=== PATIENT | female | born 1995 | race Caucasian/White ===

== ENCOUNTER → 2019-02-09 10:23 | Outpatient (CLI) | payer BC, SELFPAY ==
--- NOTE | 2019-02-09 10:34 | MR_ITS ---
PROCEDURE: MR HEAD/BRAIN WO/W CON CLINICAL INDICATION: MIGRAINE WITHOUT AURA Constant headache with dizziness blurred vision nausea and fatigue COMPARISON: No exams were available for comparison TECHNIQUE: Routine multiplanar multi echo sequences are performed without and with gadolinium enhancement. FINDINGS: No midline shift, mass effect, intracranial hemorrhage, or hydrocephalus. No evidence of acute infarction. There is normal burton-white matter differentiation. The cerebellopontine angles, cerebellum, and brainstem have an unremarkable appearance. No enhancing lesions are evident. No areas of restricted diffusion or abnormal white matter signal intensity. The pituitary, corpus callosum, optic chiasm, and craniocervical junction are unremarkable. No cerebellar ectopia. No mastoid effusion or sinus air-fluid level. Mild mucosal thickening of the ethmoid sinuses nonspecific. Unremarkable appearing orbits IMPRESSION: Negative MRI of the brain without and with contrast Dictated by: Calin Carvalho MD 02/10/2019 10:49 Electronically signed by Calin Carvalho MD in [place] 02/10/2019 10:49
== END ==
PROVIDERS: PCP Nurse Practitioner; Visit Provider Nurse Practitioner
DX: G43.009 Migraine without aura, not intractable, without status migrainosus (principal)
CPT/HCPCS: 70553; A9576

== ENCOUNTER 2019-10-03 14:36 | Emergency (ER) | payer BC, SELFPAY ==
[2019-10-03 14:36] VITALS: BP 147/83; PULSE 86; RESP 18; TEMP 36.9; O2SAT 97; BMI 37.8
--- NOTE | 2019-10-03 14:43 | ECG_ITS ---
APPROVED REPORT Exam: Resting ECG HR:85 bpm ECG Measurements Heart Rate 85 AXES UT 170 P 48 QRSd 82 QRS 52 QT 360 T 50 QTc 428 <Conclusion> Normal sinus rhythm Normal ECG Electronically signed by : Wan Oliva, 10/04/2019 06:44:45
--- NOTE | 2019-10-03 14:45 | XR_ITS ---
PROCEDURE: XR CHEST 2V Patient Age:24Y CLINICAL HISTORY: CP chest pain for the past few hours but nonsmoker. COMPARISON: CXR CHEST(2 VIEWS-NOT PORTABLE) from 12/22/2013 FINDINGS: PA and lateral chest performed today No significant change since previous comparison chest film December 2013.. The lungs well expanded clear. No pneumothorax, no pleural effusion. Subtle prominence of lung and markings and vascular markings right infrahilar > left infrahilar region is similar to previous studies. There is slight elevation right hemidiaphragm today suspect a may be some minor atelectasis right lower lobe but no convincing focal pneumonia. No CHF. The heart is normal in size. Jessica and mediastinal structures satisfactory. Chest wall in T-spine appear stable, satisfactory. . IMPRESSION: Nothing definitely acute. Basically stable chest since 2013 Dictated by: Paulo Horn MD 10/03/2019 20:48 Electronically signed by Paulo Horn MD in [place] 10/03/2019 20:48
[2019-10-03 15:01] LABS: Basophils # 0.1 K/mm3 (0-0.2); Basophils % 0.8 % (0.1-2.0); Eosinophils # 0.3 K/mm3 (0.0-0.4); Hemoglobin 15.9 g/dL (12.2-16.2); Lymphocytes # 2.2 K/mm3 (0.7-4.5); Lymphocytes % 27.6 % (10-50); Mean Corpuscular HGB Conc 34.5 g/dL (31.8-35.4); Mean Corpuscular Hemoglobin 29.7 pg (27.0-31.2); Mean Corpuscular Volume 86.1 fl (81-99); Mean Platelet Volume 8.2 fl (7.4-10.4); Monocytes # 0.7 K/mm3 (0.1-1.0); Monocytes % 8.6 % (1.7-9.3); Neutrophils # 4.7 K/mm3 (1.8-7.8); Platelet Count 313 K/mm3 (142-424); Red Blood Count 5.34 M/mm3 (4.20-5.40); Red Cell Distribution Width 12.6 % (11.5-17.5)
[2019-10-03 15:05] LABS: Microscopic, Urine URINE MICROSCOPIC (MICROSCOPIC)
[2019-10-03 15:08] LABS: Blood Urea Nitrogen 14 mg/dl (7-17); Calcium 9.7 mg/dl (8.4-10.2); Carbon Dioxide 28 mmol/L (22.0-30.0); Chloride 103 mmol/L (98-107); Creatinine Clearance Estimated 155 mL/min (50-200); Estimated Glomerular Filt Rate 88 ml/min (>60); GFR (African American) 107 ML/MIN (>60); Glucose 112 mg/dl (74-100); Sodium 138 mmol/L (136-145)
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
[2019-10-03 15:09] LABS: Appearance,Urine CLEAR (Clear); Bilirubin,Urine Negative (Negative); Blood, Urine 3+ (Negative); Color,Urine YELLOW (Yellow); Glucose,Urine (UA) Negative (Negative); Ketones,Urine Negative (Negative); Leukocyte Esterase,Urine 1+ (Negative); Nitrate,Urine Negative (Negative); PH,Urine 5.5 (5.0-8.5); Protein,Urine Negative (Negative); Specific Gravity, Urine 1.025 (1.005-1.030); Urobilinogen,Urine 0.2 EU/dl (0.2)
[2019-10-03 15:10] LABS: Urine Pregnancy, HCG Qual. Negative (Negative)
[2019-10-03 15:22] LABS: Troponin I < 0.01 ng/ml (0.00-0.034)
--- NOTE | 2019-10-03 15:28 | PC.NURSE ---
PT TO RAD
--- NOTE | 2019-10-03 15:32 | PC.NURSE ---
PT HAS RETURNED FROM RAD
[2019-10-03 15:37] LABS: Amorphous Sediment,Urine 1+ /lpf; Squamous Epithelial Cell,Urine Occasional #/hpf (0-5)
[2019-10-03 16:07] VITALS: BP 123/75; PULSE 74; RESP 16; TEMP 36.7; O2SAT 98
== END 2019-10-03 16:12 | disposition home or self-care (01) ==
PROVIDERS: Emergency Provider Family Medicine; PCP Nurse Practitioner
DX: F41.0 Panic disorder [episodic paroxysmal anxiety] (principal); Z91.040 Latex allergy status; Z88.5 Allergy status to narcotic agent; Z90.49 Acquired absence of other specified parts of digestive tract
CPT/HCPCS: 71046; 80048; 81001; 81025; 84484; 85025; 87086; 93005; 96374; 99283

== ENCOUNTER 2019-10-08 18:35 | Emergency (ER) | payer BC, SELFPAY ==
[2019-10-08 18:36] VITALS: BP 137/96; PULSE 101; RESP 20; TEMP 36.7; O2SAT 98; BMI 35.9
--- NOTE | 2019-10-08 18:36 | ECG_ITS ---
APPROVED REPORT Exam: Resting ECG HR:98 bpm ECG Measurements Heart Rate 98 AXES NC 164 P 48 QRSd 82 QRS 76 QT 344 T 49 QTc 439 <Conclusion> Normal sinus rhythm Normal ECG Electronically signed by : Josué Kent, 10/12/2019 08:52:00
--- NOTE | 2019-10-08 18:43 | XR_ITS ---
PROCEDURE: XR CHEST 2V CLINICAL HISTORY: INTERMITTENT CP COMPARISON: No exams were available for comparison FINDINGS: The cardiomediastinal silhouette and pulmonary vascularity are within normal limits. The lungs are clear without infiltrates, suspicious nodules, or pleural effusions. No acute bony abnormalities. IMPRESSION: No acute findings. Dictated by: Calin Carvalho MD 10/08/2019 19:35 Electronically signed by Calin Carvalho MD in [place] 10/08/2019 19:35
--- NOTE | 2019-10-08 19:31 | HMH.EDANX ---
ED Disposition Clinical Impression: Acute anxiety, Hyperventilation Disposition: Home, Self-Care Condition on Discharge: Good Instructions: Anxiety Disorders, Yoga May Help Reduce Anxiety and Stress Additional Instructions: Please follow-up with primary care physician to get a fasting cholesterol screen done and further management. Referrals: Linnea Ellington APRN [Primary Care Provider] - - Critical Care Critical Care Time: No Attestation: On 10/08/19, the high probability of a clinically significant, sudden or life threatening deterioration of the following system(s) required my full and direct attention, intervention and personal management. The time I documented below is in addition to time spent performing reported procedures but includes the following listed in this critical care notation. Medical Decision Making - Medical Records Medical records reviewed: Yes: I reviewed the patient's medical records. - Gregorio Inquiry Pt receiving controlled substance: No Vital Signs: 10/08/19 18:36 Temperature 98.1 F Temperature Source Oral Pulse Rate [Right Radial] 101 H Respiratory Rate 20 Blood Pressure [Right Arm] 137/96 H Blood Pressure Mean [Right Arm] 109 Blood Pressure Source [Right Arm] Automatic Cuff Blood Pressure Position [Right Arm] Sitting 02 Sat by Pulse Oximetry 98 Oxygen Delivery Method Room Air Orders (Tests/Meds): ED MEDICATIONS Generic Name Dose Route Start Last Admin Trade Name Freq PRN Reason Stop Dose Admin Sodium Chloride 10 ml 10/08/19 18:51 Sodium Chloride 0.9% 10ml Vial IV 11/07/19 18:50 NEEDED PRN to Dilute Lorazepam inj Sodium Chloride 10 ml 10/08/19 18:51 Sodium Chloride 0.9% 10ml Vial IV 11/07/19 18:50 NEEDED PRN dilute protonix Discontinued Medications Generic Name Dose Route Start Last Admin Trade Name Freq PRN Reason Stop Dose Admin Lorazepam 1 mg 10/08/19 18:51 Ativan 2mg/Ml Vial IV 10/08/19 18:52 ONCE ONE Pantoprazole Sodium 40 mg 10/08/19 18:51 Protonix 40mg Vial IV 10/08/19 18:52 ONCE ONE ORDERS Category Date Time Status Chest XR 2 view (NOT portable) [XR chest 2V] Stat Exams 10/08/19 18:43 Taken Anxiety HPI - General Chief Complaint: Anxiety Stated Complaint: ANXIETY Time Seen by Provider: 10/08/19 19:31 Mode of Arrival: Ambulatory Limitations: No Limitations Description of Symptoms (Recalled from ER Triage Doc. by RN): PT C/O INTERMITTENT CP WITH LAWRENCE AND DIZZINESS THAT HAS BEEN PRESENT SINCE HER VISIT HERE IN THE ED THIS PAST WEEKEND. PT STATES THAT SHE WAS DX WITH ANXIETY. - History of Present Illness HPI narrative: 24-year-old female presents the ED complaining of acute substernal chest pain. She describes a sense of impending doom and chest pressure. She was just here a few days ago and diagnosed with anxiety after cardiac work-up was perfectly normal. Patient does not have any cardiac history no IV drug use history and her exam was perfectly normal last time she was here. Otherwise patient has no other complaints. She stated this just happened again around 30 minutes ago she does not complain of any stress going on in her life she works at a local [employer]. - Related Data Home Medications: Previous Rx's Medication Instructions Recorded Ibuprofen [Ibuprofen 600mg 600 mg PO Q6HP PRN #30 tab 01/26/19 Tablet] Promethazine HCl [Phenergan 25mg 25 mg PO Q6H PRN #20 tab 01/26/19 tab] hydrOXYzine pamoate [Vistaril 25mg 25 mg PO Q6H PRN 10 Days #30 cap 10/03/19 capsule] Allergies/Adverse Reactions: Allergies Allergy/AdvReac Type Severity Reaction Status Date / Time latex [LATEX] Allergy Intermediate I-RASH Verified 04/23/18 08:53 hydrocodone [HYDROCODONE] Allergy Mild Verified 04/23/18 08:53 [facility] History - Hepatitis A Screen Drug use history?: No High risk sexual behaviors?: No History of sexually transmitted infection?: No Saqib
[2019-10-08 19:54] VITALS: BP 158/102; PULSE 99; RESP 16; TEMP 36.7; O2SAT 99
== END 2019-10-08 19:56 | disposition home or self-care (01) ==
PROVIDERS: Emergency Provider Family Medicine; PCP Nurse Practitioner
DX: F41.9 Anxiety disorder, unspecified (principal); R06.4 Hyperventilation; Z91.040 Latex allergy status
CPT/HCPCS: 71046; 93005; 99282

== ENCOUNTER → 2019-11-18 12:17 | Outpatient (CLI) | payer BC, SELFPAY | PROVIDERS: PCP Nurse Practitioner; Visit Provider Internal Medicine Cardiovascular Disease | DX: R07.9 Chest pain, unspecified (principal); E66.9 Obesity, unspecified | CPT/HCPCS: 93306 ==

== ENCOUNTER 2020-08-05 06:37 | Emergency (ER) | payer BC, SELFPAY ==
[2020-08-05 06:38] VITALS: BMI 37.8
[2020-08-05 06:49] VITALS: BP 158/93; PULSE 94
[2020-08-05 06:51] VITALS: BP 158/93; PULSE 95; RESP 16; TEMP 37.1; O2SAT 95; BMI 36.8
[2020-08-05 06:53] LABS: Microscopic, Urine URINE MICROSCOPIC (MICROSCOPIC)
[2020-08-05 06:56] LABS: Appearance,Urine CLEAR (Clear); Bilirubin,Urine Negative (Negative); Blood, Urine Negative (Negative); Color,Urine YELLOW (Yellow); Glucose,Urine (UA) Negative (Negative); Ketones,Urine Negative (Negative); Leukocyte Esterase,Urine Negative (Negative); Nitrate,Urine Negative (Negative); PH,Urine 5.5 (5.0-8.5); Protein,Urine Negative (Negative); Specific Gravity, Urine >= 1.030 (1.005-1.030); Urobilinogen,Urine 0.2 EU/dl (0.2)
[2020-08-05 06:58] LABS: Urine Pregnancy, HCG Qual. Negative (Negative)
--- NOTE | 2020-08-05 06:58 | XR_ITS ---
PROCEDURE: XR PELVIS 1-2V CLINICAL INDICATION: fall Posttraumatic pain COMPARISON: No exams were available for comparison TECHNIQUE: XR Pelvis AP View FINDINGS: No fracture or dislocation is evident. No significant degenerative change. Suture line is present in the right lower quadrant IMPRESSION: No acute findings. Dictated by: Calin Carvalho MD 08/05/2020 07:37 Calin Carvalho MD in [place] 08/05/2020 07:37
--- NOTE | 2020-08-05 06:58 | CT_ITS ---
PROCEDURE: CT LUMBAR SPINE WO CON CLINICAL HISTORY: fall Posttraumatic pain COMPARISON: CT ABDPELW/O CT ABD PELVIS W/O CONTRAST from 03/28/2016 TECHNIQUE: Axial images obtained with sagittal and coronal reformats. All CT scans at the facility use one or more dose reduction, viz: automated exposure control, ma/kV adjustment per patient size (including targeted exams where dose is matched to indication, i.e. head), or iterative reconstruction technique. FINDINGS: Normal alignment. There is a faint lucency through the tip of the transverse process of L2 on the right. No overlying soft tissue stranding. This could be due to ununited ossification center or a nondisplaced fracture. Mild bulging disc at L5-S1. Spina bifida occulta at S1. IMPRESSION: Nondisplaced fracture at the tip of the spinous process of L2 versus ununited ossification center. Dictated by: Calin Carvalho MD 08/05/2020 08:19 Calin Carvalho MD in [place] 08/05/2020 08:19
--- NOTE | 2020-08-05 06:58 | CT_ITS ---
PROCEDURE: CT COCCYX CLINICAL INDICATION: fall Posttraumatic pain COMPARISON: No exams were available for comparison TECHNIQUE: Axial images obtained with sagittal and coronal reformats. All CT scans at the facility use one or more dose reduction, viz: automated exposure control, ma/kV adjustment per patient size (including targeted exams where dose is matched to indication, i.e. head), or iterative reconstruction technique. FINDINGS: Spina bifida occulta at S1. Nondisplaced fracture involves the distal aspect of the coccyx. There is minimal thickening of the presacral at this region. SI joints have an unremarkable appearance. There is mild bulging of the disc at L5-S1. IMPRESSION: Nondisplaced coccyx fracture Dictated by: Calin Carvalho MD 08/05/2020 08:10 Calin Carvalho MD in [place] 08/05/2020 08:10
[2020-08-05 07:00] VITALS: BP 154/83; PULSE 95; O2SAT 98
[2020-08-05 07:09] LABS: Bacteria,Urine Trace /lpf; WBC,Urine Occasional #/hpf (0-3)
[2020-08-05 07:56] VITALS: BP 149/97; PULSE 88
--- NOTE | 2020-08-05 08:09 | HMH.EDGENADL ---
ED Disposition Clinical Impression: Fracture of coccyx Qualifiers: Encounter type: initial encounter Fracture type: closed Qualified Code(s): S32.2XXA - Fracture of coccyx, initial encounter for closed fracture Disposition: Home, Self-Care Condition on Discharge: Good Instructions: DI for Coccyx Fracture Additional Instructions: ice and see pcp for follow up Prescriptions: Ketorolac Tromethamine [Toradol 10mg tablet] 10 mg PO Q6H 3 Days #12 tab Transmission Status: Pending to [facility] Referrals: Linnea Ellington APRN [Primary Care Provider] - - Critical Care Critical Care Time: No Attestation: On 08/05/20, the high probability of a clinically significant, sudden or life threatening deterioration of the following system(s) required my full and direct attention, intervention and personal management. The time I documented below is in addition to time spent performing reported procedures but includes the following listed in this critical care notation. Medical Decision Making - Medical Records Medical records reviewed: Yes: I reviewed the patient's medical records. - Gregorio Inquiry Pt receiving controlled substance: No Vital Signs: 08/05/20 06:49 08/05/20 06:51 08/05/20 07:00 Temperature 98.7 F Temperature Source Oral Pulse Rate 94 H 95 H Pulse Rate [Right] 95 H Respiratory Rate 16 Blood Pressure 158/93 H 154/83 H Blood Pressure [Right Arm] 158/93 H Blood Pressure Mean 117 109 Blood Pressure Mean [Right Arm] 114 Blood Pressure Source [Right Arm] Automatic Cuff Blood Pressure Position [Right Arm] Sitting 02 Sat by Pulse Oximetry 95 98 Oxygen Delivery Method Room Air 08/05/20 07:56 Temperature Temperature Source Pulse Rate 88 Pulse Rate [Right] Respiratory Rate Blood Pressure 149/97 H Blood Pressure [Right Arm] Blood Pressure Mean 111 Blood Pressure Mean [Right Arm] Blood Pressure Source [Right Arm] Blood Pressure Position [Right Arm] 02 Sat by Pulse Oximetry Oxygen Delivery Method - Lab Data Lab results reviewed: Yes: I reviewed the patient's lab results. Lab Results 08/05/20 06:40: Urine Color Yellow, Urine Appearance Clear, Urine pH 5.5, Ur Specific [place] >= 1.030, Urine Protein Negative, Urine Glucose (UA) Negative, Urine Ketones Negative, Urine Blood Negative, Urine Nitrate Negative, Urine Bilirubin Negative, Urine Urobilinogen 0.2, Ur Leukocyte Esterase Negative, Urine RBC None, Urine WBC Occasional, Ur Squamous Epith Cells 3-5, Urine Bacteria Trace 08/05/20 06:40: Urine HCG, Qual Negative Orders (Tests/Meds): ED MEDICATIONS Discontinued Medications Generic Name Dose Route Start Last Admin Trade Name Juanjose PRN Reason Stop Dose Admin Dexamethasone Sodium Phosphate 8 mg 08/05/20 08:08 Dexamethasone 4mg/Ml 5ml Mdv IM 08/05/20 08:09 ONCE ONE Ketorolac Tromethamine 60 mg 08/05/20 08:07 Ketorolac 60mg/2ml Vial IM 08/05/20 08:08 ONCE ONE ORDERS Category Date Time Status CT coccyx Stat Cat Scan 08/05/20 06:[address] lumbar spine wo con Stat Cat Scan 08/05/20 06:58 Taken - CT Data CT Scan: Abdomen, Pelvis Time Received: 08:[address] Reviewed: Yes: I have viewed the radiologist's interpretation Preliminary Findings: Abnormal (acute fracture coccyx ) Medical Decision Narrative: coccyx fracture and will use nsaif General Adult HPI - General Chief complaint: PAIN Stated complaint: Pain at bottom of spine;tailbone fell last week Time Seen by Provider: 08/05/20 07:30 Mode of Arrival: Ambulatory Source of Information: Patient, Medical Record Limitations: No Limitations Description of Symptoms (Recalled from ER Triage Doc. by RN): Pt fell down her steps about a week ago and continues to have pain to her tailbone. denies head injury or LOC - History of Present Illness HPI narrative: slip fall about 1 week ago with injury to tailbone - seen at [place] - has persistent pain Onse
[2020-08-05 08:31] VITALS: BP 158/97; PULSE 81; RESP 18; TEMP 36.6; O2SAT 98
== END 2020-08-05 08:30 | disposition home or self-care (01) ==
PROVIDERS: Emergency Provider Emergency Medicine; PCP Nurse Practitioner
DX: S32.2XXA Fracture of coccyx, initial encounter for closed fracture (principal); W10.9XXA Fall (on) (from) unspecified stairs and steps, initial encounter; Y92.9 Unspecified place or not applicable; F41.9 Anxiety disorder, unspecified; Z88.5 Allergy status to narcotic agent; Z91.040 Latex allergy status
CPT/HCPCS: 72131; 72170; 72192; 81001; 81025; 99282

== ENCOUNTER 2020-08-08 18:31 | Emergency (ER) | payer BC, SELFPAY ==
[2020-08-08 18:31] VITALS: BP 118/73; PULSE 106; RESP 18; TEMP 36.8; O2SAT 97; BMI 36.8
--- NOTE | 2020-08-08 18:35 | PC.NURSE ---
TRISTON SHAFER spoke with Dr. Tyler at this time
[2020-08-08 19:16] LABS: Basophils # 0.1 K/mm3 (0-0.2); Basophils % 0.4 % (0.1-2.0); Eosinophils # 0.1 K/mm3 (0.0-0.4); Eosinophils % 0.3 % (0.1-12.0); Hematocrit 48.5 % (37.0-47.0); Hemoglobin 16.4 g/dL (12.2-16.2); Lymphocytes # 4.1 K/mm3 (0.7-4.5); Lymphocytes % 18.2 % (10-50); Mean Corpuscular HGB Conc 33.8 g/dL (31.8-35.4); Mean Corpuscular Hemoglobin 29.7 pg (27.0-31.2); Mean Corpuscular Volume 87.7 fl (81-99); Mean Platelet Volume 8.3 fl (7.4-10.4); Monocytes # 1.8 K/mm3 (0.1-1.0); Monocytes % 7.9 % (1.7-9.3); Neutrophils # 16.6 K/mm3 (1.8-7.8); Neutrophils % 73.3 % (37.0-80.0); Platelet Count 351 K/mm3 (142-424); Red Blood Count 5.53 M/mm3 (4.20-5.40); Red Cell Distribution Width 12.9 % (11.5-17.5); White Blood Count 22.7 K/mm3 (4.8-10.8)
[2020-08-08 19:18] LABS: Chloride 106 mmol/L (98-107); MANUAL DIFFERENTIAL MANUAL DIFFERENTIAL (MANUAL DIFF); Potassium 3.6 mmoL/L (3.5-5.1); Sodium 145 mmol/L (136-145)
[2020-08-08 19:20] LABS: Alanine Aminotransferase 45 U/L (12-78); Alkaline Phosphatase 75 U/L (38-126); Anion Gap 15.6 mEq/L (5-15); Aspartate Amino Transferase 31 U/L (14-36); Bilirubin,Total 0.5 mg/dl (0.2-1.3); Blood Urea Nitrogen 17 mg/dl (7-17); Carbon Dioxide 27 mmol/L (22.0-30.0); Creatinine Clearance Estimated 150 mL/min (50-200); Estimated Glomerular Filt Rate 87 ml/min (>60); GFR (African American) 106 ML/MIN (>60)
[2020-08-08 19:21] LABS: Albumin Level 5.3 g/dl (3.5-5.0); Albumin/Globulin Ratio 1.5 (1.1-1.8); Calcium 10.3 mg/dl (8.4-10.2); Globulin 3.5 g/dL (1.3-3.2); Glucose 128 mg/dl (74-100); Total Protein,Serum 8.8 g/dl (6.3-8.2)
[2020-08-08 19:43] LABS: Lymphocytes % 14 % (10-50); Monocytes % 10 % (2-9); Neutrophils % 76 % (42-76); Platelet Estimate Normal; Total Cells Counted 100
[2020-08-08 19:44] LABS: RBC Morphology Normal
[2020-08-08 20:12] LABS: Microscopic, Urine URINE MICROSCOPIC (MICROSCOPIC)
[2020-08-08 20:13] LABS: Appearance,Urine CLEAR (Clear); Bilirubin,Urine Negative (Negative); Blood, Urine Negative (Negative); Color,Urine YELLOW (Yellow); Glucose,Urine (UA) Negative (Negative); Ketones,Urine Negative (Negative); Leukocyte Esterase,Urine TRACE (Negative); Nitrate,Urine Negative (Negative); PH,Urine 6.5 (5.0-8.5); Protein,Urine Negative (Negative); Specific Gravity, Urine 1.025 (1.005-1.030)
[2020-08-08 20:21] LABS: Lactic Acid 1.4 mmol/L (0.7-2.1)
[2020-08-08 20:25] LABS: Bacteria,Urine 2+ /lpf
[2020-08-08 20:26] LABS: C-Reactive Protein 2.4 mg/L (0-4)
[2020-08-08 20:27] VITALS: BP 112/62; PULSE 106; O2SAT 100
--- NOTE | 2020-08-08 20:29 | XR_ITS ---
PROCEDURE: XR CHEST 2V CLINICAL HISTORY: fever with high WBC COMPARISON: CR CXR CHEST(2 VIEWS-NOT PORTABLE) from 12/22/2013 CR XR CHEST 2V from 10/03/2019 CR XR CHEST 2V from 10/08/2019 FINDINGS: The cardiomediastinal silhouette and pulmonary vascularity are within normal limits. There is a faint patchy area of increased density in the left upper lobe at the 2nd interspace anteriorly which could be related to a small area of infiltrate. No acute bony abnormalities. IMPRESSION: Possible small patchy area of infiltrate in the left upper Dictated by: Calin Carvalho MD 08/09/2020 05:31 Calin Carvalho MD in [place] 08/09/2020 05:31
[2020-08-08 20:38] LABS: Procalcitonin 0.064 ng/mL (0.0-2.0)
[2020-08-08 20:44] LABS: Erythrocyte Sedimentation Rate 16 mm/hr (0-20)
--- NOTE | 2020-08-08 22:21 | PC.NURSE ---
2215 spoke with walt at [facility] regarding obtaining medical records for this pt from 08/07/2020. she stated would send records .
--- NOTE | 2020-08-08 22:22 | HMH.EDALLER ---
ED Disposition Clinical Impression: Allergic reaction Qualifiers: Encounter type: subsequent encounter Qualified Code(s): T78.40XD - Allergy, unspecified, subsequent encounter Leukocytosis Qualifiers: Leukocytosis type: unspecified Qualified Code(s): D72.829 - Elevated white blood cell count, unspecified Disposition: Home, Self-Care Condition on Discharge: Good Instructions: DI for General Allergic Reactions Additional Instructions: see pcp and program services planner for follow up Referrals: Linnea Ellington APRN [Primary Care Provider] - Master Roa [Referring] - - Critical Care Critical Care Time: No Attestation: On 08/08/20, the high probability of a clinically significant, sudden or life threatening deterioration of the following system(s) required my full and direct attention, intervention and personal management. The time I documented below is in addition to time spent performing reported procedures but includes the following listed in this critical care notation. Medical Decision Making - Medical Records Medical records reviewed: Yes: I reviewed the patient's medical records. - Gregorio Inquiry Pt receiving controlled substance: No Vital Signs: 08/08/20 18:31 08/08/20 20:27 Temperature 98.3 F Temperature Source Oral Pulse Rate 106 H Pulse Rate [Right Radial] 106 H Respiratory Rate 18 Blood Pressure 112/62 Blood Pressure [Right Arm] 118/73 Blood Pressure Mean 82 Blood Pressure Mean [Right Arm] 88 Blood Pressure Source [Right Arm] Automatic Cuff Blood Pressure Position [Right Arm] Sitting 02 Sat by Pulse Oximetry 97 100 Oxygen Delivery Method Room Air - Lab Data Lab results reviewed: Yes: I reviewed the patient's lab results. Lab Results 08/08/20 18:30: ESR 16 08/08/20 18:30: C-Reactive Protein 2.4, Procalcitonin 0.064 08/08/20 18:32: WBC 22.7 H*, RBC 5.53 H, Hgb 16.4 H, Hct 48.5 H, MCV 87.7, MCH 29.7, MCHC 33.8, RDW 12.9, Plt Count 351, MPV 8.3, Neut % (Auto) 73.3, Lymph % (Auto) 18.2, [place] % (Auto) 7.9, Eos % (Auto) 0.3, Baso % (Auto) 0.4, Neut # (Auto) 16.6 H, Lymph # (Auto) 4.1, [place] # (Auto) 1.8 H, Eos # (Auto) 0.1, Baso # (Auto) 0.1, Total Counted 100, Neutrophils % (Manual) 76, Lymphocytes % (Manual) 14, Monocytes % (Manual) 10 H, Platelet Estimate Normal, RBC Morphology Normal 08/08/20 18:32: Sodium 145, Potassium 3.6, Chloride 106, Carbon Dioxide 27, Anion Gap 15.6 H, BUN 17, Creatinine 0.80, Estimated Creat Clear 150, Estimated GFR 87, Est GFR ( Amer) 106, Glucose 128 H, Calcium 10.3 H, Total Bilirubin 0.5, AST 31, ALT 45, Alkaline Phosphatase 75, Total Protein 8.8 H, Albumin 5.3 H, Globulin 3.5 H, Albumin/Globulin Ratio 1.5 08/08/20 19:55: Urine Color Yellow, Urine Appearance Clear, Urine pH 6.5, Ur Specific [place] 1.025, Urine Protein Negative, Urine Glucose (UA) Negative, Urine Ketones Negative, Urine Blood Negative, Urine Nitrate Negative, Urine Bilirubin Negative, Urine Urobilinogen 1.0, Ur Leukocyte Esterase Trace, Urine RBC None, Urine WBC 5-10, Ur Squamous Epith Cells 10-20, Urine Bacteria 2+ 08/08/20 19:55: Lactate 1.4 Result diagrams: 08/08/20 18:32 08/08/20 18:32 Orders (Tests/Meds): ED MEDICATIONS Generic Name Dose Route Start Last Admin Trade Name Freq PRN Reason Stop Dose Admin Sodium Chloride 1,000 mls @ 999 mls/hr 08/08/20 20:30 08/08/20 20:28 Sod Chlor 0.9% 1000ml Bag IV 08/08/20 21:30 999 mls/hr .Q1H1M HUNG Administration ORDERS Category Date Time Status Chest XR 2 view (NOT portable) [XR chest 2V] Stat Exams 08/08/20 20:29 Taken Blood Culture Stat Micro 08/08/20 19:55 Received Urine Culture Stat Micro 08/08/20 19:55 Received - Radiology Data #1 Image(s): Chest Image Reviewed: Yes I reviewed the patient's radiology image Preliminary Findings: Normal/NAD Allergic React/Insect Bite HPI - General Chief complaint: Allergic Reaction Stated complaint: possible allergic reaction Time Seen by Provider: 08/08/20 20:4
[2020-08-08 23:09] VITALS: BP 121/74; PULSE 87; RESP 16; TEMP 36.9; O2SAT 99
== END 2020-08-08 23:11 | disposition home or self-care (01) ==
PROVIDERS: Emergency Medicine; Emergency Provider Emergency Medicine; PCP Nurse Practitioner
DX: T78.40XA Allergy, unspecified, initial encounter (principal); D72.829 Elevated white blood cell count, unspecified; Z91.040 Latex allergy status; Z88.5 Allergy status to narcotic agent; F41.9 Anxiety disorder, unspecified
CPT/HCPCS: 71046; 80053; 81001; 83605; 84145; 85007; 85025; 85651; 86140; 87040; 87086; 99283

== ENCOUNTER 2020-08-17 17:24 | Emergency (ER) | payer OTHER, SELFPAY ==
[2020-08-17 17:35] VITALS: BP 133/58; PULSE 101; RESP 18; TEMP 36.7; O2SAT 98; BMI 37.2
--- NOTE | 2020-08-17 17:41 | CT_ITS ---
PROCEDURE: CT LUMBAR SPINE WO CON CLINICAL HISTORY: trauma COMPARISON: CT CT LUMBAR SPINE WO CON from 08/05/2020 TECHNIQUE: Axial images obtained with sagittal and coronal reformats. All CT scans at the facility use one or more dose reduction, viz: automated exposure control, ma/kV adjustment per patient size (including targeted exams where dose is matched to indication, i.e. head), or iterative reconstruction technique. FINDINGS: The vertebral body heights and alignment are maintained. The facet joints articulate normally without evidence of jumped facets. Bone density is within normal limits. No significant degenerative changes. Multilevel minor disc bulges noted without evidence of significant canal or foraminal narrowing at multiple levels. There is mild cortical irregularity of the right L2 transverse process, may represent an undisplaced fracture as noted on the prior study. There is comminuted undisplaced fracture of the tip of the coccyx is noted. Minor associated soft tissue swelling is noted. No significant callus formation is noted. IMPRESSION: Comminuted undisplaced fracture of the tip of the coccyx. Adjacent minor associated soft tissue swelling. Other findings are unchanged. Dictated by: Angy Gray 08/18/2020 08:22 Angy Gray in [place] 08/18/2020 08:22
--- NOTE | 2020-08-17 18:02 | HMH.EDBACK ---
ED Disposition Clinical Impression: Strain of lumbar region Qualifiers: Encounter type: initial encounter Qualified Code(s): S39.012A - Strain of muscle, fascia and tendon of lower back, initial encounter Disposition: Home, Self-Care Condition on Discharge: Good Instructions: DI for Low Back Pain Referrals: Linnea Ellington APRN [Primary Care Provider] - - Critical Care Critical Care Time: No Attestation: On 08/17/20, the high probability of a clinically significant, sudden or life threatening deterioration of the following system(s) required my full and direct attention, intervention and personal management. The time I documented below is in addition to time spent performing reported procedures but includes the following listed in this critical care notation. Medical Decision Making - Medical Records Medical records reviewed: Yes: I reviewed the patient's medical records. - Gregorio Inquiry Pt receiving controlled substance: No Vital Signs: 08/17/20 17:35 Temperature 98.1 F Temperature Source Oral Pulse Rate [Right] 101 H Respiratory Rate 18 Blood Pressure [Right Arm] 133/58 L Blood Pressure Mean [Right Arm] 83 02 Sat by Pulse Oximetry 98 Orders (Tests/Meds): ED MEDICATIONS Discontinued Medications Generic Name Dose Route Start Last Admin Trade Name Freq PRN Reason Stop Dose Admin Acetaminophen 1,000 mg 08/17/20 17:42 08/17/20 17:48 Acetaminophen 500mg Tab PO 08/17/20 17:43 1,000 mg ONCE ONE Administration ORDERS Category Date Time Status CT lumbar spine wo con Stat Cat Scan 08/17/20 17:41 Taken - CT Data CT Scan: L-Spine Time Received: 18:[address] Reviewed: Yes: I have reviewed the patient's CT results, I have viewed the radiologist's interpretation Findings Narrative: Old fracture of the coccyx, nondisplaced. Lumbar spine unremarkable - Reevaluation(s) Time: 18:47 Reevaluation #1: On reevaluation, patient is feeling better. There is no evidence of new acute fracture. Repeat examination is benign. No neuro deficit. No saddle anesthesia. Patient will continue her outpatient pain regimen. Given strict return precautions. Verbalized understanding. Medical Decision Narrative: 25-year-old female presented to the emergency department with low back pain. Imaging will be obtained. Back Pain HPI - General Chief Complaint: Back Pain/Injury Stated Complaint: Fell in shower; already fell recently Time Seen by Provider: 08/17/20 17:40 Mode of Arrival: Family Vehicle Limitations: No Limitations Description of Symptoms (Recalled from ER Triage Doc. by RN): PT C/O LOW BACK PAIN AND COCCYX PAIN AFTER FALLING IN SHOWER TODAY. PT REPORTS SHE HAS A KNOWN COCCYX FRACTURE THAT OCCURED TWO WEEKS AGO. PT DENIES ANY LOWER EXTREMITY NUMBNESS. - History of Present Illness HPI Narrative: This is a 25-year-old female presented to the emergency department with some back pain after a fall. The patient states that she accidentally slipped in the shower and fell onto her back. She is complaining of some lower back pain. Patient was seen here recently for similar issue she fell and broke her tailbone. She is concerned that she has reinjured it. She did not sustain any head trauma. No loss of consciousness. She denies any chest pain or shortness of breath. No headache or change in vision. No dysuria or hematuria. No fevers or chills. - Related Data Home Medications Medication Instructions Recorded Confirmed No Known Home Medications 08/08/20 08/08/20 Allergies Allergy/AdvReac Type Severity Reaction Status Date / Time latex [LATEX] Allergy Intermediate I-RASH Verified 11/25/19 13:28 hydrocodone [HYDROCODONE] Allergy Mild Verified 11/25/19 13:28 ketorolac Allergy Verified 08/08/20 22:58 [facility] History - Hepatitis A Screen Drug use history?: No High risk sexual behaviors?: No History of sexually transmitted infection?: No Currently employed?: No C
[2020-08-17 18:52] VITALS: BP 133/55; PULSE 78; RESP 16; TEMP 36.6; O2SAT 98
== END 2020-08-17 18:53 | disposition home or self-care (01) ==
PROVIDERS: Emergency Provider Emergency Medicine; PCP Nurse Practitioner
DX: S39.012A Strain of muscle, fascia and tendon of lower back, initial encounter (principal); S32.2XXD Fracture of coccyx, subsequent encounter for fracture with routine healing; W18.2XXA Fall in (into) shower or empty bathtub, initial encounter; Y92.012 Bathroom of single-family (private) house as the place of occurrence of the external cause; F41.9 Anxiety disorder, unspecified
CPT/HCPCS: 72131; 99282

== ENCOUNTER → 2020-09-05 15:21 | Outpatient (CLI) | payer OTHER, SELFPAY ==
--- NOTE | 2020-09-05 15:33 | MR_ITS ---
PROCEDURE: MR LUMBAR SPINE WO CON CLINICAL INDICATION: S/p fell down steps [id number] ago. Continued lbp with rt leg numbness. Pt has known coccyx fx. Prior CT 08/17/20. COMPARISON: MR MR HEAD/BRAIN WO/W CON from 02/09/[address] COCCYX from 08/05/2020 TECHNIQUE: Standard multiplanar multiecho sequences are performed without contrast. 3-D MIP and myelographic images are also rendered and reviewed FINDINGS: There is normal alignment. The spinal cord ends at the L1 level. No acute lumbar fracture evident. L1-L2: Unremarkable. L2-L3, L3-L4, and L4-5 has an unremarkable appearance. L5-S1: There is a small central disc protrusion with annular fissure and minimal disc desiccation. No neural impingement apparent. IMPRESSION: Minimal central disc protrusion with small annular fissure at L5-S1 otherwise negative Dictated by: Calin Carvalho MD 09/07/2020 12:15 Calin Carvalho MD in [place] 09/07/2020 12:15
== END ==
PROVIDERS: PCP Nurse Practitioner; Visit Provider Orthopaedic Surgery Adult Reconstructive Orthopaedic Surgery
DX: M54.5 Low back pain (principal)
CPT/HCPCS: 72148; 76376

== ENCOUNTER 2020-10-26 00:25 | Emergency (ER) | payer OTHER, SELFPAY ==
[2020-10-26 00:27] VITALS: BP 146/87; PULSE 111; RESP 17; TEMP 37.7; O2SAT 99; BMI 37.8
[2020-10-26 01:00] VITALS: BP 146/87; PULSE 93; O2SAT 97
[2020-10-26 01:30] VITALS: BP 136/93; PULSE 99; O2SAT 99
--- NOTE | 2020-10-26 01:37 | HMH.EDEAR ---
ED Disposition Clinical Impression: Otitis externa Qualifiers: Otitis externa type: swimmer's ear Chronicity: acute Laterality: right Qualified Code(s): H60.331 - Swimmer's ear, right ear Disposition: Home, Self-Care Condition on Discharge: Good Instructions: DI for Otitis Externa Additional Instructions: use meds and stop augumentin - Prescriptions: levoFLOXacin [Levaquin 500mg tab] 500 mg PO DAILY #7 tab Transmission Status: Pending to [facility] predniSONE [Prednisone 20mg Tab] 20 mg PO BID #10 tab Transmission Status: [facility] Referrals: Linnea Ellington APRN [Primary Care Provider] - Miguel Alfaro MD [Staff Physician] - Master Roa [Referring] - - Critical Care Critical Care Time: No Attestation: On 10/26/20, the high probability of a clinically significant, sudden or life threatening deterioration of the following system(s) required my full and direct attention, intervention and personal management. The time I documented below is in addition to time spent performing reported procedures but includes the following listed in this critical care notation. Medical Decision Making - Medical Records Medical records reviewed: Yes: I reviewed the patient's medical records. - Gregorio Inquiry Pt receiving controlled substance: No Vital Signs: 10/26/20 00:27 10/26/20 01:00 10/26/20 01:30 Temperature 99.9 F H Temperature Source Oral Pulse Rate 93 H 99 H Pulse Rate [Right] 111 H Respiratory Rate 17 Blood Pressure 146/87 H 136/93 H Blood Pressure [Right Arm] 146/87 H Blood Pressure Mean [Right Arm] 106 Blood Pressure Source [Right Arm] Automatic Cuff 02 Sat by Pulse Oximetry 99 97 99 Oxygen Delivery Method Room Air 10/26/20 02:00 Temperature Temperature Source Pulse Rate 98 H Pulse Rate [Right] Respiratory Rate Blood Pressure 127/78 Blood Pressure [Right Arm] Blood Pressure Mean [Right Arm] Blood Pressure Source [Right Arm] 02 Sat by Pulse Oximetry 98 Oxygen Delivery Method - Lab Data Lab results reviewed: Yes: I reviewed the patient's lab results. Lab Results 10/26/20 01:30: WBC 14.3 H, RBC 5.44 H, Hgb 16.1, Hct 46.8, MCV 86.0, MCH 29.7, MCHC 34.5, RDW 12.7, Plt Count 331, MPV 8.3, Neut % (Auto) 69.8, Lymph % (Auto) 19.5, Harding % (Auto) 8.1, Eos % (Auto) 1.9, Baso % (Auto) 0.7, Neut # (Auto) 10.0 H, Lymph # (Auto) 2.8, [place] # (Auto) 1.2 H, Eos # (Auto) 0.3, Baso # (Auto) 0.1, ESR 18 10/26/20 01:30: Sodium 141, Potassium 3.6, Chloride 100, Carbon Dioxide 30, Anion Gap 14.6, BUN 6 L, Creatinine 0.90, Estimated Creat Clear 137, Estimated GFR 76, Est GFR ( Amer) 92, Glucose 97, Calcium 9.7, Total Bilirubin 1.0, AST 38 H, ALT 45, Alkaline Phosphatase 78, C-Reactive Protein 42.4 H, Total Protein 9.0 H, Albumin 5.2 H, Globulin 3.8 H, Albumin/Globulin Ratio 1.4, Procalcitonin 0.076 10/26/20 01:30: Serum HCG, Qual Negative Result diagrams: 10/26/20 01:30 10/26/20 01:30 Orders (Tests/Meds): ED MEDICATIONS Generic Name Dose Route Start Last Admin Trade Name Freq PRN Reason Stop Dose Admin Ceftriaxone Sodium 1 gm/ 50 mls @ 100 mls/hr 10/26/20 02:00 10/26/20 01:55 Sodium Chloride IV 11/09/20 01:59 100 mls/hr Q24H HUNG Administration Protocol Discontinued Medications Generic Name Dose Route Start Last Admin Trade Name Freq PRN Reason Stop Dose Admin Methylprednisolone Sodium Succinate 125 mg 10/26/20 01:52 10/26/20 01:55 Methylprednisolone Sod Succ 125mg Vial IV 10/26/20 01:53 125 mg ONCE ONE Administration Medical Decision Narrative: has ongoing issues with rt ear - not responding to augumentin Ear HPI - General Chief complaint: Ear Stated complaint: right earache Time Seen by Provider: 10/26/20 01:00 Mode of Arrival: Family Vehicle Source of Information: Patient, Medical Record Limitations: No Limitations Description of Symptoms (Recalled from ER Triage Doc. by RN): Pt
[2020-10-26 01:38] LABS: Basophils # 0.1 K/mm3 (0-0.2); Basophils % 0.7 % (0.1-2.0); Eosinophils # 0.3 K/mm3 (0.0-0.4); Eosinophils % 1.9 % (0.1-12.0); Hematocrit 46.8 % (37.0-47.0); Hemoglobin 16.1 g/dL (12.2-16.2); Lymphocytes # 2.8 K/mm3 (0.7-4.5); Lymphocytes % 19.5 % (10-50); Mean Corpuscular HGB Conc 34.5 g/dL (31.8-35.4); Mean Corpuscular Hemoglobin 29.7 pg (27.0-31.2); Mean Platelet Volume 8.3 fl (7.4-10.4); Monocytes # 1.2 K/mm3 (0.1-1.0); Monocytes % 8.1 % (1.7-9.3); Neutrophils % 69.8 % (37.0-80.0); Platelet Count 331 K/mm3 (142-424); Red Blood Count 5.44 M/mm3 (4.20-5.40); Red Cell Distribution Width 12.7 % (11.5-17.5); White Blood Count 14.3 K/mm3 (4.8-10.8)
[2020-10-26 01:45] LABS: Alanine Aminotransferase 45 U/L (12-78); Albumin Level 5.2 g/dl (3.5-5.0); Albumin/Globulin Ratio 1.4 (1.1-1.8); Alkaline Phosphatase 78 U/L (38-126); Anion Gap 14.6 mEq/L (5-15); Aspartate Amino Transferase 38 U/L (14-36); Blood Urea Nitrogen 6 mg/dl (7-17); Calcium 9.7 mg/dl (8.4-10.2); Carbon Dioxide 30 mmol/L (22.0-30.0); Chloride 100 mmol/L (98-107); Creatinine Clearance Estimated 137 mL/min (50-200); Estimated Glomerular Filt Rate 76 ml/min (>60); GFR (African American) 92 ML/MIN (>60); Globulin 3.8 g/dL (1.3-3.2); Glucose 97 mg/dl (74-100); Potassium 3.6 mmoL/L (3.5-5.1); Sodium 141 mmol/L (136-145)
[2020-10-26 01:50] LABS: C-Reactive Protein 42.4 mg/L (0-4)
[2020-10-26 02:00] VITALS: BP 127/78; PULSE 98; O2SAT 98
[2020-10-26 02:00] LABS: HCG Qualitative, Serum Negative (Negative)
[2020-10-26 02:04] LABS: Procalcitonin 0.076 ng/mL (0.0-2.0)
[2020-10-26 02:08] LABS: Erythrocyte Sedimentation Rate 18 mm/hr (0-20)
[2020-10-26 02:51] VITALS: BP 124/71; PULSE 90; RESP 16; TEMP 37.1; O2SAT 99
== END 2020-10-26 02:53 | disposition home or self-care (01) ==
PROVIDERS: Emergency Provider Emergency Medicine; PCP Nurse Practitioner
DX: H60.331 Swimmer's ear, right ear (principal); F41.9 Anxiety disorder, unspecified; Z91.040 Latex allergy status; Z88.5 Allergy status to narcotic agent
CPT/HCPCS: 80053; 84145; 84703; 85025; 85651; 86140; 96365; 96375; 99282

== ENCOUNTER → 2020-11-23 17:11 | Outpatient (CLI) | payer OTHER, SELFPAY ==
--- NOTE | 2020-11-23 17:14 | MR_ITS ---
PROCEDURE INFORMATION: Exam: MR Head Without Contrast Exam date and time: 11/23/2020 5:14 PM Age: 25 years old Clinical indication: Pain; Headache; Additional info: Unspecified optic neuritis. Headache. Blurred vision. No injury or trauma. Symtpoms x2wks. Prior MR 02-09-19 TECHNIQUE: Imaging protocol: MR of the head without contrast. COMPARISON: MR HEAD/BRAIN WO/W CON 02/09/2019 10:42 AM FINDINGS: Brain: No acute infarct. No hemorrhage. No significant white matter disease. No edema. Cerebral ventricles: No ventriculomegaly. Bones/joints: Unremarkable. Paranasal sinuses: Normal as visualized. No acute sinusitis. Mastoid air cells: Normal as visualized. No mastoid effusion. Orbital cavity: Unremarkable. Soft tissues: Unremarkable. IMPRESSION: No acute findings.
== END ==
PROVIDERS: PCP Nurse Practitioner; Visit Provider Nurse Practitioner Family
DX: H46.9 Unspecified optic neuritis (principal)
CPT/HCPCS: 70551

== ENCOUNTER 2020-12-20 22:03 | Emergency (ER) | payer OTHER, SELFPAY ==
[2020-12-20 22:12] VITALS: BP 136/93; PULSE 103; RESP 18; TEMP 36.8; O2SAT 98; BMI 42.5
--- NOTE | 2020-12-20 22:19 | CT_ITS ---
PROCEDURE INFORMATION: Exam: CT Pelvis Without Contrast; Skeletal Exam date and time: 12/20/2020 10:19 PM Age: 25 years old Clinical indication: Injury or trauma; Blunt trauma (contusions or hematomas); Bilateral; Pelvic region; Patient HX: Fall a few days ago, pain, HX of tailbone FX less than a year ago TECHNIQUE: Imaging protocol: Computed tomography images of the pelvis without contrast. Exam focused on the skeletal structures. 3D rendering (Not supervised by radiologist): MIP and/or 3D reconstructed images were created by the technologist. Radiation optimization: All CT scans at this facility use at least one of these dose optimization techniques: automated exposure control; mA and/or kV adjustment per patient size (includes targeted exams where dose is matched to clinical indication); or iterative reconstruction. COMPARISON: CT PELVIS WO CON 12/20/2020 11:02 PM FINDINGS: Bones/joints: There is no evidence of acute fracture. There is no evidence of joint malalignment or dislocation. Soft tissues: There are no soft tissue masses or fluid collections. IMPRESSION: 1. No evidence of acute fracture. 2. No evidence of acute dislocation.
--- NOTE | 2020-12-20 22:20 | XR_ITS ---
PROCEDURE INFORMATION: Exam: XR Chest Exam date and time: 12/20/2020 10:20 PM Age: 25 years old Clinical indication: Injury or trauma; Blunt trauma (contusions or hematomas); Patient HX: Fall a few days ago, pain, HX of tailbone FX less than a year ago TECHNIQUE: Imaging protocol: XR of the chest. Views: 1 view. COMPARISON: CR XR CHEST 2V 08/08/2020 8:30 PM FINDINGS: Lungs: Unremarkable. No consolidation. Pleural spaces: There is no evidence of pneumothorax. There are no pleural effusions present. Heart/Mediastinum: Unremarkable. No cardiomegaly. Diaphragm: There is nonspecific elevation of the right hemidiaphragm. Bones/joints: Unremarkable. IMPRESSION: No acute changes.
--- NOTE | 2020-12-20 22:20 | XR_ITS ---
PROCEDURE INFORMATION: Exam: XR Pelvis Exam date and time: 12/20/2020 10:20 PM Age: 25 years old Clinical indication: Injury or trauma; Blunt trauma (contusions or hematomas); Bilateral; Pelvic region; Patient HX: Fall a few days ago, pain, HX of tailbone FX less than a year ago TECHNIQUE: Imaging protocol: XR pelvis. Views: 1 or 2 view. COMPARISON: CR XR PELVIS 1-2V 08/05/2020 7:31 AM FINDINGS: Bones/joints: There is no evidence of acute fracture. There is no evidence of joint malalignment or dislocation. Soft tissues: There are no soft tissue masses or fluid collections. IMPRESSION: 1. No evidence of acute fracture. 2. No evidence of acute dislocation.
--- NOTE | 2020-12-20 22:22 | XR_ITS ---
PROCEDURE INFORMATION: Exam: XR Lumbosacral Spine Exam date and time: 12/20/2020 10:22 PM Age: 25 years old Clinical indication: Injury or trauma; Blunt trauma (contusions or hematomas); Patient HX: Fall a few days ago, pain, HX of tailbone FX less than a year ago TECHNIQUE: Imaging protocol: XR of the lumbosacral spine. Views: 4 or 5 views. COMPARISON: MR LUMBAR SPINE WO CON 09/05/2020 4:04 PM FINDINGS: Bones/joints: Normal. No acute fracture. Normal alignment. Soft tissues: Unremarkable. IMPRESSION: No acute findings.
--- NOTE | 2020-12-20 22:22 | XR_ITS ---
PROCEDURE INFORMATION: Exam: XR Sacrum and Coccyx, 2 or More Views Exam date and time: 12/20/2020 10:22 PM Age: 25 years old Clinical indication: Injury or trauma; Blunt trauma (contusions or hematomas); Patient HX: Fall a few days ago, pain, HX of tailbone FX less than a year ago TECHNIQUE: Imaging protocol: XR of the sacrum and coccyx, 2 or more views. COMPARISON: CR XR LUMBAR SPINE MIN 4V 12/20/2020 10:37 PM FINDINGS: Bones/joints: There is no evidence of acute fracture. There is no evidence of joint malalignment or dislocation. Soft tissues: There are no soft tissue masses or fluid collections. Mild soft tissue swelling. IMPRESSION: 1. No evidence of acute fracture. 2. No evidence of acute dislocation. 3. Mild soft tissue swelling.
--- NOTE | 2020-12-20 22:22 | CT_ITS ---
PROCEDURE INFORMATION: Exam: CT Pelvis Without Contrast; Skeletal Exam date and time: 12/20/2020 10:22 PM Age: 25 years old Clinical indication: Injury or trauma; Blunt trauma (contusions or hematomas); Bilateral; Pelvic region; Patient HX: Fall a few days ago, pain, HX of tailbone FX less than a year ago TECHNIQUE: Imaging protocol: Computed tomography images of the pelvis without contrast. Exam focused on the skeletal structures. 3D rendering (Not supervised by radiologist): MIP and/or 3D reconstructed images were created by the technologist. Radiation optimization: All CT scans at this facility use at least one of these dose optimization techniques: automated exposure control; mA and/or kV adjustment per patient size (includes targeted exams where dose is matched to clinical indication); or iterative reconstruction. COMPARISON: CT COCCYX 08/05/2020 7:14 AM FINDINGS: Bones/joints: There is no evidence of acute fracture. There is no evidence of joint malalignment or dislocation. Soft tissues: There are no soft tissue masses or fluid collections. IMPRESSION: 1. No evidence of acute fracture. 2. No evidence of acute dislocation.
[2020-12-20 22:24] LABS: Microscopic, Urine URINE MICROSCOPIC (MICROSCOPIC)
[2020-12-20 22:31] LABS: Urine Pregnancy, HCG Qual. Negative (Negative)
[2020-12-20 22:32] LABS: Appearance,Urine CLEAR (Clear); Bilirubin,Urine Negative (Negative); Blood, Urine Negative (Negative); Color,Urine YELLOW (Yellow); Glucose,Urine (UA) Negative (Negative); Ketones,Urine Negative (Negative); Leukocyte Esterase,Urine 3+ (Negative); Nitrate,Urine Negative (Negative); Protein,Urine Negative (Negative); Specific Gravity, Urine 1.025 (1.005-1.030); Urobilinogen,Urine 0.2 EU/dl (0.2)
--- NOTE | 2020-12-20 22:45 | PC.NURSE ---
pt gone to radiology.
[2020-12-20 22:50] LABS: Bacteria,Urine 4+ /lpf; WBC,Urine 50-100 #/hpf (0-3)
--- NOTE | 2020-12-20 23:35 | HMH.EDFALL ---
ED Disposition Clinical Impression: Contusion of coccyx Qualifiers: Encounter type: initial encounter Qualified Code(s): S30.0XXA - Contusion of lower back and pelvis, initial encounter Sprain of lumbar region Qualifiers: Encounter type: initial encounter Qualified Code(s): S33.5XXA - Sprain of ligaments of lumbar spine, initial encounter UTI (urinary tract infection) Qualifiers: Urinary tract infection type: site unspecified Hematuria presence: without hematuria Qualified Code(s): N39.0 - Urinary tract infection, site not specified Disposition: Home, Self-Care Condition on Discharge: Good Instructions: DI for Urinary Tract Infection (UTI) Additional Instructions: use meds and call pcp for culture results Prescriptions: levoFLOXacin [Levaquin 500mg tab] 500 mg PO DAILY #7 tab Transmission Status: [facility] to [facility] Meloxicam [Mobic 15 mg tab] 15 mg PO DAILY #7 tab Transmission Status: P[facility] to [facility] Referrals: Linnea Ellington APRN [Primary Care Provider] - - Critical Care Critical Care Time: No Attestation: On 12/20/20, the high probability of a clinically significant, sudden or life threatening deterioration of the following system(s) required my full and direct attention, intervention and personal management. The time I documented below is in addition to time spent performing reported procedures but includes the following listed in this critical care notation. Medical Decision Making - Medical Records Medical records reviewed: Yes: I reviewed the patient's medical records. - Gregorio Inquiry Pt receiving controlled substance: No Vital Signs: 12/20/20 22:12 Temperature 98.2 F Temperature Source Oral Pulse Rate [Right Brachial] 103 H Respiratory Rate 18 Blood Pressure [Right Arm] 136/93 H Blood Pressure Mean [Right Arm] 107 Blood Pressure Source [Right Arm] Automatic Cuff Blood Pressure Position [Right Arm] Sitting 02 Sat by Pulse Oximetry 98 Oxygen Delivery Method Room Air - Lab Data Lab results reviewed: Yes: I reviewed the patient's lab results. Lab Results 12/20/20 22:15: Urine Color Yellow, Urine Appearance Clear, Urine pH 6.0, Ur Specific [place] 1.025, Urine Protein Negative, Urine Glucose (UA) Negative, Urine Ketones Negative, Urine Blood Negative, Urine Nitrate Negative, Urine Bilirubin Negative, Urine Urobilinogen 0.2, Ur Leukocyte Esterase 3+ A, Urine WBC 50-100, Ur Squamous Epith Cells 10-20, Other Sediment Comment, Urine Bacteria 4+ 12/20/20 22:15: Urine HCG, Qual Negative Orders (Tests/Meds): ORDERS Category Date Time Status Urine Culture Stat Micro 12/20/20 22:15 Received - Radiology Data #1 Image(s): Chest, L-Spine, Pelvis Image Reviewed: Yes I have reviewed radiologist's interpretation Preliminary Findings: No Fracture Seen - CT Data CT Scan: Pelvis Time Received: 23:[address] Reviewed: Yes: I have viewed the radiologist's interpretation Preliminary Findings: No Fracture Seen Medical Decision Narrative: no acute fx and has uti Fall HPI - General Chief Complaint: Fall Stated Complaint: AO 12/19 fell injured tail bone Time Seen by Provider: 12/20/20 23:35 Mode of Arrival: Family Vehicle Source of Information: Patient, Medical Record Limitations: No Limitations Description of Symptoms (Recalled from ER Triage Doc. by RN): pt states she fell and broke tailbone back in july; healed. yesterday she fell again injury to same area. states she was trying to shave her legs in the shower and fell landing on her buttocks. She is worried she injured the bone again. difficulty walking due to pain. all bodily functions intact. denies preg. denies other injury - History of Present Illness HPI Narrative: slipped yesterday and fell with tailbone injury - prev fx coccyx complaint: fall Onset (ago): day(s) Fall from: standing Fall witnessed: no Place fall occurred: home Loss of consciousness: none Prolonged down
[2020-12-21 00:05] VITALS: BP 128/88; PULSE 96; RESP 17; TEMP 36.7; O2SAT 99
== END 2020-12-21 00:06 | disposition home or self-care (01) ==
PROVIDERS: Emergency Provider Emergency Medicine; PCP Nurse Practitioner
DX: S30.0XXA Contusion of lower back and pelvis, initial encounter (principal); S33.5XXA Sprain of ligaments of lumbar spine, initial encounter; W18.2XXA Fall in (into) shower or empty bathtub, initial encounter; Y92.019 Unspecified place in single-family (private) house as the place of occurrence of the external cause; N39.0 Urinary tract infection, site not specified; F41.9 Anxiety disorder, unspecified
CPT/HCPCS: 71045; 72110; 72170; 72192; 72220; 81001; 81025; 87086; 99282

== ENCOUNTER 2021-02-21 11:56 | Emergency (ER) | payer OTHER, SELFPAY ==
[2021-02-21 12:30] VITALS: BP 125/84; PULSE 83; RESP 21; TEMP 36.9; O2SAT 99; BMI 45.1
--- NOTE | 2021-02-21 12:43 | XR_ITS ---
PROCEDURE: XR CHEST 2V CLINICAL HISTORY: POSSIBLE ASPIRATION COMPARISON: CR XR CHEST 2V from 10/08/2019 CR XR CHEST 2V from 08/08/2020 CR XR CHEST PORTABLE from 12/20/2020 FINDINGS: The cardiomediastinal silhouette and pulmonary vascularity are within normal limits. Lungs are clear bilaterally. No acute bony abnormalities. IMPRESSION: No acute findings. Dictated by: Calin Carvalho MD 02/21/2021 13:10 Calin Carvalho MD in [place] 02/21/2021 13:10
[2021-02-21 12:54] LABS: UTC Pregnancy Test, Urine Negative (Negative)
--- NOTE | 2021-02-21 12:58 | HMH.EDUTC ---
[facility] [place] Disposition Clinical Impression: Vomiting Qualifiers: Vomiting type: unspecified Vomiting Intractability: unspecified Nausea presence: with nausea Qualified Code(s): R11.2 - Nausea with vomiting, unspecified Disposition: Home, Self-Care Condition on Discharge: Good Instructions: Nausea and Vomiting-Adult, DI for Cough -- Adult Additional Instructions: Watch for signs of infection such as fever, chills, shortness of breath or productive cough Follow up with your Family Doctor if symptoms worsen or any sign of infection Return if needed Straight to ER if any life threatening symptoms Prescriptions: Ondansetron [Zofran 4mg ODT] 4 mg PO TIDP PRN #10 tab PRN Reason: Vomiting Transmission Status: Pending to [facility] Referrals: Linnea Ellington APRN [Primary Care Provider] - As needed Time of Disposition: 13:19 Medical Decision Making - Gregorio Inquiry Pt receiving controlled substance: No Gregorio was queried for this patient: No Vital Signs: 02/21/21 12:30 Temperature 98.5 F Temperature Source Oral Pulse Rate [Right Brachial] 83 Respiratory Rate 21 Blood Pressure [Right Arm] 125/84 Blood Pressure Mean [Right Arm] 97 Blood Pressure Source [Right Arm] Automatic Cuff Blood Pressure Position [Right Arm] Sitting 02 Sat by Pulse Oximetry 99 Oxygen Delivery Method Room Air - Lab Data Lab results reviewed: Yes: I reviewed the patient's lab results. Lab Results 02/21/21 12:52: [facility] Clinic Negative Orders (Tests/Meds): ORDERS Category Date Time Status CXR 2 view (NOT portable) [XR chest 2V] Stat Exams 02/21/21 12:43 Taken - Radiology Data #1 Image(s): Chest Image Reviewed: Yes I have reviewed radiologist's interpretation IMPRESSION: No acute findings. [facility] [place] HPI - General Stated complaint: vomiting, possibly aspirated Time Seen by Provider: 02/21/21 12:59 Mode of Arrival: Ambulatory Source of Information: Patient Limitations: No Limitations Description of Symptoms (Recalled from Triage Doc. by RN): PATIENT STATES SHE HAS BEEN VOMITING SINCE EARLY THIS MORNING. APPROX 2 HOURS [employer] ENG[employer] SHE REPORTS SHE BREATHED IN [place] AND HAS HAD COUGH AND CHEST DISCOMFORT SINCE. HEENT Symptoms (Recalled from RN notes): No Resp Symptoms (Recalled from RN notes): Yes Skin Symptoms (Recalled from RN notes): No MS Symptoms (Recalled from RN notes): No Functional Status (Recalled from RN notes): WNL - History of Present Illness Provider Complaint: Patient states that she has been having vomting all day States that earlier she was vomiting and she took a breath in and she is worried that she may have aspirated some of her vomit States that she hasnt been short of breath but has had some burning in her throat and cough since and she wanted to get checked - Related Data Previous Rx's Medication Instructions Recorded Ondansetron [Zofran 4mg ODT] 4 mg PO TIDP PRN #10 tab 02/21/21 Allergies Allergy/AdvReac Type Severity Reaction Status Date / Time ketorolac Allergy Severe Anaphylaxis Verified 10/26/20 00:39 hydrocodone [HYDROCODONE] Allergy Intermediate Face & Verified 10/26/20 02:36 tounge swelling latex [LATEX] Allergy Intermediate I-RASH Verified 11/25/19 13:28 - Worker's Comp Is this a Worker's Comp case?: No [facility] History - Hepatitis A Screen Drug use history?: No High risk sexual behaviors?: No History of sexually transmitted infection?: No Currently employed?: No Childcare worker?: No Do you have indoor plumbing?: Yes Do you have electricity?: Yes Attestation statement:: This patient has been screened for Hepatitis A risk factors. I have reviewed the patient's past medical history: Yes Medical History: Reports:: Anxiety Denies:: Cancer, Diabetes Mellitus Type 1, Diabetes Mellitus Type 2, MRSA Other Surgeries: Yes: Appendectomy, Cholecystectomy Amputation: No - Social History Smoking Status: Never smoker Alcohol Intake: never [place]
[2021-02-21 13:20] VITALS: BP 125/84; PULSE 83; RESP 21; TEMP 36.9; O2SAT 99
== END 2021-02-21 13:26 | disposition home or self-care (01) ==
PROVIDERS: Emergency Provider Nurse Practitioner; PCP Nurse Practitioner
DX: R11.2 Nausea with vomiting, unspecified (principal); Z32.02 Encounter for pregnancy test, result negative; F41.9 Anxiety disorder, unspecified
CPT/HCPCS: 71046; 81025; 99202; G0463

== ENCOUNTER 2021-03-26 14:07 | Emergency (ER) | payer OTHER, SELFPAY ==
[2021-03-26 14:09] VITALS: BP 168/109; PULSE 109; RESP 18; TEMP 36.9; O2SAT 97; BMI 43.4
--- NOTE | 2021-03-26 14:24 | HMH.EDGENADL ---
ED Disposition Clinical Impression: Migraine Qualifiers: Migraine type: unspecified Status migrainosus presence: with status migrainosus Intractability: intractable Qualified Code(s): G43.911 - Migraine, unspecified, intractable, with status migrainosus Disposition: Home, Self-Care Condition on Discharge: Good Additional Instructions: Tylenol Motrin, return to the emergency department for any new or acute symptoms. Referrals: Linnea Ellington APRN [Primary Care Provider] - - Critical Care Critical Care Time: No Attestation: On 03/26/21, the high probability of a clinically significant, sudden or life threatening deterioration of the following system(s) required my full and direct attention, intervention and personal management. The time I documented below is in addition to time spent performing reported procedures but includes the following listed in this critical care notation. Medical Decision Making - Medical Records Medical records reviewed: Yes: I reviewed the patient's medical records. - Gregorio Inquiry Pt receiving controlled substance: No Vital Signs: 03/26/21 14:09 03/26/21 20:17 Temperature 98.5 F 98.2 F Temperature Source Oral Oral Pulse Rate 80 Pulse Rate [Left Radial] 109 H Respiratory Rate 18 18 Blood Pressure 165/92 H Blood Pressure [Right Arm] 168/109 H Blood Pressure Mean [Right Arm] 128 Blood Pressure Source [Right Arm] Automatic Cuff Blood Pressure Position [Right Arm] Sitting 02 Sat by Pulse Oximetry 97 Oxygen Delivery Method Room Air Room Air - Lab Data Lab results reviewed: Yes: I reviewed the patient's lab results. Lab Results 03/26/21 14:20: Urine HCG, Qual Negative 03/26/21 14:20: Urine Color Yellow, Urine Appearance Clear, Urine pH 7.0, Ur Specific Burna 1.025, Urine Protein Negative, Urine Glucose (UA) Negative, Urine Ketones Negative, Urine Blood Negative, Urine Nitrate Negative, Urine Bilirubin Negative, Urine Urobilinogen 0.2, Ur Leukocyte Esterase Trace, Urine RBC None, Urine WBC Occasional, Ur Squamous Epith Cells Occasional, Urine Bacteria None 03/26/21 14:30: WBC 9.6, RBC 5.37, Hgb 16.7 H, Hct 47.7 H, MCV 88.8, MCH 31.0, MCHC 34.9, RDW 13.2, Plt Count 337, MPV 9.1, Neut % (Auto) 57.0, Lymph % (Auto) 30.8, [place] % (Auto) 6.5, Eos % (Auto) 4.1, Baso % (Auto) 1.6, Neut # (Auto) 5.5, Lymph # (Auto) 3.0, [place] # (Auto) 0.6, Eos # (Auto) 0.4, Baso # (Auto) 0.2 03/26/21 14:30: Sodium 142, Potassium 4.1, Chloride 106, Carbon Dioxide 25, Anion Gap 15.1 H, BUN 8, Creatinine 0.60, Estimated Creat Clear 108, Estimated GFR 122, Est GFR ( Amer) 147, Glucose 113 H, Calcium 9.6, Total Bilirubin 0.3, AST 61 H, ALT 87 H, Alkaline Phosphatase 73, Total Protein 7.7, Albumin 4.7, Globulin 3.0, Albumin/Globulin Ratio 1.6 03/26/21 14:30: Lactate 1.8 03/26/21 16:25: CSF Volume 5.5, CSF Appearance Clear, CSF Mononuclear WBCs % 0, CSF Polynuclear WBCs % 0 03/26/21 16:25: CSF Glucose 62, CSF Total Protein 24.0 03/26/21 19:20: SARS-CoV-2 (PCR) Not detected, Influenza A Untype (PCR) Not detected, Influenza Type B (PCR) Not detected Result diagrams: 03/26/21 14:30 03/26/21 14:30 Orders (Tests/Meds): ED MEDICATIONS Discontinued Medications Generic Name Dose Route Start Last Admin Trade Name Freq PRN Reason Stop Dose Admin Diphenhydramine HCl 50 mg 03/26/21 16:57 03/26/21 19:16 Diphenhydramine 50mg/Ml Vial IV 03/26/21 16:58 50 mg ONCE ONE Administration Lactated Ringer's 500 mls @ 999 mls/hr 03/26/21 17:00 Lactated Ringer's 1000 Ml Bag IV 03/26/21 17:30 .Q31M HUNG Magnesium Sulfate 1 gm/ Sodium 52 mls @ 100 mls/hr 03/26/21 16:57 03/26/21 19:16 Chloride IV 03/26/21 17:28 100 mls/hr ONCE ONE Administration Lorazepam 2 mg 03/26/21 15:53 03/26/21 16:00 Lorazepam 2mg/Ml Vial IV 03/26/21 15:54 2 mg ONCE ONE Administration Prochlorperazine Edisylate 10 mg 03/26/21 16:57 03/26/21 19:16 Prochlorperazine 10mg/2ml Vial IV 03/26/21 16:58
--- NOTE | 2021-03-26 14:39 | CT_ITS ---
PROCEDURE: CT HEAD/BRAIN WO CON CLINICAL INDICATION: concern for meningitis COMPARISON: MR MR HEAD/BRAIN WO CON from 11/23/2020 TECHNIQUE: Axial images obtained. All CT scans at the facility use one or more dose reduction, viz: automated exposure control, ma/kV adjustment per patient size (including targeted exams where dose is matched to indication, i.e. head), or iterative reconstruction technique. FINDINGS: No midline shift, mass effect, intracranial hemorrhage, hydrocephalus, or extra-axial fluid collection is evident. The calvarium has an unremarkable appearance. No mastoid effusion. No sinus air-fluid level. IMPRESSION: No acute intracranial finding Dictated by: Calin Carvalho MD 03/26/2021 15:54 Calin Carvalho MD in [place] 03/26/2021 15:54
[2021-03-26 14:41] LABS: Basophils # 0.2 K/mm3 (0-0.2); Basophils % 1.6 % (0.1-2.0); Eosinophils # 0.4 K/mm3 (0.0-0.4); Eosinophils % 4.1 % (0.1-12.0); Hematocrit 47.7 % (37.0-47.0); Hemoglobin 16.7 g/dL (12.2-16.2); Lymphocytes % 30.8 % (10-50); Mean Corpuscular HGB Conc 34.9 g/dL (31.8-35.4); Mean Corpuscular Volume 88.8 fl (81-99); Mean Platelet Volume 9.1 fl (7.4-10.4); Monocytes # 0.6 K/mm3 (0.1-1.0); Monocytes % 6.5 % (1.7-9.3); Neutrophils # 5.5 K/mm3 (1.8-7.8); Platelet Count 337 K/mm3 (142-424); Red Blood Count 5.37 M/mm3 (4.20-5.40); Red Cell Distribution Width 13.2 % (11.5-17.5); White Blood Count 9.6 K/mm3 (4.8-10.8)
[2021-03-26 14:47] LABS: Microscopic, Urine URINE MICROSCOPIC (MICROSCOPIC)
[2021-03-26 14:48] LABS: Alanine Aminotransferase 87 U/L (12-78); Albumin Level 4.7 g/dl (3.5-5.0); Albumin/Globulin Ratio 1.6 (1.1-1.8); Alkaline Phosphatase 73 U/L (38-126); Anion Gap 15.1 mEq/L (5-15); Aspartate Amino Transferase 61 U/L (14-36); Bilirubin,Total 0.3 mg/dl (0.2-1.3); Blood Urea Nitrogen 8 mg/dl (7-17); Calcium 9.6 mg/dl (8.4-10.2); Carbon Dioxide 25 mmol/L (22.0-30.0); Chloride 106 mmol/L (98-107); Creatinine Clearance Estimated 108 mL/min (50-200); Estimated Glomerular Filt Rate 122 ml/min (>60); GFR (African American) 147 ML/MIN (>60); Glucose 113 mg/dl (74-100); Potassium 4.1 mmoL/L (3.5-5.1); Sodium 142 mmol/L (136-145); Total Protein,Serum 7.7 g/dl (6.3-8.2)
[2021-03-26 14:53] LABS: Appearance,Urine CLEAR (Clear); Bilirubin,Urine Negative (Negative); Blood, Urine Negative (Negative); Color,Urine YELLOW (Yellow); Glucose,Urine (UA) Negative (Negative); Ketones,Urine Negative (Negative); Leukocyte Esterase,Urine TRACE (Negative); Nitrate,Urine Negative (Negative); Protein,Urine Negative (Negative); Specific Gravity, Urine 1.025 (1.005-1.030); Urobilinogen,Urine 0.2 EU/dl (0.2)
[2021-03-26 14:55] LABS: Lactic Acid 1.8 mmol/L (0.7-2.1)
[2021-03-26 14:56] LABS: Urine Pregnancy, HCG Qual. Negative (Negative)
[2021-03-26 15:06] LABS: Squamous Epithelial Cell,Urine Occasional #/hpf (0-5); WBC,Urine Occasional #/hpf (0-3)
--- NOTE | 2021-03-26 16:08 | PC.NURSE ---
at bedside doing procedure.
[2021-03-26 17:20] LABS: Glucose,CSF 62 mg/dl (40-70)
--- NOTE | 2021-03-26 17:28 | PC.NURSE ---
HOLDING OFF ON MEDS PT IS SLEEPING PER
[2021-03-26 17:31] LABS: Appearance,CSF Clear (Clear); Volume,CSF 5.5 mL
[2021-03-26 18:00] LABS: Mononuclear WBCs,CSF 0 %; Polynuclear WBCs,CSF 0 %
[2021-03-26 19:30] LABS: Coronavirus 19, PCR Not Detected (NotDetected); Influenza A, PCR Not Detected (NotDetected); Influenza B, PCR Not Detected (NotDetected)
[2021-03-26 20:17] VITALS: BP 165/92; PULSE 80; RESP 18; TEMP 36.8; O2SAT 100
[2021-03-29 17:11] LABS: Red Blood Cell,CSF 2 cells/uL (0); White Blood Cell,CSF 1 cells/uL (0-5)
[2021-04-03 07:32] LABS: Epstein-Barr Virus CSF/WB PCR Negative (Negative)
[2021-04-03 12:11] LABS: Enterovirus,CSF PCR Negative (Negative)
== END 2021-03-26 20:23 | disposition home or self-care (01) ==
PROVIDERS: Emergency Provider Emergency Medicine; PCP Nurse Practitioner
DX: G43.911 Migraine, unspecified, intractable, with status migrainosus (principal); F41.9 Anxiety disorder, unspecified; Z20.822 Contact with and (suspected) exposure to COVID-19
CPT/HCPCS: 62272; 70450; 80053; 81001; 81025; 82945; 83605; 84155; 85025; 87040; 87070; 87205; 87498; 87798; 89051; 96365; 96375; 99283; C9803; U0003; U0005

== ENCOUNTER 2021-04-23 13:58 | Emergency (ER) | payer OTHER, SELFPAY ==
[2021-04-23 14:50] VITALS: BP 112/76; PULSE 85; RESP 18; TEMP 36.8; O2SAT 96; BMI 43.4
--- NOTE | 2021-04-23 15:01 | XR_ITS ---
PROCEDURE: XR ANKLE LT MIN 3V CLINICAL INDICATION: PAIN COMPARISON: No exams were available for comparison FINDINGS: No fracture or dislocation. No lytic or blastic change. There is normal mineralization. The joint spaces are well-preserved. No significant degenerative/arthritic changes. No erosive changes evident. Mild lateral soft tissue swelling IMPRESSION: Soft tissue swelling otherwise negative Dictated by: Calin Carvalho MD 04/23/2021 16:16 Calin Carvalho MD in [place] 04/23/2021 16:16
--- NOTE | 2021-04-23 15:37 | HMH.EDUTC ---
[facility] [place] Disposition Clinical Impression: Ankle sprain Qualifiers: Encounter type: initial encounter Involved ligament of ankle: unspecified ligament Laterality: left Qualified Code(s): S93.402A - Sprain of unspecified ligament of left ankle, initial encounter Disposition: Home, Self-Care Condition on Discharge: Good Instructions: How to Use Crutches, Ankle Sprain, DI for Ankle Sprain, How To Perform RICE (Rest, Ice, Compress, Elevate), How to Use a Walking Boot Additional Instructions: *weight bearing as tolerated *RICE, Rest the extremity, Ice 15-20 minutes 3-4 times daily, Compress- wear the maxi wrap as discussed as much as possible to help reduce swelling and pain, Elevate the extremity when at rest *Maxi wrap is for support and help control swelling, use it except in the shower. Be sure that is not to tight but not to loose either *Elevate when resting *Ibuprofen every 6-8 hours as needed for pain an inflammation. If need something more can take Tylenol in between doses of Ibuprofen to help Immediately follow up with your family doctor for new or worsening of symptoms, or no noticeable improvement over the next 3-5 days Use crutches to get around and ambulate Follow up with Dr Gray in Orthopedics or Dr Baker if no improvement or any worsening of symptoms Call back to the [facility] later this evening for the official Reading of your Xray Referrals: Linnea Ellington, DRUPAL ARCHITECT [Primary Care Provider] - As needed Prince Gray MD [Staff Physician] - Claire Baker DPM [Staff Physician] - Time of Disposition: 15:44 Medical Decision Making - Gregorio Inquiry Pt receiving controlled substance: No Gregorio was queried for this patient: No Vital Signs: 04/23/21 14:50 04/23/21 15:57 Temperature 98.2 F 98.2 F Temperature Source Oral Pulse Rate 85 Pulse Rate [Right Brachial] 85 Respiratory Rate 18 18 Blood Pressure 112/76 Blood Pressure [Right Arm] 112/76 Blood Pressure Mean [Right Arm] 88 Blood Pressure Source [Right Arm] Automatic Cuff Blood Pressure Position [Right Arm] Sitting 02 Sat by Pulse Oximetry 96 Oxygen Delivery Method Room Air - Radiology Data #1 Image(s): Ankle Image Reviewed: Yes I reviewed the patient's radiology image Preliminary Findings: No Fracture Seen [facility] [place] HPI - General Stated complaint: AO 1204, left ankle swollen/pain Time Seen by Provider: 04/23/21 15:37 Mode of Arrival: Ambulatory Source of Information: Patient Limitations: No Limitations Description of Symptoms (Recalled from Triage Doc. by RN): PATIENT C/O PAIN AND SWELLING TO LEFT ANKLE AFTER FALLING AND INJURING IT 2 DAYS AGO HEENT Symptoms (Recalled from RN notes): No Resp Symptoms (Recalled from RN notes): No Skin Symptoms (Recalled from RN notes): No MS Symptoms (Recalled from RN notes): Yes Functional Status (Recalled from RN notes): WNL - History of Present Illness Provider Complaint: Patient states that she was walking to the garage a couple days ago when she stepped in hole that the dog had dug and twisted her left ankle States that ever since she has has been having pain and swelling in her ankle and hurts when she tries to walk on it States that she has been using crutches to help her get around and today when she was still hurting she came in to get it checked out - Related Data Previous Rx's Medication Instructions Recorded Ondansetron [Zofran 4mg ODT] 4 mg PO TIDP PRN #10 tab 02/21/21 Allergies Allergy/AdvReac Type Severity Reaction Status Date / Time ketorolac Allergy Severe Anaphylaxis Verified 10/26/20 00:39 hydrocodone [HYDROCODONE] Allergy Intermediate Face & Verified 10/26/20 02:36 tounge swelling latex [LATEX] Allergy Intermediate I-RASH Verified 11/25/19 13:28 - Worker's Comp Is this a Worker's Comp case?: No [facility] History - Hepatitis A Screen Drug use history?: No High risk sexual behaviors?: No History of sexually transmitted infection?: No Currently employed?: No [employer]
[2021-04-23 15:57] VITALS: BP 112/76; PULSE 85; RESP 18; TEMP 36.8; O2SAT 96
== END 2021-04-23 16:05 | disposition home or self-care (01) ==
PROVIDERS: Emergency Provider Nurse Practitioner; PCP Nurse Practitioner
DX: S93.402A Sprain of unspecified ligament of left ankle, initial encounter (principal); W17.2XXA Fall into hole, initial encounter; Y92.017 Garden or yard in single-family (private) house as the place of occurrence of the external cause; F41.9 Anxiety disorder, unspecified
CPT/HCPCS: 29515; 73610; 99202; G0463

== ENCOUNTER 2022-01-19 22:11 | Emergency (ER) | payer OTHER, SELFPAY ==
[2022-01-19 22:12] VITALS: BP 137/83; PULSE 103; RESP 16; TEMP 36.6; O2SAT 97; BMI 41.5
--- NOTE | 2022-01-19 22:40 | XR_ITS ---
PROCEDURE INFORMATION: Exam: XR Left Ankle Exam date and time: 01/19/2022 11:12 PM Age: 26 years old Clinical indication: Pain and injury or trauma; Other: Twisted ankle stepping off porch step; Sprain or strain; Left TECHNIQUE: Imaging protocol: Radiologic exam of the Left ankle. Views: 3 or more views. COMPARISON: CR XR ANKLE LT MIN 3V 04/23/2021 3:05 PM FINDINGS: Bones/joints: Normal. Soft tissues: Normal. IMPRESSION: No acute findings.
--- NOTE | 2022-01-19 22:40 | XR_ITS ---
PROCEDURE INFORMATION: Exam: XR Left Tibia and Fibula Exam date and time: 01/19/2022 11:10 PM Age: 26 years old Clinical indication: Injury or trauma; Other: Twisted ankle and lower leg stepping off a porch step; Sprain or strain; Left; Additional info: Pain TECHNIQUE: Imaging protocol: Radiologic exam of the Left tibia and fibula. Views: 2 views. COMPARISON: CR XR ANKLE LT MIN 3V 04/23/2021 3:05 PM FINDINGS: Bones/joints: Normal. Soft tissues: Normal. IMPRESSION: No acute findings.
--- NOTE | 2022-01-19 22:41 | PC.NURSE ---
Pt says she took tylenol 2 hours ago
[2022-01-19 23:33] VITALS: BP 144/93; PULSE 73; O2SAT 97
[2022-01-20] VITALS: BP 132/96; PULSE 88; O2SAT 96
[2022-01-20 00:31] VITALS: BP 139/94; PULSE 97; O2SAT 97
--- NOTE | 2022-01-20 00:36 | HMH.EDLOEX ---
Discharge Plan Disposition Patient Disposition: Home, Self-Care Chief Complaint: Extremity Injury, Lower Prescriptions Prescriptions: No Action ondansetron 4 MG tablet,disintegrating 4 mg PO TIDP PRN (Reason: Vomiting) Qty: 10 0RF Referrals Follow up/Referrals: Juan R Vu MD [Primary Care Provider] - See instructions Clinical Impressions Clinical Impression: Ankle sprain Instructions Patient Instructions: Sprain Discharge ED Provider: Juan R Vu Lower Extremity Injury HPI General Chief Complaint: Extremity Injury, Lower Stated Complaint: AO09/03@1800 R leg injury Time Seen by Provider: 01/20/22 00:36 Mode of Arrival: Wheelchair Source of Information: Patient Limitations: No Limitations Description of Symptoms (Recalled from ER Triage Doc. by RN): Pt says she missed at step going outside while carrying a box. She reports twisting her left ankle and hitting her left nunez on the step. She is able to bear weight on LLE. no obvious deformity. pedal pulses present. History of Present Illness HPI Narrative: acute injury lt ankle tonight as she missed step complaint: ankle injury Onset (ago): hour(s) Injury: Left: ankle Type of Injury: eversion Place: home Severity: moderate Exacerbating factors: movement Associated symptoms: snap/pop sensation, swelling and able to partially bear weight Other symptoms: none Related Data Previous Rx's Medication Instructions Recorded ondansetron 4 mg disintegrating 4 mg PO TIDP PRN Vomiting #10 tabs 02/21/21 tablet Allergies Allergy/AdvReac Type Severity Reaction Status Date / Time ketorolac Allergy Severe Anaphylaxis Verified 06/08/21 13:58 hydrocodone [HYDROCODONE] Allergy Intermediate Face & Verified 06/08/21 13:58 tounge swelling latex [LATEX] Allergy Intermediate I-RASH Verified 06/08/21 13:58 PFSH PFSH Social History Smoking Status: Never smoker alcohol intake: never substance use type: denies use current occupational status: employed Travel in the last 8 weeks: None ROS Obtained: Yes All systems reviewed & no additional complaints except as documented Physical Exam General General appearance: alert Head Head exam: normocephalic Eye Eye exam: Present PERRL and EOMI ENT ENT exam: Present mucous membranes moist Neck Neck exam: Present trachea midline Respiratory Respiratory exam: Absent respiratory distress Cardiovascular Cardiovascular exam: Present regular rate Expanded Lower Extremity Exam Left: Ankle exam: Present tenderness and swelling; Absent full ROM or erythema Neurological Exam Neurological exam: Present alert, oriented X3 and CN II-XII intact Psychiatric Psychiatric exam: Present normal affect Skin Skin exam: Absent rash Medical Decision Making Medical Records Medical records reviewed: Yes I reviewed the patient's medical records. Gregorio Inquiry Pt receiving controlled substance: No Vital Signs: 01/19/22 22:12 01/19/22 23:33 01/20/22 00:00 Temperature 97.9 F Temperature Source Oral Pulse Rate 73 88 Pulse Rate [Right Radial] 103 H Respiratory Rate 16 Blood Pressure 144/93 H 132/96 H Blood Pressure [Right Arm] 137/83 Blood Pressure Mean [Right Arm] 101 Blood Pressure Source Blood Pressure Source [Right Arm] Automatic Cuff Blood Pressure Position Blood Pressure Position [Right Arm] Sitting 02 Sat by Pulse Oximetry 97 97 96 Oxygen Delivery Method Room Air Room Air Room Air 01/20/22 00:31 01/20/22 00:45 01/20/22 00:45 Temperature 98.0 F Temperature Source Oral Pulse Rate 97 H 84 Pulse Rate [Right Radial] Respiratory Rate 16 Blood Pressure 139/94 H 139/94 H Blood Pressure [Right Arm] Blood Pressure Mean [Right Arm] Blood Pressure Source Automatic Cuff Blood Pressure Source [Right Arm] Blood Pressure Position Sitting Blood Pressure Position [Right Arm] 02 Sat by Pulse Oximetry 97 Oxygen Delivery Method Allie
[2022-01-20 00:45] VITALS: BP 139/94; PULSE 84; RESP 16; TEMP 36.7; O2SAT 97
== END 2022-01-20 00:45 | disposition home or self-care (01) ==
PROVIDERS: Emergency Provider Emergency Medicine; PCP Emergency Medicine
DX: S93.402A Sprain of unspecified ligament of left ankle, initial encounter (principal); W18.43XA Slipping, tripping and stumbling without falling due to stepping from one level to another, initial encounter; Y93.9 Activity, unspecified; Y92.9 Unspecified place or not applicable; Y99.9 Unspecified external cause status
CPT/HCPCS: 73590; 73610; 99283

== ENCOUNTER 2022-04-29 18:20 | Emergency (ER) | payer OTHER, SELFPAY ==
[2022-04-29 18:20] VITALS: BP 126/86; PULSE 117; RESP 18; TEMP 38.9; O2SAT 97; BMI 37.8
[2022-04-29 18:51] LABS: Coronavirus 19, PCR Not Detected (NotDetected); Influenza B, PCR Not Detected (NotDetected)
--- NOTE | 2022-04-29 19:03 | PC.NURSE ---
DR. CULP AT BEDSIDE
[2022-04-29 19:29] LABS: Microscopic, Urine URINE MICROSCOPIC (MICROSCOPIC)
--- NOTE | 2022-04-29 19:58 | HMH.EDGENADL ---
Discharge Plan Disposition Patient Disposition: Home, Self-Care Chief Complaint: Upper Respiratory Infection Prescriptions Prescriptions: No Action escitalopram oxalate [Lexapro] 20 mg tablet 20 mg PO DAILY Qty: 90 3RF alprazolam [Xanax] 2 mg tablet 1 mg PO BID PRN (Reason: anxiety) Qty: 30 3RF Referrals Follow up/Referrals: Eros Kramer MD [Primary Care Provider] - See instructions Clinical Impressions Clinical Impression: Influenza Instructions Patient Instructions: DI for Influenza -- Adult Discharge ED Provider: Javier Chavez General Adult HPI General Chief complaint: Upper Respiratory Infection Stated complaint: fever, cough, back pain, no accident Time Seen by Provider: 04/29/22 18:40 Mode of Arrival: Ambulatory Source of Information: Patient Limitations: No Limitations Description of Symptoms (Recalled from ER Triage Doc. by RN): PT REPORTS COUGH AND FEVER X 1 WEEK AND LOW BACK PAIN TODAY, URINARY PRESSURE History of Present Illness HPI narrative: Patient is a 27-year-old female who presents with concern for fever, cough. She says that for the past week she has been getting progressively worse. She says that she is been having a persistent cough and has been having a fever this whole time. She also complains of some urinary pressure. She says that she has not been able to drink as much water as she normally can because she has been a little nauseous. She denies any diarrhea. Denies any vomiting. Denies any chest pain. No shortness of breath. No sinus congestion. Related Data Previous Rx's Medication Instructions Recorded alprazolam 2 mg tablet (Xanax) 1 mg PO BID PRN anxiety #30 tabs 04/02/22 escitalopram oxalate 20 mg tablet 20 mg PO DAILY #90 tabs 04/02/22 (Lexapro) Allergies Allergy/AdvReac Type Severity Reaction Status Date / Time ketorolac Allergy Severe Anaphylaxis Verified 04/02/22 10:03 hydrocodone [HYDROCODONE] Allergy Intermediate Face & Verified 04/02/22 10:03 tounge swelling latex [LATEX] Allergy Intermediate I-RASH Verified 04/02/22 10:03 [facility] Disclaimer: The information contained in this section may have been updated after the patient was seen, as this information can be updated by other users. Medical History Anxiety Depression Family History (Updated 04/29/22 @ 19:04 by Asiya Suarez, ERIKA) Other No significant family history Social History (Updated 04/29/22 @ 19:04 by Asiya Suarez, ERIKA) Smoking Status: Never smoker alcohol intake: current substance use type: denies use current occupational status: employed Travel in the last 8 weeks: None ROS Obtained: Yes All systems reviewed & no additional complaints except as documented A 14 point review of system was obtained and otherwise negative except per HPI Physical Exam General General appearance: alert and in no apparent distress Head Head exam: atraumatic, normocephalic and normal inspection Eye Eye exam: Present normal appearance, PERRL and EOMI ENT ENT exam: Present normal exam, normal oropharynx, mucous membranes moist, TM's normal bilaterally and normal external ear exam Neck Neck exam: Present normal inspection, full ROM and trachea midline; Absent meningismus or lymphadenopathy Chest Chest inspection: Present normal inspection and symmetric chest wall rise; Absent tenderness Respiratory Respiratory exam: Present normal lung sounds bilaterally; Absent respiratory distress Cardiovascular Cardiovascular exam: Present regular rate and normal rhythm; Absent JVD Abdominal Exam Abdominal exam: Present soft and normal bowel sounds; Absent distention, tenderness or guarding Extremities Exam Extremities exam: Present normal inspection, full ROM and normal capillary refill; Absent calf tenderness Back Exam Back exam: Present normal inspection; Absent tenderness Neurological Exam Neurological exam: Pres
[2022-04-29 20:01] LABS: Appearance,Urine CLEAR (Clear); Blood, Urine TRACE-I (Negative); Color,Urine YELLOW (Yellow); Glucose,Urine (UA) Negative (Negative); Ketones,Urine TRACE (Negative); Leukocyte Esterase,Urine 1+ (Negative); Nitrate,Urine Negative (Negative); PH,Urine 6.5 (5.0-8.5); Protein,Urine TRACE (Negative); Specific Gravity, Urine 1.025 (1.005-1.030)
[2022-04-29 20:03] LABS: Bilirubin,Urine 1+ (Negative)
[2022-04-29 20:17] LABS: Bacteria,Urine 1+ /lpf; RBC,Urine Occasional #/hpf (0-3)
[2022-04-29 20:21] LABS: Influenza A, PCR Detected (NotDetected)
[2022-04-29 20:27] VITALS: BP 125/85; PULSE 103; RESP 18; TEMP 36.6; O2SAT 99
== END 2022-04-29 20:49 | disposition home or self-care (01) ==
PROVIDERS: Emergency Provider Student in an Organized Health Care Education/Training Program; PCP Family Medicine
DX: J10.1 Influenza due to other identified influenza virus with other respiratory manifestations (principal)
CPT/HCPCS: 81001; 87086; 99283; C9803; U0003; U0005

== ENCOUNTER → 2022-07-22 12:21 | Outpatient (CLI) | payer OTHER, SELFPAY ==
--- NOTE | 2022-07-22 12:25 | US_ITS ---
FINAL REPORT CLINICAL HISTORY: HEAVY VAG BLEEDING FINDINGS: Transvaginal sonographic images of the pelvis were obtained. The uterus measures 8.5 x 4.4 x 5.3 cm. The endometrium measures 9 mm, which is within normal limits. There is a 7 mm hyperechoic mass in the anterior uterine fundus of uncertain etiology. This could represent a uterine fibroid or other mass. The right ovary measures 3.9 cm in length and left ovary measures 4.0 cm in length. Normal blood flow seen to the ovaries. There are multiple small follicles in the ovaries which may represent polycystic ovarian syndrome. There is no evidence of free fluid. IMPRESSION: Mass in the anterior uterine fundus of uncertain etiology may represent a uterine fibroid or other mass. Small multiple small follicles in the ovaries may represent PCOS. Reviewed, Interpreted and Dictated by Gerard Quintero III, MD Transcribed by Cindy Harmon Authenticated and [facility]
[2022-07-22 15:05] LABS: Basophils # 0.1 K/mm3 (0-0.2); Basophils % 1.4 % (0.1-2.0); Eosinophils # 0.3 K/mm3 (0.0-0.4); Eosinophils % 3.7 % (0.1-12.0); Hematocrit 46.3 % (37.0-47.0); Hemoglobin 15.5 g/dL (12.2-16.2); Lymphocytes # 2.2 K/mm3 (0.7-4.5); Lymphocytes % 25.4 % (10-50); Mean Corpuscular HGB Conc 33.4 g/dL (31.8-35.4); Mean Corpuscular Hemoglobin 30.2 pg (27.0-31.2); Mean Corpuscular Volume 90.4 fl (81-99); Mean Platelet Volume 8.7 fl (7.4-10.4); Monocytes # 0.8 K/mm3 (0.1-1.0); Monocytes % 9.8 % (1.7-9.3); Neutrophils # 5.1 K/mm3 (1.8-7.8); Neutrophils % 59.6 % (37.0-80.0); Platelet Count 306 K/mm3 (142-424); Red Blood Count 5.12 M/mm3 (4.20-5.40); Red Cell Distribution Width 12.7 % (11.5-17.5); White Blood Count 8.5 K/mm3 (4.8-10.8)
[2022-07-22 15:17] LABS: Alanine Aminotransferase 57 U/L (12-78); Albumin Level 4.7 g/dl (3.5-5.0); Albumin/Globulin Ratio 1.6 (1.1-1.8); Alkaline Phosphatase 59 U/L (38-126); Anion Gap 13.4 mEq/L (5-15); Aspartate Amino Transferase 42 U/L (14-36); Bilirubin,Total 0.4 mg/dl (0.2-1.3); Blood Urea Nitrogen 10 mg/dl (7-17); Calcium 9.5 mg/dl (8.4-10.2); Carbon Dioxide 28 mmol/L (22.0-30.0); Chloride 103 mmol/L (98-107); Estimated Glomerular Filt Rate 86 ml/min (>60); GFR (African American) 104 ML/MIN (>60); Glucose 110 mg/dl (74-100); Potassium 4.4 mmoL/L (3.5-5.1); Sodium 140 mmol/L (136-145); Total Protein,Serum 7.7 g/dl (6.3-8.2)
[2022-07-22 15:47] LABS: HCG,Quantitative < 2 mIU/ml (0-5.42)
== END ==
PROVIDERS: PCP Family Medicine; Visit Provider Nurse Practitioner Obstetrics & Gynecology
DX: N93.8 Other specified abnormal uterine and vaginal bleeding (principal); Z87.42 Personal history of other diseases of the female genital tract
CPT/HCPCS: 36415; 76830; 80053; 84702; 85025

== ENCOUNTER 2022-07-23 06:56 | Day surgery (SDC) | payer OTHER, SELFPAY ==
[2022-07-23 07:21] VITALS: BP 136/83; PULSE 96; RESP 18; TEMP 36.7; O2SAT 100; BMI 41.5
[2022-07-23 08:51] VITALS: BP 133/98; PULSE 88; RESP 17; TEMP 36.3; O2SAT 98
--- NOTE | 2022-07-23 08:55 | EXP.ANES.CKL ---
[facility] Disclaimer: The information contained in this section may have been updated after the patient was seen, as this information can be updated by other users. Medical History Anxiety Depression Surgical History History of cholecystectomy Hx of appendectomy Family History Other No significant family history Social History (Updated 07/23/22 @ 07:20 by Flynn Hurd RN) Smoking Status: Never smoker alcohol intake: never substance use type: denies use current occupational status: employed and unemployed Travel in the last 8 weeks: None [facility] Anesthesia Checklist Patient Identification Patient Identification: Arm Band and Verbal (Name & ) Structural Data Admitted From: Home Planned Operative Procedure/s: Hysteroscopy/D&C Consent for Planned Operative Procedure(s) Verified: Yes Verified Documents: Surgical Consent NPO Status Verified Time NPO: 00:00 Chart Verification Results Verified: CBC and HCG Additional verifications Anesthesia Reactions: No Hx Blood Transfusions: No Blood Transfusion Reaction: No Airway Assessment C-Spine Mobility Assessed: Yes TMJ Mobility Assessed: Yes Dentition: Good Dentition Neurological Assessment Level of Consciousness: Awake, Alert and Appropriate Anesthesia Plan Anesthesia Risk discussed: Yes ASA Class: II Anesthesia Type: MAC
--- NOTE | 2022-07-23 08:58 | EXP.OP.NOTE ---
Date of procedure: 07/23/22 Pre-op Diagnosis:: Menorrhagia Post-op Diagnosis:: Menorrhagia possibly endometritis Procedure performed:: Hysteroscopy D&C, MyoSure Surgeon:: Garcia Regalado MD BUSINESS ANALYST:: Cr Pagan Anesthesia: MAC Estimated blood loss (mL): 50 Clinical Note:: She is a 27-year-old lady who complains of extremely heavy periods. She was on the control pill and yet still began to have severe bleeding. Ultrasound yesterday showed that she had a 7 mm thick endometrium. As result of that she is offered hysteroscopy D&C with MyoSure. Operative findings:: She had a fairly thin endometrium consistent with being on the control pill. It was irregular in appearance. It was very erythematous possibly consistent with endometritis. Operative note:: She was take the operating room where MAC anesthesia was found be adequate. She is prepped draped normal sterile fashion in lithotomy position. A weighted speculum is placed in vagina and the anterior lip of the cervix was grasped with a tenaculum. The cervix was dilated to approximately 7 mm. I then inserted a MyoSure device into the uterine cavity and I was really unable to see anything because of the cloudiness of the fluid. There also seem to be a film on the camera. I changed to a normal hysteroscope and the findings were as previously dictated. I then performed a gentle curettage. I injected a total of 30 cc of ropivacaine at the 3:00, 5:00, 7:00, and 9:00 positions of the cervix. She tolerated the procedure well and was taken to the recovery room in excellent condition. All sponge, instrument counts were correct. Estimated blood loss was approximately 50 cc. Condition: stable Disposition: PACU Specimens:: Endometrial curettings Complications:: None
[2022-07-23 09:01] VITALS: BP 145/89; PULSE 83; RESP 15; O2SAT 98
[2022-07-23 09:11] VITALS: BP 152/79; PULSE 109; RESP 18; O2SAT 98
[2022-07-23 09:21] VITALS: BP 136/81; PULSE 93; RESP 17; O2SAT 98
[2022-07-23 09:26] VITALS: RESP 17
== END 2022-07-23 09:45 | disposition home or self-care (01) ==
PROVIDERS: PCP Family Medicine; Visit Provider Nurse Practitioner Obstetrics & Gynecology
PROC: (CPT 58558; principal; 2022-07-23 08:30)
DX: N92.0 Excessive and frequent menstruation with regular cycle (principal); N71.9 Inflammatory disease of uterus, unspecified
CPT/HCPCS: 58558; 96374

== ENCOUNTER 2022-08-06 16:41 | Emergency (ER) | payer OTHER, SELFPAY ==
--- NOTE | 2022-08-06 16:53 | XR_ITS ---
PROCEDURE INFORMATION: Exam: XR Right Hand Exam date and time: 08/06/2022 4:56 PM Age: 27 years old Clinical indication: Pain; Hand; Right TECHNIQUE: Imaging protocol: Radiologic exam of the right hand. Views: 3 or more views. COMPARISON: No relevant prior studies available. FINDINGS: Bones/joints: No acute fracture or dislocation. Joint spaces are preserved. Normal bone mineralization. Normal carpal bone alignment. Radiocarpal joint is preserved. Soft tissues: No soft tissue swelling or radiopaque foreign body. IMPRESSION: No acute findings.
--- NOTE | 2022-08-06 16:53 | XR_ITS ---
PROCEDURE INFORMATION: Exam: XR Right Wrist Exam date and time: 08/06/2022 4:58 PM Age: 27 years old Clinical indication: Pain; Wrist; Right TECHNIQUE: Imaging protocol: Radiologic exam of the right wrist. Views: 3 or more views. COMPARISON: CR XR HAND RT MIN 3V 08/06/2022 4:56 PM FINDINGS: Bones/joints: No acute fracture or dislocation. Joint spaces are preserved. Normal bone mineralization. Normal carpal bone alignment. Radiocarpal joint is preserved. Soft tissues: No soft tissue swelling or radiopaque foreign body. IMPRESSION: No acute findings.
[2022-08-06 17:10] VITALS: BP 146/96; PULSE 86; RESP 20; TEMP 37.1; O2SAT 98; BMI 43.4
--- NOTE | 2022-08-06 17:43 | EXP.UTC ---
Discharge Plan Disposition Patient Disposition: Home, Self-Care Condition: Good Prescriptions Prescriptions: New ibuprofen [IBU] 800 mg tablet 800 mg PO Q8HP PRN (Reason: Moderate Pain) Qty: 30 0RF No Action epinephrine 0.3 mg/0.3 mL auto-injector 0.3 ml SQ ONCE alprazolam [Xanax] 2 mg tablet 1 mg PO BID PRN (Reason: anxiety) Qty: 30 0RF ibuprofen 800 mg tablet 800 mg PO TID Rx Instructions: Take 1 tablet by mouth, 3 times daily. escitalopram oxalate [Lexapro] 20 mg tablet 20 mg PO DAILY norgestimate-ethinyl estradiol [Sprintec (28)] 0.25-35 mg-mcg tablet 1 tab PO DAILY Referrals Follow up/Referrals: Eros Kramer MD [Primary Care Provider] - See instructions Activity Restrictions/Add. Instructions Additional Instructions/Restrictions: Rest the extremity, apply ice for 15 minutes as tolerated three or four times per day, Wear the peggy wrap for compression, Elevate the extremity as tolerated while you are resting. Take ibuprofen for pain if you can take ibuprofen. I sent in a prescription to your pharmacy. Follow up with Dr. Salcido (orthopedics) if you continue to have symptoms. I put in a referral but you need to call his office and schedule an appointment. Follow up with your regular doctor. GO TO THE ER FOR ANY WORSENING SYMPTOMS Clinical Impressions Clinical Impression: Contusion of hand, right Instructions Patient Instructions: DI for Contusion, DI for Hand Injury Discharge ED Provider: Davide Barrios [facility] [place] General Stated complaint: a/o 08/06 2022 3:30PM right hand Mode of Arrival: Ambulatory Source of Information: Patient Limitations: No Limitations Time Seen by Provider: 08/06/22 17:43 Description of Symptoms (Recalled from Triage Doc. by RN): hurt right hand and wrist HEENT Symptoms (Recalled from RN notes): No Resp Symptoms (Recalled from RN notes): No Skin Symptoms (Recalled from RN notes): No MS Symptoms (Recalled from RN notes): Yes Functional Status (Recalled from RN notes): n/a History of Present Illness Provider Complaint: She states that her grandfather is sick and in the hospital on life support. She and her brother have been very stressed. She got mad at her brother and punched a wall earlier today with her right hand. Since then she has had right hand pain and swelling. She denies any other injury. She denies any SI or HI. Related Data Home Medications Medication Instructions Recorded Confirmed epinephrine 0.3 mg/0.3 mL 0.3 ml SQ ONCE allergies 07/22/22 08/05/22 injection, auto-injector escitalopram oxalate 20 mg tablet 20 mg PO DAILY Depression 07/23/22 08/06/22 (Lexapro) ibuprofen 800 mg tablet 800 mg PO TID Pain 07/23/22 08/06/22 norgestimate 0.25 mg-ethinyl 1 tab PO DAILY control 08/06/22 08/06/22 estradiol 35 mcg tablet (Sprintec (28)) Previous Rx's Medication Instructions Recorded alprazolam 2 mg tablet (Xanax) 1 mg PO BID PRN anxiety #30 tabs 08/02/22 ibuprofen 800 mg tablet (IBU) 800 mg PO Q8HP PRN Moderate Pain 08/06/22 #30 tabs Allergies Allergy/AdvReac Type Severity Reaction Status Date / Time ketorolac Allergy Severe Anaphylaxis Verified 08/05/22 13:49 hydrocodone [HYDROCODONE] Allergy Intermediate Face & Verified 08/05/22 13:49 tounge swelling latex [LATEX] Allergy Intermediate I-RASH Verified 08/05/22 13:49 Worker's Comp Is this a Worker's Comp case?: No [facility] Disclaimer: The information contained in this section may have been updated after the patient was seen, as this information can be updated by other users. Medical History Anxiety Depression Surgical History History of cholecystectomy Hx of appendectomy Family History Other No significant family history Social History (Reviewed 08/06/22 @ 21:52
[2022-08-06 18:15] VITALS: BP 146/96; PULSE 86; RESP 20; TEMP 37.1; O2SAT 98
== END 2022-08-06 18:14 | disposition home or self-care (01) ==
PROVIDERS: Emergency Provider Nurse Practitioner Family; PCP Family Medicine
DX: S60.221A Contusion of right hand, initial encounter (principal); W22.09XA Striking against other stationary object, initial encounter
CPT/HCPCS: 73110; 73130; 99212; 99214; G0463

== ENCOUNTER 2022-10-15 16:33 | Emergency (ER) | payer OTHER, SELFPAY ==
[2022-10-15 16:35] VITALS: BP 123/88; PULSE 111; RESP 17; TEMP 36.8; O2SAT 97; BMI 41.9
[2022-10-15 16:52] LABS: Microscopic, Urine URINE MICROSCOPIC (MICROSCOPIC)
--- NOTE | 2022-10-15 16:52 | PC.NURSE ---
DR WILLARD AT BEDSIDE
--- NOTE | 2022-10-15 16:55 | CT_ITS ---
PROCEDURE INFORMATION: Exam: CT Abdomen And Pelvis With Contrast Exam date and time: 10/15/2022 5:34 PM Age: 27 years old Clinical indication: Abdominal pain; Generalized; Prior surgery; Surgery date: 6+ months; Surgery type: Choleycystectomy, appendectomy. ; Additional info: Abd pain TECHNIQUE: Imaging protocol: Computed tomography of the abdomen and pelvis with contrast. Radiation optimization: All CT scans at this facility use at least one of these dose optimization techniques: automated exposure control; mA and/or kV adjustment per patient size (includes targeted exams where dose is matched to clinical indication); or iterative reconstruction. Contrast material: ISOVUE; Contrast volume: 75 ml; Contrast route: IV; REPORTING DATA: Count of CT and Cardiac NM exams in prior 12 months: This patient has received 0 known CTs and 0 known cardiac nuclear medicine studies in the 12 months prior to the current study. COMPARISON: CT PELVIS WO CON 12/20/2020 11:02 PM FINDINGS: Liver: Normal. No mass. Gallbladder and bile ducts: Previous cholecystectomy. Pancreas: Normal. No ductal dilation. Spleen: Normal. No splenomegaly. Adrenal glands: Normal. No mass. Kidneys and ureters: Normal. No hydronephrosis. Stomach and bowel: Unremarkable. No obstruction. No mucosal thickening. Appendix: Previous appendectomy. Intraperitoneal space: Unremarkable. No free air. No significant fluid collection. Vasculature: Unremarkable. No abdominal aortic aneurysm. Lymph nodes: Unremarkable. No enlarged lymph nodes. Urinary bladder: Unremarkable as visualized. Reproductive: Left adnexal cyst measures 3.2 x 2.8 cm. Bones/joints: Unremarkable. No acute fracture. Soft tissues: Unremarkable. IMPRESSION: Left adnexal cyst measures 3.2 x 2.8 cm.
[2022-10-15 16:56] LABS: Appearance,Urine CLEAR (Clear); Bilirubin,Urine Negative (Negative); Blood, Urine Negative (Negative); Color,Urine YELLOW (Yellow); Glucose,Urine (UA) Negative (Negative); Ketones,Urine Negative (Negative); Leukocyte Esterase,Urine 1+ (Negative); Nitrate,Urine Negative (Negative); Protein,Urine Negative (Negative); Urine Pregnancy, HCG Qual. Negative (Negative); Urobilinogen,Urine 0.2 EU/dl (0.2)
--- NOTE | 2022-10-15 16:59 | HMH.EDABDPAI ---
Discharge Plan Disposition Patient Disposition: Home, Self-Care Condition: Good Prescriptions Prescriptions: New diclofenac potassium 50 mg tablet 50 mg PO Q8H PRN (Reason: pain) Qty: 20 0RF ondansetron 4 mg tablet,disintegrating 4 mg PO Q8H PRN (Reason: nausea and vomiting) 5 Days Qty: 10 0RF cephalexin 500 mg capsule 500 mg PO Q6H 7 Days Qty: 28 0RF No Action etonogestrel-ethinyl estradiol [NuvaRing] 0.12-0.015 mg/24 hr ring 1 vag ring vaginal Q4W Rx Instructions: leave in place for 3 weeks of a 4-week cycle epinephrine 0.3 mg/0.3 mL auto-injector 0.3 ml SQ ONCE Qty: 2 0RF fluvoxamine 100 mg capsule,extended release 24hr 100 mg PO HS Qty: 30 0RF alprazolam [Xanax] 2 mg tablet See Rx Instructions .ROUTE .COMPLEX Qty: 30 0RF Rx Instructions: Take 1/2 to 1 tablet twice daily prn; Referrals Follow up/Referrals: Eros Kramer MD [Primary Care Provider] - See instructions Activity Restrictions/Add. Instructions Additional Instructions/Restrictions: Drink plenty of fluids. Pelvic rest for the next week and avoid intercourse. Follow-up with a wet cotton feeder. Clinical Impressions Clinical Impression: Ovarian cyst, Acute lower urinary tract infection Instructions Patient Instructions: DI for Acute Abdominal Pain Discharge ED Provider: Sharath Tilley Abdominal Pain HPI General Chief Complaint: Abdominal Pain Stated Complaint: lower Abd PAIN VOMITING Time Seen by Provider: 10/15/22 16:52 Mode of Arrival: Ambulatory Source of Information: Patient Limitations: No Limitations Description of Symptoms (Recalled from ER Triage Doc. by RN): PT REPORTS WOKE WITH ABDOMINAL PAIN AND VOMITING ABOUT 30 MINUTES DIE REPAIR. History of Present Illness HPI narrative: Patient presents with lower abdominal pain that started approximate 2 hours prior to emergency department presentation. She notes several associated episodes of vomiting. She denies diarrhea she describes the pain as severe and without exacerbating alleviating factors. Is been no fever reported today. She is uncertain as to whether or not she is . Related Data Home Medications Medication Instructions Recorded Confirmed etonogestrel 0.12 mg-ethinyl 1 vag ring vaginal Q4W 09/03/22 10/09/22 estradiol 0.015 mg/24 hr vaginal ring (NuvaRing) Previous Rx's Medication Instructions Recorded alprazolam 2 mg tablet (Xanax) See Rx Instructions .Route 10/09/22 .COMPLEX #30 tabs epinephrine 0.3 mg/0.3 mL 0.3 ml SQ ONCE allergies #2 ea 10/09/22 injection, auto-injector fluvoxamine 100 mg 100 mg PO HS #30 caps 10/09/22 capsule,extended release 24 hr cephalexin 500 mg capsule 500 mg PO Q6H 7 days #28 caps 10/15/22 diclofenac potassium 50 mg tablet 50 mg PO Q8H PRN pain #20 tabs 10/15/22 ondansetron 4 mg disintegrating 4 mg PO Q8H PRN nausea and 10/15/22 tablet vomiting 5 days #10 tabs Allergies Allergy/AdvReac Type Severity Reaction Status Date / Time ketorolac Allergy Severe Anaphylaxis Verified 10/09/22 14:39 hydrocodone [HYDROCODONE] Allergy Intermediate Face & Verified 10/09/22 14:39 tounge swelling latex [LATEX] Allergy Intermediate I-RASH Verified 10/09/22 14:39 [facility] Disclaimer: The information contained in this section may have been updated after the patient was seen, as this information can be updated by other users. Medical History Anxiety Depression Surgical History History of cholecystectomy Hx of appendectomy Family History Other No significant family history Social History Smoking Status: Never smoker alcohol intake: never substance use type: denies use current occupational status: unemployed Travel in the last 8 weeks: None household members: fa
[2022-10-15 17:00] LABS: Basophils # 0.1 K/mm3 (0-0.2); Basophils % 0.7 % (0.1-2.0); Eosinophils # 0.5 K/mm3 (0.0-0.4); Eosinophils % 3.2 % (0.1-12.0); Hematocrit 46.4 % (37.0-47.0); Hemoglobin 15.6 g/dL (12.2-16.2); Lymphocytes # 2.8 K/mm3 (0.7-4.5); Lymphocytes % 20.4 % (10-50); Mean Corpuscular HGB Conc 33.6 g/dL (31.8-35.4); Mean Corpuscular Volume 86.3 fl (81-99); Mean Platelet Volume 8.5 fl (7.4-10.4); Monocytes # 0.9 K/mm3 (0.1-1.0); Monocytes % 6.2 % (1.7-9.3); Neutrophils # 9.7 K/mm3 (1.8-7.8); Neutrophils % 69.5 % (37.0-80.0); Platelet Count 334 K/mm3 (142-424); Red Blood Count 5.38 M/mm3 (4.20-5.40); White Blood Count 13.9 K/mm3 (4.8-10.8)
[2022-10-15 17:03] LABS: Bacteria,Urine Trace /lpf
[2022-10-15 17:08] LABS: Chloride 102 mmol/L (98-107); Sodium 140 mmol/L (136-145)
[2022-10-15 17:11] LABS: Alanine Aminotransferase 60 U/L (12-78); Albumin Level 4.5 g/dl (3.5-5.0); Albumin/Globulin Ratio 1.5 (1.1-1.8); Alkaline Phosphatase 56 U/L (38-126); Aspartate Amino Transferase 59 U/L (14-36); Bilirubin,Total 0.3 mg/dl (0.2-1.3); Blood Urea Nitrogen 8 mg/dl (7-17); Carbon Dioxide 27 mmol/L (22.0-30.0); Creatinine Clearance Estimated 106 mL/min (50-200); Estimated Glomerular Filt Rate 120 ml/min (>60); GFR (African American) 145 ML/MIN (>60); Globulin 3.1 g/dL (1.3-3.2); Total Protein,Serum 7.6 g/dl (6.3-8.2)
[2022-10-15 17:12] LABS: Calcium 9.5 mg/dl (8.4-10.2); Glucose 87 mg/dl (74-100)
[2022-10-15 17:12] LABS: Lipase 88 U/L (23-300)
--- NOTE | 2022-10-15 17:26 | PC.NURSE ---
PT TO CT
--- NOTE | 2022-10-15 17:29 | PC.NURSE ---
PATIENT TO RADIOLOGY
--- NOTE | 2022-10-15 17:39 | PC.NURSE ---
patient back from radiology
--- NOTE | 2022-10-15 18:12 | PC.NURSE ---
PT RESTING COMFORTABLY, NO NEEDS VOICED
[2022-10-15 19:00] VITALS: BP 128/74; PULSE 90; RESP 17; TEMP 36.7; O2SAT 98
== END 2022-10-15 19:10 | disposition home or self-care (01) ==
PROVIDERS: Emergency Provider Emergency Medicine; PCP Family Medicine
DX: N39.0 Urinary tract infection, site not specified (principal); N83.202 Unspecified ovarian cyst, left side
CPT/HCPCS: 74177; 80053; 81001; 81025; 83690; 85025; 87086; 96361; 96374; 96375; 99285; J2405; Q9967

== ENCOUNTER 2023-01-14 23:56 | Emergency (ER) | payer OTHER, SELFPAY ==
[2023-01-14 23:57] VITALS: BP 159/91; PULSE 98; RESP 20; TEMP 36.9; O2SAT 97; BMI 37.8
--- NOTE | 2023-01-15 00:22 | CT_ITS ---
PROCEDURE INFORMATION: Exam: CT Head Without And With Contrast Exam date and time: 01/15/2023 1:28 AM Age: 27 years old Clinical indication: Other: Headache; Additional info: Headache 5 days TECHNIQUE: Imaging protocol: Computed tomography of the head without and with contrast. Total images: 409 Radiation optimization: All CT scans at this facility use at least one of these dose optimization techniques: automated exposure control; mA and/or kV adjustment per patient size (includes targeted exams where dose is matched to clinical indication); or iterative reconstruction. Contrast material: ISOVUE; Contrast volume: 100 ml; Contrast route: IV; REPORTING DATA: Count of CT and Cardiac NM exams in prior 12 months: This patient has received [address] and 0 known cardiac nuclear medicine studies in the 12 months prior to the current study. COMPARISON: CT HEAD/BRAIN WO CON 03/26/2021 3:13 PM FINDINGS: Brain: Normal intracranial vascular enhancement. No enhancing intracranial mass. No dural sinus thrombosis. No acute intracranial hemorrhage, midline shift, or mass. Hernadez-white interface is maintained. Basilar cisterns are preserved. Cerebral ventricles: No ventriculomegaly. Paranasal sinuses: Visualized sinuses are unremarkable. No fluid levels. Mastoid air cells: Visualized mastoid air cells are well aerated. Bones/joints: Unremarkable. No acute fracture. Soft tissues: Unremarkable. IMPRESSION: No acute intracranial process.
--- NOTE | 2023-01-15 00:30 | ECG_ITS ---
APPROVED REPORT Exam: Resting ECG HR:76 bpm ECG Measurements Heart Rate 76 AXES WV 191 P 66 QRSd 91 QRS 81 QT 370 T 26 QTc 401 Conclusion SINUS RHYTHM NORMAL ECG UNCONFIRMED REPORT Electronically signed by : Wan Oliva MD 01/16/2023 18:39:37
[2023-01-15 00:47] LABS: Basophils # 0.1 K/mm3 (0-0.2); Basophils % 0.5 % (0.1-2.0); Eosinophils # 0.3 K/mm3 (0.0-0.4); Eosinophils % 2.6 % (0.1-12.0); Lymphocytes # 2.1 K/mm3 (0.7-4.5); Lymphocytes % 20.4 % (10-50); Mean Corpuscular HGB Conc 34.1 g/dL (31.8-35.4); Mean Corpuscular Hemoglobin 30.3 pg (27.0-31.2); Mean Corpuscular Volume 88.9 fl (81-99); Mean Platelet Volume 8.9 fl (7.4-10.4); Monocytes # 0.7 K/mm3 (0.1-1.0); Neutrophils # 7.1 K/mm3 (1.8-7.8); Neutrophils % 69.5 % (37.0-80.0); Platelet Count 280 K/mm3 (142-424); Red Blood Count 5.29 M/mm3 (4.20-5.40); Red Cell Distribution Width 13.3 % (11.5-17.5); White Blood Count 10.2 K/mm3 (4.8-10.8)
[2023-01-15 00:59] LABS: HCG Qualitative, Serum Negative (Negative)
[2023-01-15 01:03] LABS: Alanine Aminotransferase 58 U/L (12-78); Albumin Level 4.6 g/dl (3.5-5.0); Albumin/Globulin Ratio 1.3 (1.1-1.8); Alkaline Phosphatase 59 U/L (38-126); Anion Gap 13.6 mEq/L (5-15); Aspartate Amino Transferase 49 U/L (14-36); Bilirubin,Total 0.4 mg/dl (0.2-1.3); Blood Urea Nitrogen 12 mg/dl (7-17); Calcium 9.6 mg/dl (8.4-10.2); Carbon Dioxide 28 mmol/L (22.0-30.0); Chloride 105 mmol/L (98-107); Creatinine Clearance Estimated 151 mL/min (50-200); Estimated Glomerular Filt Rate 86 ml/min (>60); GFR (African American) 104 ML/MIN (>60); Globulin 3.5 g/dL (1.3-3.2); Glucose 98 mg/dl (74-100); Potassium 3.6 mmoL/L (3.5-5.1); Sodium 143 mmol/L (136-145); Total Protein,Serum 8.1 g/dl (6.3-8.2)
--- NOTE | 2023-01-15 02:32 | INFXCTL.NOTE ---
PC to MD's, spoke with Iwona dutta is Dr. Woods, placed on hold. ED doctor on phone with Dr. Covington
--- NOTE | 2023-01-15 02:49 | HMH.EDGENADL ---
Discharge Plan Disposition Patient Disposition: Home, Self-Care Condition: Fair Prescriptions Prescriptions: No Action etonogestrel-ethinyl estradiol [NuvaRing] 0.12-0.015 mg/24 hr ring 1 vag ring vaginal Q4W Rx Instructions: leave in place for 3 weeks of a 4-week cycle epinephrine 0.3 mg/0.3 mL auto-injector 0.3 ml SQ ONCE Qty: 2 0RF fluvoxamine 100 mg capsule,extended release 24hr 100 mg PO HS Qty: 30 0RF alprazolam [Xanax] 2 mg tablet See Rx Instructions .ROUTE .COMPLEX Qty: 30 0RF Rx Instructions: Take 1/2 to 1 tablet twice daily prn; diclofenac potassium 50 mg tablet 50 mg PO Q8H PRN (Reason: pain) Qty: 20 0RF ondansetron 4 mg tablet,disintegrating 4 mg PO Q8H PRN (Reason: nausea and vomiting) 5 Days Qty: 10 0RF cephalexin 500 mg capsule 500 mg PO Q6H 7 Days Qty: 28 0RF Referrals Follow up/Referrals: Eros Kramer MD [Primary Care Provider] - See instructions Activity Restrictions/Add. Instructions Additional Instructions/Restrictions: Your work-up in the emergency department did not show the cause of your headache. Given the you are continuing to have a headache, we recommend you have a lumbar puncture, possible MRI, urgent neurology evaluation. We discussed your case with the neurologists. They will call to schedule follow-up in next 1 to 2 weeks. If you change your mind about pursuing further work-up, recommend returning to an ER to be further evaluated. Clinical Impressions Clinical Impression: NDPH (new daily persistent headache) Discharge ED Provider: Jorge Pagan Adult HPI General Chief complaint: Headache Stated complaint: [place],Stiff neck Time Seen by Provider: 01/15/23 00:00 Mode of Arrival: Ambulatory Source of Information: Patient Limitations: No Limitations Description of Symptoms (Recalled from ER Triage Doc. by RN): patient has been having headache for 5 days with a stiff neck that started yesterday, pt states on she passed out at work with no known injury and was evaluated at [facility] ER. she mentioned the headache then but patient states they were more concerned with my heart pt takes no meds has PMH of anxiety and PSH of appy and lap claudia. History of Present Illness HPI narrative: 27-year-old female history of obesity, anxiety, otherwise generally healthy presents with persistent headache for the last 5 days. She reports that she had onset of headache at work. Within a few hours after onset of headache patient had a syncopal episode. She was worked up at another facility for her syncope and was discharged without any obvious problems. She reports that she did not receive a CT scan or any significant work-up for her headache at that time. She has been taking Excedrin, Tylenol, ibuprofen at home without improvement in symptoms. She reports that his global headache, worse in the neck and occiput, approximately 8 out of 10. It has been present 09/12 since onset. She denies any vision changes, pulsatile tinnitus, reports mild dizziness with standing. She reports that she has developed some neck pain and stiffness since onset yesterday. Denies any fevers at home. Reports that she has had some diarrhea for the last couple of days but otherwise denies any recent illness. No reported history of trauma. Related Data Home Medications Medication Instructions Recorded Confirmed etonogestrel 0.12 mg-ethinyl 1 vag ring vaginal Q4W 09/03/22 10/09/22 estradiol 0.015 mg/24 hr vaginal ring (NuvaRing) Previous Rx's Medication Instructions Recorded alprazolam 2 mg tablet (Xanax) See Rx Instructions .Route 10/09/22 .COMPLEX #30 tabs epinephrine 0.3 mg/0.3 mL 0.3 ml SQ ONCE allergies #2 ea 10/09/22 injection, auto-injector fluvoxamine 100 mg 100 mg PO HS #30 caps 10/09/22 capsule,extended release 24 hr cephalexin 500 mg capsule 500 mg PO Q6H 7 days #28 caps 10/15/22 diclofenac potassium 50 mg tablet 50 mg
[2023-01-15 02:56] VITALS: BP 125/83; PULSE 88; RESP 20; TEMP 36.7; O2SAT 97
== END 2023-01-15 03:01 | disposition home or self-care (01) ==
PROVIDERS: Emergency Provider Emergency Medicine; PCP Family Medicine
DX: R51.9 Headache, unspecified (principal); F41.9 Anxiety disorder, unspecified; E66.9 Obesity, unspecified
CPT/HCPCS: 70470; 80053; 84703; 85025; 93005; 96361; 96374; 99285; J1790; J3475; Q9967

== ENCOUNTER → 2023-01-30 23:32 | Outpatient (CLI) | payer OTHER, SELFPAY | PROVIDERS: PCP Nurse Practitioner Family; Visit Provider Nurse Practitioner Family | DX: J02.9 Acute pharyngitis, unspecified (principal); U07.1 COVID-19 | CPT/HCPCS: 87635 ==

== ENCOUNTER → 2023-02-14 17:05 | Outpatient (CLI) | payer OTHER, SELFPAY ==
[2023-02-14 17:24] LABS: Chloride 107 mmol/L (98-107); Sodium 140 mmol/L (136-145)
[2023-02-14 17:25] LABS: Potassium 4.2 mmoL/L (3.5-5.1)
[2023-02-14 17:27] LABS: Alanine Aminotransferase 49 U/L (12-78); Albumin Level 4.4 g/dl (3.5-5.0); Albumin/Globulin Ratio 1.4 (1.1-1.8); Alkaline Phosphatase 54 U/L (38-126); Anion Gap 16.2 mEq/L (5-15); Aspartate Amino Transferase 40 U/L (14-36); Bilirubin,Total 0.6 mg/dl (0.2-1.3); Blood Urea Nitrogen 8 mg/dl (7-17); Carbon Dioxide 21 mmol/L (22.0-30.0); Estimated Glomerular Filt Rate 100 ml/min (>60); GFR (African American) 121 ML/MIN (>60); Globulin 3.2 g/dL (1.3-3.2); Total Protein,Serum 7.6 g/dl (6.3-8.2)
[2023-02-14 17:28] LABS: Calcium 9.4 mg/dl (8.4-10.2); Glucose 101 mg/dl (74-100)
[2023-02-14 17:40] LABS: Basophils % 0.3 % (0.1-2.0); Eosinophils # 0.2 K/mm3 (0.0-0.4); Eosinophils % 1.3 % (0.1-12.0); Hematocrit 48.4 % (37.0-47.0); Hemoglobin 16.3 g/dL (12.2-16.2); Lymphocytes # 1.8 K/mm3 (0.7-4.5); Lymphocytes % 16.6 % (10-50); Mean Corpuscular HGB Conc 33.7 g/dL (31.8-35.4); Mean Platelet Volume 10.1 fl (7.4-10.4); Monocytes # 0.8 K/mm3 (0.1-1.0); Monocytes % 7.4 % (1.7-9.3); Neutrophils # 8.1 K/mm3 (1.8-7.8); Neutrophils % 74.4 % (37.0-80.0); Platelet Count 274 K/mm3 (142-424); Red Blood Count 5.44 M/mm3 (4.20-5.40); White Blood Count 10.9 K/mm3 (4.8-10.8)
[2023-02-14 17:47] LABS: Activated Partial Thrombo Time 27.6 seconds (22.8-30.6); INR 0.99 (0.9-1.1); Prothrombin Time 10.7 seconds (10.1-12.5)
== END ==
PROVIDERS: PCP Nurse Practitioner Family; Visit Provider Nurse Practitioner Family
DX: K92.2 Gastrointestinal hemorrhage, unspecified (principal)
CPT/HCPCS: 80053; 85025; 85610; 85730

== ENCOUNTER 2023-05-11 06:41 | Emergency (ER) | payer OTHER, SELFPAY ==
[2023-05-11] VITALS (8 sets, daily range): BP systolic 95–130; BP diastolic 69–99; PULSE 70–99; RESP 16; TEMP 36.7–36.9; O2SAT 97–98; BMI 37.8
--- NOTE | 2023-05-11 07:08 | CT_ITS ---
PROCEDURE INFORMATION: Exam: CT Abdomen And Pelvis With Contrast Exam date and time: 05/11/2023 7:50 AM Age: 28 years old Clinical indication: Abdominal pain; Generalized; Additional info: N/v, diffuse abd pain TECHNIQUE: Imaging protocol: Computed tomography of the abdomen and pelvis with contrast. Radiation optimization: All CT scans at this facility use at least one of these dose optimization techniques: automated exposure control; mA and/or kV adjustment per patient size (includes targeted exams where dose is matched to clinical indication); or iterative reconstruction. Contrast material: ISOVUE; Contrast volume: 75 ml; Contrast route: IV; REPORTING DATA: Count of CT and Cardiac NM exams in prior 12 months: This patient has received 2 known CTs and 0 known cardiac nuclear medicine studies in the 12 months prior to the current study. COMPARISON: CT ABDOMEN PELVIS W CON 10/15/2022 5:34 PM FINDINGS: Liver: Fatty infiltration of the liver. Gallbladder and bile ducts: Previous cholecystectomy. Pancreas: Normal. No ductal dilation. Spleen: Normal. No splenomegaly. Adrenal glands: Normal. No mass. Kidneys and ureters: Normal. No hydronephrosis. Stomach and bowel: Unremarkable. No obstruction. No mucosal thickening. Appendix: No evidence of appendicitis. Intraperitoneal space: Unremarkable. No free air. No significant fluid collection. Vasculature: Unremarkable. No abdominal aortic aneurysm. Lymph nodes: Unremarkable. No enlarged lymph nodes. Urinary bladder: Unremarkable as visualized. Reproductive: Unremarkable as visualized. Bones/joints: Unremarkable. No acute fracture. Soft tissues: Unremarkable. IMPRESSION: No acute findings.
--- NOTE | 2023-05-11 07:09 | HMH.EDGENADL ---
Discharge Plan Disposition Patient Disposition: Home, Self-Care Prescriptions Prescriptions: New ondansetron 4 mg tablet,disintegrating 4 mg PO Q6H PRN (Reason: nausea and vomiting) 5 Days Qty: 20 0RF No Action etonogestrel-ethinyl estradiol [NuvaRing] 0.12-0.015 mg/24 hr ring 1 vag ring vaginal Q4W Qty: 3 2RF Rx Instructions: leave in place for 3 weeks of a 4-week cycle pantoprazole 20 mg tablet,delayed release (DR/EC) 20 mg PO DAILY Qty: 30 1RF doxepin 25 mg capsule 25 - 50 mg PO HS Qty: 60 1RF epinephrine 0.3 mg/0.3 mL auto-injector 0.3 ml SQ ONCE Qty: 2 0RF citalopram [Celexa] 20 mg tablet 20 mg PO DAILY Qty: 30 3RF alprazolam [Xanax] 2 mg tablet See Rx Instructions .ROUTE .COMPLEX Qty: 30 0RF Rx Instructions: Take 1/2 to 1 tablet twice daily prn; Referrals Follow up/Referrals: Diego Thao MD [Primary Care Provider] - See instructions Activity Restrictions/Add. Instructions Additional Instructions/Restrictions: No emergent medical condition identified on your CAT scan or labs. This is almost certainly viral syndrome please take your nausea medicine return to the emergency department any worsening symptoms or inability to tolerate fluids by mouth. This should be self-limiting if in fact this is a virus. Otherwise follow-up with primary care doctor if your symptoms persist but not severe. Clinical Impressions Clinical Impression: Nausea & vomiting, Abdominal pain Instructions Patient Instructions: DI for Acute Abdominal Pain Discharge ED Provider: Jorge Pagan Adult HPI General Chief complaint: Abdominal Pain Stated complaint: Vomiting,abd pain,dizziness Time Seen by Provider: 05/11/23 07:04 Mode of Arrival: Ambulatory Source of Information: Patient Limitations: No Limitations Description of Symptoms (Recalled from ER Triage Doc. by RN): pt c/o n/v and abd pain since 4am. pt denies any diarrhea History of Present Illness HPI narrative: Patient is a 28-year-old female presented today with nausea vomiting abdominal pain that began around 4 AM this morning. She is not passing any gas or having any bowel movements today including no diarrhea. Did have a bowel movement yesterday. Has had multiple abdominal surgeries including cholecystectomy and appendectomy. No history of any bowel obstructions in the past. No fevers or chills no other infectious symptoms. No sick contacts. Related Data Previous Rx's Medication Instructions Recorded epinephrine 0.3 mg/0.3 mL 0.3 ml SQ ONCE allergies #2 ea 10/09/22 injection, auto-injector etonogestrel 0.12 mg-ethinyl 1 vag ring vaginal Q4W #3 ea 01/30/23 estradiol 0.015 mg/24 hr vaginal ring (NuvaRing) citalopram 20 mg tablet (Celexa) 20 mg PO DAILY #30 tabs 02/04/23 pantoprazole 20 mg tablet,delayed 20 mg PO DAILY #30 tabs 02/14/23 release alprazolam 2 mg tablet (Xanax) See Rx Instructions .Route 04/21/23 .COMPLEX #30 tabs doxepin 25 mg capsule 25 - 50 mg PO HS sleep #60 caps 04/24/23 ondansetron 4 mg disintegrating 4 mg PO Q6H PRN nausea and 05/11/23 tablet vomiting 5 days #20 tabs Allergies Allergy/AdvReac Type Severity Reaction Status Date / Time ketorolac Allergy Severe Anaphylaxis Verified 04/24/23 15:00 hydrocodone [HYDROCODONE] Allergy Intermediate Face & Verified 04/24/23 15:00 tounge swelling latex [LATEX] Allergy Intermediate I-RASH Verified 04/24/23 15:00 sulfamethoxazole Allergy Verified 04/24/23 15:00 [From Bactrim] trimethoprim [From Bactrim] Allergy Verified 04/24/23 15:00 [facility] Disclaimer: The information contained in this section may have been updated after the patient was seen, as this information can be updated by other users. Medical History Anxiety Depression Surgical History History of cholecystectomy Hx of appendectomy
[2023-05-11 07:15] LABS: Basophils # 0.1 K/mm3 (0-0.2); Basophils % 0.9 % (0.1-2.0); Eosinophils # 0.4 K/mm3 (0.0-0.4); Eosinophils % 3.9 % (0.1-12.0); Hematocrit 46.8 % (37.0-47.0); Hemoglobin 16.7 g/dL (12.2-16.2); Lymphocytes # 2.7 K/mm3 (0.7-4.5); Lymphocytes % 30.1 % (10-50); Mean Corpuscular HGB Conc 35.6 g/dL (31.8-35.4); Mean Corpuscular Hemoglobin 31.3 pg (27.0-31.2); Mean Corpuscular Volume 87.9 fl (81-99); Mean Platelet Volume 8.4 fl (7.4-10.4); Monocytes # 0.6 K/mm3 (0.1-1.0); Monocytes % 6.4 % (1.7-9.3); Neutrophils # 5.3 K/mm3 (1.8-7.8); Neutrophils % 58.6 % (37.0-80.0); Platelet Count 265 K/mm3 (142-424); Red Blood Count 5.32 M/mm3 (4.20-5.40); Red Cell Distribution Width 12.6 % (11.5-17.5)
[2023-05-11 07:19] LABS: HCG Qualitative, Serum Negative (Negative)
[2023-05-11 07:20] LABS: Alanine Aminotransferase 48 U/L (12-78); Albumin Level 4.9 g/dl (3.5-5.0); Albumin/Globulin Ratio 1.4 (1.1-1.8); Alkaline Phosphatase 43 U/L (38-126); Anion Gap 10.8 mEq/L (5-15); Aspartate Amino Transferase 54 U/L (14-36); Bilirubin,Total 0.6 mg/dl (0.2-1.3); Blood Urea Nitrogen 7 mg/dl (7-17); Calcium 9.2 mg/dl (8.4-10.2); Carbon Dioxide 28 mmol/L (22.0-30.0); Chloride 103 mmol/L (98-107); Creatinine Clearance Estimated 150 mL/min (50-200); Estimated Glomerular Filt Rate 85 ml/min (>60); GFR (African American) 103 ML/MIN (>60); Globulin 3.5 g/dL (1.3-3.2); Glucose 110 mg/dl (74-100); Lipase 64 U/L (23-300); Potassium 3.8 mmoL/L (3.5-5.1); Sodium 138 mmol/L (136-145); Total Protein,Serum 8.4 g/dl (6.3-8.2)
== END 2023-05-11 09:39 | disposition home or self-care (01) ==
PROVIDERS: Student in an Organized Health Care Education/Training Program; Emergency Provider Emergency Medicine; PCP Family Medicine
DX: R10.9 Unspecified abdominal pain (principal); R11.2 Nausea with vomiting, unspecified
CPT/HCPCS: 74177; 80053; 83690; 84703; 85025; 96361; 96374; 96375; 99285; J0131; J2405; Q9967

== ENCOUNTER 2023-05-23 08:12 | Outpatient (CLI) | payer OTHER, SELFPAY | END 2023-05-23 23:59 | LOC: LAB.DROPOF 05-24 08:13 | PROVIDERS: PCP Family Medicine; Visit Provider Nurse Practitioner Family | DX: N92.6 Irregular menstruation, unspecified (principal); B96.89 Other specified bacterial agents as the cause of diseases classified elsewhere | CPT/HCPCS: 87086 ==

== ENCOUNTER 2023-05-29 08:49 | Emergency (ER) | payer OTHER, SELFPAY ==
[2023-05-29 08:50] VITALS: BP 134/93; PULSE 110; RESP 18; TEMP 37.2; O2SAT 99; BMI 31.0
[2023-05-29 09:02] VITALS: PULSE 114; O2SAT 96
--- NOTE | 2023-05-29 09:02 | PC.NURSE ---
pt was given a gown to change into for er md to be able to exam
[2023-05-29 09:30] VITALS: PULSE 104; O2SAT 97
--- NOTE | 2023-05-29 09:47 | US_ITS ---
PROCEDURE: US OB TRANSVAGINAL CLINICAL INDICATION: + preg; vaginal bleeding COMPARISON: No exams were available for comparison FINDINGS: Transvaginal sonographic images of the pelvis were obtained. UTERUS: 7.8 cm x 3.9 cmx 5.0 cm anteverted with a combined endometrial thickness of 7.9 mm. There appears to be a small superior outpouching of the endometrium that measures 5 mm in size. LEFT OVARY: 4.5 cmx2.5 cmx1.4cm with a volume of 8.2ml. RIGHT OVARY: 2.8 cmx 2.1cmx3.4cm with a volume of 10ml. Both ovaries are seen and appear normal. Doppler flow to both ovaries are seen. There is no fluid in the cul-de-sac. IMPRESSION: 1. Anteverted uterus normal in shape and size. The endometrium measures 7.9 mm. 2. On the superior aspect of the endometrium there appears to be an outpouching of endometrium that measures 5 mm. 3. Both ovaries are seen and appear normal. 4. No fluid in the cul-de-sac. 5. Her quantitative beta hCG was undetectable today. 6. ER physician, Dr. Zurita was notified. Dictated by: Garcia Regalado MD 05/29/2023 12:09 Garcia Regalado MD in OV 05/29/2023 12:09
--- NOTE | 2023-05-29 09:50 | HMH.EDGENADL ---
Discharge Plan Disposition Patient Disposition: Home, Self-Care Prescriptions Prescriptions: No Action etonogestrel-ethinyl estradiol [NuvaRing] 0.12-0.015 mg/24 hr ring 1 vag ring vaginal Q4W Qty: 3 2RF Rx Instructions: leave in place for 3 weeks of a 4-week cycle epinephrine 0.3 mg/0.3 mL auto-injector 0.3 ml SQ ONCE Qty: 2 0RF citalopram [Celexa] 20 mg tablet 20 mg PO DAILY Qty: 30 3RF Vraylar 1.5 mg capsule 1.5 mg PO DAILY Qty: 30 3RF mirtazapine 15 mg tablet 15 mg PO HS Qty: 30 2RF alprazolam [Xanax] 2 mg tablet See Rx Instructions .ROUTE .COMPLEX Qty: 30 0RF Rx Instructions: Take 1/2 to 1 tablet twice daily prn; pantoprazole 20 mg tablet,delayed release (DR/EC) 20 mg PO DAILY Qty: 30 1RF Referrals Follow up/Referrals: Diego Thao MD [Primary Care Provider] - See instructions Activity Restrictions/Add. Instructions Additional Instructions/Restrictions: No intrauterine noted on transvaginal ultrasound. Additionally your quantitative beta-hCG which is your hormone was undetectably low suggesting that this was likely a false positive test at home and your bleeding is simply abnormal uterine bleeding or menstrual cramps associated with your period. Please follow-up with your [facility] doctor to discuss chronic risk factors associated with miscarriages as well. Return with any significant worsening symptoms. Clinical Impressions Clinical Impression: Abnormal uterine bleeding (AUB) Discharge ED Provider: Dottie Zurita General Adult HPI General Chief complaint: Vaginal Bleeding Stated complaint: 4 weeks and bleeding Time Seen by Provider: 05/29/23 09:39 Mode of Arrival: Ambulatory Source of Information: Patient Limitations: No Limitations Description of Symptoms (Recalled from ER Triage Doc. by RN): Patient reports she had positive test 4 days ago and started bleeding last night. reports that it stopped and then started again this am and was worse. Now bleeding has stopped but she did pass a couple quarter sized clots. History of Present Illness HPI narrative: Patient is a 28-year-old G4, who presents today with vaginal bleeding abdominal cramping and passage of tissue since yesterday evening bleeding has since stopped. No significant ongoing pain. She has not been worked up for any other alternative causes for early loss. Has no other medical problems that she is aware of. Desires to be . [facility] doctor is in [place] whom she has a good relationship with. States she is known to be O- has not had RhoGAM in the past however. Related Data Previous Rx's Medication Instructions Recorded epinephrine 0.3 mg/0.3 mL 0.3 ml SQ ONCE allergies #2 ea 10/09/22 injection, auto-injector etonogestrel 0.12 mg-ethinyl 1 vag ring vaginal Q4W #3 ea 01/30/23 estradiol 0.015 mg/24 hr vaginal ring (NuvaRing) citalopram 20 mg tablet (Celexa) 20 mg PO DAILY #30 tabs 02/04/23 alprazolam 2 mg tablet (Xanax) See Rx Instructions .Route 05/21/23 .COMPLEX #30 tabs pantoprazole 20 mg tablet,delayed 20 mg PO DAILY #30 tabs 05/21/23 release cariprazine 1.5 mg capsule 1.5 mg PO DAILY #30 caps 05/23/23 (Vraylar) mirtazapine 15 mg tablet 15 mg PO HS #30 tabs 05/23/23 Allergies Allergy/AdvReac Type Severity Reaction Status Date / Time ketorolac Allergy Severe Anaphylaxis Verified 05/23/23 10:33 hydrocodone [HYDROCODONE] Allergy Intermediate Face & Verified 05/23/23 10:33 tounge swelling latex [LATEX] Allergy Intermediate I-RASH Verified 05/23/23 10:33 sulfamethoxazole Allergy Verified 05/23/23 10:33 [From Bactrim] trimethoprim [From Bactrim] Allergy Verified 05/23/23 10:33 PFSH PFS Disclaimer: The information contained in this section may have been updated after the patient was seen, as this information can be updated by other users. Medical History Anxiety Depression Surgical History History of cholecystectomy Hx of appendectomy Family History Other No significant family history Social History Smoking Status: Never smoker alcohol intake: never substance use type: denies use current occupational status: unemployed Travel in the last 8 weeks: None household members: family housing: house ROS Obtained: Yes All systems reviewed & no additional complaints except as documented Physical Exam General General appearance: alert Respiratory Respiratory exam: Present normal lung sounds bilaterally Cardiovascular Cardiovascular exam: Present regular rate; Absent tachycardia Abdominal Exam Abdominal exam: Present soft; Absent distention or tenderness Neurological Exam Neurological exam: Present alert and oriented X3 Medical Decision Making Gregorio Inquiry Pt receiving controlled substance: No Vital Signs: 05/29/23 08:50 05/29/23 09:02 05/29/23 09:30 Temperature 98.9 F Temperature Source Oral Pulse Rate 114 H 104 H Pulse Rate [Right] 110 H Respiratory Rate 18 Blood Pressure Blood Pressure [Right Arm] 134/93 H Blood Pressure Mean [Right Arm] 106 Blood Pressure Source [Right Arm] Automatic Cuff 02 Sat by Pulse Oximetry 99 96 97 Oxygen Delivery Method Room Air 05/29/23 11:24 Temperature Temperature Source Pulse Rate 113 H Pulse Rate [Right] Respiratory Rate Blood Pressure 144/107 H Blood Pressure [Right Arm] Blood Pressure Mean [Right Arm] Blood Pressure Source [Right Arm] 02 Sat by Pulse Oximetry 97 Oxygen Delivery Method Lab Data Lab results reviewed: Yes I reviewed the patient's lab results. Lab Results 05/29/23 09:18: WBC 9.5, RBC 5.09, Hgb 15.8, Hct 44.8, MCV 88.1, MCH 31.1, MCHC 35.3, RDW 12.8, Plt Count 264, MPV 8.5, Neut % (Auto) 62.4, Lymph % (Auto) 26.2, [place] % (Auto) 7.2, Eos % (Auto) 3.6, Baso % (Auto) 0.7, Neut # (Auto) 5.9, Lymph # (Auto) 2.5, [place] # (Auto) 0.7, Eos # (Auto) 0.3, Baso # (Auto) 0.1, Sodium 136, Potassium 4.0, Chloride 107, Carbon Dioxide 22, Anion Gap 11.0, BUN 7, Creatinine 0.70, Estimated Creat Clear 170, Estimated GFR 100, Est GFR ( Amer) 121, Glucose 100, Calcium 9.3, Total Bilirubin 0.3, AST 34, ALT 38, Alkaline Phosphatase 53, Total Protein 7.5, Albumin 4.4, Globulin 3.1, Albumin/Globulin Ratio 1.4, HCG, Quant < 2 05/29/23 09:55: Blood Type O Negative, Antibody Screen Negative 05/29/23 09:18 05/29/23 09:18 Orders (Tests/Meds): ED MEDICATIONS Generic Name Dose Route Start Last Admin Trade Name Freq PRN Reason Stop Dose Admin Sodium Chloride 10 ml 05/29/23 09:21 Sodium Chloride 0.9% 10ml Flush Syringe IV 06/28/23 09:20 NEEDED PRN Maintain IV Site Discontinued Medications Generic Name Dose Route Start Last Admin Trade Name Freq PRN Reason Stop Dose Admin Ondansetron HCl 4 mg 05/29/23 11:28 05/29/23 11:30 Ondansetron 4mg/2ml Vial IV 05/29/23 11:29 4 mg ONCE ONE Administration ORDERS Category Date Time Status Type and Screen Stat BBK 05/29/23 09:55 Completed POCUS Point of Care (ER Only) Stat Exams 05/29/23 09:39 Taken Beta HCG, Quant [HCG,Quantitative] Stat Lab 05/29/23 09:18 Completed CBC w/Auto Diff [Complete Blood Count Auto Diff] Stat Lab 05/29/23 09:18 Completed CMP [Comprehensive Metabolic Panel] Stat Lab 05/29/23 09:18 Completed US OB transvaginal Stat Ultrasound 05/29/23 09:47 Taken Medical Decision Narrative: Well-appearing nontoxic hemodynamically stable 28-year-old female who is O- presenting today with what is likely another loss. She has no evidence of IUP on bedside ultrasound we will get a transvaginal ultrasound quantitative beta-hCG etc. There is differing guidance on whether or not on Rh- patients at less than 12 weeks gestation who has loss requires RhoGAM for prevention of alloimmunization and I will discuss this with the patient. The guidance from the World Health Organization for go RhoGAM administration for patients experiencing loss below 12 weeks gestational age but she has been under the impression in the past that she should have the shot. I will discuss with her and will make a shared decision together. Transvaginal ultrasound is pending patient has no urinary symptoms will reassess shortly. Reassessment 11:58 AM patient's labs returned which were all unremarkable but specifically her beta hCG is less than 2 this suggest that she was never to begin with and it was likely a false positive test as I would expect her still to be measurable level at this point. Therefore diagnosis at this point is abnormal uterine bleeding. She has been advised to follow-up with primary care doctor or [facility] doctor to discuss chronic risk factors associated with miscarriages. Transvaginal ultrasound was performed which I personally interpreted which shows no acute abnormality or no obvious intrauterine . I do not suspect an ectopic at this point. Formal read is pending still. Procedures Miscellaneous Procedure Procedure Performed: Limited OB ultrasound Indication: Vaginal bleeding home positive test Identified structures: [-Uterus -Left adnexa -Right adnexa -Pouch of [place]] Findings: Uterus: No definitive IUP there is heterogenous debris in the endometrial cavity concerning for ongoing hemorrhage FHR: Not identified Right adnexa: No free fluid Left adnexa: No free fluid Cul de sac: No free fluid Impression: No definitive IUP noted there is heterogenous debris in the endometrial cavity concerning for hemorrhage and probable loss Images were saved to permanent archive The study was technically adequate CPT Transabdominal: 90976-54 This study was performed by me, and I personally interpreted all images/videos. Based on my clinical judgement, these images were adequate and did necessitate further imaging. Critical Care Critical Care Time Critical Care Time: No
[2023-05-29 09:55] LABS: Sodium 136 mmol/L (136-145)
[2023-05-29 09:56] LABS: Basophils # 0.1 K/mm3 (0-0.2); Basophils % 0.7 % (0.1-2.0); Eosinophils # 0.3 K/mm3 (0.0-0.4); Eosinophils % 3.6 % (0.1-12.0); Hematocrit 44.8 % (37.0-47.0); Hemoglobin 15.8 g/dL (12.2-16.2); Lymphocytes # 2.5 K/mm3 (0.7-4.5); Lymphocytes % 26.2 % (10-50); Mean Corpuscular HGB Conc 35.3 g/dL (31.8-35.4); Mean Corpuscular Hemoglobin 31.1 pg (27.0-31.2); Mean Corpuscular Volume 88.1 fl (81-99); Mean Platelet Volume 8.5 fl (7.4-10.4); Monocytes # 0.7 K/mm3 (0.1-1.0); Monocytes % 7.2 % (1.7-9.3); Neutrophils # 5.9 K/mm3 (1.8-7.8); Neutrophils % 62.4 % (37.0-80.0); Platelet Count 264 K/mm3 (142-424); Red Blood Count 5.09 M/mm3 (4.20-5.40); Red Cell Distribution Width 12.8 % (11.5-17.5); White Blood Count 9.5 K/mm3 (4.8-10.8)
[2023-05-29 09:57] LABS: Alanine Aminotransferase 38 U/L (12-78); Albumin Level 4.4 g/dl (3.5-5.0); Albumin/Globulin Ratio 1.4 (1.1-1.8); Alkaline Phosphatase 53 U/L (38-126); Aspartate Amino Transferase 34 U/L (14-36); Bilirubin,Total 0.3 mg/dl (0.2-1.3); Blood Urea Nitrogen 7 mg/dl (7-17); Calcium 9.3 mg/dl (8.4-10.2); Carbon Dioxide 22 mmol/L (22.0-30.0); Chloride 107 mmol/L (98-107); Creatinine Clearance Estimated 170 mL/min (50-200); Estimated Glomerular Filt Rate 100 ml/min (>60); GFR (African American) 121 ML/MIN (>60); Globulin 3.1 g/dL (1.3-3.2); Glucose 100 mg/dl (74-100); Total Protein,Serum 7.5 g/dl (6.3-8.2)
--- NOTE | 2023-05-29 10:07 | PC.NURSE ---
PT TO US
[2023-05-29 10:15] LABS: HCG,Quantitative < 2 mIU/ml (0-5.42)
--- NOTE | 2023-05-29 10:29 | PC.NURSE ---
pt arrived back to room from ultrasound
[2023-05-29 11:24] VITALS: BP 144/107; PULSE 113; O2SAT 97
[2023-05-29] MEDS: ONDANSETRON 4MG/2ML VIAL 4 MG IV (11:30)
[2023-05-29 12:02] VITALS: BP 133/90; PULSE 102; RESP 18; TEMP 37.1; O2SAT 99
== END 2023-05-29 12:05 | disposition home or self-care (01) ==
PROVIDERS: Emergency Provider Student in an Organized Health Care Education/Training Program; PCP Family Medicine
DX: N93.9 Abnormal uterine and vaginal bleeding, unspecified (principal); F41.9 Anxiety disorder, unspecified; F32.A Depression, unspecified
CPT/HCPCS: 76817; 80053; 84702; 85025; 86850; 96374; 99285; J2405

== ENCOUNTER 2023-07-17 13:32 | Emergency (ER) | payer OTHER, SELFPAY ==
[2023-07-17 13:33] VITALS: BP 128/81; PULSE 100; RESP 18; TEMP 36.9; O2SAT 100; BMI 39.0
[2023-07-17 13:41] VITALS: PULSE 102; O2SAT 97
--- NOTE | 2023-07-17 13:47 | ED_ITS ---
Discharge Plan Disposition Patient Disposition: Left Against Medical Advice Prescriptions Prescriptions: No Action Nexplanon 68 mg implant 1 implant subdermal famotidine [Pepcid] 20 mg tablet 20 mg PO BID Qty: 60 2RF promethazine 25 mg tablet 25 mg PO Q6H PRN (Reason: nausea and vomiting) Qty: 20 1RF epinephrine 0.3 mg/0.3 mL auto-injector 0.3 ml SQ ONCE Qty: 2 0RF alprazolam [Xanax] 2 mg tablet See Rx Instructions .ROUTE .COMPLEX Qty: 90 0RF Rx Instructions: Take 1 tablet twice daily and 1 at bedtime. pantoprazole 20 mg tablet,delayed release (DR/EC) 20 mg PO DAILY Qty: 30 1RF Referrals Follow up/Referrals: Diego Thao MD [Primary Care Provider] - See instructions Clinical Impressions Clinical Impression: Abdominal pain Instructions Patient Instructions: DI for Acute Abdominal Pain Discharge ED Provider: Marilyn Morton General Adult HPI <Anthony Herman MD - Last Filed: 07/17/23 15:16> General Chief complaint: Abdominal Pain Stated complaint: abd pain, colonscopy yesterday Time Seen by Provider: 07/17/23 13:44 Mode of Arrival: Ambulatory Source of Information: Patient Limitations: No Limitations Description of Symptoms (Recalled from ER Triage Doc. by RN): PT C/O ABDOMINAL PAIN AFTER COLONOSCOPY YESTERDAY. REPORTS NAUSEA History of Present Illness HPI narrative: Patient is a 28-year-old female with past medical history of chronic abdominal pain, previous cholecystectomy and appendectomy who presents emergency departm ent for acute on chronic abdominal pain. Patient had a colonoscopy by her program coordinator for residence life yesterday with a few biopsies taken. This morning she awoke with pain that has worsened, it is across the top and the left side of her abdomen. There is associated nausea. No other acute complaints at this time. Related Data Home Medications Medication Instructions Recorded Confirmed etonogestrel 68 mg subdermal 1 implant subdermal 06/16/23 07/03/23 implant (Nexplanon) Previous Rx's Medication Instructions Recorded epinephrine 0.3 mg/0.3 mL 0.3 ml SQ ONCE allergies #2 ea 10/09/22 injection, auto-injector pantoprazole 20 mg tablet,delayed 20 mg PO DAILY #30 tabs 05/21/23 release famotidine 20 mg tablet (Pepcid) 20 mg PO BID #60 tabs 06/24/23 promethazine 25 mg tablet 25 mg PO Q6H PRN nausea and 06/24/23 vomiting #20 tabs alprazolam 2 mg tablet (Xanax) See Rx Instructions .Route 07/03/23 .COMPLEX #90 tabs Allergies Allergy/AdvReac Type Severity Reaction Status Date / Time ketorolac Allergy Severe Anaphylaxis Verified 07/03/23 15:15 hydrocodone [HYDROCODONE] Allergy Intermediate Face & Verified 07/03/23 15:15 tounge swelling latex [LATEX] Allergy Intermediate I-RASH Verified 07/03/23 15:15 sulfamethoxazole Allergy Verified 07/03/23 15:15 [From Bactrim] trimethoprim [From Bactrim] Allergy Verified 07/03/23 15:15 PFSH <Anthony Herman MD - Last Filed: 07/17/23 15:16> PFS Disclaimer: The information contained in this section may have been updated after the patient was seen, as this information can be updated by other users. Medical History Anxiety Depression Surgical History History of cholecystectomy Hx of appendectomy Family History Other No significant family history Social History Smoking Status: Never smoker alcohol intake: never substance use type: denies use current occupational status: unemployed Travel in the last 8 weeks: None household members: family housing: house <Anthony Herman MD - Last Filed: 07/17/23 15:16> ROS Obtained: Yes Systems reviewed as appropriate & no additional complaints except as documented Physical Exam <Anthony Herman MD - Last Filed: 07/17/23 15:16> General General appearance: alert and other (Appearing uncomfortable in bed) Head Head exam: atraumatic and normocephalic Eye Eye exam: Present PERRL ENT ENT exam: Present mucous membranes moist Neck Neck exam: Present normal inspection Chest Chest inspection: Present normal inspection and symmetric chest wall rise Respiratory Respiratory exam: Present normal lung sounds bilaterally; Absent respiratory distress Cardiovascular Cardiovascular exam: Present regular rate and normal rhythm Abdominal Exam Abdominal exam: Present soft and tenderness (Epigastric, left upper quadrant); Absent rebound Extremities Exam Extremities exam: Present normal inspection Neurological Exam Neurological exam: Present alert Psychiatric Psychiatric exam: Present normal affect Skin Skin exam: Present warm and dry Medical Decision Making <Anthony Herman MD - Last Filed: 07/17/23 15:16> Gregorio Inquiry Pt receiving controlled substance: No Vital Signs: 07/17/23 13:33 07/17/23 13:41 07/17/23 14:00 Temperature 98.5 F Temperature Source Oral Pulse Rate 102 H 102 H Pulse Rate [Radial] 100 H Respiratory Rate 18 20 Blood Pressure 119/83 Blood Pressure [Left Arm] 128/81 Blood Pressure Mean 92 Blood Pressure Mean [Left Arm] 96 Blood Pressure Source [Left Arm] Automatic Cuff Blood Pressure Position [Left Arm] Sitting 02 Sat by Pulse Oximetry 100 97 97 Oxygen Delivery Method Room Air 07/17/23 15:00 07/17/23 15:31 07/17/23 17:15 Temperature 98.0 F Temperature Source Oral Pulse Rate 89 99 H 89 Pulse Rate [Radial] Respiratory Rate 20 20 18 Blood Pressure 112/75 128/73 130/71 Blood Pressure [Left Arm] Blood Pressure Mean 83 93 Blood Pressure Mean [Left Arm] Blood Pressure Source [Left Arm] Blood Pressure Position [Left Arm] 02 Sat by Pulse Oximetry 97 99 Oxygen Delivery Method Room Air Lab Data Lab Results 07/17/23 13:47: WBC 11.5 H, RBC 5.26, Hgb 16.3 H, Hct 48.7 H, MCV 92.6, MCH 30.9, MCHC 33.4, RDW 13.1, Plt Count 319, MPV 8.5, Neut % (Auto) 75.2, Lymph % (Auto) 17.2, [place] % (Auto) 5.2, Eos % (Auto) 1.2, Baso % (Auto) 1.1, Neut # (Auto) 8.7 H, Lymph # (Auto) 2.0, Rich # (Auto) 0.6, Eos # (Auto) 0.1, Baso # (Auto) 0.1, Sodium 142, Potassium 3.6, Chloride 104, Carbon Dioxide 26, Anion Gap 15.6 H, BUN 6 L, Creatinine 0.80, Estimated Creat Clear 150, Estimated GFR 85, Est GFR ( Amer) 103, Glucose 106 H, Calcium 9.8, Total Bilirubin 0.6, AST 32, ALT 35, Alkaline Phosphatase 63, Total Protein 8.6 H, Albumin 5.1 H, Globulin 3.5 H, Albumin/Globulin Ratio 1.5, Lipase 78, Serum HCG, Qual Negative 07/17/23 14:05: Urine Color Yellow, Urine Appearance Clear, Urine pH 6.0, Ur Specific [place] 1.020, Urine Protein Negative, Urine Glucose (UA) Negative, Urine Ketones Negative, Urine Blood 2+, Urine Nitrate Negative, Urine Bilirubin Negative, Urine Urobilinogen 0.2, Ur Leukocyte Esterase Negative, Urine RBC 3-5, Urine WBC Occasional, Ur Squamous Epith Cells 3-5, Urine Bacteria Trace 07/17/23 13:47 07/17/23 13:47 Orders (Tests/Meds): ED MEDICATIONS Discontinued Medications Generic Name Dose Route Start Last Admin Trade Name Juanjose PRN Reason Stop Dose Admin Acetaminophen 1,000 mg 07/17/23 13:55 07/17/23 14:12 Acetaminophen 1,000mg/100ml Vial IV 07/17/23 13:56 1,000 mg ONCE ONE Administration Dicyclomine HCl 20 mg 07/17/23 16:24 07/17/23 16:37 Dicyclomine 10mg Capsule PO 07/17/23 16:25 20 mg ONCE ONE Administration Lactated Ringer's 1,000 mls @ 999 mls/hr 07/17/23 13:55 07/17/23 14:11 Lactated Ringer's 1000 Ml Bag IV 07/17/23 14:55 999 mls/hr .Q1H1M ONE Administration Iopamidol 75 ml 07/17/23 14:35 07/17/23 14:37 Iopamidol-370 (76%);100ml Bottle IV 07/17/23 14:36 75 ml ONCE ONE Administration Morphine Sulfate 4 mg 07/17/23 13:55 07/17/23 14:12 Morphine 4mg/Ml Syringe IV 07/17/23 13:56 4 mg ONCE ONE Administration Ondansetron HCl 4 mg 07/17/23 13:55 07/17/23 14:12 Ondansetron 4mg/2ml Vial IV 07/17/23 13:56 4 mg ONCE ONE Administration Sodium Chloride 10 ml 07/17/23 14:35 Sodium Chloride 0.9% 10ml Syr (Rad Only) IV 08/16/23 14:34 NEEDED PRN Maintain IV Site ORDERS Category Date Time Status CT abdomen pelvis w con Stat Cat Scan 07/17/23 13:55 Completed CBC w/Auto Diff [Complete Blood Count Auto Diff] Stat Lab 07/17/23 13:47 Completed CMP [Comprehensive Metabolic Panel] Stat Lab 07/17/23 13:47 Completed HCG Qualitative, Serum Stat Lab 07/17/23 13:47 Completed Lipase Stat Lab 07/17/23 13:47 Completed UA [Urinalysis and Microscopic] Stat Lab 07/17/23 14:05 Completed Medical Decision Narrative: In summary patient is a 28-year-old female with past medical history described above who presents emergency department for evaluation abdominal pain in the postprocedural state. Patient is hemodynamically stable nontoxic-appearing upon arrival, afebrile, appearing uncomfortable. Differential diagnosis includes routine postprocedural pain, perforation, pancreatitis, among others. Workup will be conducted with hematologic labs, urinalysis, CT abdomen pelvis IV contrast. Initial inventions include IV Tylenol, Zofran, morphine. Patient is anaphylactic to Toradol will be deferred. Patient states she has tolerated morphine before. Workup reviewed by me, hematologic labs are nonactionable, no JIM or critical electrolyte abnormality, no elevated lipase, hCG negative. Urinalysis interpreted by me and not consistent with infection. CT imaging was conducted and pending at time of transfer of care to the oncoming physician, Dr. Morton. <Marilyn Morton, DO - Last Filed: 07/17/23 23:38> Vital Signs: 07/17/23 13:33 07/17/23 13:41 07/17/23 14:00 Temperature 98.5 F Temperature Source Oral Pulse Rate 102 H 102 H Pulse Rate [Radial] 100 H Respiratory Rate 18 20 Blood Pressure 119/83 Blood Pressure [Left Arm] 128/81 Blood Pressure Mean 92 Blood Pressure Mean [Left Arm] 96 Blood Pressure Source [Left Arm] Automatic Cuff Blood Pressure Position [Left Arm] Sitting 02 Sat by Pulse Oximetry 100 97 97 Oxygen Delivery Method Room Air 07/17/23 15:00 07/17/23 15:31 07/17/23 17:15 Temperature 98.0 F Temperature Source Oral Pulse Rate 89 99 H 89 Pulse Rate [Radial] Respiratory Rate 20 20 18 Blood Pressure 112/75 128/73 130/71 Blood Pressure [Left Arm] Blood Pressure Mean 83 93 Blood Pressure Mean [Left Arm] Blood Pressure Source [Left Arm] Blood Pressure Position [Left Arm] 02 Sat by Pulse Oximetry 97 99 Oxygen Delivery Method Room Air Lab Data Lab Results 07/17/23 13:47: WBC 11.5 H, RBC 5.26, Hgb 16.3 H, Hct 48.7 H, MCV 92.6, MCH 30.9, MCHC 33.4, RDW 13.1, Plt Count 319, MPV 8.5, Neut % (Auto) 75.2, Lymph % (Auto) 17.2, Rich % (Auto) 5.2, Eos % (Auto) 1.2, Baso % (Auto) 1.1, Neut # (Auto) 8.7 H, Lymph # (Auto) 2.0, Rich # (Auto) 0.6, Eos # (Auto) 0.1, Baso # (Auto) 0.1, Sodium 142, Potassium 3.6, Chloride 104, Carbon Dioxide 26, Anion Gap 15.6 H, BUN 6 L, Creatinine 0.80, Estimated Creat Clear 150, Estimated GFR 85, Est GFR ( Amer) 103, Glucose 106 H, Calcium 9.8, Total Bilirubin 0.6, AST 32, ALT 35, Alkaline Phosphatase 63, Total Protein 8.6 H, Albumin 5.1 H, Globulin 3.5 H, Albumin/Globulin Ratio 1.5, Lipase 78, Serum HCG, Qual Negative 07/17/23 14:05: Urine Color Yellow, Urine Appearance Clear, Urine pH 6.0, Ur Sp ecific [place] 1.020, Urine Protein Negative, Urine Glucose (UA) Negative, Urine Ketones Negative, Urine Blood 2+, Urine Nitrate Negative, Urine Bilirubin Negative, Urine Urobilinogen 0.2, Ur Leukocyte Esterase Negative, Urine RBC 3-5, Urine WBC Occasional, Ur Squamous Epith Cells 3-5, Urine Bacteria Trace Orders (Tests/Meds): ED MEDICATIONS Discontinued Medications Generic Name Dose Route Start Last Admin Trade Name Freq PRN Reason Stop Dose Admin Acetaminophen 1,000 mg 07/17/23 13:55 07/17/23 14:12 Acetaminophen 1,000mg/100ml Vial IV 07/17/23 13:56 1,000 mg ONCE ONE Administration Dicyclomine HCl 20 mg 07/17/23 16:24 07/17/23 16:37 Dicyclomine 10mg Capsule PO 07/17/23 16:25 20 mg ONCE ONE Administration Lactated Ringer's 1,000 mls @ 999 mls/hr 07/17/23 13:55 07/17/23 14:11 Lactated Ringer's 1000 Ml Bag IV 07/17/23 14:55 999 mls/hr .Q1H1M ONE Administration Iopamidol 75 ml 07/17/23 14:35 07/17/23 14:37 Iopamidol-370 (76%);100ml Bottle IV 07/17/23 14:36 75 ml ONCE ONE Administration Morphine Sulfate 4 mg 07/17/23 13:55 07/17/23 14:12 Morphine 4mg/Ml Syringe IV 07/17/23 13:56 4 mg ONCE ONE Administration Ondansetron HCl 4 mg 07/17/23 13:55 07/17/23 14:12 Ondansetron 4mg/2ml Vial IV 07/17/23 13:56 4 mg ONCE ONE Administration Sodium Chloride 10 ml 07/17/23 14:35 Sodium Chloride 0.9% 10ml Syr (Rad Only) IV 08/16/23 14:34 NEEDED PRN Maintain IV Site ORDERS Category Date Time Status CT abdomen pelvis w con Stat Cat Scan 07/17/23 13:55 Completed CBC w/Auto Diff [Complete Blood Count Auto Diff] Stat Lab 07/17/23 13:47 Completed CMP [Comprehensive Metabolic Panel] Stat Lab 07/17/23 13:47 Completed HCG Qualitative, Serum Stat Lab 07/17/23 13:47 Completed Lipase Stat Lab 07/17/23 13:47 Completed UA [Urinalysis and Microscopic] Stat Lab 07/17/23 14:05 Completed Medical Decision Narrative: In summary patient is a 28-year-old female with past medical history described above who presents emergency department for evaluation abdominal pain in the postprocedural state. Patient is hemodynamically stable nontoxic-appearing upon arrival, afebrile, appearing uncomfortable. Differential diagnosis includes routine postprocedural pain, perforation, pancreatitis, among others. Workup will be conducted with hematologic labs, urinalysis, CT abdomen pelvis IV contr ast. Initial inventions include IV Tylenol, Zofran, morphine. Patient is anaphylactic to Toradol will be deferred. Patient states she has tolerated morphine before. Workup reviewed by me, hematologic labs are nonactionable, no JIM or critical electrolyte abnormality, no elevated lipase, hCG negative. Urinalysis interpreted by me and not consistent with infection. CT imaging was conducted and pending at time of transfer of care to the oncoming physician, Dr. Morton. Praveen, DO: I independently interpreted CT scan prior to radiology read and noted no obvious acute findings. Patient continues to complain of pain, so she was given Bentyl. Radiology was not back at this time. Patient stated that she did not want to wait here anymore and she wanted to go home. I advised her that since we do not have the definitive results, I cannot exclude acute pathology. She advised she was not willing to wait. Patient directed discharge in stable condition with strict return precautions given. I did review CT scan read after patient departure and noted no acute findings based on their read. Critical Care <Anthony Herman MD - Last Filed: 07/17/23 15:16> Critical Care Time Critical Care Time: No
--- NOTE | 2023-07-17 13:49 | PC.NURSE ---
DR VIDES AT BEDSIDE
--- NOTE | 2023-07-17 13:55 | CT_ITS ---
FINAL REPORT TECHNIQUE: Oral and IV contrast enhanced exam CLINICAL HISTORY: colonoscopy yesterday, diffuse pain FINDINGS: Abdomen: Lung bases are clear. The patient is status post cholecystectomy. Liver has an unremarkable CT appearance. The spleen, pancreas and adrenal glands are unremarkable. Kidneys show no mass or obstruction. There is no free air or free fluid. No bowel obstruction or fluid collection is seen. Pelvis: The patient is status post appendectomy. The uterus and ovaries are normal. Pelvic bowel loops are unremarkable. No adenopathy is seen. There is no free air or free fluid. IMPRESSION: No acute findings. Reviewed, Interpreted and Dictated by Arnol Nava MD Transcribed by Arcenio Landon Authenticated and [facility]
[2023-07-17 14:00] VITALS: BP 119/83; PULSE 102; RESP 20; O2SAT 97
[2023-07-17 14:06] LABS: Basophils # 0.1 K/mm3 (0-0.2); Basophils % 1.1 % (0.1-2.0); Eosinophils # 0.1 K/mm3 (0.0-0.4); Eosinophils % 1.2 % (0.1-12.0); Hematocrit 48.7 % (37.0-47.0); Hemoglobin 16.3 g/dL (12.2-16.2); Lymphocytes % 17.2 % (10-50); Mean Corpuscular HGB Conc 33.4 g/dL (31.8-35.4); Mean Corpuscular Hemoglobin 30.9 pg (27.0-31.2); Mean Corpuscular Volume 92.6 fl (81-99); Mean Platelet Volume 8.5 fl (7.4-10.4); Monocytes # 0.6 K/mm3 (0.1-1.0); Monocytes % 5.2 % (1.7-9.3); Neutrophils # 8.7 K/mm3 (1.8-7.8); Neutrophils % 75.2 % (37.0-80.0); Platelet Count 319 K/mm3 (142-424); Red Blood Count 5.26 M/mm3 (4.20-5.40); Red Cell Distribution Width 13.1 % (11.5-17.5); White Blood Count 11.5 K/mm3 (4.8-10.8)
[2023-07-17 14:07] LABS: Alanine Aminotransferase 35 U/L (12-78); Albumin Level 5.1 g/dl (3.5-5.0); Albumin/Globulin Ratio 1.5 (1.1-1.8); Alkaline Phosphatase 63 U/L (38-126); Anion Gap 15.6 mEq/L (5-15); Aspartate Amino Transferase 32 U/L (14-36); Bilirubin,Total 0.6 mg/dl (0.2-1.3); Blood Urea Nitrogen 6 mg/dl (7-17); Calcium 9.8 mg/dl (8.4-10.2); Carbon Dioxide 26 mmol/L (22.0-30.0); Chloride 104 mmol/L (98-107); Creatinine Clearance Estimated 150 mL/min (50-200); Estimated Glomerular Filt Rate 85 ml/min (>60); GFR (African American) 103 ML/MIN (>60); Globulin 3.5 g/dL (1.3-3.2); Glucose 106 mg/dl (74-100); Lipase 78 U/L (23-300); Potassium 3.6 mmoL/L (3.5-5.1); Sodium 142 mmol/L (136-145); Total Protein,Serum 8.6 g/dl (6.3-8.2)
[2023-07-17] MEDS: LACTATED RINGERS 1000ML 1,000 ML 999 ML IV (14:11)
[2023-07-17] MEDS: ACETAMINOPHEN 1,000MG/100ML VIAL 1000 MG IV (14:12)
[2023-07-17] MEDS: ONDANSETRON 4MG/2ML VIAL 4 MG IV (14:12)
[2023-07-17] MEDS: MORPHINE 4MG/ML SYRINGE 4 MG IV (14:12)
[2023-07-17 14:23] LABS: HCG Qualitative, Serum Negative (Negative)
[2023-07-17 14:23] LABS: Microscopic, Urine URINE MICROSCOPIC (MICROSCOPIC)
[2023-07-17 14:26] LABS: Appearance,Urine CLEAR (Clear); Bilirubin,Urine Negative (Negative); Blood, Urine 2+ (Negative); Color,Urine YELLOW (Yellow); Glucose,Urine (UA) Negative (Negative); Ketones,Urine Negative (Negative); Leukocyte Esterase,Urine Negative (Negative); Nitrate,Urine Negative (Negative); Protein,Urine Negative (Negative); Urobilinogen,Urine 0.2 EU/dl (0.2)
--- NOTE | 2023-07-17 14:27 | PC.NURSE ---
ROUNDED ON PT, ON PHONE. NO NEEDS AT THIS TIME. CALL LIGHT WITHIN REACH
[2023-07-17] MEDS: IOPAMIDOL-370 (76%);100ML BOTTLE 75 ML IV (14:37)
[2023-07-17 14:42] LABS: Bacteria,Urine Trace /lpf; WBC,Urine Occasional #/hpf (0-3)
[2023-07-17 15:00] VITALS: BP 112/75; PULSE 89; RESP 20; O2SAT 97
[2023-07-17 15:31] VITALS: BP 128/73; PULSE 99; RESP 20; O2SAT 99
--- NOTE | 2023-07-17 16:10 | PC.NURSE ---
Patient complaint of her pain returning. Dr. Morton notified.
[2023-07-17] MEDS: DICYCLOMINE 10MG CAPSULE 20 MG PO (16:37)
--- NOTE | 2023-07-17 17:13 | PC.NURSE ---
DR YUN AT BEDSIDE TO UPDATE PT
[2023-07-17 17:15] VITALS: BP 130/71; PULSE 89; RESP 18; TEMP 36.7; O2SAT 98
== END 2023-07-17 17:15 | disposition left against medical advice (07) ==
PROVIDERS: Emergency Medicine; Emergency Provider Emergency Medicine; PCP Family Medicine
DX: R10.9 Unspecified abdominal pain (principal); R11.0 Nausea
CPT/HCPCS: 74177; 80053; 81001; 83690; 84703; 85025; 96361; 96374; 96375; 99285; J0131; J2405; Q9967

== ENCOUNTER 2023-08-06 16:40 | Outpatient (CLI) | payer OTHER, SELFPAY ==
[2023-08-06 16:43] LABS: Basophils # 0.3 K/mm3 (0-0.2); Basophils % 2.7 % (0.1-2.0); Eosinophils # 0.4 K/mm3 (0.0-0.4); Eosinophils % 3.5 % (0.1-12.0); Hematocrit 44.7 % (37.0-47.0); Hemoglobin 15.4 g/dL (12.2-16.2); Lymphocytes # 2.2 K/mm3 (0.7-4.5); Lymphocytes % 22.4 % (10-50); Mean Corpuscular HGB Conc 34.4 g/dL (31.8-35.4); Mean Corpuscular Hemoglobin 31.4 pg (27.0-31.2); Mean Corpuscular Volume 91.2 fl (81-99); Mean Platelet Volume 8.6 fl (7.4-10.4); Monocytes # 0.6 K/mm3 (0.1-1.0); Monocytes % 6.2 % (1.7-9.3); Neutrophils # 6.6 K/mm3 (1.8-7.8); Neutrophils % 65.3 % (37.0-80.0); Platelet Count 286 K/mm3 (142-424); Red Cell Distribution Width 13.2 % (11.5-17.5)
[2023-08-06 16:47] LABS: Alanine Aminotransferase 28 U/L (12-78); Albumin Level 4.8 g/dl (3.5-5.0); Albumin/Globulin Ratio 1.8 (1.1-1.8); Alkaline Phosphatase 52 U/L (38-126); Amylase 80 U/L (30-110); Anion Gap 11.3 mEq/L (5-15); Aspartate Amino Transferase 28 U/L (14-36); Bilirubin,Total 0.3 mg/dl (0.2-1.3); Blood Urea Nitrogen 8 mg/dl (7-17); Calcium 9.8 mg/dl (8.4-10.2); Carbon Dioxide 29 mmol/L (22.0-30.0); Chloride 104 mmol/L (98-107); Estimated Glomerular Filt Rate 85 ml/min (>60); GFR (African American) 103 ML/MIN (>60); Globulin 2.7 g/dL (1.3-3.2); Glucose 88 mg/dl (74-100); Lipase 86 U/L (23-300); Potassium 4.3 mmoL/L (3.5-5.1); Sodium 140 mmol/L (136-145); Total Protein,Serum 7.5 g/dl (6.3-8.2)
[2023-08-06 16:52] LABS: C-Reactive Protein 0.9 mg/L (0-4)
[2023-08-06 17:19] LABS: Benzodiazepines Screen,Urine Positive ng/ml (<200)
[2023-08-06 17:20] LABS: Barbiturates Screen,Urine Negative ng/ml (<200)
[2023-08-06 17:21] LABS: Cannabinoid Screen,Urine Negative ng/ml (<50); Cocaine Screen,Urine Negative ng/ml (<300)
[2023-08-06 17:23] LABS: Opiate Screen,Urine Negative ng/ml (<300); Phencyclidine Screen,Urine Negative ng/ml (<25)
[2023-08-06 17:28] LABS: Amphetamine/Metha Screen,Urine Negative ng/ml (<1000); Methadone Screen,Urine Negative ng/ml (<300)
[2023-08-06 17:48] LABS: Erythrocyte Sedimentation Rate 9 mm/hr (0-20)
[2023-08-09 06:08] LABS: Alprazolam Positive (.); Benzodiazepines Positive ng/mL (Cutoff=100); Clonazepam Negative (Cutoff=100); Flurazepam Negative (Cutoff=100); Lorazepam Negative (Cutoff=100); Midazolam Negative (Cutoff=100); Temazepam Negative (Cutoff=100); Triazolam Negative (Cutoff=100)
[2023-08-09 12:44] LABS: Antinuclear Antibodies (ANA) Negative
== END 2023-08-06 23:59 ==
LOC: LAB.DROPOF 16:40
PROVIDERS: PCP Family Medicine; Visit Provider Family Medicine
DX: R10.9 Unspecified abdominal pain (principal); F41.9 Anxiety disorder, unspecified; Z79.899 Other long term (current) drug therapy
CPT/HCPCS: 80053; 80307; 80346; 82150; 83690; 85025; 85651; 86038; 86140

== ENCOUNTER 2023-11-03 06:19 | Emergency (ER) | payer OTHER, SELFPAY ==
[2023-11-03 06:20] VITALS: BP 137/79; PULSE 99; RESP 20; TEMP 36.8; O2SAT 97; BMI 39.0
[2023-11-03 06:29] VITALS: BP 137/79; PULSE 103; O2SAT 97
[2023-11-03 06:30] LABS: Microscopic, Urine URINE MICROSCOPIC (MICROSCOPIC)
[2023-11-03 06:43] LABS: Appearance,Urine TURBID (Clear); Bilirubin,Urine Negative (Negative); Blood, Urine 3+ (Negative); Color,Urine YELLOW (Yellow); Glucose,Urine (UA) Negative (Negative); Ketones,Urine Negative (Negative); Leukocyte Esterase,Urine 1+ (Negative); Nitrate,Urine Negative (Negative); PH,Urine 5.5 (5.0-8.5); Protein,Urine TRACE (Negative); Specific Gravity, Urine >= 1.030 (1.005-1.030); Urobilinogen,Urine 0.2 EU/dl (0.2)
[2023-11-03 06:50] LABS: Urine Pregnancy, HCG Qual. Negative (Negative)
--- NOTE | 2023-11-03 06:57 | US_ITS ---
PROCEDURE INFORMATION: Exam: US Pelvis, Transvaginal, Non-Obstetric Exam date and time: 11/03/2023 7:30 AM Age: 28 years old Clinical indication: Pelvic pain; Additional info: Severe pelvic pain TECHNIQUE: Imaging protocol: Real-time transvaginal pelvic (non-obstetric) ultrasound with image documentation. Transvaginal imaging was used for better evaluation of the endometrium, adnexa, and/or cervix. COMPARISON: US OB TRANSVAGINAL 05/29/2023 10:13 AM FINDINGS: Uterus: Again demonstrated is a hyperechoic focus extending from the endometrial complex superiorly, focus demonstrates same echotexture as the surrounding endometrium. The focus measures 0.4 x 0.5 x 0.3 cm, this finding is stable from prior comparisons. Right ovary/adnexa: Right ovary demonstrates a volume of 10.11 cc. Left ovary/adnexa: Left ovary demonstrates a volume of 10.0 cc. Urinary bladder: Urinary bladder is limited. Intraperitoneal space: No free fluid. IMPRESSION: 1. Stable hyperechoic focus with stalk from the superior endometrial complex, MRI can be obtained for further assessment if warranted in the clinical setting. Likely represents ectopic focus of endometrium (endometriosis?). Obstetrics and gynecology consultation can be obtained for further clinical assessment if not already secured. 2. Ovarian volumes are borderline greater than 10 cc bilaterally, finding which can be seen in PCOS, however this is a clinical diagnosis.
[2023-11-03 06:58] LABS: Bacteria,Urine 2+ /lpf; Squamous Epithelial Cell,Urine 20-50 #/hpf (0-5); WBC,Urine 50-100 #/hpf (0-3)
--- NOTE | 2023-11-03 07:01 | ED_ITS ---
Discharge Plan Disposition Patient Disposition: Home, Self-Care Prescriptions Prescriptions: New cefdinir 300 mg capsule 300 mg PO BID 10 Days Qty: 20 0RF doxycycline hyclate 100 mg capsule 100 mg PO BID 7 Days Qty: 14 0RF No Action Nexplanon 68 mg implant 1 implant subdermal tizanidine [Zanaflex] 4 mg capsule 4 mg PO Q8H PRN (Reason: headache) Qty: 21 0RF alprazolam [Xanax] 2 mg tablet See Rx Instructions .ROUTE .COMPLEX Qty: 90 2RF Rx Instructions: Take 1 tablet twice daily and 1 at bedtime. esomeprazole magnesium [Nexium] 20 mg capsule,delayed release(DR/EC) 20 mg PO BID Qty: 60 2RF alum-mag hydroxide-simeth [Maalox Advanced] 200-200-20 mg/5 mL suspension 10 ml PO QID PRN (Reason: indigestion) Qty: 3000 0RF Rx Instructions: administer between meals and at bedtime epinephrine 0.3 mg/0.3 mL auto-injector 0.3 ml SQ ONCE Qty: 2 0RF famotidine [Pepcid] 20 mg tablet 20 mg PO BID Qty: 60 2RF Referrals Follow up/Referrals: Diego Thao MD [Primary Care Provider] - See instructions Activity Restrictions/Add. Instructions Additional Instructions/Restrictions: At this time it was felt you are safe to be discharged home. If new or worsening symptoms please do not hesitate to return the emergency department. Please take antibiotics as prescribed. There was a spot on your ultrasound found in your uterus today that appears stable from prior. 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 Clinical Impressions Clinical Impression: UTI (urinary tract infection), Folliculitis, Abnormal endometrial ultrasound Discharge ED Provider: Jorge Pagan General Adult HPI <Jorge Pagan MD - Last Filed: 11/03/23 07:29> General Chief complaint: Urogenital-Female Stated complaint: rash on genitals, trouble urinating, abd pain Time Seen by Provider: 11/03/23 06:30 Mode of Arrival: Ambulatory Source of Information: Patient Limitations: No Limitations Description of Symptoms (Recalled from ER Triage Doc. by RN): Patient reports that she began having signs and symptoms of a yeast infection 2 days ago with vaginal itching. She used azo yeast control and monistat 1 step at home yesterday, today she notes a rash in her groin and mons pubis with continued itching and pain. Patient complains of dysuria and suprapubic pain rated 8/10 at this time. History of Present Illness HPI narrative: 20-year-old female, history of prior ovarian cyst, prior cholecystectomy, irregular menstrual periods, Nexplanon, actually active, presents with multiple complaints. She reports that over the last couple days she has had a diaper rash in her groin and she is concerned she could have a yeast infection. She also had relatively sudden onset pelvic pain last night ultimately prompted her to come into the ER. He denies any flank pain. Denies any recent fever. Also having some dysuria, but feels like she cannot empty. Related Data Home Medications Medication Instructions Recorded Confirmed etonogestrel 68 mg subdermal 1 implant subdermal 06/16/23 10/14/23 implant (Nexplanon) Previous Rx's Medication Instructions Recorded alprazolam 2 mg tablet (Xanax) See Rx Instructions .Route 08/06/23 .COMPLEX #90 tabs tizanidine 4 mg capsule (Zanaflex) 4 mg PO Q8H PRN headache #21 caps 09/18/23 epinephrine 0.3 mg/0.3 mL 0.3 ml SQ ONCE allergies #2 ea 09/25/23 injection, auto-injector aluminum-mag hydroxide-simethicone 10 ml PO QID PRN indigestion 10/14/23 200 mg-200 mg-20 mg/5 mL oral susp #3,000 mL (Maalox Advanced) esomeprazole magnesium 20 mg 20 mg PO BID #60 caps 10/14/23 capsule,delayed release (Nexium) famotidine 20 mg tablet (Pepcid) 20 mg PO BID #60 tabs 10/15/23 cefdinir 300 mg capsule 300 mg PO BID 10 days #20 caps 11/03/23 doxycycline hyclate 100 mg capsule 100 mg PO BID urethritis 7 days 11/03/23 #14 caps Allergies Allergy/AdvReac Type Severity Reaction Status Date / Time ketorolac Allergy Severe Anaphylaxis Verified 10/14/23 14:18 hydrocodone [HYDROCODONE] Allergy Intermediate Face & Verified 10/14/23 14:18 tounge swelling latex [LATEX] Allergy Intermediate I-RASH Verified 10/14/23 14:18 sulfamethoxazole Allergy Verified 10/14/23 14:18 [From Bactrim] trimethoprim [From Bactrim] Allergy Verified 10/14/23 14:18 PFSH <Jorge Pagan MD - Last Filed: 11/03/23 07:29> FORMERLY [facility], [facility] Disclaimer: The information contained in this section may have been updated after the patient was seen, as this information can be updated by other users. Medical History Fibroid uterus Ovarian cyst Anxiety Depression Surgical History History of colonoscopy History of esophagogastroduodenoscopy (EGD) Hx of appendectomy History of cholecystectomy Family History Other No significant family history Social History Smoking Status: Never smoker alcohol intake: never substance use type: denies use current occupational status: unemployed Travel in the last 8 weeks: None household members: family housing: house <Jorge Pagan MD - Last Filed: 11/03/23 07:29> ROS Obtained: Yes All systems reviewed & no additional complaints except as documented Physical Exam <Jorge Pagan MD - Last Filed: 11/03/23 07:29> General General appearance: alert Comment: Uncomfortable appearing Head Head exam: atraumatic and normocephalic Eye Eye exam: Present normal appearance, PERRL and EOMI ENT ENT exam: Present normal oropharynx and normal external ear exam Neck Neck exam: Present normal inspection and full ROM Chest Chest inspection: Present normal inspection and symmetric chest wall rise; Absent tenderness Respiratory Respiratory exam: Present normal lung sounds bilaterally; Absent respiratory distress Cardiovascular Cardiovascular exam: Present regular rate and normal rhythm Abdominal Exam Abdominal exam: Present soft and tenderness (Moderate to severe, supra pubic/bilateral lower quadrant); Absent distention or guarding External exam: Present other (Scattered discrete raised erythematous lesions that have the appearance of folliculitis. No erythema in the inguinal folds. The labia minora is erythematous and appears inflamed with faint white discharge from the introitus) Extremities Exam Extremities exam: Present normal inspection; Absent edema or joint swelling Back Exam Back exam: Present normal inspection; Absent tenderness Neurological Exam Neurological exam: Present alert and oriented X3; Absent motor sensory deficit Psychiatric Psychiatric exam: Present normal affect and normal mood Skin Skin exam: Present warm, dry and normal color Lymphatic Lymphatic Findings: no adenopathy Medical Decision Making <Jorge Pagan MD - Last Filed: 11/03/23 07:29> Medical Records Medical records reviewed: Yes I reviewed the patient's medical records. Gregorio Inquiry Pt receiving controlled substance: No Gregorio was queried for this patient: No Vital Signs: 11/03/23 06:20 11/03/23 06:29 11/03/23 08:14 Temperature 98.3 F Temperature Source Oral Pulse Rate 103 H 95 H Pulse Rate [Left Radial] 99 H Respiratory Rate 20 Blood Pressure 137/79 128/82 Blood Pressure [Right Arm] 137/79 Blood Pressure Mean [Right Arm] 98 Blood Pressure Source [Right Arm] Automatic Cuff Blood Pressure Position [Right Arm] Sitting 02 Sat by Pulse Oximetry 97 97 99 Oxygen Delivery Method Room Air Room Air Room Air 11/03/23 08:45 Temperature Temperature Source Pulse Rate 91 H Pulse Rate [Left Radial] Respiratory Rate Blood Pressure 128/82 Blood Pressure [Right Arm] Blood Pressure Mean [Right Arm] Blood Pressure Source [Right Arm] Blood Pressure Position [Right Arm] 02 Sat by Pulse Oximetry 98 Oxygen Delivery Method Lab Data Lab results reviewed: Yes I reviewed the patient's lab results. Lab Results 11/03/23 06:25: Urine Color Yellow, Urine Appearance Turbid, Urine pH 5.5, Ur Specific [place] >= 1.030, Urine Protein Trace, Urine Glucose (UA) Negative, Urine Ketones Negative, Urine Blood 3+, Urine Nitrate Negative, Urine Bilirubin Negative, Urine Urobilinogen 0.2, Ur Leukocyte Esterase 1+ A, Urine RBC None, Urine WBC 50-100, Ur Squamous Epith Cells 20-50, Urine Bacteria 2+, Urine HCG, Qual Negative Orders (Tests/Meds): ED MEDICATIONS Discontinued Medications Generic Name Dose Route Start Last Admin Trade Name Freq PRN Reason Stop Dose Admin Acetaminophen 1,000 mg 11/03/23 06:56 11/03/23 08:16 Acetaminophen 500mg Tab PO 11/03/23 06:57 1,000 mg ONCE ONE Administration Ceftriaxone Sodium 500 mg 11/03/23 08:27 11/03/23 08:47 Ceftriaxone 500mg Vial IM 11/03/23 08:28 500 mg ONCE ONE Administration Ibuprofen 600 mg 11/03/23 06:56 11/03/23 08:17 Ibuprofen 600 Mg Tablet PO 11/03/23 06:57 600 mg ONCE ONE Administration Lidocaine HCl 0 ml 11/03/23 08:27 11/03/23 08:46 Lidocaine 1% 5ml Pf Vial IM 11/03/23 08:28 5 ml ONCE ONE Administration ORDERS Category Date Time Status US transvaginal Stat Exams 11/03/23 06:57 Completed Urinalysis and Microscopic Stat Lab 11/03/23 06:25 Completed Urine , HCG Qual. Stat Lab 11/03/23 06:25 Completed Urine Culture Stat Micro 11/03/23 06:25 Received Medical Decision Narrative: 20-year-old female with history as documented above presents with groin rash, vaginal pain, dysuria, significant lower abdominal pain. History was obtained interactive discussion with patient, chart review. On arrival, patient is [afebrile, hemodynamically stable, satting appropriately, alert, oriented x4, GCS 15], moving all extremities spontaneously. Full physical exam performed and significant for skin lesions which appear most consistent with folliculitis, labia minora erythema irritation and some white discharge at the introitus which is consistent with yeast infection, as well as moderate to severe suprapubic tenderness. Differential includes but is not limited to UTI, STI, yeast infection, folliculitis, crabs/lice, cystitis, pyelonephritis, ovarian cyst, ectopic preg forrest, ovarian torsion. Patient was given Tylenol and ibuprofen for symptomatic management and correction of underlying abnormalities. Workup initiated including urine gonorrhea chlamydia, UA, transvaginal ultrasound. Urine independently interpreted me and consistent with urinary infection with 50-100 WBCs, 2+ bacteria, no significant leukocytosis on blood work. At this time care handed off to oncoming physician. <Anthony Herman MD - Last Filed: 11/03/23 09:34> Vital Signs: 11/03/23 06:20 11/03/23 06:29 11/03/23 08:14 Temperature 98.3 F Temperature Source Oral Pulse Rate 103 H 95 H Pulse Rate [Left Radial] 99 H Respiratory Rate 20 Blood Pressure 137/79 128/82 Blood Pressure [Right Arm] 137/79 Blood Pressure Mean [Right Arm] 98 Blood Pressure Source [Right Arm] Automatic Cuff Blood Pressure Position [Right Arm] Sitting 02 Sat by Pulse Oximetry 97 97 99 Oxygen Delivery Method Room Air Room Air Room Air 11/03/23 08:45 Temperature Temperature Source Pulse Rate 91 H Pulse Rate [Left Radial] Respiratory Rate Blood Pressure 128/82 Blood Pressure [Right Arm] Blood Pressure Mean [Right Arm] Blood Pressure Source [Right Arm] Blood Pressure Position [Right Arm] 02 Sat by Pulse Oximetry 98 Oxygen Delivery Method Lab Data Lab Results 11/03/23 06:25: Urine Color Yellow, Urine Appearance Turbid, Urine pH 5.5, Ur Specific [place] >= 1.030, Urine Protein Trace, Urine Glucose (UA) Negative, Urine Ketones Negative, Urine Blood 3+, Urine Nitrate Negative, Urine Bilirubin Negative, Urine Urobilinogen 0.2, Ur Leukocyte Esterase 1+ A, Urine RBC None, Urine WBC 50-100, Ur Squamous Epith Cells 20-50, Urine Bacteria 2+, Urine HCG, Qual Negative Orders (Tests/Meds): ED MEDICATIONS Discontinued Medications Generic Name Dose Route Start Last Admin Trade Name Freq PRN Reason Stop Dose Admin Acetaminophen 1,000 mg 11/03/23 06:56 11/03/23 08:16 Acetaminophen 500mg Tab PO 11/03/23 06:57 1,000 mg ONCE ONE Administration Ceftriaxone Sodium 500 mg 11/03/23 08:27 11/03/23 08:47 Ceftriaxone 500mg Vial IM 11/03/23 08:28 500 mg ONCE ONE Administration Ibuprofen 600 mg 11/03/23 06:56 11/03/23 08:17 Ibuprofen 600 Mg Tablet PO 11/03/23 06:57 600 mg ONCE ONE Administration Lidocaine HCl 0 ml 11/03/23 08:27 11/03/23 08:46 Lidocaine 1% 5ml Pf Vial IM 11/03/23 08:28 5 ml ONCE ONE Administration ORDERS Category Date Time Status US transvaginal Stat Exams 11/03/23 06:57 Completed Urinalysis and Microscopic Stat Lab 11/03/23 06:25 Completed Urine , HCG Qual. Stat Lab 11/03/23 06:25 Completed Urine Culture Stat Micro 11/03/23 06:25 Received Medical Decision Narrative: 20-year-old female with history as documented above presents with groin rash, vaginal pain, dysuria, significant lower abdominal pain. History was obtained interactive discussion with patient, chart review. On arrival, patient is [afebrile, hemodynamically stable, satting appropriately, alert, oriented x4, GCS 15], moving all extremities spontaneously. Full physical exam performed and significant for skin lesions which appear most consistent with folliculitis, labia minora erythema irritation and some white discharge at the introitus which is consistent with yeast infection, as well as moderate to severe suprapubic tenderness. Differential includes but is not limited to UTI, STI, yeast infection, folliculitis, crabs/lice, cystitis, pyelonephritis, ovarian cyst, ectopic , ovarian torsion. Patient was given Tylenol and ibuprofen for symptomatic management and correction of underlying abnormalities. Workup initiated including urine gonorrhea chlamydia, UA, transvaginal ultrasound. Urine independently interpreted me and consistent with urinary infection with 50-100 WBCs, 2+ bacteria, no significant leukocytosis on blood work. At this time care handed off to oncoming physician. Anthony Herman: Upon assumption of care patient was hemodynamically stable. Workup reviewed by me, patient has significant urinary tract infection, hCG negative. Transvaginal ultrasound has stable hyperechoic focus with the stalk from the superior endometrial complex, ovarian volumes borderline, normal flow. Given this with respect to the ultrasound finding patient is appropriate for outpatient management at this time. With respect to rash patient clinically has folliculitis for which supportive care is recommended. STI prophylaxis with ceftriaxone IM and prescription for doxycycline and cefdinir for urinary tract infection versus STI. Doxycycline will provide MSSA coverage for the folliculitis. Procedures <Jorge Pagan MD - Last Filed: 11/03/23 07:29> Risk/Benefits of Procedure(s) Were Explained: Yes Critical Care <Jorge Pagan MD - Last Filed: 11/03/23 07:29> Critical Care Time Critical Care Time: No
--- NOTE | 2023-11-03 07:32 | PC.NURSE ---
pt to us
[2023-11-03 08:14] VITALS: BP 128/82; PULSE 95; O2SAT 99
[2023-11-03] MEDS: ACETAMINOPHEN 500MG TAB 1000 MG PO (08:16)
[2023-11-03] MEDS: IBUPROFEN 600 MG TABLET PO (08:17)
[2023-11-03 08:45] VITALS: BP 128/82; PULSE 91; O2SAT 98
[2023-11-03] MEDS: LIDOCAINE 1% 5ML PF VIAL IM (08:46)
[2023-11-03] MEDS: cefTRIAXone 500MG VIAL 500 MG IM (08:47)
--- NOTE | 2023-11-03 09:32 | PC.NURSE ---
SPOKE WITH KATY [employer] TECH. WILL SPEAK WITH RADIOLOGIST ABOUT DOCUMENTATION OF US REPORT
--- NOTE | 2023-11-03 09:36 | PC.NURSE ---
DR VIDES AT BEDSIDE TO UPDATE PT
[2023-11-03 09:46] VITALS: BP 124/83; PULSE 96; RESP 14; TEMP 37.1; O2SAT 98
[2023-11-04 20:12] LABS: Neisseria gonorrhoeae, NAA Negative (Negative)
== END 2023-11-03 09:49 | disposition home or self-care (01) ==
PROVIDERS: Emergency Provider Emergency Medicine; PCP Family Medicine
DX: R10.9 Unspecified abdominal pain (principal)
CPT/HCPCS: 76830; 81001; 81025; 87086; 87491; 87591; J0696

== ENCOUNTER 2023-11-04 09:52 | Observation (INO) | payer OTHER, SELFPAY ==
[2023-11-04] VITALS (12 sets, daily range): BP systolic 103–135; BP diastolic 68–86; PULSE 77–96; RESP 17–20; TEMP 36.6–36.9; O2SAT 95–97; BMI 33.3; BMI 36.6
--- NOTE | 2023-11-04 09:57 | PC.NURSE ---
contacted for for further discussion on pt care
--- NOTE | 2023-11-04 10:03 | PC.NURSE ---
Dr. Herman s/w Dr. Regalado
--- NOTE | 2023-11-04 10:06 | CT_ITS ---
FINAL REPORT TECHNIQUE: Postcontrast axial images through the abdomen and pelvis were performed. This study was performed with techniques to keep radiation doses as low as reasonably achievable, (ALARA). Individualized dose reduction techniques using automated exposure control or adjustment of mA and/or kV according to the patient's size were employed. CLINICAL HISTORY: severe suprapubic pain UTI PT HAD ULTRASOUND YESTERDAY FINDINGS: Abdomen: The lung bases are clear. There is fatty infiltration of the liver. Patient is status post cholecystectomy. The spleen is unremarkable. The adrenals are normal. The pancreas is unremarkable. The kidneys enhance appropriately. The aorta is normal in caliber. No free fluid or adenopathy is identified. No findings for mechanical bowel obstruction are identified. Pelvis: There is presumed appendectomy. The uterus and ovaries are unremarkable. The urinary bladder is unremarkable. No free fluid, free air, abscess or adenopathy is identified. IMPRESSION: No acute process identified. Reviewed, Interpreted and Dictated by Arnol Nava MD Transcribed by Jena Lucas Authenticated and [facility]
--- NOTE | 2023-11-04 10:19 | ED_ITS ---
Discharge Plan Disposition Patient Disposition: Admitted Chief Complaint: Abdominal Pain Clinical Impressions Clinical Impression: UTI (urinary tract infection), Pelvic pain, Bladder spasm Discharge ED Provider: Anthony Herman General Adult HPI General Chief complaint: Abdominal Pain Stated complaint: lower adb pain Time Seen by Provider: 11/04/23 09:53 Mode of Arrival: Ambulatory Source of Information: Patient Limitations: No Limitations Description of Symptoms (Recalled from ER Triage Doc. by RN): Pt reported to ED for increased pain pt reports Dr. Manuel instructed her to ED for increase abdominal pain for CT scan and admission for pain control. History of Present Illness HPI narrative: Patient is a 28-year-old female with multiple comorbidities including ovarian cyst, abnormal endometrial ultrasound, urinary tract infection who I saw yesterday who presents to the emergency department as a transfer patient from Dr. Regalado's clinic for worsening symptoms. Patient has previous appendectomy and cholecystectomy and yesterday she had isolated suprapubic pain, urinalysis shows significant infection which was treated with ceftriaxone, doxycycline, cefdinir for STI prophylaxis as well as significant urinary tract infection treatment. CT imaging was deferred at the time given no concern other pathology other than ovarian for which transvaginal ultrasound was obtained which is remarkable for hyperechoic focus in the stalk of the uterus, borderline elevated ovarian volumes. She was discharged in stable condition, has been taking Tylenol and ibuprofen [id number] and has had severe persistent pain for which she called Dr. Regalado who encouraged her to be referred here for continued evaluation. No chest pain, no significant vaginal discharge or bleeding, no other acute complaints at this time. Related Data Home Medications Medication Instructions Recorded Confirmed etonogestrel 68 mg subdermal 1 implant subdermal 06/16/23 11/03/23 implant (Nexplanon) Previous Rx's Medication Instructions Recorded alprazolam 2 mg tablet (Xanax) See Rx Instructions .Route 08/06/23 .COMPLEX #90 tabs tizanidine 4 mg capsule (Zanaflex) 4 mg PO Q8H PRN headache #21 caps 09/18/23 epinephrine 0.3 mg/0.3 mL 0.3 ml SQ ONCE allergies #2 ea 09/25/23 injection, auto-injector aluminum-mag hydroxide-simethicone 10 ml PO QID PRN indigestion 10/14/23 200 mg-200 mg-20 mg/5 mL oral susp #3,000 mL (Maalox Advanced) esomeprazole magnesium 20 mg 20 mg PO BID #60 caps 10/14/23 capsule,delayed release (Nexium) famotidine 20 mg tablet (Pepcid) 20 mg PO BID #60 tabs 10/15/23 cefdinir 300 mg capsule 300 mg PO BID 10 days #20 caps 11/03/23 doxycycline hyclate 100 mg capsule 100 mg PO BID urethritis 7 days 11/03/23 #14 caps naproxen 500 mg tablet 500 mg PO BID #30 tabs 11/03/23 phenazopyridine 100 mg tablet 100 mg PO TID 3 days #9 tabs 11/03/23 (Pyridium) Allergies Allergy/AdvReac Type Severity Reaction Status Date / Time ketorolac Allergy Severe Anaphylaxis Verified 11/03/23 14:45 hydrocodone [HYDROCODONE] Allergy Intermediate Face & Verified 11/03/23 14:45 tounge swelling latex [LATEX] Allergy Intermediate I-RASH Verified 11/03/23 14:45 sulfamethoxazole Allergy Verified 11/03/23 14:45 [From Bactrim] trimethoprim [From Bactrim] Allergy Verified 11/03/23 14:45 PFSH PFS Disclaimer: The information contained in this section may have been updated after the patient was seen, as this information can be updated by other users. Medical History Fibroid uterus Ovarian cyst Anxiety Depression Surgical History History of colonoscopy History of esophagogastroduodenoscopy (EGD) Hx of appendectomy History of cholecystectomy Family History Other No significant family history Social History Smoking Status: Never smoker alcohol intake: never substance use type: denies use current occupational status: unemployed Travel in the last 8 weeks: None household members: family housing: house ROS Obtained: Yes Systems reviewed as appropriate & no additional complaints except as documented Physical Exam General General appearance: alert and in distress Head Head exam: atraumatic and normocephalic Eye Eye exam: Present PERRL and EOMI ENT ENT exam: Present mucous membranes moist Neck Neck exam: Present normal inspection Chest Chest inspection: Present normal inspection and symmetric chest wall rise Respiratory Respiratory exam: Present normal lung sounds bilaterally; Absent respiratory distress Cardiovascular Cardiovascular exam: Present regular rate and normal rhythm Abdominal Exam Abdominal exam: Present soft, tenderness (Suprapubic) and guarding (Voluntary) Extremities Exam Extremities exam: Present normal inspection Neurological Exam Neurological exam: Present alert Psychiatric Psychiatric exam: Present normal affect Skin Skin exam: Present warm and dry Medical Decision Making Gregorio Inquiry Pt receiving controlled substance: No Vital Signs: 11/04/23 10:01 11/04/23 10:40 11/04/23 11:01 Temperature 98.4 F Temperature Source Oral Pulse Rate 96 H 83 Pulse Rate [Left Radial] 90 Respiratory Rate 20 Blood Pressure 131/86 122/82 Blood Pressure [Right Arm] 131/86 Blood Pressure Mean Blood Pressure Mean [Right Arm] 101 02 Sat by Pulse Oximetry 96 97 97 Oxygen Delivery Method Room Air 11/04/23 11:31 11/04/23 12:00 11/04/23 12:30 Temperature Temperature Source Pulse Rate 83 94 H 79 Pulse Rate [Left Radial] Respiratory Rate Blood Pressure 114/74 120/82 119/75 Blood Pressure [Right Arm] Blood Pressure Mean 87 86 Blood Pressure Mean [Right Arm] 02 Sat by Pulse Oximetry 96 96 97 Oxygen Delivery Method Lab Data Lab Results 11/04/23 09:57: Urine Color Yellow, Urine Appearance Clear, Urine pH 5.0, Ur Specific [place] 1.025, Urine Protein 3+, Urine Glucose (UA) 1+, Urine Ketones Trace, Urine Blood 2+, Urine Nitrate Positive, Urine Bilirubin 2+ A, Urine Urobilinogen >=8.0, Ur Leukocyte Esterase 2+ A, Urine RBC 3-5, Urine WBC 10-20, Ur Squamous Epith Cells 5-10, Urine Bacteria 2+ 11/04/23 10:21: WBC 9.3, RBC 4.82, Hgb 14.8, Hct 43.9, MCV 91.1, MCH 30.7, MCHC 33.7, RDW 13.3, Plt Count 296, MPV 8.7, Neut % (Auto) 68.7, Lymph % (Auto) 19.4, [place] % (Auto) 7.5, Eos % (Auto) 3.7, Baso % (Auto) 0.7, Neut # (Auto) 6.4, Lymph # (Auto) 1.8, [place] # (Auto) 0.7, Eos # (Auto) 0.4, Baso # (Auto) 0.1, Sodium 142, Potassium 3.7, Chloride 106, Carbon Dioxide 24, Anion Gap 15.7 H, BUN 9, Creatinine 0.80, Estimated Creat Clear 150, Estimated GFR 85, Est GFR ( Amer) 103, Glucose 95, Lactate 1.0, Calcium 9.6, Total Bilirubin 0.7, AST 32, ALT 31, Alkaline Phosphatase 66, Total Protein 7.7, Albumin 4.4, Globulin 3.3 H, Albumin/Globulin Ratio 1.3, Lipase 53, Serum HCG, Qual Negative 11/04/23 10:21 11/04/23 10:21 Orders (Tests/Meds): ED MEDICATIONS Generic Name Dose Route Start Last Admin Trade Name Freq PRN Reason Stop Dose Admin Alprazolam 2 mg 11/04/23 12:50 Alprazolam 1mg Tablet PO 11/04/23 12:51 ONCE ONE Ceftriaxone Sodium 1 gm/ 50 mls @ 100 mls/hr 11/04/23 12:38 11/04/23 12:43 Sodium Chloride IV 11/04/23 13:07 100 mls/hr ONCE ONE Administration Discontinued Medications Generic Name Dose Route Start Last Admin Trade Name Freq PRN Reason Stop Dose Admin Acetaminophen 1,000 mg 11/04/23 10:05 11/04/23 10:26 Acetaminophen 1,000mg/100ml Vial IV 11/04/23 10:06 1,000 mg ONCE ONE Administration Dicyclomine HCl 20 mg 11/04/23 10:25 11/04/23 10:39 Dicyclomine 10mg Capsule PO 11/04/23 10:26 20 mg ONCE ONE Administration Iopamidol 75 ml 11/04/23 10:36 11/04/23 10:36 Iopamidol-370 (76%);100ml Bottle IV 11/04/23 10:37 75 ml ONCE ONE Administration Morphine Sulfate 4 mg 11/04/23 10:19 11/04/23 10:26 Morphine 4mg/Ml Syringe IV 11/04/23 10:20 4 mg ONCE ONE Administration Morphine Sulfate 4 mg 11/04/23 12:24 11/04/23 12:33 Morphine 4mg/Ml Syringe IV 11/04/23 12:25 4 mg ONCE ONE Administration Ondansetron HCl 4 mg 11/04/23 10:05 11/04/23 10:26 Ondansetron 4mg/2ml Vial IV 11/04/23 10:06 4 mg ONCE ONE Administration Sodium Chloride 10 ml 11/04/23 10:36 11/04/23 10:36 Sodium Chloride 0.9% 10ml Syr (Rad Only) IV 11/04/23 10:37 10 ml ONCE ONE Administration ORDERS Category Date Time Status CT abdomen pelvis w con Stat Cat Scan 11/04/23 10:06 Completed CBC w/Auto Diff [Complete Blood Count Auto Diff] Stat Lab 11/04/23 10:21 Completed CMP [Comprehensive Metabolic Panel] Stat Lab 11/04/23 10:21 Completed HCG Qualitative, Serum Stat Lab 11/04/23 10:21 Completed Lactic Acid Stat Lab 11/04/23 10:21 Completed Lipase Stat Lab 11/04/23 10:21 Completed UA [Urinalysis and Microscopic] Stat Lab 11/04/23 09:57 Completed Blood Culture Stat Micro 11/04/23 10:30 Received Urine Culture Stat Micro 11/04/23 09:57 Received Medical Decision Narrative: In summary patient is a 28-year-old female with past medical history described above who presents emergency department for evaluation of significant suprapubic pain in the setting of suspected severe infection. Patient is hemodynamically stable nontoxic-appearing upon arrival, appearing in significant pain. Workup will be broadened with hematologic labs, urinalysis, CT abdomen pelvis IV contrast. Initial inventions include crystalloid bolus, Tylenol, morphine, Bentyl, Zofran. Initial workup reviewed by me, hematologic labs are nonactionable, no leukocytosis, hCG negative, no JIM or critical electrolyte abnormality. CT abdomen pelvis shows no acute pathology. Urinalysis interpreted by me, persistent severe infection. Upon repeat evaluation patient had persistent pain for which 4 mg of morphine was given. Given intractable severe pain the case was discussed with Dr. Regalado who agrees patient will benefit from pain control and admission. Dr. Regalado will admit the patient to their service for continued evaluation at this time. Critical Care Critical Care Time Critical Care Time: No
[2023-11-04] MEDS: MORPHINE 4MG/ML SYRINGE 4 MG IV ×2 (10:26→12:33)
[2023-11-04] MEDS: ONDANSETRON 4MG/2ML VIAL 4 MG IV (10:26)
[2023-11-04] MEDS: ACETAMINOPHEN 1,000MG/100ML VIAL 1000 MG IV (10:26)
--- NOTE | 2023-11-04 10:31 | PC.NURSE ---
PT in CT
[2023-11-04] MEDS: SODIUM CHLORIDE 0.9% 10ML SYR (RAD ONLY) 10 ML IV (10:36)
[2023-11-04] MEDS: IOPAMIDOL-370 (76%);100ML BOTTLE 75 ML IV (10:36)
[2023-11-04] MEDS: DICYCLOMINE 10MG CAPSULE 20 MG PO (10:39)
--- NOTE | 2023-11-04 10:39 | PC.NURSE ---
PT back from CT
[2023-11-04 10:51] LABS: Basophils # 0.1 K/mm3 (0-0.2); Basophils % 0.7 % (0.1-2.0); Eosinophils # 0.4 K/mm3 (0.0-0.4); Eosinophils % 3.7 % (0.1-12.0); Hematocrit 43.9 % (37.0-47.0); Hemoglobin 14.8 g/dL (12.2-16.2); Lymphocytes # 1.8 K/mm3 (0.7-4.5); Lymphocytes % 19.4 % (10-50); Mean Corpuscular HGB Conc 33.7 g/dL (31.8-35.4); Mean Corpuscular Hemoglobin 30.7 pg (27.0-31.2); Mean Corpuscular Volume 91.1 fl (81-99); Mean Platelet Volume 8.7 fl (7.4-10.4); Monocytes # 0.7 K/mm3 (0.1-1.0); Monocytes % 7.5 % (1.7-9.3); Neutrophils # 6.4 K/mm3 (1.8-7.8); Neutrophils % 68.7 % (37.0-80.0); Platelet Count 296 K/mm3 (142-424); Red Blood Count 4.82 M/mm3 (4.20-5.40); Red Cell Distribution Width 13.3 % (11.5-17.5); White Blood Count 9.3 K/mm3 (4.8-10.8)
[2023-11-04 10:52] LABS: Microscopic, Urine URINE MICROSCOPIC (MICROSCOPIC)
[2023-11-04 10:55] LABS: Alanine Aminotransferase 31 U/L (12-78); Albumin Level 4.4 g/dl (3.5-5.0); Albumin/Globulin Ratio 1.3 (1.1-1.8); Alkaline Phosphatase 66 U/L (38-126); Anion Gap 15.7 mEq/L (5-15); Aspartate Amino Transferase 32 U/L (14-36); Bilirubin,Total 0.7 mg/dl (0.2-1.3); Blood Urea Nitrogen 9 mg/dl (7-17); Calcium 9.6 mg/dl (8.4-10.2); Carbon Dioxide 24 mmol/L (22.0-30.0); Chloride 106 mmol/L (98-107); Creatinine Clearance Estimated 150 mL/min (50-200); Estimated Glomerular Filt Rate 85 ml/min (>60); GFR (African American) 103 ML/MIN (>60); Globulin 3.3 g/dL (1.3-3.2); Glucose 95 mg/dl (74-100); Potassium 3.7 mmoL/L (3.5-5.1); Sodium 142 mmol/L (136-145); Total Protein,Serum 7.7 g/dl (6.3-8.2)
[2023-11-04 10:58] LABS: HCG Qualitative, Serum Negative (Negative)
[2023-11-04 11:06] LABS: Lipase 53 U/L (23-300)
[2023-11-04 11:17] LABS: Appearance,Urine CLEAR (Clear); Blood, Urine 2+ (Negative); Color,Urine YELLOW (Yellow); Glucose,Urine (UA) 1+ (Negative); Ketones,Urine TRACE (Negative); Leukocyte Esterase,Urine 2+ (Negative); Nitrate,Urine POSITIVE (Negative); Protein,Urine 3+ (Negative); Specific Gravity, Urine 1.025 (1.005-1.030); Urobilinogen,Urine >=8.0 EU/dl (0.2)
[2023-11-04 11:29] LABS: Bilirubin,Urine 2+ (Negative)
[2023-11-04 11:30] LABS: Bacteria,Urine 2+ /lpf
--- NOTE | 2023-11-04 12:25 | PC.NURSE ---
PT received one dose of morphine and tolerated well MD ordered second dose
--- NOTE | 2023-11-04 12:36 | PC.NURSE ---
Dr. Herman at bedside
[2023-11-04] MEDS: CEFTRIAXONE 1 GM 1 GM in 0.9 % SODIUM CHLORIDE 50 ML IV (12:43)
--- NOTE | 2023-11-04 13:06 | PC.NURSE ---
Report given to [place] on OB
[2023-11-04] MEDS: ALPRAZolam 1MG TABLET 2 MG PO (13:37)
[2023-11-04] MEDS: PROMETHAZINE HCL 25MG/ML 1ML VIAL 12.5 MG IV ×2 (14:36→19:40)
[2023-11-04] MEDS: SODIUM CHLORIDE 0.9% 25ML BAG 25 ML IV ×2 (14:36→19:41)
[2023-11-04] MEDS: IBUPROFEN 400 MG TABLET 800 MG PO ×2 (14:36→21:17)
[2023-11-04] MEDS: ACETAMINOPHEN 500MG TAB 1000 MG PO ×2 (14:37→19:41)
[2023-11-04] MEDS: LACTATED RINGERS 1000ML 1,000 ML 125 ML IV (14:40)
[2023-11-04] MEDS: HYDROMORPHONE 2MG/ML SYRINGE 1 MG IV ×2 (16:03→21:16)
--- NOTE | 2023-11-04 16:54 | EXP.HP ---
History of Present Illness *Admission Date: 11/04/23 *Reason for visit:: Severe lower abdominal pain, urinary tract infection. *History of present illness: Patient is a 28-year-old female with multiple comorbidities including ovarian cyst, abnormal endometrial ultrasound, urinary tract infection who was seen yesterday in the urgency department and my office who presents to the emergency department. She came to the emergency department with worsening symptoms and severe pain. Patient has previous appendectomy and cholecystectomy and yesterday she had isolated suprapubic pain, urinalysis shows significant infection which was treated with ceftriaxone, doxycycline, cefdinir for STI prophylaxis as well as significant urinary tract infection treatment. Urine shows positive nitrites and 2+ leukocyte Estrace. CT imaging was deferred at the time given no concern other pathology other than ovarian for which transvaginal ultrasound was obtained which is remarkable for a hyperechoic stock of the endometrium and within the uterus., borderline elevated ovarian volumes. She was discharged from the ER yesterday in stable condition, has been taking Tylenol and ibuprofen [id number] and has had severe persistent pain for which she called Dr. Regalado who encouraged her to be referred here for continued evaluation. Her pain worsened this morning and when I spoke to her on the phone she was crying and in severe pain. We suspect that she may have severe bladder spasm as result of a UTI. No chest pain, no significant vaginal discharge or bleeding, no other acute complaints at this time. [facility] Disclaimer: The information contained in this section may have been updated after the patient was seen, as this information can be updated by other users. Medical History Fibroid uterus Ovarian cyst Anxiety Depression Surgical History History of colonoscopy History of esophagogastroduodenoscopy (EGD) Hx of appendectomy History of cholecystectomy Family History No significant family history Social History Smoking Status: Never smoker alcohol intake: never substance use type: denies use current occupational status: unemployed Travel in the last 8 weeks: None household members: family housing: house Review of Systems Review of Systems Review of systems:: pertinent systems reviewed and negative unless documented below Meds Home Medications and Allergies Home Medications Medication Instructions Recorded Confirmed Type etonogestrel 68 mg subdermal 1 implant subdermal ONCE 06/16/23 11/04/23 History implant (Nexplanon) alprazolam 2 mg tablet (Xanax) See Rx Instructions .Route 08/06/23 11/04/23 Rx .COMPLEX #90 tabs epinephrine 0.3 mg/0.3 mL 0.3 ml SQ ONCE allergies #2 ea 09/25/23 11/04/23 Rx injection, auto-injector aluminum-mag hydroxide-simethicone 10 ml PO QID PRN indigestion 10/14/23 11/04/23 Rx 200 mg-200 mg-20 mg/5 mL oral susp #3,000 mL (Maalox Advanced) esomeprazole magnesium 20 mg 20 mg PO BID #60 caps 10/14/23 11/04/23 Rx capsule,delayed release (Nexium) famotidine 20 mg tablet (Pepcid) 20 mg PO BID #60 tabs 10/15/23 11/04/23 Rx cefdinir 300 mg capsule 300 mg PO BID 10 days #20 caps 11/03/23 11/04/23 Rx doxycycline hyclate 100 mg capsule 100 mg PO BID urethritis 7 days 11/03/23 11/04/23 Rx #14 caps naproxen 500 mg tablet 500 mg PO BID #30 tabs 11/03/23 11/04/23 Rx phenazopyridine 100 mg tablet 100 mg PO TID 3 days #9 tabs 11/03/23 11/04/23 Rx (Pyridium) New Prescriptions to Start Prescriptions: Allergies Allergy/AdvReac Type Severity Reaction Status Date / Time ketorolac Allergy Severe Anaphylaxis Verified 11/04/23 13:31 hydrocodone [HYDROCODONE] Allergy Intermediate Face & Verified 11/04/23 13:31 tounge swelling latex [LATEX] Allergy Intermediate I-RASH Verified 11/04/23 13:31 sulfamethoxazole Allergy Verified 11/04/23 13:31 [From Bactrim] trimethoprim [From Bactrim] Allergy Verified 11/04/23 13:31 Exam Data for Last 24 hours Vital signs and Labs for Last 24 Hours: Temp Pulse Resp BP Pulse Ox O2 Del Method 97.8 F 77 18 113/72 96 Room Air 11/04/23 13:40 11/04/23 13:40 11/04/23 13:40 11/04/23 13:40 11/04/23 13:43 11/04/23 15:00 Laboratory Results - last 24 hr 11/04/23 09:57: Urine Color Yellow, Urine Appearance Clear, Urine pH 5.0, Ur Specific [place] 1.025, Urine Protein 3+, Urine Glucose (UA) 1+, Urine Ketones Trace, Urine Blood 2+, Urine Nitrate Positive, Urine Bilirubin 2+ A, Urine Urobilinogen >=8.0, Ur Leukocyte Esterase 2+ A, Urine RBC 3-5, Urine WBC 10-20, Ur Squamous Epith Cells 5-10, Urine Bacteria 2+ 11/04/23 10:21: WBC 9.3, RBC 4.82, Hgb 14.8, Hct 43.9, MCV 91.1, MCH 30.7, MCHC 33.7, RDW 13.3, Plt Count 296, MPV 8.7, Neut % (Auto) 68.7, Lymph % (Auto) 19.4, [place] % (Auto) 7.5, Eos % (Auto) 3.7, Baso % (Auto) 0.7, Neut # (Auto) 6.4, Lymph # (Auto) 1.8, [place] # (Auto) 0.7, Eos # (Auto) 0.4, Baso # (Auto) 0.1, Sodium 142, Potassium 3.7, Chloride 106, Carbon Dioxide 24, Anion Gap 15.7 H, BUN 9, Creatinine 0.80, Estimated Creat Clear 150, Estimated GFR 85, Est GFR ( Amer) 103, Glucose 95, Lactate 1.0, Calcium 9.6, Total Bilirubin 0.7, AST 32, ALT 31, Alkaline Phosphatase 66, Total Protein 7.7, Albumin 4.4, Globulin 3.3 H, Albumin/Globulin Ratio 1.3, Lipase 53, Serum HCG, Qual Negative I & O for Last 24 hours: Intake & Output 11/02/23 11/03/23 11/04/23 11/05/23 11:59 11:59 11:59 11:59 Output Total 0 / 0 Balance 0 / 0 Weight 200 lb 220 lb Constitutional Constitutional: no acute distress *Routine HEENT Exam Head: Present normocephalic Eye: Present EOMI and PERRL ENT: Present mucous membranes moist *Routine Neck Exam Neck: Present supple; Absent lymphadenopathy *Routine Respiratory Exam Respiratory: Present CTA bilaterally *Routine Cardiovascular Exam Cardiovascular: Present RRR *Routine Abdominal Exam Abdominal: Present soft and normoactive bowel sounds; Absent tenderness *Routine Rectal Exam Rectal:: deferred *Routine Genitalia Exam Genitalia:: deferred *Routine Extremities Exam Extremities: Absent cyanosis, clubbing or edema *Routine Skin Exam Skin: Present warm; Absent rash *Routine Neurological Exam Neurological: Present alert and oriented X3 Assessment and Plan *Assessment and plan (1) Bladder spasm: Status: Acute Category: Medical Code(s): N32.89 - Other specified disorders of bladder (2) Pelvic pain: Status: Acute Category: Medical Code(s): R10.2 - Pelvic and perineal pain (3) UTI (urinary tract infection): Status: Acute Qualifiers: Urinary tract infection type: acute cystitis Hematuria presence: without hematuria Qualified Code(s): N30.00 - Acute cystitis without hematuria Category: Medical Code(s): N39.0 - Urinary tract infection, site not specified (4) Abnormal endometrial ultrasound: Status: Acute Category: Medical Code(s): R93.5 - Abnormal findings on diagnostic imaging of other abdominal regions, including retroperitoneum (5) Folliculitis: Status: Acute Category: Medical Code(s): L73.9 - Follicular disorder, unspecified Plan She had severe bladder pain and bladder spasm. Her pain is intractable and is requiring narcotics. We will continue with the current treatment of antibiotics and admit her for relief of her pain and pain control.
--- NOTE | 2023-11-04 19:15 | PC.NURSE ---
Report given to ERIKA Lamar.
[2023-11-04] MEDS: hydrOXYzine pamoate 25MG CAPSULE 50 MG PO (21:17)
[2023-11-05] MEDS: HYDROMORPHONE 2MG/ML SYRINGE 1 MG IV ×3 (00:23→07:46)
[2023-11-05] MEDS: PROMETHAZINE HCL 25MG/ML 1ML VIAL 12.5 MG IV ×5 (00:23→22:45)
[2023-11-05 00:27] VITALS: BP 129/68; PULSE 79; RESP 16; TEMP 36.8
[2023-11-05] MEDS: ACETAMINOPHEN 500MG TAB 1000 MG PO ×4 (01:53→21:11)
[2023-11-05] MEDS: LACTATED RINGERS 1000ML 1,000 ML 125 ML IV ×3 (01:53→18:16)
[2023-11-05] MEDS: SODIUM CHLORIDE 0.9% 25ML BAG 25 ML IV ×3 (04:29→16:27)
[2023-11-05 05:20] VITALS: BP 115/55; PULSE 82; RESP 16; TEMP 36.6
--- NOTE | 2023-11-05 07:08 | PC.NURSE ---
Report received from Juanjo Eduardo RN.
--- NOTE | 2023-11-05 07:08 | PC.NURSE ---
report give to keagan mann RN
[2023-11-05 07:45] VITALS: BP 118/67; PULSE 75; RESP 18; TEMP 36.6; O2SAT 99
[2023-11-05] MEDS: IBUPROFEN 400 MG TABLET 800 MG PO ×3 (07:45→22:40)
[2023-11-05] MEDS: ONDANSETRON 4MG/2ML VIAL 4 MG IV ×2 (07:47→14:24)
--- NOTE | 2023-11-05 09:14 | EXP.PN ---
Subjective *Date: 11/05/23 *Time: 21:19 Interval history: Gauri Dolan is a 28-year-old G4, P0 who has been admitted for suprapubic pain management with a suspected urinary tract infection -Pain has been ongoing for a month but got significantly worse which caused her to present to the ED yesterday. Gynecologic history significant for history of a D&C and a Nexplanon that was placed in May. -Patient reports an allergy to Toradol which causes anaphylaxis and an allergy to hydrocodone which causes itching and a rash. The patient also has allergies to latex, sulfa, and Bactrim. Exam Data for Last 24 hours Vital signs and Labs for Last 24 Hours: Temp Pulse Resp BP Pulse Ox O2 Del Method 97.9 F 75 18 118/67 99 Room Air 11/05/23 07:45 11/05/23 07:45 11/05/23 07:45 11/05/23 07:45 11/05/23 07:45 11/05/23 08:15 Laboratory Results - last 24 hr 11/04/23 09:57: Urine Color Yellow, Urine Appearance Clear, Urine pH 5.0, Ur Specific [place] 1.025, Urine Protein 3+, Urine Glucose (UA) 1+, Urine Ketones Trace, Urine Blood 2+, Urine Nitrate Positive, Urine Bilirubin 2+ A, Urine Urobilinogen >=8.0, Ur Leukocyte Esterase 2+ A, Urine RBC 3-5, Urine WBC 10-20, Ur Squamous Epith Cells 5-10, Urine Bacteria 2+ 11/04/23 10:21: WBC 9.3, RBC 4.82, Hgb 14.8, Hct 43.9, MCV 91.1, MCH 30.7, MCHC 33.7, RDW 13.3, Plt Count 296, MPV 8.7, Neut % (Auto) 68.7, Lymph % (Auto) 19.4, [place] % (Auto) 7.5, Eos % (Auto) 3.7, Baso % (Auto) 0.7, Neut # (Auto) 6.4, Lymph # (Auto) 1.8, [place] # (Auto) 0.7, Eos # (Auto) 0.4, Baso # (Auto) 0.1, Sodium 142, Potassium 3.7, Chloride 106, Carbon Dioxide 24, Anion Gap 15.7 H, BUN 9, Creatinine 0.80, Estimated Creat Clear 150, Estimated GFR 85, Est GFR ( Amer) 103, Glucose 95, Lactate 1.0, Calcium 9.6, Total Bilirubin 0.7, AST 32, ALT 31, Alkaline Phosphatase 66, Total Protein 7.7, Albumin 4.4, Globulin 3.3 H, Albumin/Globulin Ratio 1.3, Lipase 53, Serum HCG, Qual Negative I & O for Last 24 hours: Intake & Output 11/02/23 11/03/23 11/04/23 11/05/23 23:59 23:59 23:59 23:59 Output Total 0 / 0 0 / 0 Balance 0 / 0 0 / 0 Weight 220 lb Constitutional Constitutional: no acute distress *Routine HEENT Exam Head: Present normocephalic Eye: Present EOMI and PERRL ENT: Present mucous membranes moist *Routine Neck Exam Neck: Present supple; Absent lymphadenopathy *Routine Respiratory Exam Respiratory: Present CTA bilaterally *Routine Cardiovascular Exam Cardiovascular: Present RRR *Routine Abdominal Exam Abdominal: Present soft and normoactive bowel sounds; Absent tenderness *Routine Extremities Exam Extremities: Absent cyanosis, clubbing or edema *Routine Skin Exam Skin: Present warm; Absent rash *Routine Neurological Exam Neurological: Present alert and oriented X3 Assessment and Plan *Assessment and plan (1) Bladder spasm: Status: Acute Category: Medical Code(s): N32.89 - Other specified disorders of bladder (2) Pelvic pain: Status: Acute Category: Medical Code(s): R10.2 - Pelvic and perineal pain (3) UTI (urinary tract infection): Status: Acute Qualifiers: Urinary tract infection type: acute cystitis Hematuria presence: without hematuria Qualified Code(s): N30.00 - Acute cystitis without hematuria Category: Medical Code(s): N39.0 - Urinary tract infection, site not specified (4) Abnormal endometrial ultrasound: Status: Acute Category: Medical Code(s): R93.5 - Abnormal findings on diagnostic imaging of other abdominal regions, including retroperitoneum Plan PDMP reviewed and patient takes Xanax 2 mg 3 times a day, this medication was reordered to prevent withdrawal Per ED chart review patient has urinary tract infection has been treated with ceftriaxone, doxycycline, and cefdinir Transvaginal ultrasound reviewed which was remarkable for a hyperechoic focus in the stalk of the uterus. Possibly a fibroid. Per patient Dr. Regalado recommended a hysterectomy Abdomen and pelvis CT reviewed which states the uterus and ovaries are unremarkable. CT scan shows a stool burden. Pt has long standing hx of taking stool softner. Consider a GI consult outpatient. Urine culture from 11/03/2023 reviewed which showed multiple organisms, contamination Labs reviewed and the patient has a normal white blood cell count, normal hemoglobin, Kidney function and creatinine are appropriate, liver function is appropriate No other lab abnormalities Nontoxic-appearing Remained afebrile today Pt is likely an appropriate candidate for discharge with follow up outpatient. Pt desires hysterectomy. We will attempt PO pain management today with hopes of discharge in the morning. DC IV abx and start PO antibiotics. Reviewed previous urine cultures and most were contaminated specimens. Started Macrobid and patient will likely DC home with this until culture results
[2023-11-05] MEDS: ALPRAZolam 1MG TABLET 1 MG PO ×2 (09:18→18:14)
[2023-11-05] MEDS: OXYCODONE 5MG IMMEDIATE RELEASE TABLET 5 MG PO ×3 (10:10→18:14)
[2023-11-05] MEDS: TIZANIDINE 4MG TABLET 4 MG PO (13:15)
[2023-11-05] MEDS: PHENAZOPYRIDINE 200MG TABLET 100 MG PO ×2 (13:15→21:13)
[2023-11-05 16:19] VITALS: BP 108/87; PULSE 74; RESP 16; TEMP 36.6; O2SAT 99
--- NOTE | 2023-11-05 19:27 | PC.NURSE ---
Report given to Eusebia Feng RN
[2023-11-05 21:10] VITALS: BP 104/60; PULSE 80; RESP 18; TEMP 36.8; O2SAT 96
[2023-11-05] MEDS: ALPRAZolam 1MG TABLET 2 MG PO (21:12)
[2023-11-05] MEDS: NITROFURANTOIN 100MG CAPSULE 100 MG PO (21:13)
[2023-11-05] MEDS: PANTOPRAZOLE 40MG TABLET 40 MG PO (21:13)
[2023-11-06] MEDS: ACETAMINOPHEN 500MG TAB 1000 MG PO ×2 (02:17→09:24)
[2023-11-06] MEDS: LACTATED RINGERS 1000ML 1,000 ML 125 ML IV (02:18)
[2023-11-06] MEDS: OXYCODONE 5MG IMMEDIATE RELEASE TABLET 5 MG PO ×2 (02:18→06:39)
[2023-11-06 04:20] VITALS: BP 124/77; PULSE 77; RESP 18; TEMP 36.7; O2SAT 96
--- NOTE | 2023-11-06 04:20 | PC.NURSE ---
Patient lung sounds auscultated clear throughout bilaterally. Apical heart sounds regular. Bowel sounds active in all four quadrants. Abdomen nontender to palpation. Patient reports voiding without difficulty. Reports lower abdominal sharp cramping but appears to be coping. Patient denies concerns or needs beyond medication at this time.
[2023-11-06] MEDS: TIZANIDINE 4MG TABLET 4 MG PO (04:22)
[2023-11-06] MEDS: ONDANSETRON 4MG/2ML VIAL 4 MG IV (04:22)
[2023-11-06] MEDS: IBUPROFEN 400 MG TABLET 800 MG PO (06:39)
[2023-11-06] MEDS: PROMETHAZINE HCL 25MG/ML 1ML VIAL 12.5 MG IV (06:43)
[2023-11-06 08:45] VITALS: BP 126/78; PULSE 80; RESP 18; TEMP 36.9; O2SAT 96
--- NOTE | 2023-11-06 08:45 | PC.NURSE ---
Pts IV's D/C'd from [facility] arms at this time
--- NOTE | 2023-11-06 08:54 | EXP.DC.SUM ---
General Admission date:: 11/04/23 Discharge date: 11/06/23 HPI HPI HPI: Patient is a 28-year-old female with multiple comorbidities including ovarian cyst, abnormal endometrial ultrasound, urinary tract infection who was seen yesterday in the urgency department and my office who presents to the emergency department. She came to the emergency department with worsening symptoms and severe pain. Patient has previous appendectomy and cholecystectomy and yesterday she had isolated suprapubic pain, urinalysis shows significant infection which was treated with ceftriaxone, doxycycline, cefdinir for STI prophylaxis as well as significant urinary tract infection treatment. Urine shows positive nitrites and 2+ leukocyte Estrace. CT imaging was deferred at the time given no concern other pathology other than ovarian for which transvaginal ultrasound was obtained which is remarkable for a hyperechoic stock of the endometrium and within the uterus., borderline elevated ovarian volumes. She was discharged from the ER yesterday in stable condition, has been taking Tylenol and ibuprofen [id number] and has had severe persistent pain for which she called Dr. Regalado who encouraged her to be referred here for continued evaluation. Her pain worsened this morning and when I spoke to her on the phone she was crying and in severe pain. We suspect that she may have severe bladder spasm as result of a UTI. No chest pain, no significant vaginal discharge or bleeding, no other acute complaints at this time. Hospital Course Hospital Course Hospital Course: She received IV antibiotics as well as oral doxycycline. She has remained afebrile throughout hospitalization. She has severe anxiety and was restarted on her Xanax 2 mg, 3 times daily. She also was receiving IV Dilaudid for her discomfort. She had a CT scan which was negative. A transvaginal ultrasound was performed and it was similar to the ultrasound performed in May of this year. Blood cultures were negative. Urine cultures done on November 02 revealed mixed azalea. She did have positive nitrites and 2+ leukocyte esterase urine sample when seen in the ER. At this point in time it is unclear why she has all this discomfort. We initially thought it might have been bladder spasm but it is not clear. She has a significant psychiatric history and I am not sure whether some of this might be psychosomatic. She does want a hysterectomy but at this point in time there is no reason to do this. She is using Nexplanon for control and it is not clear how often she has a period. She has had multiple visits to the emergency department as well as her family doctor with multiple various complaints over the last year. She was taking narcotics whenever she can have them while admitted here. I told her that I would not be giving her any long-term narcotics. She will be discharged home today to follow-up with me next week. She will also follow-up with her family doctor. I spoke to Zeynep in Dr. Thao's office and they will call her and make an appointment with her for next week as well. She will continue with her antibiotics that she was prescribed in the ER. I will give her #10 oxycodone 5 mg tablets to take at home. She will also take her home medications. Her condition on discharge is stable. Exam Data for Last 24 hours Vital signs and Labs for Last 24 Hours: Temp Pulse Resp BP Pulse Ox O2 Del Method 98.1 F 77 18 124/77 96 Room Air 11/06/23 04:20 11/06/23 04:20 11/06/23 04:20 11/06/23 04:20 11/06/23 04:20 11/06/23 07:50 I & O for Last 24 hours: Intake & Output 11/03/23 11/04/23 11/05/23 11/06/23 11:59 11:59 11:59 11:59 Intake Total 2878 / 2878 Output Total 200 / 200 0 / 0 Balance -200 / -200 2878 / 2878 Weight 200 lb 220 lb Microbiology Reports for the Last 24 Hours: Microbiology 11/04/23 10:30 Blood Blood Culture - Preliminary NO GROWTH AFTER 24 HOURS 11/04/23 10:30 Blood Blood Culture - Preliminary NO GROWTH AFTER 24 HOURS Constitutional Constitutional: no acute distress *Routine HEENT Exam Head: Present normocephalic *Routine Respiratory Exam Respiratory: Present normal respiratory effort; Absent accessory muscle use Results Data Completed and Pending Labs on day of discharge: Preliminary micro results at discharge 11/04/23 10:30 Blood Culture - Preliminary Blood NO GROWTH AFTER 24 HOURS 11/04/23 10:30 Blood Culture - Preliminary Blood NO GROWTH AFTER 24 HOURS DS: Diagnosis Discharge Diagnosis (1) Bladder spasm: Status: Acute Code(s): N32.89 - Other specified disorders of bladder (2) Pelvic pain: Status: Acute Code(s): R10.2 - Pelvic and perineal pain (3) UTI (urinary tract infection): Status: Acute Code(s): N39.0 - Urinary tract infection, site not specified Qualifiers: Urinary tract infection type: acute cystitis Hematuria presence: without hematuria Qualified Code(s): N30.00 - Acute cystitis without hematuria (4) Abnormal endometrial ultrasound: Status: Acute Code(s): R93.5 - Abnormal findings on diagnostic imaging of other abdominal regions, including retroperitoneum Meds Home Medications and Allergies Home Medications Medication Instructions Recorded Confirmed Type etonogestrel 68 mg subdermal 1 implant subdermal ONCE 06/16/23 11/04/23 History implant (Nexplanon) alprazolam 2 mg tablet (Xanax) See Rx Instructions .Route 08/06/23 11/04/23 Rx .COMPLEX #90 tabs epinephrine 0.3 mg/0.3 mL 0.3 ml SQ ONCE allergies #2 ea 09/25/23 11/04/23 Rx injection, auto-injector aluminum-mag hydroxide-simethicone 10 ml PO QID PRN indigestion 10/14/23 11/04/23 Rx 200 mg-200 mg-20 mg/5 mL oral susp #3,000 mL (Maalox Advanced) esomeprazole magnesium 20 mg 20 mg PO BID #60 caps 10/14/23 11/04/23 Rx capsule,delayed release (Nexium) famotidine 20 mg tablet (Pepcid) 20 mg PO BID #60 tabs 10/15/23 11/04/23 Rx cefdinir 300 mg capsule 300 mg PO BID 10 days #20 caps 11/03/23 11/04/23 Rx doxycycline hyclate 100 mg capsule 100 mg PO BID urethritis 7 days 11/03/23 11/04/23 Rx #14 caps naproxen 500 mg tablet 500 mg PO BID #30 tabs 11/03/23 11/04/23 Rx phenazopyridine 100 mg tablet 100 mg PO TID 3 days #9 tabs 11/03/23 11/04/23 Rx (Pyridium) oxycodone-acetaminophen 5 mg-325 1 tab PO Q6H PRN pain #10 tabs 11/06/23 Rx mg tablet New Prescriptions to Start Prescriptions: oxycodone-acetaminophen Garcia Regalado Allergies Allergy/AdvReac Type Severity Reaction Status Date / Time ketorolac Allergy Severe Anaphylaxis Verified 11/04/23 13:31 hydrocodone [HYDROCODONE] Allergy Intermediate Face & Verified 11/04/23 13:31 tounge swelling latex [LATEX] Allergy Intermediate I-RASH Verified 11/04/23 13:31 sulfamethoxazole Allergy Verified 11/04/23 13:31 [From Bactrim] trimethoprim [From Bactrim] Allergy Verified 11/04/23 13:31 Discharge Plan Disposition Patient Disposition: Home, Self-Care Discharge Order Discharge Orders: Discharge Order (Routine); Ordered 11/06/23 Ordered By: Garcia Regalado Follow up Plan Prescriptions/Medication Reconciliation: New oxycodone-acetaminophen 5-325 mg tablet 1 tab PO Q6H PRN (Reason: pain) Qty: 10 0RF Continued Nexplanon 68 mg implant 1 implant subdermal ONCE phenazopyridine [Pyridium] 100 mg tablet 100 mg PO TID 3 Days Qty: 9 0RF naproxen 500 mg tablet 500 mg PO BID Qty: 30 0RF alprazolam [Xanax] 2 mg tablet See Rx Instructions .ROUTE .COMPLEX Qty: 90 2RF Rx Instructions: Take 1 tablet twice daily and 1 at bedtime. esomeprazole magnesium [Nexium] 20 mg capsule,delayed release(DR/EC) 20 mg PO BID Qty: 60 2RF alum-mag hydroxide-simeth [Maalox Advanced] 200-200-20 mg/5 mL suspension 10 ml PO QID PRN (Reason: indigestion) Qty: 3000 0RF Rx Instructions: administer between meals and at bedtime epinephrine 0.3 mg/0.3 mL auto-injector 0.3 ml SQ ONCE Qty: 2 0RF famotidine [Pepcid] 20 mg tablet 20 mg PO BID Qty: 60 2RF cefdinir 300 mg capsule 300 mg PO BID 10 Days Qty: 20 0RF doxycycline hyclate 100 mg capsule 100 mg PO BID 7 Days Qty: 14 0RF Problem Reconciliation Problems Reviewed?: Yes Patient Discharge Instructions ACTIVITY: Ambulate as tolerated DIET: continue same diet Providers Primary Care Provider: Garcia Regalado Admit Provider: Garcia Regalado Attending Provider: Garcia Regalado
[2023-11-06] MEDS: PHENAZOPYRIDINE 200MG TABLET 100 MG PO (09:25)
[2023-11-06] MEDS: NITROFURANTOIN 100MG CAPSULE 100 MG PO (09:25)
== END 2023-11-06 12:55 | disposition home or self-care (01) | DRG 699 ==
LOC: ER 10:01 → OB 12:54
PROVIDERS: Admitting Provider Nurse Practitioner Obstetrics & Gynecology; Emergency Provider Emergency Medicine; PCP Nurse Practitioner Obstetrics & Gynecology; Visit Provider Nurse Practitioner Obstetrics & Gynecology
DX: N32.89 Other specified disorders of bladder (principal); N39.0 Urinary tract infection, site not specified; F41.9 Anxiety disorder, unspecified; F32.A Depression, unspecified; L73.9 Follicular disorder, unspecified; R10.2 Pelvic and perineal pain
CPT/HCPCS: 74177; 76830; 80053; 81001; 81025; 83605; 83690; 84703; 85025; 87040; 87086; 87491; 87591; G0378; J0131; J0696; J1170; J2270; J2405; J2550; J7120; Q9967

== ENCOUNTER 2023-11-10 08:44 | Emergency (ER) | payer OTHER, SELFPAY ==
[2023-11-10] VITALS (12 sets, daily range): BP systolic 93–143; BP diastolic 54–114; PULSE 83–117; RESP 18–25; TEMP 37.3; O2SAT 93–97; BMI 37.8
[2023-11-10 09:05] LABS: Microscopic, Urine URINE MICROSCOPIC (MICROSCOPIC)
--- NOTE | 2023-11-10 09:10 | PC.NURSE ---
Dr. Crocker at bedside
[2023-11-10 09:18] LABS: Chloride 105 mmol/L (98-107); Sodium 138 mmol/L (136-145)
[2023-11-10 09:19] LABS: Potassium 4.6 mmoL/L (3.5-5.1)
[2023-11-10 09:21] LABS: Alanine Aminotransferase 84 U/L (12-78); Alkaline Phosphatase 48 U/L (38-126); Anion Gap 14.6 mEq/L (5-15); Aspartate Amino Transferase 73 U/L (14-36); Bilirubin,Total 0.5 mg/dl (0.2-1.3); Blood Urea Nitrogen 9 mg/dl (7-17); Calcium 9.6 mg/dl (8.4-10.2); Carbon Dioxide 23 mmol/L (22.0-30.0); Creatinine Clearance Estimated 171 mL/min (50-200); Estimated Glomerular Filt Rate 100 ml/min (>60); GFR (African American) 121 ML/MIN (>60); Glucose 123 mg/dl (74-100); Lipase 74 U/L (23-300)
[2023-11-10 09:22] LABS: Albumin Level 4.8 g/dl (3.5-5.0); Albumin/Globulin Ratio 1.3 (1.1-1.8); Basophils # 0.2 K/mm3 (0-0.2); Basophils % 1.4 % (0.1-2.0); Eosinophils # 0.4 K/mm3 (0.0-0.4); Eosinophils % 3.4 % (0.1-12.0); Globulin 3.8 g/dL (1.3-3.2); Hematocrit 49.4 % (37.0-47.0); Hemoglobin 16.6 g/dL (12.2-16.2); Lactic Acid 1.6 mmol/L (0.7-2.1); Lymphocytes # 2.5 K/mm3 (0.7-4.5); Lymphocytes % 19.7 % (10-50); Mean Corpuscular HGB Conc 33.6 g/dL (31.8-35.4); Mean Corpuscular Hemoglobin 30.9 pg (27.0-31.2); Mean Corpuscular Volume 92.2 fl (81-99); Mean Platelet Volume 8.5 fl (7.4-10.4); Monocytes # 0.6 K/mm3 (0.1-1.0); Monocytes % 4.8 % (1.7-9.3); Neutrophils % 70.7 % (37.0-80.0); Platelet Count 349 K/mm3 (142-424); Red Blood Count 5.36 M/mm3 (4.20-5.40); Red Cell Distribution Width 13.8 % (11.5-17.5); Total Protein,Serum 8.6 g/dl (6.3-8.2); White Blood Count 12.7 K/mm3 (4.8-10.8)
--- NOTE | 2023-11-10 09:30 | ED_ITS ---
Discharge Plan Disposition Patient Disposition: Home, Self-Care Prescriptions Prescriptions: No Action Nexplanon 68 mg implant 1 implant subdermal ONCE phenazopyridine [Pyridium] 100 mg tablet 100 mg PO TID 3 Days Qty: 9 0RF naproxen 500 mg tablet 500 mg PO BID Qty: 30 0RF alprazolam [Xanax] 2 mg tablet See Rx Instructions .ROUTE .COMPLEX Qty: 90 2RF Rx Instructions: Take 1 tablet twice daily and 1 at bedtime. esomeprazole magnesium [Nexium] 20 mg capsule,delayed release(DR/EC) 20 mg PO BID Qty: 60 2RF alum-mag hydroxide-simeth [Maalox Advanced] 200-200-20 mg/5 mL suspension 10 ml PO QID PRN (Reason: indigestion) Qty: 3000 0RF Rx Instructions: administer between meals and at bedtime epinephrine 0.3 mg/0.3 mL auto-injector 0.3 ml SQ ONCE Qty: 2 0RF famotidine [Pepcid] 20 mg tablet 20 mg PO BID Qty: 60 2RF oxycodone-acetaminophen 5-325 mg tablet 1 tab PO Q6H PRN (Reason: pain) Qty: 10 0RF cefdinir 300 mg capsule 300 mg PO BID 10 Days Qty: 20 0RF doxycycline hyclate 100 mg capsule 100 mg PO BID 7 Days Qty: 14 0RF Referrals Follow up/Referrals: Diego Thao MD [Primary Care Provider] - See instructions Activity Restrictions/Add. Instructions Additional Instructions/Restrictions: Follow-up with Dr. Manuel tomorrow, 11/10. Call your family doctor to establish care for this visit to the emergency department and schedule follow-up within 48 hours to ensure improvement. If you have any worsening of your condition or any other concerning signs or symptoms, return to the emergency department or your primary care doctor for further evaluation. Clinical Impressions Clinical Impression: Pelvic pain Instructions Patient Instructions: DI for Acute Abdominal Pain Discharge ED Provider: Sharath Crocker General Adult HPI General Chief complaint: Abdominal Pain Stated complaint: abd pain- sent by OBGYN office Time Seen by Provider: 11/10/23 08:55 History of Present Illness HPI narrative: Please note that above description of symptoms, in this electronic medical record under categorization of recalled from ER triage doctor by RN are reflective of an initial nursing assessment, however, is not reflective of my full history and physical exam that was personally taken and clarified. Consequentially, this preceding description of symptoms, which may include the patient's categorized chief complaint in the EMR, do not reflect my personal clinical impression, and the ultimate description of history of present illness and patient stated complaints should be deferred to this section of the note. Unless stated otherwise or congruent with this section of the note, additional signs, symptoms, or incongruence should be interpreted as inaccurate with my clinical impression. Related Data Home Medications Medication Instructions Recorded Confirmed etonogestrel 68 mg subdermal 1 implant subdermal ONCE 06/16/23 11/04/23 implant (Nexplanon) Previous Rx's Medication Instructions Recorded alprazolam 2 mg tablet (Xanax) See Rx Instructions .Route 08/06/23 .COMPLEX #90 tabs epinephrine 0.3 mg/0.3 mL 0.3 ml SQ ONCE allergies #2 ea 09/25/23 injection, auto-injector aluminum-mag hydroxide-simethicone 10 ml PO QID PRN indigestion 10/14/23 200 mg-200 mg-20 mg/5 mL oral susp #3,000 mL (Maalox Advanced) esomeprazole magnesium 20 mg 20 mg PO BID #60 caps 10/14/23 capsule,delayed release (Nexium) famotidine 20 mg tablet (Pepcid) 20 mg PO BID #60 tabs 10/15/23 cefdinir 300 mg capsule 300 mg PO BID 10 days #20 caps 11/03/23 doxycycline hyclate 100 mg capsule 100 mg PO BID urethritis 7 days 11/03/23 #14 caps naproxen 500 mg tablet 500 mg PO BID #30 tabs 11/03/23 phenazopyridine 100 mg tablet 100 mg PO TID 3 days #9 tabs 11/03/23 (Pyridium) oxycodone-acetaminophen 5 mg-325 1 tab PO Q6H PRN pain #10 tabs 11/06/23 mg tablet Allergies Allergy/AdvReac Type Severity Reaction Status Date / Time ketorolac Allergy Severe Anaphylaxis Verified 11/04/23 13:31 hydrocodone [HYDROCODONE] Allergy Intermediate Face & Verified 11/04/23 13:31 tounge swelling latex [LATEX] Allergy Intermediate I-RASH Verified 11/04/23 13:31 sulfamethoxazole Allergy Verified 11/04/23 13:31 [From Bactrim] trimethoprim [From Bactrim] Allergy Verified 11/04/23 13:31 PFSH [facility] Disclaimer: The information contained in this section may have been updated after the patient was seen, as this information can be updated by other users. Medical History Fibroid uterus Ovarian cyst Anxiety Depression Surgical History History of colonoscopy History of esophagogastroduodenoscopy (EGD) Hx of appendectomy History of cholecystectomy Family History No significant family history Social History Smoking Status: Never smoker alcohol intake: never substance use type: denies use current occupational status: unemployed Travel in the last 8 weeks: None household members: family housing: house ROS Obtained: Yes All systems reviewed & no additional complaints except as documented Physical Exam General General appearance: alert and in distress (Mild, secondary to pain) Head Head exam: atraumatic and normocephalic Eye Eye exam: Present normal appearance, PERRL and EOMI ENT ENT exam: Present mucous membranes moist Neck Neck exam: Present normal inspection, full ROM and trachea midline Respiratory Respiratory exam: Present normal lung sounds bilaterally; Absent respiratory distress, wheezes, stridor, accessory muscle use or prolonged expiratory phase Cardiovascular Cardiovascular exam: Present regular rate and normal rhythm Abdominal Exam Abdominal exam: Present soft and tenderness; Absent distention, guarding, rebound or rigidity Abdominal tenderness: Present suprapubic Extremities Exam Extremities exam: Absent edema Neurological Exam Neurological exam: Present alert, oriented X3, CN II-XII intact and normal gait; Absent motor sensory deficit Skin Skin exam: Present warm and dry; Absent diaphoresis or erythema Medical Decision Making Medical Records Medical records reviewed: Yes I reviewed the patient's medical records. Gregorio Inquiry Pt receiving controlled substance: No Gregorio was queried for this patient: No Vital Signs: 11/10/23 08:46 11/10/23 09:00 11/10/23 09:30 Temperature 99.1 F Temperature Source Oral Pulse Rate 111 H 109 H Pulse Rate [Right] 117 H Respiratory Rate 25 H Blood Pressure 139/114 H 118/85 Blood Pressure [Right Arm] 143/87 H Blood Pressure Mean [Right Arm] 105 Blood Pressure Source [Right Arm] Automatic Cuff 02 Sat by Pulse Oximetry 96 96 96 Oxygen Delivery Method Room Air Room Air Room Air 11/10/23 10:00 11/10/23 10:31 11/10/23 10:41 Temperature Temperature Source Pulse Rate 109 H 110 H 106 H Pulse Rate [Right] Respiratory Rate Blood Pressure 132/100 H 109/70 L 118/85 Blood Pressure [Right Arm] Blood Pressure Mean [Right Arm] Blood Pressure Source [Right Arm] 02 Sat by Pulse Oximetry 96 94 L 96 Oxygen Delivery Method Room Air Room Air Room Air 11/10/23 12:00 11/10/23 12:21 11/10/23 12:30 Temperature Temperature Source Pulse Rate 83 87 90 Pulse Rate [Right] Respiratory Rate Blood Pressure 93/54 L 94/57 L 106/67 L Blood Pressure [Right Arm] Blood Pressure Mean [Right Arm] Blood Pressure Source [Right Arm] 02 Sat by Pulse Oximetry 93 L 93 L 95 Oxygen Delivery Method Room Air Room Air Room Air 11/10/23 13:00 11/10/23 14:58 Temperature Temperature Source Pulse Rate 89 95 H Pulse Rate [Right] Respiratory Rate Blood Pressure 107/78 L 105/65 L Blood Pressure [Right Arm] Blood Pressure Mean [Right Arm] Blood Pressure Source [Right Arm] 02 Sat by Pulse Oximetry 97 97 Oxygen Delivery Method Room Air Lab Data Lab Results 11/10/23 08:50: Urine Color Yellow, Urine Appearance Clear, Urine pH 6.0, Ur Specific [place] 1.015, Urine Protein Negative, Urine Glucose (UA) Negative, Urine Ketones Negative, Urine Blood Trace-i, Urine Nitrate Negative, Urine Bilirubin Negative, Urine Urobilinogen 0.2, Ur Leukocyte Esterase Trace, Urine RBC Occasional, Urine WBC 3-5, Ur Squamous Epith Cells 3-5, Urine Bacteria Trace 11/10/23 09:00: WBC 12.7 H, RBC 5.36, Hgb 16.6 H, Hct 49.4 H, MCV 92.2, MCH 30.9, MCHC 33.6, RDW 13.8, Plt Count 349, MPV 8.5, Neut % (Auto) 70.7, Lymph % (Auto) 19.7, [place] % (Auto) 4.8, Eos % (Auto) 3.4, Baso % (Auto) 1.4, Neut # (Auto) 9.0 H, Lymph # (Auto) 2.5, [place] # (Auto) 0.6, Eos # (Auto) 0.4, Baso # (Auto) 0.2, Sodium 138, Potassium 4.6, Chloride 105, Carbon Dioxide 23, Anion Gap 14.6, BUN 9, Creatinine 0.70, Estimated Creat Clear 171, Estimated GFR 100, Est GFR ( Amer) 121, Glucose 123 H, Lactate 1.6, Calcium 9.6, Total Bilirubin 0.5, AST 73 H, ALT 84 H, Alkaline Phosphatase 48, Total Protein 8.6 H, Albumin 4.8, Globulin 3.8 H, Albumin/Globulin Ratio 1.3, Lipase 74, HCG, Quant < 2 11/10/23 09:00 11/10/23 09:00 Orders (Tests/Meds): ED MEDICATIONS Discontinued Medications Generic Name Dose Route Start Last Admin Trade Name Juanjose PRN Reason Stop Dose Admin Acetaminophen 1,000 mg 11/10/23 08:59 11/10/23 10:27 Acetaminophen 500mg Tab PO 11/10/23 09:00 Not Given ONCE ONE Hydromorphone HCl 0.5 mg 11/10/23 10:52 11/10/23 10:56 Hydromorphone 2mg/Ml Syringe IV 11/10/23 10:53 0.5 mg ONCE ONE Administration Hydromorphone HCl 0.5 mg 11/10/23 15:03 11/10/23 15:11 Hydromorphone 2mg/Ml Syringe IV 11/10/23 15:04 Not Given ONCE ONE Iopamidol 75 ml 11/10/23 11:26 11/10/23 11:27 Iopamidol-370 (76%);100ml Bottle IV 11/10/23 11:27 75 ml ONCE ONE Administration Morphine Sulfate 4 mg 11/10/23 09:32 11/10/23 09:40 Morphine 4mg/Ml Syringe IV 11/10/23 09:33 4 mg ONCE ONE Administration Ondansetron HCl 4 mg 11/10/23 09:32 11/10/23 09:40 Ondansetron 4mg/2ml Vial IV 11/10/23 09:33 4 mg ONCE ONE Administration Sodium Chloride 10 ml 11/10/23 11:26 11/10/23 11:27 Sodium Chloride 0.9% 10ml Syr (Rad Only) IV 11/10/23 11:27 10 ml ONCE ONE Administration ORDERS Category Date Time Status CT abdomen pelvis w con Stat Cat Scan 11/10/23 09:33 Completed US transvaginal Stat Exams 11/10/23 12:27 Completed Complete Blood Count Auto Diff Stat Lab 11/10/23 09:00 Completed Comprehensive Metabolic Panel Stat Lab 11/10/23 09:00 Completed HCG,Quantitative Stat Lab 11/10/23 09:00 Completed Lactic Acid Stat Lab 11/10/23 09:00 Completed Lipase Stat Lab 11/10/23 09:00 Completed Urinalysis and Microscopic Stat Lab 11/10/23 08:50 Completed Medical Decision Narrative: 28-year-old female history of appendectomy, cholecystectomy, chronic pelvic pains, menorrhagia, fibroids, anxiety with Nexplanon in place presenting with pelvic pain. Patient states that this pelvic pain has been getting worse over the past 4 to 5 days. 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 Patient states that it has been constant, not waxing or waning. Lower pelvic, not associated with fevers or chills, but she is nauseated. Also having dysuria intermittently. No hematuria. No blood in her stool. Last bowel movement was today and was normal for her. Pain is not relieved or exacerbated by having BMs. Pain is currently lower abdominal/suprapubic, does not radiate, severe in intensity. Patient took Tylenol just for arrival, minimal help with this as well as ibuprofen. History was obtained via conversation with patient. On arrival, patient hemodynamically stable, alert, oriented x4, appropriate, GCS 15, moving all extremities spontaneously, pupils equal and reactive to light. Full physical exam performed and significant for uncomfortable appearing 28-year-old female in mild distress secondary to pain. Abdomen is soft, minimally tender in suprapubic area, nondistended. No flank tenderness. No overlying skin changes. Differential includes , ectopic , endometriosis, fibroid pains, diverticulitis, hollow viscus rupture, nephrolithiasis, UTI, pancreatitis, bowel ischemia, among others. Patient was given acetaminophen, morphine, Zofran for symptomatic management and correction of underlying abnormalities. Workup independently interpreted and significant for nonactionable CBC, chemistry. negative. Urinalysis nonactionable. CT abdomen pelvis without acute intra-abdominal pathology. Pelvic ultrasound with acute intrapelvic findings, but she does have adenomyosis. See radiology read for full review of final results. C[employer] INST[employer]ER on- call was contacted and case was discussed at length, recommended outpatient follow-up. I feel this is appropriate. Patient given first dose of steroid for inflammatory pain prior to discharge. Because patient at baseline without signs or symptoms of clinical decompensation, deemed appropriate for discharge. Results were relayed to patient who voiced understanding and were agreeable to outpatient management and follow up. I discussed my clinical impression with patient and answered all questions. At this time, the evidence for any other entities in the differential is insufficient to warrant any further testing or ED observation. This was explained as well. Advisory was given that persistent or worsening symptoms require further evaluation. I confirmed the understanding of this discussion. Lens Examiner disclaimer Much of this encounter note is an electronic information security associate spoken language to printed text. Electronic information security associate of the spoken language may permit errors. Although I have reviewed the note, some errors may still exist. Critical Care Critical Care Time Critical Care Time: No
--- NOTE | 2023-11-10 09:33 | CT_ITS ---
FINAL REPORT TECHNIQUE: After the administration of intravenous contrast, axial images were obtained through the abdomen and pelvis by computed tomography. The study was performed with techniques to keep radiation dose as low as reasonably achievable, (ALARA). Individual dose reduction techniques using automated exposure control or adjustment of mA and/or kV according to the patient's size were employed. CLINICAL HISTORY: severe deep pelvic pain COMPARISON: 11/04/2023 FINDINGS: Abdomen: No acute density is seen within the lung bases. Solid abdominal organs are unremarkable. Status postcholecystectomy. No bowel obstruction is present. There is no free air. No fluid collection is seen. There is no adenopathy. Pelvis: Presumed appendectomy. The uterus and ovaries are unremarkable. No bowel wall thickening is present. There is no free fluid. No pelvic mass is seen. IMPRESSION: No acute findings. Reviewed, Interpreted and Dictated by Arnol Nava MD Transcribed by Mary Manuel Authenticated and . [facility]
[2023-11-10] MEDS: ONDANSETRON 4MG/2ML VIAL 4 MG IV (09:40)
[2023-11-10] MEDS: MORPHINE 4MG/ML SYRINGE 4 MG IV (09:40)
[2023-11-10 09:51] LABS: Appearance,Urine CLEAR (Clear); Bilirubin,Urine Negative (Negative); Blood, Urine TRACE-I (Negative); Color,Urine YELLOW (Yellow); Glucose,Urine (UA) Negative (Negative); Ketones,Urine Negative (Negative); Leukocyte Esterase,Urine TRACE (Negative); Nitrate,Urine Negative (Negative); Protein,Urine Negative (Negative); Specific Gravity, Urine 1.015 (1.005-1.030); Urobilinogen,Urine 0.2 EU/dl (0.2)
[2023-11-10 09:53] LABS: HCG,Quantitative < 2 mIU/ml (0-5.42)
[2023-11-10 10:53] LABS: Bacteria,Urine Trace /lpf; RBC,Urine Occasional #/hpf (0-3)
[2023-11-10] MEDS: HYDROMORPHONE 2MG/ML SYRINGE 0.5 MG IV (10:56)
--- NOTE | 2023-11-10 11:05 | PC.NURSE ---
Pt gone to RAD via wheelchair
[2023-11-10] MEDS: IOPAMIDOL-370 (76%);100ML BOTTLE 75 ML IV (11:27)
[2023-11-10] MEDS: SODIUM CHLORIDE 0.9% 10ML SYR (RAD ONLY) 10 ML IV (11:27)
--- NOTE | 2023-11-10 11:36 | PC.NURSE ---
Pt returned from RAD
--- NOTE | 2023-11-10 12:25 | PC.NURSE ---
Dr. Crocker at bedside discussing results and POC
--- NOTE | 2023-11-10 12:27 | US_ITS ---
PROCEDURE INFORMATION: Exam: US Pelvis, Transvaginal, Non-Obstetric Exam date and time: 11/10/2023 1:09 PM Age: 28 years old Clinical indication: Pelvic pain TECHNIQUE: Imaging protocol: Real-time transvaginal pelvic (non-obstetric) ultrasound with image documentation. Transvaginal imaging was used for better evaluation of the endometrium, adnexa, and/or cervix. COMPARISON: US TRANSVAGINAL 11/03/2023 7:30 AM FINDINGS: Uterus: The uterus measures 7.3 x 3.2 x 4.6 cm. Endometrial echo complex measures 5.4 mm. There is redemonstration of 0.5 cm echogenic structure isoechoic to the endometrial background. The lesion is adjacent to the endometrial stripe. Common considerations include a subserosal fibroid, localized adenomyosis versus endometrial polyp. Right ovary/adnexa: The right ovary measures 2.6 x 3.7 x 2.0 cm (15 mL). There is redemonstration of peripheral distribution of the ovarian follicles. Ovarian stroma is otherwise unremarkable. There is normal arterial inflow and venous outflow. Left ovary/adnexa: The left ovary measures 4.3 x 1.8 x 2.6 cm. (11 mL). There is redemonstration of peripheral distribution of the ovarian follicles. Ovarian stroma is otherwise unremarkable. There is normal arterial inflow and venous outflow. Urinary bladder: Urinary bladder is limited. Intraperitoneal space: No free fluid. IMPRESSION: 1. There is redemonstration of 0.5 cm echogenic, pedunculated structure adjacent to the endometrium. Common considerations include: subserosal fibroid, localized adenomyosis versus endometrial polyp. Relay Man consult is recommended. 2. Peripheral distribution of bilateral ovarian follicles. This can be seen in the context of polycystic ovarian syndrome. Correlate clinically.
--- NOTE | 2023-11-10 12:28 | PC.NURSE ---
Notified RAD of u/s
--- NOTE | 2023-11-10 13:07 | PC.NURSE ---
Pt taken for u/s via wheelchair
--- NOTE | 2023-11-10 15:05 | PC.NURSE ---
Dr. Crocker s/w Dr. Millan, on-call for Dr. Regalado ([facility])
--- NOTE | 2023-11-10 15:19 | PC.NURSE ---
Dr. Crocker at BS to update pt on POC
[2023-11-10] MEDS: DEXAMETHASONE 4MG TABLET 10 MG PO (15:27)
== END 2023-11-10 15:35 | disposition home or self-care (01) ==
PROVIDERS: Emergency Provider Emergency Medicine; PCP Family Medicine
DX: R10.2 Pelvic and perineal pain (principal); R93.89 Abnormal findings on diagnostic imaging of other specified body structures
CPT/HCPCS: 74177; 76830; 80053; 81001; 83605; 83690; 84702; 85025; 96374; 96375; 96376; 99285; J1170; J2270; J2405; Q9967

== ENCOUNTER 2023-11-17 10:40 | Emergency (ER) | payer OTHER, SELFPAY ==
[2023-11-17 10:41] VITALS: BP 133/91; PULSE 110; RESP 13; TEMP 37.1; O2SAT 98; BMI 41.5
[2023-11-17 11:00] VITALS: BP 120/79; PULSE 96; O2SAT 97
[2023-11-17 11:17] LABS: Microscopic, Urine URINE MICROSCOPIC (MICROSCOPIC)
[2023-11-17] MEDS: ONDANSETRON 4MG/2ML VIAL 4 MG IV (11:21)
[2023-11-17] MEDS: MORPHINE 4MG/ML SYRINGE 4 MG IV (11:21)
[2023-11-17] MEDS: LACTATED RINGERS 1000ML 1,000 ML 999 ML IV (11:21)
[2023-11-17 11:22] LABS: Basophils # 0.2 K/mm3 (0-0.2); Basophils % 1.6 % (0.1-2.0); Eosinophils # 0.3 K/mm3 (0.0-0.4); Eosinophils % 2.5 % (0.1-12.0); Hematocrit 45.6 % (37.0-47.0); Hemoglobin 15.6 g/dL (12.2-16.2); Lymphocytes # 1.8 K/mm3 (0.7-4.5); Lymphocytes % 16.8 % (10-50); Mean Corpuscular HGB Conc 34.2 g/dL (31.8-35.4); Mean Corpuscular Hemoglobin 31.2 pg (27.0-31.2); Mean Corpuscular Volume 91.3 fl (81-99); Mean Platelet Volume 8.1 fl (7.4-10.4); Monocytes # 0.9 K/mm3 (0.1-1.0); Monocytes % 8.3 % (1.7-9.3); Neutrophils # 7.7 K/mm3 (1.8-7.8); Neutrophils % 70.9 % (37.0-80.0); Platelet Count 324 K/mm3 (142-424); Red Cell Distribution Width 13.7 % (11.5-17.5); White Blood Count 10.9 K/mm3 (4.8-10.8)
[2023-11-17 11:28] LABS: Alanine Aminotransferase 50 U/L (12-78); Albumin Level 4.7 g/dl (3.5-5.0); Albumin/Globulin Ratio 1.2 (1.1-1.8); Alkaline Phosphatase 68 U/L (38-126); Anion Gap 13.9 mEq/L (5-15); Aspartate Amino Transferase 35 U/L (14-36); Bilirubin,Total 0.7 mg/dl (0.2-1.3); Blood Urea Nitrogen 14 mg/dl (7-17); Calcium 9.9 mg/dl (8.4-10.2); Carbon Dioxide 28 mmol/L (22.0-30.0); Chloride 102 mmol/L (98-107); Creatinine Clearance Estimated 79 mL/min (50-200); Estimated Glomerular Filt Rate 85 ml/min (>60); GFR (African American) 103 ML/MIN (>60); Globulin 3.8 g/dL (1.3-3.2); Glucose 112 mg/dl (74-100); Potassium 3.9 mmoL/L (3.5-5.1); Sodium 140 mmol/L (136-145); Total Protein,Serum 8.5 g/dl (6.3-8.2)
[2023-11-17 11:30] VITALS: BP 124/74; PULSE 90; O2SAT 95
[2023-11-17 11:31] LABS: Appearance,Urine CLOUDY (Clear); Bilirubin,Urine Negative (Negative); Blood, Urine 3+ (Negative); Color,Urine YELLOW (Yellow); Glucose,Urine (UA) Negative (Negative); Ketones,Urine TRACE (Negative); Leukocyte Esterase,Urine 1+ (Negative); Nitrate,Urine Negative (Negative); PH,Urine 5.5 (5.0-8.5); Protein,Urine 1+ (Negative); Specific Gravity, Urine >= 1.030 (1.005-1.030); Urobilinogen,Urine 0.2 EU/dl (0.2)
--- NOTE | 2023-11-17 11:43 | ED_ITS ---
Discharge Plan Disposition Patient Disposition: Home, Self-Care Condition: Fair Prescriptions Prescriptions: New phenazopyridine [Pyridium] 100 mg tablet 100 mg PO Q8H Qty: 14 0RF cefdinir 300 mg capsule 300 mg PO BID 7 Days Qty: 14 0RF No Action Nexplanon 68 mg implant 1 implant subdermal ONCE naproxen 500 mg tablet 500 mg PO BID Qty: 30 0RF Orilissa 200 mg tablet 200 mg PO BID Qty: 60 2RF promethazine 25 mg tablet 25 mg PO Q6H PRN (Reason: nausea and vomiting) Qty: 30 1RF alprazolam [Xanax] 2 mg tablet See Rx Instructions .ROUTE .COMPLEX Qty: 90 2RF Rx Instructions: Take 1 tablet twice daily and 1 at bedtime. esomeprazole magnesium [Nexium] 20 mg capsule,delayed release(DR/EC) 20 mg PO BID Qty: 60 2RF alum-mag hydroxide-simeth [Maalox Advanced] 200-200-20 mg/5 mL suspension 10 ml PO QID PRN (Reason: indigestion) Qty: 3000 0RF Rx Instructions: administer between meals and at bedtime epinephrine 0.3 mg/0.3 mL auto-injector 0.3 ml SQ ONCE Qty: 2 0RF famotidine [Pepcid] 20 mg tablet 20 mg PO BID Qty: 60 2RF Referrals Follow up/Referrals: Flynn Johnson MD [Staff Physician] - See instructions Diego Thao MD [Primary Care Provider] - See instructions Activity Restrictions/Add. Instructions Additional Instructions/Restrictions: Follow-up with your family doctor regarding this visit to the emergency department. Follow-up with [facility] tomorrow, for bladder treatment. Urologist, Dr. Johnson, information was placed here out of concern for potential interstitial cystitis. Call to schedule appointment to discuss further management. Clinical Impressions Clinical Impression: Cystitis Stand Alone Forms Stand Alone Forms: Work/School Release Instructions Patient Instructions: DI for Acute Abdominal Pain Discharge ED Provider: Sharath Crocker General Adult [facility] General Chief complaint: Abdominal Pain Stated complaint: lower abd pain Time Seen by Provider: 11/17/23 11:03 Mode of Arrival: Ambulatory Source of Information: Patient Limitations: No Limitations Description of Symptoms (Recalled from ER Triage Doc. by RN): pt presents to ED with c/o abdominal pain. pt reports that symptoms ongoing for the past month. pt reports she has follow up appoitment with dr kaiser tomorrow. but pain became worse this morning and unable to tolerate. History of Present Illness HPI narrative: Please note that above description of symptoms, in this electronic medical record under categorization of recalled from ER triage doctor by RN are reflective of an initial nursing assessment, however, is not reflective of my full history and physical exam that was personally taken and clarified. Consequentially, this preceding description of symptoms, which may include the patient's categorized chief complaint in the EMR, do not reflect my personal clinical impression, and the ultimate description of history of present illness and patient stated complaints should be deferred to this section of the note. Unless stated otherwise or congruent with this section of the note, additional signs, symptoms, or incongruence should be interpreted as inaccurate with my clinical impression. Related Data Home Medications Medication Instructions Recorded Confirmed etonogestrel 68 mg subdermal 1 implant subdermal ONCE 06/16/23 11/19/23 implant (Nexplanon) Previous Rx's Medication Instructions Recorded alprazolam 2 mg tablet (Xanax) See Rx Instructions .Route 08/06/23 .COMPLEX #90 tabs epinephrine 0.3 mg/0.3 mL 0.3 ml SQ ONCE allergies #2 ea 09/25/23 injection, auto-injector aluminum-mag hydroxide-simethicone 10 ml PO QID PRN indigestion 10/14/23 200 mg-200 mg-20 mg/5 mL oral susp #3,000 mL (Maalox Advanced) esomeprazole magnesium 20 mg 20 mg PO BID #60 caps 10/14/23 capsule,delayed release (Nexium) famotidine 20 mg tablet (Pepcid) 20 mg PO BID #60 tabs 10/15/23 naproxen 500 mg tablet 500 mg PO BID #30 tabs 11/03/23 elagolix 200 mg tablet (Orilissa) 200 mg PO BID #60 tabs 11/11/23 cefdinir 300 mg capsule 300 mg PO BID 7 days #14 caps 11/17/23 phenazopyridine 100 mg tablet 100 mg PO Q8H 6 doses #14 tabs 11/17/23 (Pyridium) promethazine 25 mg tablet 25 mg PO Q6H PRN nausea and 11/18/23 vomiting #30 tabs Allergies Allergy/AdvReac Type Severity Reaction Status Date / Time ketorolac Allergy Severe Anaphylaxis Verified 11/19/23 13:26 hydrocodone [HYDROCODONE] Allergy Intermediate Face & Verified 11/19/23 13:26 tounge swelling latex [LATEX] Allergy Intermediate I-RASH Verified 11/19/23 13:26 sulfamethoxazole Allergy Verified 11/19/23 13:26 [From Bactrim] trimethoprim [From Bactrim] Allergy Verified 11/19/23 13:26 [facility] Disclaimer: The information contained in this section may have been updated after the patient was seen, as this information can be updated by other users. Medical History Encounter for insertion of subdermal contraceptive Abnormal uterine bleeding (AUB) Nausea & vomiting NDPH (new daily persistent headache) Contusion of hand, right Menorrhagia Influenza Ankle sprain Migraine Vomiting Sprain of lumbar region Contusion of coccyx Otitis externa Strain of lumbar region Leukocytosis Allergic reaction Fracture of coccyx Hyperventilation Acute anxiety Panic attack as reaction to stress Chest pain Headache Acute gastroenteritis Fibroid uterus Ovarian cyst Anxiety Depression Surgical History History of colonoscopy History of esophagogastroduodenoscopy (EGD) Hx of appendectomy History of cholecystectomy Family History Other No significant family history Social History Smoking Status: Never smoker alcohol intake: never substance use type: denies use current occupational status: unemployed Travel in the last 8 weeks: None household members: family housing: house ROS Obtained: Yes All systems reviewed & no additional complaints except as documented Physical Exam General General appearance: alert and in no apparent distress Head Head exam: atraumatic and normocephalic Eye Eye exam: Present normal appearance, PERRL and EOMI ENT ENT exam: Present mucous membranes moist Neck Neck exam: Present normal inspection, full ROM and trachea midline Respiratory Respiratory exam: Absent respiratory distress, wheezes, stridor, accessory muscle use or prolonged expiratory phase Cardiovascular Cardiovascular exam: Present normal rhythm Abdominal Exam Abdominal exam: Present soft and tenderness; Absent distention, guarding, rebound or rigidity Extremities Exam Extremities exam: Absent edema Neurological Exam Neurological exam: Present alert, oriented X3, CN II-XII intact and normal gait; Absent motor sensory deficit Skin Skin exam: Present warm and dry; Absent diaphoresis or erythema Medical Decision Making Medical Records Medical records reviewed: Yes I reviewed the patient's medical records. Gregorio Inquiry Pt receiving controlled substance: No Gregorio was queried for this patient: No Vital Signs: 11/17/23 10:41 11/17/23 11:00 11/17/23 11:30 Temperature 98.7 F Temperature Source Oral Pulse Rate 96 H 90 Pulse Rate [Left Radial] 110 H Respiratory Rate 13 Blood Pressure 120/79 124/74 Blood Pressure [Right Arm] 133/91 H Blood Pressure Mean 92 Blood Pressure Mean [Right Arm] 105 02 Sat by Pulse Oximetry 98 97 95 Oxygen Delivery Method Room Air Room Air 11/17/23 12:00 11/17/23 12:30 11/17/23 12:51 Temperature 98.0 F Temperature Source Pulse Rate 92 H 84 84 Pulse Rate [Left Radial] Respiratory Rate 13 Blood Pressure 109/61 L 106/63 L 106/63 L Blood Pressure [Right Arm] Blood Pressure Mean 80 Blood Pressure Mean [Right Arm] 02 Sat by Pulse Oximetry 99 97 Oxygen Delivery Method Room Air Lab Data Lab Results 11/17/23 10:43: Urine Color Yellow, Urine Appearance Cloudy, Urine pH 5.5, Ur Specific Willard >= 1.030, Urine Protein 1+, Urine Glucose (UA) Negative, Urine Ketones Trace, Urine Blood 3+, Urine Nitrate Negative, Urine Bilirubin Negative, Urine Urobilinogen 0.2, Ur Leukocyte Esterase 1+ A, Urine RBC 3-5, Urine WBC 10- 20, Ur Squamous Epith Cells 5-10, Amorphous Sediment 2+, Urine Bacteria 3+ 11/17/23 10:50: WBC 10.9 H, RBC 5.00, Hgb 15.6, Hct 45.6, MCV 91.3, MCH 31.2, MCHC 34.2, RDW 13.7, Plt Count 324, MPV 8.1, Neut % (Auto) 70.9, Lymph % (Auto) 16.8, [place] % (Auto) 8.3, Eos % (Auto) 2.5, Baso % (Auto) 1.6, Neut # (Auto) 7.7, Lymph # (Auto) 1.8, [place] # (Auto) 0.9, Eos # (Auto) 0.3, Baso # (Auto) 0.2, Sodium 140, Potassium 3.9, Chloride 102, Carbon Dioxide 28, Anion Gap 13.9, BUN 14, Creatinine 0.80, Estimated Creat Clear 79, Estimated GFR 85, Est GFR ( Amer) 103, Glucose 112 H, Calcium 9.9, Total Bilirubin 0.7, AST 35, ALT 50, Alkaline Phosphatase 68, Total Protein 8.5 H, Albumin 4.7, Globulin 3.8 H, Albumin/Globulin Ratio 1.2, HCG, Quant < 2 11/17/23 10:50 11/17/23 10:50 Orders (Tests/Meds): ED MEDICATIONS Discontinued Medications Generic Name Dose Route Start Last Admin Trade Name Freq PRN Reason Stop Dose Admin Lactated Ringer's 1,000 mls @ 999 mls/hr 11/17/23 11:13 11/17/23 11:21 Lactated Ringer's 1000 Ml Bag IV 11/17/23 12:13 999 mls/hr .Q1H1M ONE Administration Ceftriaxone Sodium 1 gm/ 50 mls @ 100 mls/hr 11/17/23 11:50 11/17/23 12:00 Sodium Chloride IV 11/17/23 12:19 Not Given ONCE ONE Ceftriaxone Sodium 1 gm/ 50 mls @ 100 mls/hr 11/17/23 12:00 11/17/23 12:04 Sodium Chloride IV 11/27/23 11:59 100 mls/hr Q24H HUNG Administration Morphine Sulfate 4 mg 11/17/23 11:13 11/17/23 11:21 Morphine 4mg/Ml Syringe IV 11/17/23 11:14 4 mg ONCE ONE Administration Ondansetron HCl 4 mg 11/17/23 11:13 11/17/23 11:21 Ondansetron 4mg/2ml Vial IV 11/17/23 11:14 4 mg ONCE ONE Administration Sodium Chloride 10 ml 11/17/23 10:59 Sodium Chloride 0.9% 10ml Flush Syringe IV 12/17/23 10:58 NEEDED PRN Maintain IV Site ORDERS Category Date Time Status CBC w/Auto Diff [Complete Blood Count Auto Diff] Stat Lab 11/17/23 10:50 Completed CMP [Comprehensive Metabolic Panel] Stat Lab 11/17/23 10:50 Completed HCG,Quantitative Stat Lab 11/17/23 10:50 Completed UA [Urinalysis and Microscopic] Stat Lab 11/17/23 10:43 Completed Urine Culture Stat Micro 11/17/23 10:43 Completed Medical Decision Narrative: 28-year-old female history of chronic pelvic pain presenting with lower abdominal and pelvic pain. This pain has been going on since I saw her last week. Was discharged home with close outpatient follow-up. Saw DISABILITY SPECIALIST, was discharged with elagolix and naproxen. Patient states that it has gotten a little bit better, but is now progressively worsening again. Was supposed to follow-up with her primary OB tomorrow, 11/17, is unable to make it there due to pain. Is the same pain, sharp, deep, constant, not made better or worse by anything in particular. No urinary or bowel symptoms. History was obtained via conversation with patient. On arrival, patient hemodynamically stable, alert, oriented x4, appropriate, GCS 15, moving all extremities spontaneously, pupils equal and reactive to light. Full physical exam performed and significant for abdomen is soft, minimally tender, no evidence of guarding, rebound, rigidity, or peritonitis. No overlying skin changes. Pelvic exam deferred. Differential includes UTI, nephrolithiasis, pyelonephritis, adenomyosis, endometriosis, appendicitis, cholecystitis, diverticulitis, among others. Patient was given fluids, morphine, Zofran for symptomatic management and correction of underlying abnormalities. Workup independently interpreted and significant for nonactionable leukocytosis 10.9. Chemistry normal. LFTs normal. UA with concern for UTI. hCG negative. Because patient recently had pelvic ultrasound and CT abdomen pelvis, these were independently interpreted and reviewed. Because no acute actionable findings, no further imaging or repeat imaging was deemed necessary at this time. I contacted DISABILITY SPECIALIST who is on- call, recommended outpatient follow-up with him tomorrow for bladder rescue and treatment for UTI. I feel this is appropriate. Because patient at baseline without signs or symptoms of clinical decompensation, deemed appropriate for discharge. Results were relayed to patient who voiced understanding and were agreeable to outpatient management and follow up. I discussed my clinical impression with patient and answered all questions. At this time, the evidence for any other entities in the differential is insufficient to warrant any further testing or ED observation. This was explained as well. Advisory was given that persistent or worsening symptoms require further evaluation. I confirmed the understanding of this discussion. Personnel Clerks Supervisor disclaimer Much of this encounter note is an electronic service center coordinator spoken language to printed text. Electronic service center coordinator of the spoken language may permit errors. Although I have reviewed the note, some errors may still exist. Critical Care Critical Care Time Critical Care Time: No
[2023-11-17 11:52] LABS: Amorphous Sediment,Urine 2+ /lpf; Bacteria,Urine 3+ /lpf
[2023-11-17 12:00] VITALS: BP 109/61; PULSE 92; O2SAT 99
[2023-11-17] MEDS: CEFTRIAXONE 1 GM 1 GM in 0.9 % SODIUM CHLORIDE 50 ML IV (12:04)
[2023-11-17 12:18] LABS: HCG,Quantitative < 2 mIU/ml (0-5.42)
[2023-11-17 12:30] VITALS: BP 106/63; PULSE 84; O2SAT 97
--- NOTE | 2023-11-17 12:32 | PC.NURSE ---
on phone with hospitalist
[2023-11-17 12:51] VITALS: BP 106/63; PULSE 84; RESP 13; TEMP 36.7
== END 2023-11-17 12:51 | disposition home or self-care (01) ==
PROVIDERS: Emergency Provider Emergency Medicine; PCP Family Medicine
DX: R10.30 Lower abdominal pain, unspecified (principal); N30.00 Acute cystitis without hematuria; B96.89 Other specified bacterial agents as the cause of diseases classified elsewhere; R10.2 Pelvic and perineal pain
CPT/HCPCS: 80053; 81001; 84702; 85025; 87086; 96365; 96375; 99285; J0696; J2270; J2405; J7120

== ENCOUNTER 2024-01-27 16:59 | Outpatient (CLI) | payer OTHER, SELFPAY ==
[2024-01-27 16:17] LABS: Coronavirus 19, PCR Not Detected (NotDetected); Influenza A, PCR Not Detected (NotDetected); Influenza B, PCR Not Detected (NotDetected)
== END 2024-01-27 23:59 | disposition home or self-care (01) ==
LOC: LAB.DROPOF 16:59
PROVIDERS: PCP Nurse Practitioner Family; Visit Provider Nurse Practitioner Family
DX: R09.89 Other specified symptoms and signs involving the circulatory and respiratory systems (principal); J01.90 Acute sinusitis, unspecified; Z72.0 Tobacco use
CPT/HCPCS: 87636

== ENCOUNTER 2024-02-25 15:38 | Outpatient (CLI) | payer OTHER, SELFPAY ==
--- NOTE | 2024-02-25 15:42 | XR_ITS ---
FINAL REPORT CLINICAL HISTORY: left knee pain FINDINGS: LEFT KNEE: Three views of the left knee were obtained. There is no acute fracture or dislocation. Visualized joint spaces are normally aligned. There is no joint effusion. Soft tissues are unremarkable. IMPRESSION: No acute bony abnormality. Reviewed, Interpreted and Dictated by Gerard Quintero III, MD Transcribed by Cindy Harmon Authenticated and [facility]
== END 2024-02-25 23:59 | disposition home or self-care (01) ==
LOC: RAD 15:40
PROVIDERS: PCP Family Medicine; Visit Provider Family Medicine
DX: M25.562 Pain in left knee (principal)
CPT/HCPCS: 73562

== ENCOUNTER 2024-03-03 10:21 | Outpatient (CLI) | payer OTHER, SELFPAY ==
--- NOTE | 2024-03-03 10:25 | XR_ITS ---
FINAL REPORT CLINICAL HISTORY: ankle pain COMPARISON: None FINDINGS: RIGHT ANKLE 3 views of the right ankle were obtained. There is no acute fracture or dislocation. The mortise is intact. Visualized joint spaces are normally aligned. Minimal lateral soft tissue swelling is present. IMPRESSION: Minimal lateral soft tissue swelling, without acute bony abnormality. Reviewed, Interpreted and Dictated by Nitish Chowdhury MD Transcribed by Zohra Wilhelm Authenticated and [facility]
== END 2024-03-03 23:59 | disposition home or self-care (01) ==
LOC: RAD 10:23
PROVIDERS: PCP Family Medicine; Visit Provider Physician Assistant
DX: M25.371 Other instability, right ankle (principal)
CPT/HCPCS: 73610

== ENCOUNTER 2024-04-02 16:19 | Emergency (ER) | payer OTHER, SELFPAY ==
[2024-04-02 16:21] VITALS: BP 151/93; PULSE 102; RESP 16; TEMP 36.6; O2SAT 98; BMI 41.5
--- NOTE | 2024-04-02 16:25 | HMH.EDGENADL ---
Discharge Plan Disposition Chief Complaint: Fall Prescriptions Prescriptions: No Action alprazolam [Xanax] 2 mg tablet See Rx Instructions .ROUTE .COMPLEX Qty: 90 2RF Rx Instructions: Take 1 tablet twice daily and 1 at bedtime. quetiapine 100 mg tablet 100 mg PO HS Patient Comments: TAKE 1 TABLET BY MOUTH AT BEDTIME desvenlafaxine succinate 25 mg tablet extended release 24 hr PO Patient Comments: TAKE 1 TABLET BY MOUTH ONCE DAILY esomeprazole magnesium 20 mg capsule,delayed release(DR/EC) 20 mg PO DAILY ondansetron 4 mg tablet,disintegrating 4 mg PO BID PRN (Reason: nausea and vomiting) 5 Days Qty: 10 2RF promethazine 25 mg tablet 25 mg PO Q6H PRN (Reason: nausea and vomiting) Qty: 20 1RF epinephrine 0.3 mg/0.3 mL auto-injector 0.3 ml SQ ONCE Qty: 2 0RF Referrals Follow up/Referrals: Diego Thao MD [Primary Care Provider] - See instructions Activity Restrictions/Add. Instructions Additional Instructions/Restrictions: Follow-up with your family doctor regarding this visit to the emergency department. Take Tylenol 1000 mg every 6 hours (4 times daily) and ibuprofen 400 mg every 6 hours (4 times daily) as needed with food and water to prevent GI upset and kidney damage. Clinical Impressions Clinical Impression: Left elbow pain, Left thigh pain, Thoracic spine pain, Lumbar spine pain Print Language Print Language: Luxembourgish Discharge ED Provider: Sharath Crocker General Adult HPI <AYDEE Murray - Last Filed: 04/02/24 16:41> General Chief complaint: Fall Stated complaint: AO 04/02/24 1500 injury left arm,leg,upper back Time Seen by Provider: 04/02/24 16:36 Related Data Home Medications ?Medication ?Instructions ?Recorded ?Confirmed desvenlafaxine succinate 25 mg mg PO 03/23/24 03/23/24 tablet,extended release 24 hr esomeprazole magnesium 20 mg 20 mg PO DAILY 03/23/24 03/23/24 capsule,delayed release quetiapine 100 mg tablet 100 mg PO HS 03/23/24 03/23/24 Previous Rx's ?Medication ?Instructions ?Recorded epinephrine 0.3 mg/0.3 mL 0.3 ml SQ ONCE allergies #2 ea 09/25/23 injection, auto-injector alprazolam 2 mg tablet (Xanax) See Rx Instructions .Route 02/18/24 .COMPLEX #90 tabs ondansetron 4 mg disintegrating 4 mg PO BID PRN nausea and 03/23/24 tablet vomiting 5 days #10 tabs promethazine 25 mg tablet 25 mg PO Q6H PRN nausea and 03/23/24 vomiting #20 tabs Allergies Allergy/AdvReac Type Severity Reaction Status Date / Time ketorolac Allergy Severe Anaphylaxis Verified 03/23/24 13:26 hydrocodone (HYDROCODONE) Allergy Intermediate Face & Verified 03/23/24 13:26 tounge swelling latex (LATEX) Allergy Intermediate I-RASH Verified 03/23/24 13:26 sulfamethoxazole (From Allergy Verified 03/23/24 13:26 Bactrim) trimethoprim (From Bactrim) Allergy Verified 03/23/24 13:26 <Sharath Crocker MD - Last Filed: 04/02/24 18:04> History of Present Illness HPI narrative: Please note that above description of symptoms, in this electronic medical record under categorization of recalled from ER triage doctor by RN are reflective of an initial nursing assessment, however, is not reflective of my full history and physical exam that was personally taken and clarified. Consequentially, this preceding description of symptoms, which may include the patient's categorized chief complaint in the EMR, do not reflect my personal clinical impression, and the ultimate description of history of present illness and patient stated complaints should be deferred to this section of the note. Unless stated otherwise or congruent with this section of the note, additional signs, symptoms, or incongruence should be interpreted as inaccurate with my clinical impression. [facility] <AYDEE Murray - Last Filed: 04/02/24 16:41> [facility] Disclaimer: The information contained in this section may have been updated after the patient was seen, as this information can be updated by other users. Medical History Encounter for insertion of subdermal contraceptive Abnormal uterine bleeding (AUB) Nausea & vomiting NDPH (new daily persistent headache) Contusion of hand, right Menorrhagia Influenza Ankle sprain Migraine Vomiting Sprain of lumbar region Contusion of coccyx Otitis externa Strain of lumbar region Leukocytosis Allergic reaction Fracture of coccyx Hyperventilation Acute anxiety Panic attack as reaction to stress Chest pain Headache Acute gastroenteritis Fibroid uterus Ovarian cyst Anxiety Depression Surgical History History of partial hysterectomy H/O: hysterectomy History of colonoscopy History of esophagogastroduodenoscopy (EGD) Hx of appendectomy History of cholecystectomy Family History Other No significant family history Social History Smoking Status: Never smoker alcohol intake: never substance use type: denies use current occupational status: unemployed Travel in the last 8 weeks: None household members: family housing: house Other Medical History Have you received the Flu Vaccine for this season: No Have you received the Pneumonia Vaccine: No <AYDEE Murray - Last Filed: 04/02/24 16:41> ROS Obtained: Yes Systems reviewed as appropriate & no additional complaints except as documented Physical Exam <AYDEE Murray - Last Filed: 04/02/24 16:41> General General appearance: alert and in no apparent distress Head Head exam: atraumatic and normal inspection Eye Eye exam: Present normal appearance, PERRL and EOMI ENT ENT exam: Present normal exam, normal oropharynx and mucous membranes moist Neck Neck exam: Present normal inspection, full ROM and trachea midline; Absent lymphadenopathy Chest Chest inspection: Present normal inspection and symmetric chest wall rise Respiratory Respiratory exam: Present normal lung sounds bilaterally; Absent accessory muscle use Cardiovascular Cardiovascular exam: Present regular rate, normal rhythm, normal heart sounds, +S1 and +S2 Abdominal Exam Abdominal exam: Present soft and normal bowel sounds; Absent tenderness, guarding or rebound Extremities Exam Extremities exam: Present normal inspection and full ROM Neurological Exam Neurological exam: Present alert, oriented X3 and CN II-XII intact Psychiatric Psychiatric exam: Present normal affect and normal mood Skin Skin exam: Present warm, dry and normal color Lymphatic Lymphatic Findings: no adenopathy <Sharath Crocker MD - Last Filed: 04/02/24 18:04> General General appearance: obese Extremities Exam Extremities exam: Present tenderness Back Exam Back exam: Present tenderness Medical Decision Making <AYDEE Murray - Last Filed: 04/02/24 16:41> Medical Records Screening: Per USPSTF and CDC recommendations, given the prevalence of disease in our region, it is our hospital?s policy to screen for HIV and viral Hepatitis for all patients aged 18 and over and those with ongoing risk factors. Vital Signs: 04/02/24 16:21 04/02/24 16:30 Temperature 97.9 F Temperature Source Oral Pulse Rate 100 H Pulse Rate [Radial] 102 H Respiratory Rate 16 Blood Pressure 141/86 H Blood Pressure [Right Arm] 151/93 H Blood Pressure Mean [Right Arm] 112 Blood Pressure Source [Right Arm] Automatic Cuff Blood Pressure Position [Right Arm] Sitting 02 Sat by Pulse Oximetry 98 98 Oxygen Delivery Method Room Air Room Air Orders (Tests/Meds): ED MEDICATIONS Discontinued Medications Generic Name Dose Route Start Last Admin Trade Name Freq PRN Reason Stop Dose Admin Acetaminophen 1,000 mg 04/02/24 16:50 04/02/24 17:05 Acetaminophen 500mg Tab PO 04/02/24 16:51 1,000 mg ONCE ONE Administration Ibuprofen 600 mg 04/02/24 16:50 04/02/24 17:54 Ibuprofen 600 Mg Tablet PO 04/02/24 16:51 Not Given ONCE ONE Tetanus/Reduced Diphtheria/Acell Pertussis 0.5 ml 04/02/24 16:58 04/02/24 17:08 Tet/Diphth/Pert-Adult 0.5ml Syringe IM 04/02/24 16:59 0.5 ml .ONCE ONE Administration ORDERS Category Date Time Status CT lumbar spine wo con Stat Cat Scan 04/02/24 16:[address] thoracic spine wo con Stat Cat Scan 04/02/24 16:50 Completed Elbow XR left mininum 3 views [XR elbow LT min 3V] Stat Exams 04/02/24 16:50 Completed HIV (1&2) Antibody Rapid Stat Lab 04/02/24 16:30 Ordered Hep C Ab with Reflex to RNA Stat Lab 04/02/24 16:30 Ordered Medical Decision Narrative: In summary patient is a [age, sex] who presents to the emergency department for evaluation of [complaint]. Patient is [hemodynamically stable/unstable] upon arrival, [febrile/afebrile]. [Unremarkable physical exam, nonfocal exam versus focal remarkable exam]. Differential diagnosis includes [DDx]. Initial workup will be conducted with [hematologic labs, imaging, respiratory swab, describe workup]. Initial interventions include [crystalloid bolus, medications, p.o. challenge, etc.] initial workup reviewed by me [hematologic labs are remarkable for... Imaging remarkable for... Urinalysis remarkable for]. Upon repeat evaluation [patient had acceptable resolution of symptoms, had persistent pain for which additional interventions were conducted (describe interventions), tolerated p.o., was ambulatory, etc.]. Given this [patient is appropriate for discharge at this time and will be discharged with a prescription for... The case was discussed with hospital medicine regarding management and they will admit the patient their service for continued evaluation at this time... Etc.] Places where you can increase complexity: I informally interpreted the patient's chest x-ray or CT read and is remarkable for... Documenting what the potline monitor shows with rate and rhythm Consideration of test but deferring. Ex: I considered chest x-ray on this patient however given that they have no oxygen requirement and are clear to auscultation all lung curtis will be deferred. Social determinants of health: Given that patient is undomiciled increases complexity. Given that patient has polysubstance abuse compounds all aspects of care <Sharath Crocker MD - Last Filed: 04/02/24 18:04> Medical Records Medical records reviewed: Yes I reviewed the patient's medical records. Gregorio Inquiry Pt receiving controlled substance: No Gregorio was queried for this patient: No Vital Signs: 04/02/24 16:21 04/02/24 16:30 Temperature 97.9 F Temperature Source Oral Pulse Rate 100 H Pulse Rate [Radial] 102 H Respiratory Rate 16 Blood Pressure 141/86 H Blood Pressure [Right Arm] 151/93 H Blood Pressure Mean [Right Arm] 112 Blood Pressure Source [Right Arm] Automatic Cuff Blood Pressure Position [Right Arm] Sitting 02 Sat by Pulse Oximetry 98 98 Oxygen Delivery Method Room Air Room Air Orders (Tests/Meds): ED MEDICATIONS Discontinued Medications Generic Name Dose Route Start Last Admin Trade Name Freq PRN Reason Stop Dose Admin Acetaminophen 1,000 mg 04/02/24 16:50 04/02/24 17:05 Acetaminophen 500mg Tab PO 04/02/24 16:51 1,000 mg ONCE ONE Administration Ibuprofen 600 mg 04/02/24 16:50 04/02/24 17:54 Ibuprofen 600 Mg Tablet PO 04/02/24 16:51 Not Given ONCE ONE Tetanus/Reduced Diphtheria/Acell Pertussis 0.5 ml 04/02/24 16:58 04/02/24 17:08 Tet/Diphth/Pert-Adult 0.5ml Syringe IM 04/02/24 16:59 0.5 ml .ONCE ONE Administration ORDERS Category Date Time Status CT lumbar spine wo con Stat Cat Scan 04/02/24 16:[address] thoracic spine wo con Stat Cat Scan 04/02/24 16:50 Completed Elbow XR left mininum 3 views [XR elbow LT min 3V] Stat Exams 04/02/24 16:50 Completed HIV (1&2) Antibody Rapid Stat Lab 04/02/24 16:30 Ordered Hep C Ab with Reflex to RNA Stat Lab 04/02/24 16:30 Ordered Medical Decision Narrative: 28-year-old female no relevant medical history presenting with fall and pain. Patient states that she was walking on the porch when she fell through the boards that were rotted. Fell approximately 3 feet onto her feet. Did not hit anything on the way down. Slid, hit her arm and the backside of her left leg. Now having midline back pain. No bowel or bladder dysfunction. Ambulatory. Has not taken anything for the pain. Happened just before arrival. History was obtained via conversation with patient. On arrival, patient hemodynamically stable, alert, oriented x4, appropriate, GCS 15, moving all extremities spontaneously, pupils equal and reactive to light. Full physical exam performed and significant for obese female no acute distress. Superficial soft tissue injury to the posterior left thigh and humerus, no obvious deformity. Tenderness over lateral epicondyle of the elbow. Neurovascular intact upper and lower extremities. Patient ambulatory. Full range of motion of upper and lower extremities. Midline back pain without step-off, deformity, or outward signs of abnormality. Differential includes sprain, strain, disc herniation, fracture, soft tissue injury, among others. Patient placed on continuous cardiac monitoring and continuous pulse ox with initial blood pressure 151/93, heart rate and O2, saturation 98% on room air. Patient was given acetaminophen for symptomatic management and correction of underlying abnormalities. Hematologic labs were considered, but patient has had a hysterectomy, hCG not needed prior to imaging. No systemic signs or symptoms, or bleeding, so coags not deemed necessary. On independent interpretation of imaging, no acute abnormality of the left elbow. Thoracic and lumbar spines normal on independent interpretation of CTs. See radiology read for full review of final results. On reevaluation, patient resting comfortably. Given Tdap. Given patient presentation, workup, history, this most likely represents minor soft tissue injury in the setting of minor fall. Because patient at baseline without signs or symptoms of clinical decompensation, deemed appropriate for discharge. Results were relayed to patient who voiced understanding and were agreeable to outpatient management and follow up. I discussed my clinical impression with patient and answered all questions. At this time, the evidence for any other entities in the differential is insufficient to warrant any further testing or ED observation. This was explained as well. Advisory was given that persistent or worsening symptoms require further evaluation. I confirmed the understanding of this discussion. Perinatal Tech disclaimer Much of this encounter note is an electronic petroleum sampler spoken language to printed text. Electronic petroleum sampler of the spoken language may permit errors. Although I have reviewed the note, some errors may still exist. Critical Care <Sharath Crocker MD - Last Filed: 04/02/24 18:04> Critical Care Time Critical Care Time: No
[2024-04-02 16:30] VITALS: BP 141/86; PULSE 100; O2SAT 98
--- NOTE | 2024-04-02 16:50 | XR_ITS ---
PROCEDURE INFORMATION: Exam: XR Left Elbow Exam date and time: 04/02/2024 4:57 PM Age: 28 years old Clinical indication: Injury or trauma; Fall; Blunt trauma (contusions or hematomas); Elbow; Left; Additional info: Fall, lateral L elbow pain wo deformity TECHNIQUE: Imaging protocol: Radiologic exam of the left elbow. Views: 3 or more views. COMPARISON: No relevant prior studies available. FINDINGS: Bones/joints: Normal. Soft tissues: Normal. IMPRESSION: No acute findings.
--- NOTE | 2024-04-02 16:50 | CT_ITS ---
PROCEDURE INFORMATION: Exam: CT Thoracic Spine Without Contrast Exam date and time: 04/02/2024 5:00 PM Age: 28 years old Clinical indication: Injury or trauma; Fall; Blunt trauma (contusions or hematomas); Additional info: Fall onto heels, t/l spine pain TECHNIQUE: Imaging protocol: Computed tomography of the thoracic spine without contrast. Radiation optimization: All CT scans at this facility use at least one of these dose optimization techniques: automated exposure control; mA and/or kV adjustment per patient size (includes targeted exams where dose is matched to clinical indication); or iterative reconstruction. COMPARISON: No relevant prior studies available. FINDINGS: Bones/joints: Vertebral body height and AP alignment is preserved. Mild prevertebral osteophytosis. Punctate sclerotic focus at T5, probable small enostosis. No acute thoracic spine fracture. No osseous destruction. Soft tissues: Unremarkable. Lymph nodes: Calcified right hilar lymph nodes. Pleural spaces: No visible pneumothorax. IMPRESSION: No acute thoracic spine fracture.
--- NOTE | 2024-04-02 16:50 | CT_ITS ---
PROCEDURE INFORMATION: Exam: CT Lumbar Spine Without Contrast Exam date and time: 04/02/2024 5:03 PM Age: 28 years old Clinical indication: Injury or trauma; Fall; Blunt trauma (contusions or hematomas); Additional info: Fall onto heels, t/l spine pain TECHNIQUE: Imaging protocol: Computed tomography of the lumbar spine without contrast. Radiation optimization: All CT scans at this facility use at least one of these dose optimization techniques: automated exposure control; mA and/or kV adjustment per patient size (includes targeted exams where dose is matched to clinical indication); or iterative reconstruction. COMPARISON: CT THORACIC SPINE WO CON 04/02/2024 5:00 PM FINDINGS: Bones/joints: Vertebral body height and AP alignment is preserved. No acute lumbar spine fracture. No osseous destruction. No definite significant central canal stenosis within limitations of technique. Reproductive: Left adnexal cystic lesion measures 2.7 cm. Soft tissues: Unremarkable. IMPRESSION: 1. No acute lumbar spine fracture. 2. Left adnexal cystic lesion measures 2.7 cm, ultrasound as clinically warranted.
[2024-04-02] MEDS: ACETAMINOPHEN 500MG TAB 1000 MG PO (17:05)
[2024-04-02] MEDS: TET/DIPHTH/PERT-ADULT 0.5ML SYRINGE 0.5 ML IM (17:08)
[2024-04-02 18:19] VITALS: BP 141/86; PULSE 96; RESP 16; TEMP 36.6; O2SAT 98
== END 2024-04-02 18:27 | disposition home or self-care (01) ==
PROVIDERS: Emergency Provider Emergency Medicine; PCP Family Medicine
DX: M25.522 Pain in left elbow (principal); M79.652 Pain in left thigh; M54.6 Pain in thoracic spine; M54.50 Low back pain, unspecified
CPT/HCPCS: 72128; 72131; 73080; 90471; 90715; 99284

== ENCOUNTER 2024-04-09 08:58 | Emergency (ER) | payer OTHER, SELFPAY ==
[2024-04-09] VITALS (7 sets, daily range): BP systolic 116–148; BP diastolic 72–90; PULSE 75–104; RESP 17–18; TEMP 36.6–36.9; O2SAT 95–99; BMI 41.5
--- NOTE | 2024-04-09 09:04 | PC.NURSE ---
UA sent to lab
--- NOTE | 2024-04-09 09:18 | PC.NURSE ---
DR ABARCA AT BEDSIDE
--- NOTE | 2024-04-09 09:21 | US_ITS ---
PROCEDURE INFORMATION: Exam: US Pelvis, Transvaginal, Non-Obstetric Exam date and time: 04/09/2024 9:43 AM Age: 28 years old Clinical indication: Pelvic pain; Prior surgery; Surgery date: 1-6 months; Surgery type: Partial hysterectomy; Additional info: Sudden lower abd pain, h/o ov cysts, R/O torsion TECHNIQUE: Imaging protocol: Real-time transvaginal pelvic (non-obstetric) ultrasound with image documentation. Transvaginal imaging was used for better evaluation of the endometrium, adnexa, and/or cervix. COMPARISON: US TRANSVAGINAL 11/10/2023 1:09 PM FINDINGS: Uterus: Uterus is surgically absent. Right ovary/adnexa: Normal. No mass. Normal ovarian blood flow on color Doppler. Left ovary/adnexa: Left ovary demonstrates a cyst within the physiologic size range. Normal Doppler. Urinary bladder: Urinary bladder is limited. Intraperitoneal space: No free fluid. IMPRESSION: No acute findings.
--- NOTE | 2024-04-09 09:21 | CT_ITS ---
PROCEDURE INFORMATION: Exam: CT Abdomen And Pelvis With Contrast Exam date and time: 04/09/2024 9:51 AM Age: 28 years old Clinical indication: Abdominal pain; Other: Sudden lower abd pain TECHNIQUE: Imaging protocol: Computed tomography of the abdomen and pelvis with contrast. Radiation optimization: All CT scans at this facility use at least one of these dose optimization techniques: automated exposure control; mA and/or kV adjustment per patient size (includes targeted exams where dose is matched to clinical indication); or iterative reconstruction. Contrast material: ISOVUE 370; Contrast volume: 75 ml; Contrast route: IV; COMPARISON: CT ABDOMEN PELVIS W CON 11/10/2023 11:20 AM FINDINGS: Lungs: Lung bases are unremarkable. Liver: No focal hepatic lesions. Gallbladder and biliary ducts: There has been a cholecystectomy. Pancreas: No peripancreatic fluid stranding. No main pancreatic ductal dilation. Spleen: No splenomegaly. Adrenal glands: The adrenal glands are normal. Kidneys and ureters: Nephrograms are symmetric. No nephrolithiasis or hydroureteronephrosis on either side. No solid lesions Stomach and bowel: Unremarkable. No obstruction. No mucosal thickening. Appendix: There has been an appendectomy. Intraperitoneal space: There is no evidence of free intraperitoneal or pelvic fluid. Vasculature: Aorta is nonaneurysmal. Major aortic branches are patent. Lymph nodes: Unremarkable. No enlarged lymph nodes. Urinary bladder: Urinary bladder is unremarkable. Reproductive: Status post hysterectomy. Bones/joints: Unremarkable. No acute fracture. Soft tissues: Unremarkable. IMPRESSION: No acute abnormality in the abdomen or pelvisScattered colonic diverticula without acute inflammatory change.
--- NOTE | 2024-04-09 09:23 | HMH.EDGENADL ---
Discharge Plan Prescriptions Prescriptions: No Action alprazolam [Xanax] 2 mg tablet See Rx Instructions .ROUTE .COMPLEX Qty: 90 2RF Rx Instructions: Take 1 tablet twice daily and 1 at bedtime. quetiapine 100 mg tablet 100 mg PO HS Patient Comments: TAKE 1 TABLET BY MOUTH AT BEDTIME desvenlafaxine succinate 25 mg tablet extended release 24 hr PO Patient Comments: TAKE 1 TABLET BY MOUTH ONCE DAILY esomeprazole magnesium 20 mg capsule,delayed release(DR/EC) 20 mg PO DAILY ondansetron 4 mg tablet,disintegrating 4 mg PO BID PRN (Reason: nausea and vomiting) 5 Days Qty: 10 2RF promethazine 25 mg tablet 25 mg PO Q6H PRN (Reason: nausea and vomiting) Qty: 20 1RF epinephrine 0.3 mg/0.3 mL auto-injector 0.3 ml SQ ONCE Qty: 2 0RF Referrals Follow up/Referrals: Diego Thao MD [Primary Care Provider] - See instructions Activity Restrictions/Add. Instructions Additional Instructions/Restrictions: As discussed you have a left ovarian cyst which is being measured at the upper limits of what is physiologic no evidence of torsion or rupture. Given your history of bladder spasms and multiple episodes similar to today I strongly recommend that you follow back up with urology and your [facility] doctor no other emergent medical condition identified today. Clinical Impressions Clinical Impression: Lower abdominal pain, Cyst of left ovary Instructions Patient Instructions: DI for Acute Abdominal Pain Print Language Print Language: Luxembourgish Discharge ED Provider: Dottie Zurita General Adult HPI General Chief complaint: Abdominal Pain Stated complaint: lower abd pain Time Seen by Provider: 04/09/24 09:17 Mode of Arrival: Ambulatory Source of Information: Patient Limitations: No Limitations Description of Symptoms (Recalled from ER Triage Doc. by RN): PT REPORTS DIFFUSE LOWER ABDOMINAL PAIN THAT STARTED ABOUT 40 MINUTES AGO. REPORTS NAUSEA AND VOMITING AFTER BREAKFAST. DENIES DIARRHEA, NO SICK CONTACTS. History of Present Illness HPI narrative: Patient is a 28-year-old female with a history of endometriosis who is status post hysterectomy salvaging her ovaries also with a history of ovarian cyst presenting today with sudden abdominal pain in her lower abdominal region that started 40 minutes prior to arrival has been constant since that time and severe. Denies any vaginal bleeding vaginal discharge history of hematuria kidney stones etc. No other abdominal surgeries in the past aside from the hysterectomy. Related Data Home Medications ?Medication ?Instructions ?Recorded ?Confirmed desvenlafaxine succinate 25 mg mg PO 03/23/24 03/23/24 tablet,extended release 24 hr esomeprazole magnesium 20 mg 20 mg PO DAILY 03/23/24 03/23/24 capsule,delayed release quetiapine 100 mg tablet 100 mg PO HS 03/23/24 03/23/24 Previous Rx's ?Medication ?Instructions ?Recorded epinephrine 0.3 mg/0.3 mL 0.3 ml SQ ONCE allergies #2 ea 09/25/23 injection, auto-injector alprazolam 2 mg tablet (Xanax) See Rx Instructions .Route 02/18/24 .COMPLEX #90 tabs ondansetron 4 mg disintegrating 4 mg PO BID PRN nausea and 03/23/24 tablet vomiting 5 days #10 tabs promethazine 25 mg tablet 25 mg PO Q6H PRN nausea and 03/23/24 vomiting #20 tabs Allergies Allergy/AdvReac Type Severity Reaction Status Date / Time ketorolac Allergy Severe Anaphylaxis Verified 03/23/24 13:26 hydrocodone (HYDROCODONE) Allergy Intermediate Face & Verified 03/23/24 13:26 tounge swelling latex (LATEX) Allergy Intermediate I-RASH Verified 03/23/24 13:26 sulfamethoxazole (From Allergy Verified 03/23/24 13:26 Bactrim) trimethoprim (From Bactrim) Allergy Verified 03/23/24 13:26 [facility] Disclaimer: The information contained in this section may have been updated after the patient was seen, as this information can be updated by other users. Medical History Encounter for insertion of subdermal contraceptive Abnormal uterine bleeding (AUB) Nausea & vomiting NDPH (new daily persistent headache) Contusion of hand, right Menorrhagia Influenza Ankle sprain Migraine Vomiting Sprain of lumbar region Contusion of coccyx Otitis externa Strain of lumbar region Leukocytosis Allergic reaction Fracture of coccyx Hyperventilation Acute anxiety Panic attack as reaction to stress Chest pain Headache Acute gastroenteritis Fibroid uterus Ovarian cyst Anxiety Depression Surgical History History of partial hysterectomy H/O: hysterectomy History of colonoscopy History of esophagogastroduodenoscopy (EGD) Hx of appendectomy History of cholecystectomy Family History Other No significant family history Social History Smoking Status: Never smoker alcohol intake: never substance use type: denies use current occupational status: unemployed household members: family housing: house Other Medical History Have you received the Flu Vaccine for this season: No Have you received the Pneumonia Vaccine: No ROS Obtained: Yes All systems reviewed & no additional complaints except as documented Physical Exam General General appearance: other (Appears to be in significant pain) Respiratory Respiratory exam: Present normal lung sounds bilaterally Cardiovascular Cardiovascular exam: Present regular rate Abdominal Exam Abdominal exam: Present soft and tenderness (Upper portion of her abdomen is benign without any significant tenderness rebound or guarding she is tender throughout the lower abdomen in all quadrants right lower quadrant suprapubic and left lower quadrant no rebound or guarding) Neurological Exam Neurological exam: Present alert and oriented X3 Medical Decision Making Medical Records Screening: Per USPSTF and CDC recommendations, given the prevalence of disease in our region, it is our hospital?s policy to screen for HIV and viral Hepatitis for all patients aged 18 and over and those with ongoing risk factors. Gregorio Inquiry Pt receiving controlled substance: No Vital Signs: 04/09/24 08:59 04/09/24 09:30 04/09/24 09:30 Temperature 98.4 F Temperature Source Oral Pulse Rate 104 H 94 H Pulse Rate [Radial] 102 H Respiratory Rate 18 Blood Pressure 132/86 132/86 Blood Pressure [Right Arm] 148/90 H Blood Pressure Mean 101 Blood Pressure Mean [Right Arm] 109 Blood Pressure Source [Right Arm] Automatic Cuff Blood Pressure Position [Right Arm] Sitting 02 Sat by Pulse Oximetry 99 97 96 Oxygen Delivery Method Room Air Room Air Room Air 04/09/24 10:03 04/09/24 10:31 04/09/24 11:00 Temperature Temperature Source Pulse Rate 95 H 88 81 Pulse Rate [Radial] Respiratory Rate Blood Pressure 133/84 120/80 122/77 Blood Pressure [Right Arm] Blood Pressure Mean 95 94 Blood Pressure Mean [Right Arm] Blood Pressure Source [Right Arm] Blood Pressure Position [Right Arm] 02 Sat by Pulse Oximetry 95 96 95 Oxygen Delivery Method Room Air Room Air Room Air 04/09/24 11:30 Temperature Temperature Source Pulse Rate 78 Pulse Rate [Radial] Respiratory Rate Blood Pressure 117/82 Blood Pressure [Right Arm] Blood Pressure Mean Blood Pressure Mean [Right Arm] Blood Pressure Source [Right Arm] Blood Pressure Position [Right Arm] 02 Sat by Pulse Oximetry 96 Oxygen Delivery Method Room Air Lab Data Lab results reviewed: Yes I reviewed the patient's lab results. Lab Results 04/09/24 09:13: WBC 8.5, RBC 5.23, Hgb 15.9, Hct 44.9, MCV 85.9, MCH 30.4, MCHC 35.4, RDW 13.5, Plt Count 271, MPV 8.1, Neut % (Auto) 70.3, Lymph % (Auto) 18.2, [place] % (Auto) 6.1, Eos % (Auto) 4.1, Baso % (Auto) 1.3, Neut # (Auto) 5.9, Lymph # (Auto) 1.5, [place] # (Auto) 0.5, Eos # (Auto) 0.4, Baso # (Auto) 0.1, Sodium 139, Potassium 3.7, Chloride 103, Carbon Dioxide 26, Anion Gap 13.7, BUN 9, Creatinine 0.80, Estimated Creat Clear 79, Estimated GFR 85, Est GFR ( Amer) 103, Glucose 126 H, Calcium 9.6, Total Bilirubin 0.6, AST 36, ALT 39, Alkaline Phosphatase 45, Total Protein 7.8, Albumin 4.7, Globulin 3.1, Albumin/Globulin Ratio 1.5, Urine Color Yellow, Urine Appearance Clear, Urine pH 6.0, Ur Specific [place] 1.015, Urine Protein Negative, Urine Glucose (UA) Negative, Urine Ketones Negative, Urine Blood Negative, Urine Nitrate Negative, Urine Bilirubin Negative, Urine Urobilinogen 0.2, Ur Leukocyte Esterase Negative, Urine RBC None, Urine WBC Occasional, Ur Squamous Epith Cells 5-10, Urine Bacteria Trace, HIV 1&2 Antibody Rapid Nonreactive 04/09/24 09:13 04/09/24 09:13 Orders (Tests/Meds): ED MEDICATIONS Discontinued Medications Generic Name Dose Route Start Last Admin Trade Name Freq PRN Reason Stop Dose Admin Acetaminophen 1,000 mg 04/09/24 10:18 04/09/24 10:21 Acetaminophen 1,000mg/100ml Vial IV 04/09/24 10:19 1,000 mg ONCE ONE Administration Lactated Ringer's 1,000 mls @ 999 mls/hr 04/09/24 09:30 04/09/24 09:28 Lactated Ringer's 1000 Ml Bag IV 04/09/24 10:30 999 mls/hr .Q1H1M HUNG Administration Iopamidol 75 ml 04/09/24 10:01 04/09/24 10:03 Iopamidol-370 (76%);100ml Bottle IV 04/09/24 10:02 75 ml ONCE ONE Administration Morphine Sulfate 4 mg 04/09/24 09:21 04/09/24 09:28 Morphine 4mg/Ml Syringe IV 04/09/24 09:22 4 mg ONCE ONE Administration Ondansetron HCl 4 mg 04/09/24 09:21 04/09/24 09:27 Ondansetron 4mg/2ml Vial IV 04/09/24 09:22 4 mg ONCE ONE Administration Sodium Chloride 10 ml 04/09/24 10:01 04/09/24 10:02 Sodium Chloride 0.9% 10ml Syr (Rad Only) IV 04/09/24 10:02 10 ml ONCE ONE Administration ORDERS Category Date Time Status CT abdomen pelvis w con Stat Cat Scan 04/09/24 09:21 Completed US transvaginal Stat Exams 04/09/24 09:21 Completed CBC w/Auto Diff [Complete Blood Count Auto Diff] Stat Lab 04/09/24 09:13 Completed CMP [Comprehensive Metabolic Panel] Stat Lab 04/09/24 09:13 Completed HIV (1&2) Antibody Rapid Stat Lab 04/09/24 09:13 Completed Hep C Ab with Reflex to RNA Stat Lab 04/09/24 09:13 Received UA [Urinalysis and Microscopic] Stat Lab 04/09/24 09:13 Completed Medical Decision Narrative: 28-year-old with above history and physical history of ovarian cyst presenting today with sudden abdominal discomfort lower abdomen most likely from a ruptured ovarian cyst other pathology on the differential would include bowel obstruction, ovarian torsion, kidney stone etc. Will get a contrasted CT scan as well as a transvaginal ultrasound administer pain medicine nausea medicine IV fluids check basic blood work and urinalysis and reassess. Reassessment 12:55 PM patient very comfortable and serial exams are benign from emergency standpoint. Ultrasound demonstrates a left ovarian cyst on my measurement maximal diameter is 4 to 5 cm which is the upper limits of normal. However there is good flow CT scan also does not demonstrate any other abnormality on my personal interpretation as well as radiology read. Reviewing her records further she has had numerous episodes similar to this and has followed up with [facility] diagnosed with bladder spasms requiring bladder irrigation sounds like they were concerned for possible interstitial cystitis or chronic urinary tract infections. No evidence of urinary tract infection today. She missed her urology follow-up because she had a hysterectomy. She has been advised to follow back up with urology and [facility] and she was discharged in stable condition. Critical Care Critical Care Time Critical Care Time: No
[2024-04-09 09:25] LABS: Microscopic, Urine URINE MICROSCOPIC (MICROSCOPIC)
[2024-04-09] MEDS: ONDANSETRON 4MG/2ML VIAL 4 MG IV (09:27)
[2024-04-09] MEDS: LACTATED RINGERS 1000ML 1,000 ML 999 ML IV (09:28)
[2024-04-09] MEDS: MORPHINE 4MG/ML SYRINGE 4 MG IV (09:28)
[2024-04-09 09:31] LABS: Basophils # 0.1 K/mm3 (0-0.2); Basophils % 1.3 % (0.1-2.0); Eosinophils # 0.4 K/mm3 (0.0-0.4); Eosinophils % 4.1 % (0.1-12.0); Hematocrit 44.9 % (37.0-47.0); Hemoglobin 15.9 g/dL (12.2-16.2); Lymphocytes # 1.5 K/mm3 (0.7-4.5); Lymphocytes % 18.2 % (10-50); Mean Corpuscular HGB Conc 35.4 g/dL (31.8-35.4); Mean Corpuscular Hemoglobin 30.4 pg (27.0-31.2); Mean Corpuscular Volume 85.9 fl (81-99); Mean Platelet Volume 8.1 fl (7.4-10.4); Monocytes # 0.5 K/mm3 (0.1-1.0); Monocytes % 6.1 % (1.7-9.3); Neutrophils # 5.9 K/mm3 (1.8-7.8); Neutrophils % 70.3 % (37.0-80.0); Platelet Count 271 K/mm3 (142-424); Red Blood Count 5.23 M/mm3 (4.20-5.40); Red Cell Distribution Width 13.5 % (11.5-17.5); White Blood Count 8.5 K/mm3 (4.8-10.8)
[2024-04-09 09:32] LABS: Albumin Level 4.7 g/dl (3.5-5.0); Chloride 103 mmol/L (98-107); Potassium 3.7 mmoL/L (3.5-5.1); Sodium 139 mmol/L (136-145)
[2024-04-09 09:35] LABS: Alanine Aminotransferase 39 U/L (12-78); Albumin/Globulin Ratio 1.5 (1.1-1.8); Alkaline Phosphatase 45 U/L (38-126); Anion Gap 13.7 mEq/L (5-15); Aspartate Amino Transferase 36 U/L (14-36); Bilirubin,Total 0.6 mg/dl (0.2-1.3); Blood Urea Nitrogen 9 mg/dl (7-17); Calcium 9.6 mg/dl (8.4-10.2); Carbon Dioxide 26 mmol/L (22.0-30.0); Creatinine Clearance Estimated 79 mL/min (50-200); Estimated Glomerular Filt Rate 85 ml/min (>60); GFR (African American) 103 ML/MIN (>60); Globulin 3.1 g/dL (1.3-3.2); Glucose 126 mg/dl (74-100); Total Protein,Serum 7.8 g/dl (6.3-8.2)
[2024-04-09 09:47] LABS: Appearance,Urine CLEAR (Clear); Bilirubin,Urine Negative (Negative); Blood, Urine Negative (Negative); Color,Urine YELLOW (Yellow); Glucose,Urine (UA) Negative (Negative); Ketones,Urine Negative (Negative); Leukocyte Esterase,Urine Negative (Negative); Nitrate,Urine Negative (Negative); Protein,Urine Negative (Negative); Specific Gravity, Urine 1.015 (1.005-1.030); Urobilinogen,Urine 0.2 EU/dl (0.2)
[2024-04-09] MEDS: SODIUM CHLORIDE 0.9% 10ML SYR (RAD ONLY) 10 ML IV (10:02)
--- NOTE | 2024-04-09 10:02 | PC.NURSE ---
PT returned from [facility]
[2024-04-09] MEDS: IOPAMIDOL-370 (76%);100ML BOTTLE 75 ML IV (10:03)
[2024-04-09 10:07] LABS: Bacteria,Urine Trace /lpf; WBC,Urine Occasional #/hpf (0-3)
--- NOTE | 2024-04-09 10:18 | PC.NURSE ---
DR ABARCA AT BEDSIDE TO REEVALUATE PT
[2024-04-09] MEDS: ACETAMINOPHEN 1,000MG/100ML VIAL 1000 MG IV (10:21)
--- NOTE | 2024-04-09 11:48 | PC.NURSE ---
ASSISTED PT TO BR, REPORTS PAIN 8/[address] ABARCA NOTIFIED
[2024-04-09 12:34] LABS: HIV (1&2) Antibody Rapid NONREACTIVE (NONREACTIVE)
--- NOTE | 2024-04-09 12:52 | PC.NURSE ---
DR ABARCA AT BEDSIDE TO UPDATE PT ON POC
[2024-04-10 07:14] LABS: HCV Ab Non Reactive (Non Reactive)
== END 2024-04-09 13:01 | disposition home or self-care (01) ==
PROVIDERS: Emergency Provider Student in an Organized Health Care Education/Training Program; PCP Family Medicine
DX: N83.202 Unspecified ovarian cyst, left side (principal); R10.30 Lower abdominal pain, unspecified
CPT/HCPCS: 74177; 76830; 80053; 81001; 85025; 86803; 87389; 96361; 96374; 96375; 99285; J0131; J2270; J2405; J7120; Q9967

== ENCOUNTER 2024-04-13 08:57 | Emergency (ER) | payer OTHER, SELFPAY ==
[2024-04-13 08:58] VITALS: BP 160/104; PULSE 102; RESP 20; TEMP 36.6; O2SAT 100; BMI 41.5
[2024-04-13] MEDS: ONDANSETRON 4MG/2ML VIAL 4 MG IV (09:15)
[2024-04-13] MEDS: MORPHINE 4MG/ML SYRINGE 4 MG IV (09:15)
[2024-04-13 09:20] LABS: Basophils # 0.1 K/mm3 (0-0.2); Eosinophils # 0.2 K/mm3 (0.0-0.4); Eosinophils % 2.8 % (0.1-12.0); Hematocrit 46.9 % (37.0-47.0); Hemoglobin 16.2 g/dL (12.2-16.2); Lymphocytes # 1.4 K/mm3 (0.7-4.5); Lymphocytes % 19.4 % (10-50); Mean Corpuscular HGB Conc 34.5 g/dL (31.8-35.4); Mean Corpuscular Volume 87.1 fl (81-99); Mean Platelet Volume 7.8 fl (7.4-10.4); Monocytes # 0.3 K/mm3 (0.1-1.0); Monocytes % 4.5 % (1.7-9.3); Neutrophils # 5.4 K/mm3 (1.8-7.8); Neutrophils % 72.4 % (37.0-80.0); Platelet Count 287 K/mm3 (142-424); Red Blood Count 5.38 M/mm3 (4.20-5.40); Red Cell Distribution Width 13.5 % (11.5-17.5); White Blood Count 7.5 K/mm3 (4.8-10.8)
[2024-04-13 09:33] LABS: Lactic Acid 0.9 mmol/L (0.7-2.1)
[2024-04-13 09:34] LABS: Alanine Aminotransferase 39 U/L (12-78); Albumin Level 4.7 g/dl (3.5-5.0); Albumin/Globulin Ratio 1.3 (1.1-1.8); Alkaline Phosphatase 61 U/L (38-126); Anion Gap 11.1 mEq/L (5-15); Aspartate Amino Transferase 37 U/L (14-36); Bilirubin,Total 0.8 mg/dl (0.2-1.3); Blood Urea Nitrogen 11 mg/dl (7-17); Calcium 9.6 mg/dl (8.4-10.2); Carbon Dioxide 30 mmol/L (22.0-30.0); Chloride 104 mmol/L (98-107); Creatinine Clearance Estimated 79 mL/min (50-200); Estimated Glomerular Filt Rate 85 ml/min (>60); GFR (African American) 103 ML/MIN (>60); Globulin 3.5 g/dL (1.3-3.2); Glucose 131 mg/dl (74-100); Potassium 4.1 mmoL/L (3.5-5.1); Sodium 141 mmol/L (136-145); Total Protein,Serum 8.2 g/dl (6.3-8.2)
[2024-04-13 09:44] LABS: Microscopic, Urine URINE MICROSCOPIC (MICROSCOPIC)
[2024-04-13 10:01] LABS: Appearance,Urine CLEAR (Clear); Bilirubin,Urine Negative (Negative); Blood, Urine Negative (Negative); Color,Urine YELLOW (Yellow); Glucose,Urine (UA) Negative (Negative); Ketones,Urine Negative (Negative); Leukocyte Esterase,Urine TRACE (Negative); Nitrate,Urine Negative (Negative); Protein,Urine Negative (Negative); Specific Gravity, Urine 1.025 (1.005-1.030); Urobilinogen,Urine 0.2 EU/dl (0.2)
--- NOTE | 2024-04-13 10:03 | PC.NURSE ---
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 I let them known we have a consult for her when she is able to return the call.
--- NOTE | 2024-04-13 10:07 | ED_ITS ---
Discharge Plan Prescriptions Prescriptions: No Action alprazolam [Xanax] 2 mg tablet See Rx Instructions .ROUTE .COMPLEX Qty: 90 2RF Rx Instructions: Take 1 tablet twice daily and 1 at bedtime. quetiapine 100 mg tablet 100 mg PO HS Patient Comments: TAKE 1 TABLET BY MOUTH AT BEDTIME desvenlafaxine succinate 25 mg tablet extended release 24 hr PO Patient Comments: TAKE 1 TABLET BY MOUTH ONCE DAILY esomeprazole magnesium 20 mg capsule,delayed release(DR/EC) 20 mg PO DAILY ondansetron 4 mg tablet,disintegrating 4 mg PO BID PRN (Reason: nausea and vomiting) 5 Days Qty: 10 2RF promethazine 25 mg tablet 25 mg PO Q6H PRN (Reason: nausea and vomiting) Qty: 20 1RF epinephrine 0.3 mg/0.3 mL auto-injector 0.3 ml SQ ONCE Qty: 2 0RF Referrals Follow up/Referrals: Diego Thao MD [Primary Care Provider] - See instructions Activity Restrictions/Add. Instructions Additional Instructions/Restrictions: Call Dr. Thao's office and talk to them about scheduling MRI of your pelvis to evaluate for pelvic congestion syndrome versus other etiology. Also talk to him about pain control in the meantime. Call your family doctor to establish care for this visit to the emergency department and schedule follow-up within 48 hours to ensure improvement. If you have any worsening of your condition or any other concerning signs or symptoms, return to the emergency department or your primary care doctor for further evaluation. Clinical Impressions Clinical Impression: Pelvic pain Instructions Patient Instructions: DI for Acute Abdominal Pain Print Language Print Language: [place] Discharge ED Provider: Sharath Crocker General Adult HPI General Chief complaint: Abdominal Pain Stated complaint: pelvic pain Time Seen by Provider: 04/13/24 09:05 Mode of Arrival: Family Vehicle Source of Information: Patient and Medical Record Limitations: No Limitations Description of Symptoms (Recalled from ER Triage Doc. by RN): Pt c/o pelvic pain with nausea and vomiting. She was here on 04/09 and dx with left ovarian cyst and referred to [facility]- Dr. Jonas. Pt saw Dr. Jonas yesterday (04/12) and per pt, Dr. Jonas said if the pain isn't better before my next appointment to come to the ER and they may need to take my ovary out . Pt reports she took Tylenol & Ibuprofen @ 0700. Denies any vaginal d/c fever, chills, or body aches. States the pain it all over her lower abd. History of Present Illness HPI narrative: Please note that above description of symptoms, in this electronic medical record under categorization of recalled from ER triage doctor by RN are reflective of an initial nursing assessment, however, is not reflective of my full history and physical exam that was personally taken and clarified. Consequentially, this preceding description of symptoms, which may include the patient's categorized chief complaint in the EMR, do not reflect my personal clinical impression, and the ultimate description of history of present illness and patient stated complaints should be deferred to this section of the note. Unless stated otherwise or congruent with this section of the note, additional signs, symptoms, or incongruence should be interpreted as inaccurate with my clinical impression. Related Data Home Medications ?Medication ?Instructions ?Recorded ?Confirmed desvenlafaxine succinate 25 mg mg PO 03/23/24 04/12/24 tablet,extended release 24 hr esomeprazole magnesium 20 mg 20 mg PO DAILY 03/23/24 04/12/24 capsule,delayed release quetiapine 100 mg tablet 100 mg PO HS 03/23/24 04/12/24 Previous Rx's ?Medication ?Instructions ?Recorded epinephrine 0.3 mg/0.3 mL 0.3 ml SQ ONCE allergies #2 ea 09/25/23 injection, auto-injector alprazolam 2 mg tablet (Xanax) See Rx Instructions .Route 02/18/24 .COMPLEX #90 tabs ondansetron 4 mg disintegrating 4 mg PO BID PRN nausea and 03/23/24 tablet vomiting 5 days #10 tabs promethazine 25 mg tablet 25 mg PO Q6H PRN nausea and 03/23/24 vomiting #20 tabs Allergies Allergy/AdvReac Type Severity Reaction Status Date / Time ketorolac Allergy Severe Anaphylaxis Verified 04/12/24 12:59 hydrocodone (HYDROCODONE) Allergy Intermediate Face & Verified 04/12/24 12:59 tounge swelling latex (LATEX) Allergy Intermediate I-RASH Verified 04/12/24 12:59 sulfamethoxazole (From Allergy Verified 04/12/24 12:59 Bactrim) trimethoprim (From Bactrim) Allergy Verified 04/12/24 12:59 [facility] Disclaimer: The information contained in this section may have been updated after the patient was seen, as this information can be updated by other users. Medical History (Updated 04/13/24 @ 11:03 by Sharath Crocker MD) Encounter for insertion of subdermal contraceptive Abnormal uterine bleeding (AUB) Nausea & vomiting NDPH (new daily persistent headache) Contusion of hand, right Menorrhagia Influenza Ankle sprain Migraine Vomiting Sprain of lumbar region Contusion of coccyx Otitis externa Strain of lumbar region Leukocytosis Allergic reaction Fracture of coccyx Hyperventilation Acute anxiety Panic attack as reaction to stress Chest pain Headache Acute gastroenteritis Fibroid uterus Ovarian cyst Anxiety Depression Surgical History (Updated 04/12/24 @ 15:43 by Caitlyn Jonas DO) History of partial hysterectomy H/O: hysterectomy History of colonoscopy History of esophagogastroduodenoscopy (EGD) Hx of appendectomy History of cholecystectomy Family History Other No significant family history Social History (Updated 04/12/24 @ 15:45 by Caitlyn Jonas DO) Smoking Status: Never smoker alcohol intake: never substance use type: denies use current occupational status: unemployed household members: family housing: house Other Medical History Have you received the Flu Vaccine for this season: No Have you received the Pneumonia Vaccine: No ROS Obtained: Yes All systems reviewed & no additional complaints except as documented Physical Exam General General appearance: alert Head Head exam: atraumatic and normocephalic Eye Eye exam: Present normal appearance, PERRL and EOMI Neck Neck exam: Present normal inspection, full ROM and trachea midline Respiratory Respiratory exam: Absent respiratory distress, wheezes, stridor, accessory muscle use or prolonged expiratory phase Cardiovascular Cardiovascular exam: Present other (Pulses equal symmetric in upper and lower extremities) Abdominal Exam Abdominal exam: Present soft; Absent distention, tenderness or pulsatile mass Extremities Exam Extremities exam: Absent edema Neurological Exam Neurological exam: Present alert, oriented X3 and CN II-XII intact; Absent motor sensory deficit Skin Skin exam: Present warm and dry; Absent diaphoresis or erythema Medical Decision Making Medical Records Medical records reviewed: Yes I reviewed the patient's medical records. Screening: Per USPSTF and CDC recommendations, given the prevalence of disease in our region, it is our hospital?s policy to screen for HIV and viral Hepatitis for all patients aged 18 and over and those with ongoing risk factors. Gregorio Inquiry Pt receiving controlled substance: No Gregorio was queried for this patient: No Vital Signs: 04/13/24 08:58 04/13/24 11:18 Temperature 97.8 F 97.8 F Temperature Source Oral Oral Pulse Rate 85 Pulse Rate [Right] 102 H Respiratory Rate 20 18 Blood Pressure 155/105 H Blood Pressure [Right Arm] 160/104 H Blood Pressure Mean [Right Arm] 122 Blood Pressure Source Automatic Cuff Blood Pressure Source [Right Arm] Automatic Cuff 02 Sat by Pulse Oximetry 100 Oxygen Delivery Method Room Air Room Air Lab Data Lab Results 04/13/24 09:06: WBC 7.5, RBC 5.38, Hgb 16.2, Hct 46.9, MCV 87.1, MCH 30.0, MCHC 34.5, RDW 13.5, Plt Count 287, MPV 7.8, Neut % (Auto) 72.4, Lymph % (Auto) 19.4, [place] % (Auto) 4.5, Eos % (Auto) 2.8, Baso % (Auto) 1.0, Neut # (Auto) 5.4, Lymph # (Auto) 1.4, [place] # (Auto) 0.3, Eos # (Auto) 0.2, Baso # (Auto) 0.1, Sodium 141, Potassium 4.1, Chloride 104, Carbon Dioxide 30, Anion Gap 11.1, BUN 11, Creatinine 0.80, Estimated Creat Clear 79, Estimated GFR 85, Est GFR ( Amer) 103, Glucose 131 H, Lactate 0.9, Calcium 9.6, Total Bilirubin 0.8, AST 37 H, ALT 39, Alkaline Phosphatase 61, Total Protein 8.2, Albumin 4.7, Globulin 3.5 H, Albumin/Globulin Ratio 1.3 04/13/24 09:40: Urine Color Yellow, Urine Appearance Clear, Urine pH 6.0, Ur Specific [place] 1.025, Urine Protein Negative, Urine Glucose (UA) Negative, Urine Ketones Negative, Urine Blood Negative, Urine Nitrate Negative, Urine Bilirubin Negative, Urine Urobilinogen 0.2, Ur Leukocyte Esterase Trace, Urine RBC None, Urine WBC 3-5, Ur Squamous Epith Cells 5-10, Urine Bacteria Trace 04/13/24 09:06 04/13/24 09:06 Orders (Tests/Meds): ED MEDICATIONS Discontinued Medications Generic Name Dose Route Start Last Admin Trade Name Juanjose PRN Reason Stop Dose Admin Dexamethasone 10 mg 04/13/24 11:02 04/13/24 11:05 Dexamethasone 4mg Tablet PO 04/13/24 11:03 10 mg ONCE ONE Administration Morphine Sulfate 4 mg 04/13/24 09:10 04/13/24 09:15 Morphine 4mg/Ml Syringe IV 04/13/24 09:11 4 mg ONCE ONE Administration Ondansetron HCl 4 mg 04/13/24 09:10 04/13/24 09:15 Ondansetron 4mg/2ml Vial IV 04/13/24 09:11 4 mg ONCE ONE Administration Oxycodone HCl 5 mg 04/13/24 11:02 04/13/24 11:06 Oxycodone 5mg Immediate Release Tablet PO 04/13/24 11:03 5 mg ONCE ONE Administration ORDERS Category Date Time Status Complete Blood Count Auto Diff Stat Lab 04/13/24 09:06 Completed Comprehensive Metabolic Panel Stat Lab 04/13/24 09:06 Completed Lactic Acid Stat Lab 04/13/24 09:06 Completed UA [Urinalysis and Microscopic] Stat Lab 04/13/24 09:40 Completed Medical Decision Narrative: 28-year-old female well-known to this emergency department for chronic abdominal pain presenting with abdominal pain. Patient states that she has a left ovarian cyst, saw [facility] yesterday, 04/12, was told if pain persists, come back to the emergency department and be evaluated for potential bilateral oophorectomy. Patient had recent hysterectomy to try to cure pain, continues. Its moderate to severe in intensity, constant, radiates across lower abdomen. No bowel or bladder dysfunction, vomiting, fevers, chills, etc. Has not noticed anything that makes the pain better and has tried Tylenol Motrin. History obtained the patient and chart review. On arrival, obese, no acute distress, but appears uncomfortable. Abdomen is tender, but not peritonitic. Differential includes endometriosis, pelvic congestion syndrome, ovarian cyst, postsurgical pain, scar tissue, pelvic abscess, among others. Patient given morphine and Zofran. Independent interpretation of workup demonstrates nonactionable labs or urine. I independently interpreted patient's previous CT scan and most recent pelvic ultrasound, she has a new left ovarian cyst that is simple in character. No other acute abnormalities. OB was contacted and case was discussed recommended outpatient follow-up ultimately. We discussed multiple options moving forward, but I do not feel that bilateral oophorectomy is likely to resolve patient's pain. Patient states that her pain is all across her pelvis lower in her abdomen and not particular on the left side. Does not radiate, constant, burning/cramping. Inconsistent with symptoms of a simple cyst. States that it got better after hysterectomy a few months ago, started back up just a couple days prior to this. Given complications of bilateral oophorectomy in young person, I feel oophorectomy at this current junction is not emergently indicated. This conversation and full thoughts were hashed out with patient and friend who are in the room. Both are understanding. This may be guest experience representative of pelvic congestion syndrome or other complication. Patient states she is already seeing gastroenterology, they stated it is not gastroenterology problem likely and referred her elsewhere. Difficult to determine. It was recommended that she see her family doctor and try to get pelvic MRI with and without contrast to evaluate vessels, pelvic congestion syndrome, as well as soft tissues are not better evaluated on CT. She voiced her understanding and is agreeable to this plan. Also recommended that she follow-up with her family doctor for further pain control. First dose of oxycodone given here. Because patient at baseline without signs or symptoms of clinical decompensation, deemed appropriate for discharge. Results were relayed to patient who voiced understanding and were agreeable to outpatient management and follow up. I discussed my clinical impression with patient and answered all questions. At this time, the evidence for any other entities in the differential is insufficient to warrant any further testing or ED observation. This was explained as well. Advisory was given that persistent or worsening symptoms require further evaluation. I confirmed the understanding of this discussion. Control Analyst disclaimer Much of this encounter note is an electronic [facility] spoken language to printed text. Electronic [facility] of the spoken language may permit errors. Although I have reviewed the note, some errors may still exist. Critical Care Critical Care Time Critical Care Time: No
[2024-04-13 10:21] LABS: Bacteria,Urine Trace /lpf
--- NOTE | 2024-04-13 10:34 | PC.NURSE ---
Dr. Crocker s/w Dr. Nadya Miguel
[2024-04-13] MEDS: DEXAMETHASONE 4MG TABLET 10 MG PO (11:05)
[2024-04-13] MEDS: OXYCODONE 5MG IMMEDIATE RELEASE TABLET 5 MG PO (11:06)
[2024-04-13 11:18] VITALS: BP 155/105; PULSE 85; RESP 18; TEMP 36.6; O2SAT 98
== END 2024-04-13 11:19 | disposition home or self-care (01) ==
PROVIDERS: Emergency Provider Emergency Medicine; PCP Family Medicine
DX: R10.2 Pelvic and perineal pain (principal); R11.2 Nausea with vomiting, unspecified
CPT/HCPCS: 80053; 81001; 83605; 85025; 99283; J2270; J2405; J8540

== ENCOUNTER 2024-04-14 09:12 | Outpatient (CLI) | payer OTHER, SELFPAY ==
--- NOTE | 2024-04-14 09:13 | US_ITS ---
PROCEDURE: US TRANSVAGINAL CLINICAL INDICATION: LLQ Pain, f/u on Left ovarian Cyst COMPARISON: CT CT ABDOMEN PELVIS W CON from 07/17/2023 US US TRANSVAGINAL from 11/03/[address] ABDOMEN PELVIS W CON from 11/04/[address] ABDOMEN PELVIS W CON from 11/10/2023 US US TRANSVAGINAL from 11/10/[address] ABDOMEN PELVIS W CON from 04/09/2024 US US TRANSVAGINAL from 04/09/2024 FINDINGS: Transvaginal sonographic images of the pelvis were obtained. UTERUS: Surgically absent The vaginal cuff is intact. LEFT OVARY: 3.1cmx3.4cmx4.6cm with a volume of 25.7ml. There is a follicle measuring 2.8 cm x 2.8 cm x 2.7 cm. It appears to be slightly smaller than when seen on the ultrasound of April 09, 2024 There are several smaller peripheral follicles. RIGHT OVARY: 3.3cmx 2.3cmx2.4cm with a volume of 9.7ml. There are multiple small peripheral follicles. Both ovaries are seen and appear normal. Doppler flow to both ovaries are seen. There is no fluid in the cul-de-sac. IMPRESSION: 1. The uterus is surgically absent. 2. Both left and right ovaries are seen and appear normal. There is a follicle in the left ovary measuring 2.8 cm and is slightly smaller than the ultrasound of April 09, 2024. 3. No fluid in the cul-de-sac. Dictated by: Garcia Regalado MD 04/14/2024 10:32 Garcia Regalado MD in OV 04/14/2024 10:32
== END 2024-04-14 23:59 | disposition home or self-care (01) ==
LOC: RAD 09:13
PROVIDERS: PCP Family Medicine; Visit Provider Obstetrics & Gynecology
DX: R10.32 Left lower quadrant pain (principal); N83.202 Unspecified ovarian cyst, left side
CPT/HCPCS: 76830

== ENCOUNTER 2024-04-19 09:11 | Emergency (ER) | payer OTHER, SELFPAY ==
[2024-04-19 09:22] VITALS: BP 141/109; PULSE 113; RESP 20; TEMP 36.9; O2SAT 99; BMI 41.5
--- NOTE | 2024-04-19 09:33 | HMH.EDGENADL ---
Discharge Plan Disposition Patient Disposition: Home, Self-Care Condition: Good Prescriptions Prescriptions: No Action alprazolam [Xanax] 2 mg tablet See Rx Instructions .ROUTE .COMPLEX Qty: 90 2RF Rx Instructions: Take 1 tablet twice daily and 1 at bedtime. quetiapine 100 mg tablet 100 mg PO HS Patient Comments: TAKE 1 TABLET BY MOUTH AT BEDTIME desvenlafaxine succinate 25 mg tablet extended release 24 hr PO Patient Comments: TAKE 1 TABLET BY MOUTH ONCE DAILY esomeprazole magnesium 20 mg capsule,delayed release(DR/EC) 20 mg PO DAILY ondansetron 4 mg tablet,disintegrating 4 mg PO BID PRN (Reason: nausea and vomiting) 5 Days Qty: 10 2RF promethazine 25 mg tablet 25 mg PO Q6H PRN (Reason: nausea and vomiting) Qty: 20 1RF epinephrine 0.3 mg/0.3 mL auto-injector 0.3 ml SQ ONCE Qty: 2 0RF Referrals Follow up/Referrals: Caitlyn Jonas DO [Staff Physician] - See instructions (F/U pelvic pain and simple L ovarian cyst) Diego Thao MD [Primary Care Provider] - See instructions Activity Restrictions/Add. Instructions Additional Instructions/Restrictions: Your lab and imaging evaluation did not reveal any emergent causes of your pain at this time. Alternate Tylenol and ibuprofen every 3 hours or take both medications together every 6 hours as needed for pain. You can apply heat packs to the lower abdomen for additional pain control. Increase your fluid intake with water and nonsugar containing products to ensure you are adequately hydrated. Follow-up with Dr. Jonas's office for continued management of your pelvic pain. Please return to ED if your symptoms worsen, change in location, change in severity, new symptoms develop or if you become concerned for your health. Clinical Impressions Clinical Impression: Abdominal pain, LLQ, Pelvic pain Instructions Patient Instructions: DI for Abdominal Pain-Adult Print Language Print Language: Thai Discharge ED Provider: Sary Menendez Adult HPI General Chief complaint: PAIN Stated complaint: vomiting, pelvic pain Time Seen by Provider: 04/19/24 09:18 Mode of Arrival: Wheelchair Source of Information: Patient Limitations: No Limitations Description of Symptoms (Recalled from ER Triage Doc. by RN): lower pelvic pain x2 weeks with increased pain starting 1am this morning. hysterectomy november 2023. n/v started this am. History of Present Illness HPI narrative: Gauri Dolan is a 28 y/o female presenting with LLQ pain. Related Data Home Medications ?Medication ?Instructions ?Recorded ?Confirmed desvenlafaxine succinate 25 mg mg PO 03/23/24 04/12/24 tablet,extended release 24 hr esomeprazole magnesium 20 mg 20 mg PO DAILY 03/23/24 04/12/24 capsule,delayed release quetiapine 100 mg tablet 100 mg PO HS 03/23/24 04/12/24 Previous Rx's ?Medication ?Instructions ?Recorded epinephrine 0.3 mg/0.3 mL 0.3 ml SQ ONCE allergies #2 ea 09/25/23 injection, auto-injector alprazolam 2 mg tablet (Xanax) See Rx Instructions .Route 02/18/24 .COMPLEX #90 tabs ondansetron 4 mg disintegrating 4 mg PO BID PRN nausea and 03/23/24 tablet vomiting 5 days #10 tabs promethazine 25 mg tablet 25 mg PO Q6H PRN nausea and 03/23/24 vomiting #20 tabs Allergies Allergy/AdvReac Type Severity Reaction Status Date / Time ketorolac Allergy Severe Anaphylaxis Verified 04/12/24 12:59 hydrocodone (HYDROCODONE) Allergy Intermediate Face & Verified 04/12/24 12:59 tounge swelling latex (LATEX) Allergy Intermediate I-RASH Verified 04/12/24 12:59 sulfamethoxazole (From Allergy Verified 04/12/24 12:59 Bactrim) trimethoprim (From Bactrim) Allergy Verified 04/12/24 12:59 PFSH PFSH Disclaimer: The information contained in this section may have been updated after the patient was seen, as this information can be updated by other users. Medical History (Updated 04/19/24 @ 12:38 by Sary Menendez MD) Encounter for insertion of subdermal contraceptive Abnormal uterine bleeding (AUB) Nausea & vomiting NDPH (new daily persistent headache) Contusion of hand, right Menorrhagia Influenza Ankle sprain Migraine Vomiting Sprain of lumbar region Contusion of coccyx Otitis externa Strain of lumbar region Leukocytosis Allergic reaction Fracture of coccyx Hyperventilation Acute anxiety Panic attack as reaction to stress Chest pain Headache Acute gastroenteritis Fibroid uterus Ovarian cyst Anxiety Depression Surgical History (Updated 04/12/24 @ 15:43 by Caitlyn Jonas DO) History of partial hysterectomy H/O: hysterectomy History of colonoscopy History of esophagogastroduodenoscopy (EGD) Hx of appendectomy History of cholecystectomy Family History Other No significant family history Social History (Updated 04/12/24 @ 15:45 by Caitlyn Jonas DO) Smoking Status: Never smoker alcohol intake: never substance use type: denies use current occupational status: unemployed household members: family housing: house Other Medical History Have you received the Flu Vaccine for this season: No Have you received the Pneumonia Vaccine: No ROS Obtained: Yes All systems reviewed & no additional complaints except as documented Physical Exam General General appearance: alert and in no apparent distress Respiratory Respiratory exam: Present normal lung sounds bilaterally; Absent respiratory distress Cardiovascular Cardiovascular exam: Present regular rate and normal rhythm; Absent JVD Abdominal Exam Abdominal exam: Present soft, tenderness, guarding and normal bowel sounds; Absent distention Abdominal tenderness: Present LLQ Neurological Exam Neurological exam: Present alert and oriented X3 Medical Decision Making Medical Records Screening: Per USPSTF and CDC recommendations, given the prevalence of disease in our region, it is our hospital?s policy to screen for HIV and viral Hepatitis for all patients aged 18 and over and those with ongoing risk factors. Gregorio Inquiry Pt receiving controlled substance: No Vital Signs: 04/19/24 09:22 04/19/24 10:59 Temperature 98.4 F Temperature Source Oral Pulse Rate 104 H Pulse Rate [Right Radial] 113 H Respiratory Rate 20 Blood Pressure 133/87 Blood Pressure [Right Arm] 141/109 H Blood Pressure Mean [Right Arm] 119 02 Sat by Pulse Oximetry 99 98 Oxygen Delivery Method Room Air Room Air Lab Data Lab Results 04/19/24 09:15: Urine Color Yellow, Urine Appearance Clear, Urine pH 6.0, Ur Specific [place] 1.025, Urine Protein Negative, Urine Glucose (UA) Negative, Urine Ketones Negative, Urine Blood Negative, Urine Nitrate Negative, Urine Bilirubin Negative, Urine Urobilinogen 0.2, Ur Leukocyte Esterase Negative, Urine RBC None, Urine WBC None, Ur Squamous Epith Cells Occasional, Urine Bacteria None 04/19/24 10:08: WBC 9.2, RBC 5.33, Hgb 15.8, Hct 45.7, MCV 85.7, MCH 29.7, MCHC 34.6, RDW 13.7, Plt Count 314, MPV 8.0, Neut % (Auto) 67.2, Lymph % (Auto) 23.2, [place] % (Auto) 4.6, Eos % (Auto) 3.7, Baso % (Auto) 1.3, Neut # (Auto) 6.2, Lymph # (Auto) 2.1, [place] # (Auto) 0.4, Eos # (Auto) 0.3, Baso # (Auto) 0.1, Sodium 139, Potassium 4.1, Chloride 104, Carbon Dioxide 28, Anion Gap 11.1, BUN 14, Creatinine 0.80, Estimated Creat Clear 79, Estimated GFR 85, Est GFR ( Amer) 103, Glucose 103 H, Calcium 9.8, Total Bilirubin 0.5, AST 40 H, ALT 35, Alkaline Phosphatase 59, Total Protein 8.0, Albumin 4.6, Globulin 3.4 H, Albumin/Globulin Ratio 1.4 04/19/24 11:58: Lactate 0.8 04/19/24 10:08 04/19/24 10:08 Orders (Tests/Meds): ED MEDICATIONS Generic Name Dose Route Start Last Admin Trade Name Freq PRN Reason Stop Dose Admin Sodium Chloride 10 ml 04/19/24 10:16 04/19/24 10:18 Sodium Chloride 0.9% 10ml Syr (Rad Only) IV 05/19/24 10:15 10 ml NEEDED PRN Administration Maintain IV Site Discontinued Medications Generic Name Dose Route Start Last Admin Trade Name Freq PRN Reason Stop Dose Admin Hydromorphone HCl 0.5 mg 04/19/24 09:45 04/19/24 10:32 Hydromorphone 2mg/Ml Syringe IV 04/19/24 09:46 0.5 mg ONCE ONE Administration Hydromorphone HCl 1 mg 04/19/24 12:01 04/19/24 12:05 Hydromorphone 2mg/Ml Syringe IV 04/19/24 12:02 1 mg ONCE ONE Administration Iopamidol 75 ml 04/19/24 10:16 04/19/24 10:17 Iopamidol-370 (76%);100ml Bottle IV 04/19/24 10:17 75 ml ONCE ONE Administration Ondansetron HCl 4 mg 04/19/24 09:45 04/19/24 10:32 Ondansetron 4mg/2ml Vial IV 04/19/24 09:46 4 mg ONCE ONE Administration ORDERS Category Date Time Status CT abdomen pelvis w con Stat Cat Scan 04/19/24 09:53 Completed Complete Blood Count Auto Diff Stat Lab 04/19/24 10:08 Completed Comprehensive Metabolic Panel Stat Lab 04/19/24 10:08 Completed Lactic Acid Stat Lab 04/19/24 11:58 Completed Urinalysis and Microscopic Stat Lab 04/19/24 09:15 Completed Medical Decision Narrative: In summary patient is a 28-year-old female presenting with left lower abdominal pain. Patient reportedly sent from her [facility] office due to increased pain. Patient has been seen and evaluated for similar symptoms, multiple times in the emergency department and had her follow-up with [facility] [employer] today due to the discovery of a simple cyst. Patient has history of hysterectomy that was ovary sparing, appendectomy and cholecystectomy. Differential diagnosis includes but is not limited to, diverticulitis, constipation, abscess, ovarian cyst rupture, endometriosis, among others. Patient's symptoms managed with Dilaudid (due to patient allergy profile) It should be noted the patient has a past medical history significant for bladder spasm, pelvic pain, left ovarian cyst, depression, anxiety, morbid obesity. Patient's laboratory evaluation negative for leukocytosis, anemia, thrombocytopenia. CMP similar to prior without any actionable findings. Urinalysis was negative for hematuria or evidence of acute cystitis. CT abdomen/pelvis personally reviewed by me and negative for evidence of diverticulitis, free fluid in the pelvis, bladder wall thickening or other evidence of patient's pain. Transvaginal ultrasound was considered and ultimately not performed as patient does not have risk of torsion. CT did not demonstrate an overly enlarged left ovary to explain patient's symptoms. A simple ovarian cyst does not typically cause pain in line with patient's symptoms. Despite overall unconcerning evaluation, patient continuing to complain of pain and requesting pain medication. I spoke with Dr. Jonas, as patient was scheduled to follow-up with her today in office, and she did not recommend any further workup. Apparently the patient was under the impression that she would be taken to the operating room from the emergency department today by Dr. Jonas. As the patient's evaluation was unremarkable for emergent causes of her pain and symptoms, there is no indication for emergent surgery at this time. Dr. Jonas and I were in agreement that the patient could safely be discharged home with continued follow-up in her clinic. Patient given the findings of her evaluation as well as information from my discussion with Dr. Jonas. Patient given home symptomatic treatment recommendations and return precautions. Patient in agreement with this plan. Patient discharged in stable condition. Sary Menendez MD PGY-3, Emergency Medicine Critical Care Critical Care Time Critical Care Time: No
--- NOTE | 2024-04-19 09:53 | CT_ITS ---
FINAL REPORT TECHNIQUE: After the administration of intravenous contrast, axial images were obtained through the abdomen and pelvis by computed tomography. This study was performed with technique to keep radiation doses as low as reasonably achievable, (ALARA). Individualized dose reduction techniques using automated exposure control or adjustment of the MA and/or KV according to the patient's size were employed. CLINICAL HISTORY: severe LLQ pain, guarding COMPARISON: 11/06/2023 FINDINGS: Abdomen: The lung bases are clear. The liver is normal in size and attenuation. Patient is status postcholecystectomy. The spleen is unremarkable. The adrenals are normal. The pancreas is unremarkable. The kidneys enhance appropriately. The aorta is normal in caliber. There is no free fluid or adenopathy. Pelvis: Patient is status post appendectomy and hysterectomy. The urinary bladder is unremarkable. There is no free fluid or adenopathy. IMPRESSION: No acute intra-abdominal process. Reviewed, Interpreted and Dictated by Gerard Quintero III, MD Transcribed by Marcy Johnston Authenticated and [facility]
--- NOTE | 2024-04-19 10:11 | HMH.ITSTN ---
nurse in room with patient starting iv and getting labs, I will return in a few to take patient to CT.
[2024-04-19] MEDS: IOPAMIDOL-370 (76%);100ML BOTTLE 75 ML IV (10:17)
[2024-04-19] MEDS: SODIUM CHLORIDE 0.9% 10ML SYR (RAD ONLY) 10 ML IV (10:18)
[2024-04-19] MEDS: ONDANSETRON 4MG/2ML VIAL 4 MG IV (10:32)
[2024-04-19] MEDS: HYDROMORPHONE 2MG/ML SYRINGE 0.5 MG IV (10:32)
[2024-04-19 10:59] VITALS: BP 133/87; PULSE 104; O2SAT 98
[2024-04-19 11:01] LABS: Basophils # 0.1 K/mm3 (0-0.2); Basophils % 1.3 % (0.1-2.0); Eosinophils # 0.3 K/mm3 (0.0-0.4); Eosinophils % 3.7 % (0.1-12.0); Hematocrit 45.7 % (37.0-47.0); Hemoglobin 15.8 g/dL (12.2-16.2); Lymphocytes # 2.1 K/mm3 (0.7-4.5); Lymphocytes % 23.2 % (10-50); Mean Corpuscular HGB Conc 34.6 g/dL (31.8-35.4); Mean Corpuscular Hemoglobin 29.7 pg (27.0-31.2); Mean Corpuscular Volume 85.7 fl (81-99); Monocytes # 0.4 K/mm3 (0.1-1.0); Monocytes % 4.6 % (1.7-9.3); Neutrophils # 6.2 K/mm3 (1.8-7.8); Neutrophils % 67.2 % (37.0-80.0); Platelet Count 314 K/mm3 (142-424); Red Blood Count 5.33 M/mm3 (4.20-5.40); Red Cell Distribution Width 13.7 % (11.5-17.5); White Blood Count 9.2 K/mm3 (4.8-10.8)
[2024-04-19 11:03] LABS: Albumin Level 4.6 g/dl (3.5-5.0); Chloride 104 mmol/L (98-107); Potassium 4.1 mmoL/L (3.5-5.1); Sodium 139 mmol/L (136-145)
[2024-04-19 11:05] LABS: Microscopic, Urine URINE MICROSCOPIC (MICROSCOPIC)
[2024-04-19 11:06] LABS: Alanine Aminotransferase 35 U/L (12-78); Albumin/Globulin Ratio 1.4 (1.1-1.8); Alkaline Phosphatase 59 U/L (38-126); Anion Gap 11.1 mEq/L (5-15); Aspartate Amino Transferase 40 U/L (14-36); Bilirubin,Total 0.5 mg/dl (0.2-1.3); Blood Urea Nitrogen 14 mg/dl (7-17); Calcium 9.8 mg/dl (8.4-10.2); Carbon Dioxide 28 mmol/L (22.0-30.0); Creatinine Clearance Estimated 79 mL/min (50-200); Estimated Glomerular Filt Rate 85 ml/min (>60); GFR (African American) 103 ML/MIN (>60); Globulin 3.4 g/dL (1.3-3.2); Glucose 103 mg/dl (74-100)
[2024-04-19 11:22] LABS: Appearance,Urine CLEAR (Clear); Bilirubin,Urine Negative (Negative); Blood, Urine Negative (Negative); Color,Urine YELLOW (Yellow); Glucose,Urine (UA) Negative (Negative); Ketones,Urine Negative (Negative); Leukocyte Esterase,Urine Negative (Negative); Nitrate,Urine Negative (Negative); Protein,Urine Negative (Negative); Specific Gravity, Urine 1.025 (1.005-1.030); Urobilinogen,Urine 0.2 EU/dl (0.2)
[2024-04-19 11:46] LABS: Squamous Epithelial Cell,Urine Occasional #/hpf (0-5)
[2024-04-19] MEDS: HYDROMORPHONE 2MG/ML SYRINGE 1 MG IV (12:05)
[2024-04-19 12:12] LABS: Lactic Acid 0.8 mmol/L (0.7-2.1)
[2024-04-19 12:49] VITALS: BP 120/90; PULSE 88; RESP 18; TEMP 36.9
== END 2024-04-19 12:50 | disposition home or self-care (01) ==
PROVIDERS: Emergency Provider Student in an Organized Health Care Education/Training Program; PCP Family Medicine
DX: R10.32 Left lower quadrant pain (principal); R11.10 Vomiting, unspecified
CPT/HCPCS: 74177; 80053; 81001; 83605; 85025; 96374; 96375; 99285; J1171; J2405; Q9967

== ENCOUNTER 2024-04-21 07:25 | Emergency (ER) | payer OTHER, SELFPAY ==
[2024-04-21 07:26] VITALS: BP 131/91; PULSE 106; RESP 16; TEMP 37.1; O2SAT 98; BMI 41.5
--- NOTE | 2024-04-21 07:44 | US_ITS ---
PROCEDURE INFORMATION: Exam: US Duplex Artery or Vein of the Abdominal and/or Reproductive Organs, Limited Ovaries Exam date and time: 04/21/2024 8:02 AM Age: 28 years old Clinical indication: Pelvic pain; Prior surgery; Surgery date: 6+ months; Surgery type: Ut removed; Additional info: Pelvic pain, worsening today TECHNIQUE: Imaging protocol: Real-time duplex ultrasound scan of the arterial or venous flow with burton scale, color Doppler flow and spectral waveform analysis with image documentation. Limited duplex exam focused on the ovaries. Duplex exam was performed to evaluate for torsion and other vascular conditions. COMPARISON: US TRANSVAGINAL 04/09/2024 9:43 AM FINDINGS: Right ovary/adnexa: Duplex blood flow present within the right ovary with color Doppler and venous spectral waveforms. No evidence of torsion. Left ovary/adnexa: Duplex blood flow present within the left ovary with color Doppler and arterial spectral waveforms. No evidence of torsion. IMPRESSION: 1. No evidence of ovarian torsion. 2. See complete ultrasound report below. PROCEDURE INFORMATION: Exam: US Pelvis, Transvaginal, Non-Obstetric Exam date and time: 04/21/2024 8:02 AM Age: 28 years old Clinical indication: Pelvic pain; Prior surgery; Surgery date: 6+ months; Surgery type: Ut removed; Additional info: Pelvic pain, worsening today TECHNIQUE: Imaging protocol: Real-time transvaginal pelvic (non-obstetric) ultrasound with image documentation. Transvaginal imaging was used for better evaluation of the endometrium, adnexa, and/or cervix. COMPARISON: 1. US TRANSVAGINAL 04/14/2024 9:[address] ABDOMEN PELVIS W CON 04/19/2024 10:14 AM FINDINGS: Uterus: Status post hysterectomy. Right ovary/adnexa: Right ovary measures 3.3 x 2.3 x 2.5 cm for a volume of 9.7 mL. Multiple small follicles. Duplex blood flow present within the right ovary. No adnexal mass. Left ovary/adnexa: Left ovary measures 4.5 x 2.2 x 2.5 cm for a volume of 12.8 mL. Multiple small follicles. Left ovarian cyst noted on prior ultrasound has collapsed and is now irregular in contour measuring 2.2 x 0.9 x 1.0 cm (previously 2.8 x 2.8 x 2.7 cm). Duplex blood flow present within the left ovary. No adnexal mass. Urinary bladder: Urinary bladder is not visualized. Intraperitoneal space: No free fluid. IMPRESSION: 1. Left ovarian cyst noted on prior ultrasound has collapsed and is now irregular in contour measuring 2.2 x 0.9 x 1.0 cm (previously 2.8 x 2.8 x 2.7 cm). 2. Multiple small bilateral ovarian follicles. Correlate clinically for PCOS.
--- NOTE | 2024-04-21 07:50 | ED_ITS ---
Discharge Plan Disposition Patient Disposition: Home, Self-Care Prescriptions Prescriptions: No Action alprazolam [Xanax] 2 mg tablet See Rx Instructions .ROUTE .COMPLEX Qty: 90 2RF Rx Instructions: Take 1 tablet twice daily and 1 at bedtime. quetiapine 100 mg tablet 100 mg PO HS Patient Comments: TAKE 1 TABLET BY MOUTH AT BEDTIME desvenlafaxine succinate 25 mg tablet extended release 24 hr PO Patient Comments: TAKE 1 TABLET BY MOUTH ONCE DAILY esomeprazole magnesium 20 mg capsule,delayed release(DR/EC) 20 mg PO DAILY ondansetron 4 mg tablet,disintegrating 4 mg PO BID PRN (Reason: nausea and vomiting) 5 Days Qty: 10 2RF promethazine 25 mg tablet 25 mg PO Q6H PRN (Reason: nausea and vomiting) Qty: 20 1RF epinephrine 0.3 mg/0.3 mL auto-injector 0.3 ml SQ ONCE Qty: 2 0RF Referrals Follow up/Referrals: Caitlyn Jonas DO [Staff Physician] - See instructions Diego Thao MD [Primary Care Provider] - See instructions Activity Restrictions/Add. Instructions Additional Instructions/Restrictions: No emergent medical condition identified today you do have evidence of polycystic ovarian syndrome and with your history of endometriosis requiring hysterectomy possible that either these 2 conditions are the cause of your symptoms today. Please follow-up with your FORESTRY PROFESSOR doctor as discussed. Clinical Impressions Clinical Impression: Pelvic pain, Endometriosis, PCOS (polycystic ovarian syndrome), Chronic abdominal pain Instructions Patient Instructions: DI for Acute Abdominal Pain Print Language Print Language: Mozambican Discharge ED Provider: Dottie Zurita General Adult HPI General Chief complaint: Abdominal Pain Stated complaint: pelvic pain Time Seen by Provider: 04/21/24 07:35 History of Present Illness HPI narrative: Patient is a 28-year-old female presented with pelvic pain. This been ongoing for at least a month. She has been seen 3 times in our emergency department initially by me where she had a CT scan and ultrasound which showed a 4 to 5 cm left adnexal cyst no evidence of torsion at that time she proceeded to follow-up with FORESTRY PROFESSOR as well as with the ED had serial ultrasounds which showed the cyst decreasing in size and CT scan most recently demonstrated that it was almost gone. However she has followed up with FORESTRY PROFESSOR and they are considering doing an oophorectomy secondary to her pain and cysts. Patient states that she is allergic to Toradol and that morphine did not work for her last time and they gave her a medication that started with a D. She denies any new vaginal bleeding vaginal discharge hematuria frequency urgency changes in bowel movements etc. Related Data Home Medications ?Medication ?Instructions ?Recorded ?Confirmed desvenlafaxine succinate 25 mg mg PO 03/23/24 04/12/24 tablet,extended release 24 hr esomeprazole magnesium 20 mg 20 mg PO DAILY 03/23/24 04/12/24 capsule,delayed release quetiapine 100 mg tablet 100 mg PO HS 03/23/24 04/12/24 Previous Rx's ?Medication ?Instructions ?Recorded epinephrine 0.3 mg/0.3 mL 0.3 ml SQ ONCE allergies #2 ea 09/25/23 injection, auto-injector alprazolam 2 mg tablet (Xanax) See Rx Instructions .Route 02/18/24 .COMPLEX #90 tabs ondansetron 4 mg disintegrating 4 mg PO BID PRN nausea and 03/23/24 tablet vomiting 5 days #10 tabs promethazine 25 mg tablet 25 mg PO Q6H PRN nausea and 03/23/24 vomiting #20 tabs Allergies Allergy/AdvReac Type Severity Reaction Status Date / Time ketorolac Allergy Severe Anaphylaxis Verified 04/12/24 12:59 hydrocodone (HYDROCODONE) Allergy Intermediate Face & Verified 04/12/24 12:59 tounge swelling latex (LATEX) Allergy Intermediate I-RASH Verified 04/12/24 12:59 sulfamethoxazole (From Allergy Verified 04/12/24 12:59 Bactrim) trimethoprim (From Bactrim) Allergy Verified 04/12/24 12:59 PFSH PFSH Disclaimer: The information contained in this section may have been updated after the patient was seen, as this information can be updated by other users. Medical History (Updated 04/21/24 @ 09:04 by Dottie Zurita MD) Encounter for insertion of subdermal contraceptive Abnormal uterine bleeding (AUB) Nausea & vomiting NDPH (new daily persistent headache) Contusion of hand, right Menorrhagia Influenza Ankle sprain Migraine Vomiting Sprain of lumbar region Contusion of coccyx Otitis externa Strain of lumbar region Leukocytosis Allergic reaction Fracture of coccyx Hyperventilation Acute anxiety Panic attack as reaction to stress Chest pain Headache Acute gastroenteritis Fibroid uterus Ovarian cyst Anxiety Depression Surgical History (Updated 04/12/24 @ 15:43 by Caitlyn Jonas DO) History of partial hysterectomy H/O: hysterectomy History of colonoscopy History of esophagogastroduodenoscopy (EGD) Hx of appendectomy History of cholecystectomy Family History Other No significant family history Social History (Updated 04/12/24 @ 15:45 by Caitlyn Jonas DO) Smoking Status: Current every day smoker alcohol intake: never substance use type: denies use current occupational status: unemployed Travel in the last 8 weeks: None household members: family housing: house Other Medical History Have you received the Flu Vaccine for this season: No Have you received the Pneumonia Vaccine: No ROS Obtained: Yes All systems reviewed & no additional complaints except as documented Physical Exam General General appearance: in distress (Crying in pain) Respiratory Respiratory exam: Present normal lung sounds bilaterally Cardiovascular Cardiovascular exam: Present regular rate and normal rhythm Abdominal Exam Abdominal exam: Present soft and tenderness (Lower abdominal tenderness palpation no rebound or guarding); Absent distention Neurological Exam Neurological exam: Present alert and oriented X3 Medical Decision Making Medical Records Screening: Per USPSTF and CDC recommendations, given the prevalence of disease in our region, it is our hospital?s policy to screen for HIV and viral Hepatitis for all patients aged 18 and over and those with ongoing risk factors. Gregorio Inquiry Pt receiving controlled substance: No Vital Signs: 04/21/24 07:26 04/21/24 08:45 Temperature 98.7 F Temperature Source Oral Pulse Rate 106 H Pulse Rate [Left Radial] 106 H Respiratory Rate 16 Blood Pressure 133/88 Blood Pressure [Right Arm] 131/91 H Blood Pressure Mean [Right Arm] 104 Blood Pressure Source [Right Arm] Automatic Cuff Blood Pressure Position [Right Arm] Sitting 02 Sat by Pulse Oximetry 98 98 Lab Data Lab results reviewed: Yes I reviewed the patient's lab results. Lab Results 04/21/24 07:41: WBC 7.8, RBC 5.07, Hgb 15.6, Hct 44.3, MCV 87.3, MCH 30.8, MCHC 35.3, RDW 13.5, Plt Count 300, MPV 8.0, Neut % (Auto) 64.7, Lymph % (Auto) 23.0, [place] % (Auto) 6.1, Eos % (Auto) 5.0, Baso % (Auto) 1.1, Neut # (Auto) 5.0, Lymph # (Auto) 1.8, [place] # (Auto) 0.5, Eos # (Auto) 0.4, Baso # (Auto) 0.1, Sodium 143, Potassium 3.6, Chloride 106, Carbon Dioxide 27, Anion Gap 13.6, BUN 14, Creatinine 0.80, Estimated Creat Clear 79, Estimated GFR 85, Est GFR ( Amer) 103, Glucose 105 H, Calcium 9.6, Total Bilirubin 0.4, AST 37 H, ALT 37, Alkaline Phosphatase 71, Total Protein 7.8, Albumin 4.7, Globulin 3.1, Albumin/Globulin Ratio 1.5 04/21/24 07:41 04/21/24 07:41 Orders (Tests/Meds): ED MEDICATIONS Discontinued Medications Generic Name Dose Route Start Last Admin Trade Name Freq PRN Reason Stop Dose Admin Hydromorphone HCl 0.5 mg 04/21/24 08:40 04/21/24 08:51 Hydromorphone 2mg/Ml Syringe IV 04/21/24 08:41 0.5 mg ONCE ONE Administration Lactated Ringer's 1,000 mls @ 999 mls/hr 04/21/24 07:45 04/21/24 08:00 Lactated Ringer's 1000 Ml Bag IV 04/21/24 08:45 999 mls/hr .Q1H1M HUNG Administration Morphine Sulfate 4 mg 04/21/24 07:46 04/21/24 08:00 Morphine 4mg/Ml Syringe IV 04/21/24 07:47 4 mg ONCE ONE Administration Ondansetron HCl 4 mg 04/21/24 07:44 04/21/24 08:00 Ondansetron 4mg/2ml Vial IV 04/21/24 07:45 4 mg ONCE ONE Administration ORDERS Category Date Time Status US transvaginal Stat Exams 04/21/24 07:44 Taken CBC w/Auto Diff [Complete Blood Count Auto Diff] Stat Lab 04/21/24 07:41 Completed CMP [Comprehensive Metabolic Panel] Stat Lab 04/21/24 07:41 Completed UA [Urinalysis and Microscopic] Stat Lab 04/21/24 07:44 Ordered Medical Decision Narrative: Patient with above history and physical she has a history of partial hysterectomy secondary to endometriosis she is followed by Dr. Banegas they are considering oophorectomy given recurrence and persistence of pelvic pain associated with ovarian cyst. I reviewed her images both on the first visit that I saw as well as recently with a CT scan that showed that the left adnexal cyst had almost completely gone. However I did see a 4 to 5 cm ovarian cyst when I first evaluated her which was concerning for possible torsion with intermittent pelvic pain. Will repeat an ultrasound today address her pain and reassess. No indication for CT imaging today as other diagnostic pathology are unlikely at this point that she has had serial imaging including CT scan. Radiation exposure would outweigh any benefit in this particular situation. I will discuss the case with FORESTRY PROFESSOR after her imaging is back. Reassessment 904 patient continues to be in pain but she has had chronic pain and I discussed the case with Dr. Banegas and she has had chronic abdominal pain initially treated as interstitial cystitis actually went to another healthcare system for a hysterectomy I asked the patient about this and she stated that the pathology report showed that she had mild endometriosis. It is possible today her symptoms are associated with that and also PCOS. Ultrasound was performed which showed small cysts but no large cystic structure no evidence of torsion there is flow to bilateral ovaries. Dr. Banegas said that the patient can follow-up closely outpatient with her and the patient will call to make an appointment. Patient was given multiple doses of pain medicine in the emergency department but ultimately no emergent medical condition or surgical emergency was identified. Patient was discharged in stable condition. Critical Care Critical Care Time Critical Care Time: No
[2024-04-21] MEDS: LACTATED RINGERS 1000ML 1,000 ML 999 ML IV (08:00)
[2024-04-21] MEDS: ONDANSETRON 4MG/2ML VIAL 4 MG IV (08:00)
[2024-04-21] MEDS: MORPHINE 4MG/ML SYRINGE 4 MG IV (08:00)
[2024-04-21 08:02] LABS: Basophils # 0.1 K/mm3 (0-0.2); Basophils % 1.1 % (0.1-2.0); Eosinophils # 0.4 K/mm3 (0.0-0.4); Hematocrit 44.3 % (37.0-47.0); Hemoglobin 15.6 g/dL (12.2-16.2); Lymphocytes # 1.8 K/mm3 (0.7-4.5); Mean Corpuscular HGB Conc 35.3 g/dL (31.8-35.4); Mean Corpuscular Hemoglobin 30.8 pg (27.0-31.2); Mean Corpuscular Volume 87.3 fl (81-99); Monocytes # 0.5 K/mm3 (0.1-1.0); Monocytes % 6.1 % (1.7-9.3); Neutrophils % 64.7 % (37.0-80.0); Platelet Count 300 K/mm3 (142-424); Red Blood Count 5.07 M/mm3 (4.20-5.40); Red Cell Distribution Width 13.5 % (11.5-17.5); White Blood Count 7.8 K/mm3 (4.8-10.8)
[2024-04-21 08:06] LABS: Albumin Level 4.7 g/dl (3.5-5.0); Chloride 106 mmol/L (98-107); Sodium 143 mmol/L (136-145)
[2024-04-21 08:07] LABS: Potassium 3.6 mmoL/L (3.5-5.1)
--- NOTE | 2024-04-21 08:08 | PC.NURSE ---
PT TO US
[2024-04-21 08:09] LABS: Alanine Aminotransferase 37 U/L (12-78); Albumin/Globulin Ratio 1.5 (1.1-1.8); Alkaline Phosphatase 71 U/L (38-126); Anion Gap 13.6 mEq/L (5-15); Aspartate Amino Transferase 37 U/L (14-36); Bilirubin,Total 0.4 mg/dl (0.2-1.3); Blood Urea Nitrogen 14 mg/dl (7-17); Carbon Dioxide 27 mmol/L (22.0-30.0); Creatinine Clearance Estimated 79 mL/min (50-200); Estimated Glomerular Filt Rate 85 ml/min (>60); GFR (African American) 103 ML/MIN (>60); Globulin 3.1 g/dL (1.3-3.2); Total Protein,Serum 7.8 g/dl (6.3-8.2)
[2024-04-21 08:10] LABS: Calcium 9.6 mg/dl (8.4-10.2); Glucose 105 mg/dl (74-100)
--- NOTE | 2024-04-21 08:41 | PC.NURSE ---
o/p with at this time.
--- NOTE | 2024-04-21 08:42 | PC.NURSE ---
DR ABARCA SPEAKING WITH DR CRAFT
[2024-04-21 08:45] VITALS: BP 133/88; PULSE 106; O2SAT 98
[2024-04-21] MEDS: HYDROMORPHONE 2MG/ML SYRINGE 0.5 MG IV (08:51)
--- NOTE | 2024-04-21 08:56 | PC.NURSE ---
DR ABARCA AT BEDSIDE TO REEVALUATE PT
[2024-04-21 09:06] VITALS: BP 135/88; PULSE 96; RESP 18; TEMP 37.1; O2SAT 98
== END 2024-04-21 09:12 | disposition home or self-care (01) ==
PROVIDERS: Emergency Provider Student in an Organized Health Care Education/Training Program; PCP Family Medicine
DX: E28.2 Polycystic ovarian syndrome (principal); N80.9 Endometriosis, unspecified; R10.2 Pelvic and perineal pain; R10.9 Unspecified abdominal pain
CPT/HCPCS: 76830; 80053; 85025; 96361; 96374; 96375; 99283; J1171; J2270; J2405; J7120

== ENCOUNTER 2024-07-19 10:26 | Emergency (ER) | payer OTHER, SELFPAY ==
[2024-07-19 10:27] VITALS: BP 110/89; PULSE 97; RESP 20; TEMP 36.8; O2SAT 98; BMI 43.0
[2024-07-19 10:35] LABS: Microscopic, Urine URINE MICROSCOPIC (MICROSCOPIC)
[2024-07-19 10:41] LABS: Appearance,Urine CLEAR (Clear); Bilirubin,Urine Negative (Negative); Blood, Urine Negative (Negative); Color,Urine YELLOW (Yellow); Glucose,Urine (UA) Negative (Negative); Ketones,Urine Negative (Negative); Leukocyte Esterase,Urine Negative (Negative); Nitrate,Urine Negative (Negative); PH,Urine 6.5 (5.0-8.5); Protein,Urine Negative (Negative); Specific Gravity, Urine <= 1.005 (1.005-1.030); Urobilinogen,Urine 0.2 EU/dl (0.2)
[2024-07-19 10:52] LABS: Bacteria,Urine Trace /lpf
[2024-07-19] MEDS: ONDANSETRON 4MG/2ML VIAL 4 MG IV (12:16)
[2024-07-19 12:31] VITALS: BP 122/78; PULSE 100; O2SAT 90
--- NOTE | 2024-07-19 12:37 | US_ITS ---
PROCEDURE INFORMATION: Exam: US Pelvis, Transvaginal, Non-Obstetric Exam date and time: 07/19/2024 12:46 PM Age: 29 years old Clinical indication: Pelvic pain; Prior surgery; Surgery date: 6+ months; Surgery type: Partial hysterectomy; Additional info: Rule out torsion TECHNIQUE: Imaging protocol: Real-time transvaginal pelvic (non-obstetric) ultrasound with image documentation. Transvaginal imaging was used for better evaluation of the endometrium, adnexa, and/or cervix. COMPARISON: US TRANSVAGINAL 04/21/2024 8:02 AM FINDINGS: Uterus: Status post hysterectomy. Right ovary/adnexa: There are several small right ovarian follicles. There is a 2 cm anechoic right ovarian cyst with a 11 mm daughter cyst. No associated solid mural nodule. Normal blood flow to the right ovary. No evidence of right ovarian torsion. Left ovary/adnexa: There are normal-appearing small left ovarian follicles. There is normal blood flow to the left ovary. No evidence of left ovarian torsion. Urinary bladder: Urinary bladder is limited. Intraperitoneal space: No free fluid in the deep pelvis. IMPRESSION: 1. There is a 2 cm right ovarian cyst with a 11 mm daughter cyst. 2. No evidence of ovarian torsion on either side.
--- NOTE | 2024-07-19 12:40 | PC.NURSE ---
called radiology for US notification
--- NOTE | 2024-07-19 12:46 | PC.NURSE ---
DR ABARCA AT BEDSIDE
[2024-07-19 12:49] LABS: Albumin Level 5.2 g/dl (3.5-5.0); Chloride 100 mmol/L (98-107); Sodium 139 mmol/L (136-145)
[2024-07-19 12:50] LABS: Urine Pregnancy, HCG Qual. Negative (Negative)
[2024-07-19 12:52] LABS: Alanine Aminotransferase 62 U/L (12-78); Albumin/Globulin Ratio 1.6 (1.1-1.8); Alkaline Phosphatase 58 U/L (38-126); Aspartate Amino Transferase 50 U/L (14-36); Basophils % 0.4 % (0.1-2.0); Bilirubin,Total 0.5 mg/dl (0.2-1.3); Blood Urea Nitrogen 10 mg/dl (7-17); Calcium 9.8 mg/dl (8.4-10.2); Carbon Dioxide 28 mmol/L (22.0-30.0); Creatinine Clearance Estimated 75 mL/min (50-200); Eosinophils # 0.4 K/mm3 (0.0-0.4); Eosinophils % 4.4 % (0.1-12.0); Estimated Glomerular Filt Rate 85 ml/min (>60); GFR (African American) 103 ML/MIN (>60); Globulin 3.3 g/dL (1.3-3.2); Glucose 144 mg/dl (74-100); Hematocrit 46.6 % (37.0-47.0); Hemoglobin 16.3 g/dL (12.2-16.2); Lymphocytes # 1.7 K/mm3 (0.7-4.5); Lymphocytes % 16.8 % (10-50); Mean Corpuscular Hemoglobin 30.4 pg (27.0-31.2); Mean Corpuscular Volume 86.9 fl (81-99); Mean Platelet Volume 10.5 fl (7.4-10.4); Monocytes # 0.4 K/mm3 (0.1-1.0); Monocytes % 3.7 % (1.7-9.3); Neutrophils # 7.3 K/mm3 (1.8-7.8); Neutrophils % 74.4 % (37.0-80.0); Platelet Count 324 K/mm3 (142-424); Red Blood Count 5.36 M/mm3 (4.20-5.40); Red Cell Distribution Width 11.8 % (11.5-17.5); Total Protein,Serum 8.5 g/dl (6.3-8.2); White Blood Count 9.8 K/mm3 (4.8-10.8)
--- NOTE | 2024-07-19 12:52 | ED_ITS ---
Discharge Plan Disposition Patient Disposition: Home, Self-Care Prescriptions Prescriptions: No Action esomeprazole magnesium 20 mg capsule,delayed release(DR/EC) 20 mg PO DAILY guaifenesin [Mucus Relief ER] 600 mg tablet extended release 12hr PO ondansetron 8 mg tablet,disintegrating 8 mg PO PRN naproxen sodium [Anaprox DS] 550 mg tablet 550 mg PO Q8H PRN (Reason: pain) Qty: 15 1RF tizanidine 4 mg tablet 4 mg PO Q8H PRN (Reason: muscle spasticity) Qty: 15 1RF epinephrine 0.3 mg/0.3 mL auto-injector 0.3 ml SQ ONCE Qty: 2 0RF alprazolam [Xanax] 2 mg tablet See Rx Instructions .ROUTE .COMPLEX Qty: 90 2RF Rx Instructions: Take 1 tablet twice daily and 1 at bedtime. desvenlafaxine succinate 25 mg tablet extended release 24 hr 25 mg PO DAILY Qty: 30 2RF quetiapine 100 mg tablet 100 mg PO HS Qty: 30 2RF Referrals Follow up/Referrals: Diego Thao MD [Primary Care Provider] - See instructions Activity Restrictions/Add. Instructions Additional Instructions/Restrictions: No evidence of an acute surgical emergency you do have evidence of polycystic ovaries particularly a 3 cm ovarian cyst on the right without any evidence of ovarian torsion or rupture. Please follow-up outpatient with your SALES COMMISSIONS ANALYST doctors. Clinical Impressions Clinical Impression: Polycystic ovaries, Chronic abdominal pain Instructions Patient Instructions: DI for Acute Abdominal Pain Print Language Print Language: Kosovan Discharge ED Provider: Dottie Zurita General Adult HPI General Chief complaint: Abdominal Pain Stated complaint: vomiting, low abd pain, Cysts on Ovaries Time Seen by Provider: 07/19/24 12:45 Mode of Arrival: Ambulatory Source of Information: Patient Description of Symptoms (Recalled from ER Triage Doc. by RN): lower abd pain since yeterday, seen @ [facility] er yesterday dx with with two ovarian cyst, pain has gotten wrose today see obgyn here told to come in History of Present Illness HPI narrative: 29-year-old female sent in by her OB today for concern for symptomatic ovarian cyst. Has been having symptoms for several days went to [facility] ER yesterday had an ultrasound and CT scan which she states demonstrated bilateral large ovarian cyst. She does not know the exact results of the ultrasound. She called her OB office and they told her to come to the ER. She does state that this acutely worsened around 3 AM has not changed in severity since that time. Denies any other symptoms. Has a history of endometriosis had a partial hysterectomy secondary that in the past has dealt with many cyst in the past. Related Data Home Medications ?Medication ?Instructions ?Recorded ?Confirmed esomeprazole magnesium 20 mg 20 mg PO DAILY 03/23/24 07/08/24 capsule,delayed release guaifenesin 600 mg tablet, mg PO 07/08/24 07/08/24 extended release 12 hr (Mucus Relief ER) ondansetron 8 mg disintegrating 8 mg PO PRN 07/08/24 07/08/24 tablet Previous Rx's ?Medication ?Instructions ?Recorded epinephrine 0.3 mg/0.3 mL 0.3 ml SQ ONCE allergies #2 ea 09/25/23 injection, auto-injector alprazolam 2 mg tablet (Xanax) See Rx Instructions .Route 05/20/24 .COMPLEX #90 tabs desvenlafaxine succinate 25 mg 25 mg PO DAILY #30 tabs 05/20/24 tablet,extended release 24 hr quetiapine 100 mg tablet 100 mg PO HS #30 tabs 05/20/24 naproxen sodium 550 mg tablet 550 mg PO Q8H PRN pain #15 tabs 07/08/24 (Anaprox DS) tizanidine 4 mg tablet 4 mg PO Q8H PRN muscle spasticity 07/08/24 #15 tabs Allergies Allergy/AdvReac Type Severity Reaction Status Date / Time ketorolac Allergy Severe Anaphylaxis Verified 07/08/24 10:10 hydrocodone (HYDROCODONE) Allergy Intermediate Face & Verified 07/08/24 10:10 tounge swelling latex (LATEX) Allergy Intermediate I-RASH Verified 07/08/24 10:10 sulfamethoxazole (From Allergy Verified 07/08/24 10:10 Bactrim) trimethoprim (From Bactrim) Allergy Verified 07/08/24 10:10 PFSH PFSH Disclaimer: The information contained in this section may have been updated after the patient was seen, as this information can be updated by other users. Medical History Encounter for insertion of subdermal contraceptive Abnormal uterine bleeding (AUB) Nausea & vomiting NDPH (new daily persistent headache) Contusion of hand, right Menorrhagia Influenza Ankle sprain Migraine Vomiting Sprain of lumbar region Contusion of coccyx Otitis externa Strain of lumbar region Leukocytosis Allergic reaction Fracture of coccyx Hyperventilation Acute anxiety Panic attack as reaction to stress Chest pain Headache Acute gastroenteritis Fibroid uterus Ovarian cyst Anxiety Depression Surgical History History of partial hysterectomy H/O: hysterectomy [facility] 12/08/24 History of colonoscopy History of esophagogastroduodenoscopy (EGD) Hx of appendectomy History of cholecystectomy Family History Other No significant family history Social History Smoking Status: Never smoker alcohol intake: never substance use type: denies use current occupational status: unemployed Travel in the last 8 weeks: None household members: family housing: house Have you lived/traveled outside US in past 30 days?: No Contact w/someone who lives/traveled outside US past 30 days?: No Exposure to someone with infectious disease in past 14 days?: No Do you have a fever (greater than 100.4 F or 38 C)?: No Have you tested positive for COVID-19: No Exposed to someone with COVID-19 in past 14 days?: No Do you have a sore throat?: No Do you have a cough?: No Do you have any weakness?: No Do you have any diarrhea?: No Are you experiencing any unusual bleeding?: No Do you have any muscle aches/pain?: No Do you have any abdominal pain?: Yes Are you experiencing loss of taste or smell?: No Other Medical History Have you received the Flu Vaccine for this season: No Have you received the Pneumonia Vaccine: No ROS Obtained: Yes All systems reviewed & no additional complaints except as documented Physical Exam General General appearance: alert and in no apparent distress Respiratory Respiratory exam: Present normal lung sounds bilaterally Cardiovascular Cardiovascular exam: Present regular rate Abdominal Exam Abdominal exam: Present soft and distention; Absent tenderness Neurological Exam Neurological exam: Present alert and oriented X3 Medical Decision Making Medical Records Screening: Per USPSTF and CDC recommendations, given the prevalence of disease in our region, it is our hospital?s policy to screen for HIV and viral Hepatitis for all patients aged 18 and over and those with ongoing risk factors. Gregorio Inquiry Pt receiving controlled substance: No Vital Signs: 07/19/24 10:27 07/19/24 12:31 07/19/24 13:12 Temperature 98.2 F Temperature Source Oral Pulse Rate 100 H 117 H Pulse Rate [Left Radial] 97 H Respiratory Rate 20 Blood Pressure 122/78 122/78 Blood Pressure [Right Arm] 110/89 Blood Pressure Mean 92 Blood Pressure Mean [Right Arm] 96 02 Sat by Pulse Oximetry 98 90 L 99 Oxygen Delivery Method Room Air 07/19/24 13:30 Temperature Temperature Source Pulse Rate 111 H Pulse Rate [Left Radial] Respiratory Rate Blood Pressure 122/78 Blood Pressure [Right Arm] Blood Pressure Mean Blood Pressure Mean [Right Arm] 02 Sat by Pulse Oximetry 95 Oxygen Delivery Method Lab Data Lab results reviewed: Yes I reviewed the patient's lab results. Lab Results 07/19/24 10:31: Urine Color Yellow, Urine Appearance Clear, Urine pH 6.5, Ur Specific [place] <= 1.005, Urine Protein Negative, Urine Glucose (UA) Negative, Urine Ketones Negative, Urine Blood Negative, Urine Nitrate Negative, Urine Bilirubin Negative, Urine Urobilinogen 0.2, Ur Leukocyte Esterase Negative, Urine RBC None, Urine WBC None, Ur Squamous Epith Cells 5-10, Urine Bacteria Trace, Urine HCG, Qual Negative 07/19/24 12:10: WBC 9.8, RBC 5.36, Hgb 16.3 H, Hct 46.6, MCV 86.9, MCH 30.4, MCHC 35.0, RDW 11.8, Plt Count 324, MPV 10.5 H, Neut % (Auto) 74.4, Lymph % (Auto) 16.8, [place] % (Auto) 3.7, Eos % (Auto) 4.4, Baso % (Auto) 0.4, Neut # (Auto) 7.3, Lymph # (Auto) 1.7, [place] # (Auto) 0.4, Eos # (Auto) 0.4, Baso # (Auto) 0.0, Sodium 139, Potassium 4.0, Chloride 100, Carbon Dioxide 28, Anion Gap 15.0, BUN 10, Creatinine 0.80, Estimated Creat Clear 75, Estimated GFR 85, Est GFR ( Amer) 103, Glucose 144 H, Calcium 9.8, Total Bilirubin 0.5, AST 50 H, ALT 62, Alkaline Phosphatase 58, Total Protein 8.5 H, Albumin 5.2 H, G lobulin 3.3 H, Albumin/Globulin Ratio 1.6 07/19/24 12:10 07/19/24 12:10 Orders (Tests/Meds): ED MEDICATIONS Discontinued Medications Generic Name Dose Route Start Last Admin Trade Name Freq PRN Reason Stop Dose Admin Lactated Ringer's 1,000 mls @ 999 mls/hr 07/19/24 13:00 07/19/24 13:13 Lactated Ringer's 1000 Ml Bag IV 07/19/24 14:00 999 mls/hr .Q1H1M HUNG Administration Morphine Sulfate 4 mg 07/19/24 12:50 07/19/24 12:53 Morphine 4mg/Ml Syringe IV 07/19/24 12:51 4 mg ONCE ONE Administration Ondansetron HCl 4 mg 07/19/24 12:13 07/19/24 12:16 Ondansetron 4mg/2ml Vial IV 07/19/24 12:14 4 mg ONCE ONE Administration ORDERS Category Date Time Status US transvaginal Stat Exams 07/19/24 12:37 Completed CMP [Comprehensive Metabolic Panel] Stat Lab 07/19/24 12:10 Completed Complete Blood Count Auto Diff Stat Lab 07/19/24 12:10 Completed UA [Urinalysis and Microscopic] Stat Lab 07/19/24 10:31 Completed Urine , HCG Qual. Stat Lab 07/19/24 10:31 Completed Medical Decision Narrative: 29-year-old recently at [facility] ED diagnosed with 2 large ovarian cyst differential includes symptomatic ovarian cyst ovarian cyst rupture ovarian torsion etc. Will get an ultrasound to rule out torsion at the moment. Also will attempt to get her records from [facility] ER and reassess after symptomatic medications have been administered. Given the fact that her OB team sent her to the ED likely will discuss the case with them as well. Reassessment we did obtain records from [facility] CT scan did not demonstrate large ovarian cyst did have a 2.9 cm follicular cyst with no evidence of other pathology on CT scan. Our ultrasound was performed and there was no evidence of any ovarian torsion she had a 3 cm cyst on the right without any free fluid or any other pathology noted. Patient continued to be in severe pain writhing in pain. She specifically asked me for an additional dose of morphine or Dilaudid. She is allergic to Toradol. Given the fact that she is writhing and rolling in pain I discussed the case with Dr. Manuel who is very familiar with her. He and Dr. Banegas been following her for her chronic pain she actually went to an outside facility to get a hysterectomy. They have not found any significant or definitive pathology in her she does have evidence of PCOS. She claims that she has a history of endometriosis which is questionable at this point. However Dr. Regalado recommended outpatient follow-up with either himself or with Dr. Banegas. Nonetheless no more emergent intervention is needed. Patient was discharged in a stable condition. Critical Care Critical Care Time Critical Care Time: No
[2024-07-19] MEDS: MORPHINE 4MG/ML SYRINGE 4 MG IV (12:53)
--- NOTE | 2024-07-19 12:55 | PC.NURSE ---
Called [facility] for Records on this pt who was seen in there ER last date
--- NOTE | 2024-07-19 12:58 | PC.NURSE ---
transported to ultrasound via manager radiation and wheelchair
--- NOTE | 2024-07-19 13:09 | PC.NURSE ---
Called [facility] back and talked to Cindy in the ER and she advised that she would gather the info and send it over
[2024-07-19 13:12] VITALS: BP 122/78; PULSE 117; O2SAT 99
[2024-07-19] MEDS: LACTATED RINGERS 1000ML 1,000 ML 999 ML IV (13:13)
--- NOTE | 2024-07-19 13:17 | PC.NURSE ---
returned from ultrasound
[2024-07-19 13:30] VITALS: BP 122/78; PULSE 111; O2SAT 95
--- NOTE | 2024-07-19 13:52 | PC.NURSE ---
DR ABARCA AT BEDSIDE TO REEVALUATE PT
--- NOTE | 2024-07-19 13:53 | PC.NURSE ---
OB ACCESS NURSE, DR KAY, SPEAKING WITH DR ABARCA
--- NOTE | 2024-07-19 13:59 | PC.NURSE ---
DR ABARCA AT BEDSIDE TO UPDATE PT AFTER SPEAKING WITH DR KAY
--- NOTE | 2024-07-19 14:00 | PC.NURSE ---
Called [facility] back to let them know we did not receive the fax. They tried to send it again and this time it came thru and information was given to Dr Zurita
[2024-07-19 14:13] VITALS: BP 122/78; PULSE 111; RESP 18; TEMP 36.8; O2SAT 95
--- NOTE | 2024-07-19 14:13 | PC.NURSE ---
PT BECAME UPSET WITH DR ABARCA, REMOVED IV AND THREW IN FLOOR. DID NOT SIGN DISCHARGE PAPERS
== END 2024-07-19 14:13 | disposition home or self-care (01) ==
PROVIDERS: Emergency Provider Student in an Organized Health Care Education/Training Program; PCP Family Medicine
DX: E28.2 Polycystic ovarian syndrome (principal); R10.30 Lower abdominal pain, unspecified
CPT/HCPCS: 76830; 80053; 81001; 81025; 85025; 96361; 96374; 96375; 99283; J2270; J2405; J7120

== ENCOUNTER 2024-09-04 12:36 | Emergency (ER) | payer OTHER, SELFPAY ==
[2024-09-04 13:00] VITALS: BP 148/83; PULSE 99; RESP 18; TEMP 36.8; O2SAT 99; BMI 41.5
--- NOTE | 2024-09-04 13:07 | ED_ITS ---
Discharge Plan Disposition Patient Disposition: Home, Self-Care Condition: Good Prescriptions Prescriptions: New cyclobenzaprine 10 mg tablet 10 mg PO BID Qty: 60 0RF ondansetron 4 mg tablet,disintegrating 4 mg PO Q6HP PRN (Reason: nausea and vomiting) 5 Days Qty: 5 0RF sumatriptan succinate [Imitrex] 100 mg tablet 100 mg PO ONCE Qty: 10 0RF Rx Instructions: 100 mg orally; No Action quetiapine 100 mg tablet 100 mg PO HS Qty: 30 2RF alprazolam [Xanax] 2 mg tablet 2 mg PO TID Referrals Follow up/Referrals: Diego Thao MD [Primary Care Provider] - See instructions Activity Restrictions/Add. Instructions Additional Instructions/Restrictions: Increase fluids and rest. Take medications as directed on the bottle. Please follow-up with your primary care on Friday. Clinical Impressions Clinical Impression: Migraine, Muscle spasm Stand Alone Forms Stand Alone Forms: Work/School Release Instructions Patient Instructions: DI for Migraine Print Language Print Language: Belarusian Discharge ED Provider: Anthony Herman General Adult HPI <Vielka Crook (ED), [employer] - Last Filed: 09/04/24 16:46> General Chief complaint: Headache Stated complaint: back pain, headache x 2 days Time Seen by Provider: 09/04/24 12:44 History of Present Illness HPI narrative: This is a 29-year-old female who presents to the ED today for complaint of headache for the past 2 days, back pain, neck pain and bodyaches. She has had some nausea with her headache. She does not typically have migraines. She has had no injury for her back to hurt. She does have history of anxiety and depression. No abdominal pain. No vomiting. No fever or chills. Related Data Home Medications ?Medication ?Instructions ?Recorded ?Confirmed alprazolam 2 mg tablet (Xanax) 2 mg PO TID 09/04/24 09/04/24 Previous Rx's ?Medication ?Instructions ?Recorded quetiapine 100 mg tablet 100 mg PO HS #30 tabs 05/20/24 cyclobenzaprine 10 mg tablet 10 mg PO BID #60 tabs 09/04/24 ondansetron 4 mg disintegrating 4 mg PO Q6HP PRN nausea and 09/04/24 tablet vomiting 5 days #5 tabs sumatriptan succinate 100 mg 100 mg PO ONCE #10 tabs 09/04/24 tablet (Imitrex) Allergies Allergy/AdvReac Type Severity Reaction Status Date / Time ketorolac Allergy Severe Anaphylaxis Verified 07/08/24 10:10 hydrocodone (HYDROCODONE) Allergy Intermediate Face & Verified 07/08/24 10:10 tounge swelling latex (LATEX) Allergy Intermediate I-RASH Verified 07/08/24 10:10 sulfamethoxazole (From Allergy Verified 07/08/24 10:10 Bactrim) trimethoprim (From Bactrim) Allergy Verified 07/08/24 10:10 PFSH <Vielka Crook (ED), [employer] - Last Filed: 09/04/24 16:46> PFS Disclaimer: The information contained in this section may have been updated after the patient was seen, as this information can be updated by other users. Medical History Encounter for insertion of subdermal contraceptive Abnormal uterine bleeding (AUB) Nausea & vomiting NDPH (new daily persistent headache) Contusion of hand, right Menorrhagia Influenza Ankle sprain Migraine Vomiting Sprain of lumbar region Contusion of coccyx Otitis externa Strain of lumbar region Leukocytosis Allergic reaction Fracture of coccyx Hyperventilation Acute anxiety Panic attack as reaction to stress Chest pain Headache Acute gastroenteritis Fibroid uterus Ovarian cyst Anxiety Depression Surgical History History of partial hysterectomy H/O: hysterectomy [facility] 12/08/24 History of colonoscopy History of esophagogastroduodenoscopy (EGD) Hx of appendectomy History of cholecystectomy Family History Other No significant family history Social History Smoking Status: Never smoker alcohol intake: never substance use type: denies use current occupational status: unemployed Travel in the last 8 weeks: None household members: family housing: house Have you lived/traveled outside US in past 30 days?: No Contact w/someone who lives/traveled outside US past 30 days?: No Exposure to someone with infectious disease in past 14 days?: No Do you have a fever (greater than 100.4 F or 38 C)?: No Have you tested positive for COVID-19: No Exposed to someone with COVID-19 in past 14 days?: No Do you have a sore throat?: No Do you have a cough?: No Do you have any weakness?: No Do you have any diarrhea?: No Are you experiencing any unusual bleeding?: No Do you have any muscle aches/pain?: No Do you have any abdominal pain?: No Are you experiencing loss of taste or smell?: No Other Medical History Have you received the Flu Vaccine for this season: No Have you received the Pneumonia Vaccine: No <[facility] (ED), [employer] - Last Filed: 09/04/24 16:46> ROS Obtained: Yes Systems reviewed as appropriate & no additional complaints except as documented Constitutional Constitutional: Reports as per HPI Physical Exam <[facility] (ED), [employer] - Last Filed: 09/04/24 16:46> General General appearance: alert Head Head exam: atraumatic and normocephalic Eye Eye exam: Present normal appearance, PERRL and EOMI ENT ENT exam: Present normal exam, normal oropharynx and mucous membranes moist Neck Neck exam: Present normal inspection, full ROM and trachea midline Respiratory Respiratory exam: Present normal lung sounds bilaterally Cardiovascular Cardiovascular exam: Present regular rate, normal rhythm, normal heart sounds, +S1 and +S2 Abdominal Exam Abdominal exam: Present soft and normal bowel sounds Extremities Exam Extremities exam: Present normal inspection, full ROM and normal capillary refill Back Exam Back exam: Present normal inspection Neurological Exam Neurological exam: Present alert and oriented X3 Skin Skin exam: Present warm, dry and intact Medical Decision Making <[facility] (ED), [employer] - Last Filed: 09/04/24 16:46> Medical Records Screening: Per USPSTF and CDC recommendations, given the prevalence of disease in our region, it is our hospital?s policy to screen for HIV and viral Hepatitis for all patients aged 18 and over and those with ongoing risk factors. Gregorio Inquiry Pt receiving controlled substance: No Gregorio was queried for this patient: No Vital Signs: 09/04/24 13:00 09/04/24 13:32 09/04/24 14:01 Temperature 98.3 F Temperature Source Oral Pulse Rate 102 H 86 Pulse Rate [Right] 99 H Respiratory Rate 18 Blood Pressure 149/93 H 134/82 Blood Pressure [Right Arm] 148/83 H Blood Pressure Mean [Right Arm] 104 02 Sat by Pulse Oximetry 99 97 96 Oxygen Delivery Method Room Air Room Air Room Air 09/04/24 15:15 09/04/24 15:31 09/04/24 16:06 Temperature 98.3 F Temperature Source Oral Pulse Rate 79 72 84 Pulse Rate [Right] Respiratory Rate 16 18 Blood Pressure 102/63 L 102/63 L 102/63 L Blood Pressure [Right Arm] Blood Pressure Mean [Right Arm] 02 Sat by Pulse Oximetry 96 95 Oxygen Delivery Method Room Air Room Air Room Air Lab Data Lab results reviewed: Yes I reviewed the patient's lab results. Lab Results 09/04/24 13:00: WBC 6.8, RBC 5.22, Hgb 15.8, Hct 45.1, MCV 86.4, MCH 30.3, MCHC 35.0, RDW 12.1, Plt Count 294, MPV 10.2, Neut % (Auto) 64.2, Lymph % (Auto) 23.6, [place] % (Auto) 4.6, Eos % (Auto) 6.6, Baso % (Auto) 0.7, Neut # (Auto) 4.3, Lymph # (Auto) 1.6, [place] # (Auto) 0.3, Eos # (Auto) 0.5 H, Baso # (Auto) 0.1, Sodium 144, Potassium 3.7, Chloride 107, Carbon Dioxide 26, Anion Gap 14.7, BUN 7, Creatinine 0.80, Estimated Creat Clear 78, Estimated GFR 85, Est GFR ( Amer) 103, Glucose 136 H, Calcium 9.6, Magnesium 1.9, Total Bilirubin 0.6, AST 47 H, ALT 58, Alkaline Phosphatase 55, Total Protein 8.3 H, Albumin 4.9, G lobulin 3.4 H, Albumin/Globulin Ratio 1.4, Lipase 104 09/04/24 13:07: Urine Color Yellow, Urine Appearance Clear, Urine pH 6.0, Ur Specific [place] >= 1.030, Urine Protein Negative, Urine Glucose (UA) Negative, Urine Ketones Negative, Urine Blood Negative, Urine Nitrate Negative, Urine Bilirubin Negative, Urine Urobilinogen 0.2, Ur Leukocyte Esterase Negative, Urine RBC 3-5, Urine WBC 5-10, Ur Squamous Epith Cells 3-5, Urine Bacteria Trace 09/04/24 13:10: SARS-CoV-2 (PCR) Not detected, Influenza A Untype (PCR) Not detected, Influenza Type B (PCR) Not detected 09/04/24 13:00 09/04/24 13:00 Orders (Tests/Meds): ED MEDICATIONS Discontinued Medications Generic Name Dose Route Start Last Admin Trade Name Freq PRN Reason Stop Dose Admin Acetaminophen 1,000 mg 09/04/24 12:57 09/04/24 13:15 Acetaminophen 1,000mg/100ml Vial IV 09/04/24 12:58 1,000 mg ONCE ONE Administration Diphenhydramine HCl 25 mg 09/04/24 12:57 09/04/24 13:15 Diphenhydramine 50mg/Ml Vial IV 09/04/24 12:58 25 mg ONCE ONE Administration Droperidol 2.5 mg 09/04/24 14:03 09/04/24 14:16 Droperidol 5mg/2ml Vial IV 09/04/24 14:04 2.5 mg ONCE ONE Administration Sodium Chloride 1,000 mls @ 999 mls/hr 09/04/24 12:57 09/04/24 13:13 Sod Chlor 0.9% 1000ml Bag IV 09/04/24 13:57 999 mls/hr .Q1H1M ONE Administration Ondansetron HCl 4 mg 09/04/24 13:19 09/04/24 13:21 Ondansetron 4mg/2ml Vial IV 09/04/24 13:20 4 mg ONCE ONE Administration Orphenadrine Citrate 60 mg 09/04/24 13:00 09/04/24 13:16 Orphenadrine Citrate 60mg/2ml Vial IV 09/04/24 13:01 60 mg ONCE ONE Administration ORDERS Category Date Time Status CBC [Complete Blood Count Auto Diff] Stat Lab 09/04/24 13:00 Completed Comprehensive Metabolic Panel Stat Lab 09/04/24 13:00 Completed Lipase Stat Lab 09/04/24 13:00 Completed Magnesium Stat Lab 09/04/24 13:00 Completed Rapid PCR Covid and Flu A/B Stat Lab 09/04/24 13:10 Completed Urinalysis-Acute [Urinalysis and Microscopic] Stat Lab 09/04/24 13:07 Completed ECG Data Tracing #1: ECG initial impression date: 09/04/24 ECG initial impression time: 14:18 ECG normal with no acute: arrhythmias, ischemia, conduction abnormalities, chamber hypertrophy Normal Sinus Rhythm: Yes Ischemic changes: non-specific ST-T wave changes Additional Comments: QT 353 HEART Score History (anamnesis): Slightly suspicious ECG: Normal Age: <45 years Risk factors: No known risk factors Troponin: </= normal limit HEART Score: 0 Medical Decision Narrative: Insert review patient is a 29-year-old female presenting to the emergency department for evaluation of headache, back pain with no injury, nausea that has been going on for 2 days.. Patient is hemodynamically stable and nontoxic- appearing upon arrival, afebrile. Differential diagnosis includes viral illness, migraine among others. Workup will be conducted with hematologic labs. Initial inventions include crystalloid bolus, analgesics. Initial workup reviewed by me hematologic labs are unremarkable. Imaging was considered but unnecessary due to symptoms. Patient is completely improved after medications. I have given her return precautions. Patient is safe for discharge home. <Ming Webb MD - Last Filed: 09/05/24 17:13> Vital Signs: 09/04/24 13:00 09/04/24 13:32 09/04/24 14:01 Temperature 98.3 F Temperature Source Oral Pulse Rate 102 H 86 Pulse Rate [Right] 99 H Respiratory Rate 18 Blood Pressure 149/93 H 134/82 Blood Pressure [Right Arm] 148/83 H Blood Pressure Mean [Right Arm] 104 02 Sat by Pulse Oximetry 99 97 96 Oxygen Delivery Method Room Air Room Air Room Air 09/04/24 15:15 09/04/24 15:31 09/04/24 16:06 Temperature 98.3 F Temperature Source Oral Pulse Rate 79 72 84 Pulse Rate [Right] Respiratory Rate 16 18 Blood Pressure 102/63 L 102/63 L 102/63 L Blood Pressure [Right Arm] Blood Pressure Mean [Right Arm] 02 Sat by Pulse Oximetry 96 95 Oxygen Delivery Method Room Air Room Air Room Air Lab Data Lab Results 09/04/24 13:00: WBC 6.8, RBC 5.22, Hgb 15.8, Hct 45.1, MCV 86.4, MCH 30.3, MCHC 35.0, RDW 12.1, Plt Count 294, MPV 10.2, Neut % (Auto) 64.2, Lymph % (Auto) 23.6, [place] % (Auto) 4.6, Eos % (Auto) 6.6, Baso % (Auto) 0.7, Neut # (Auto) 4.3, Lymph # (Auto) 1.6, [place] # (Auto) 0.3, Eos # (Auto) 0.5 H, Baso # (Auto) 0.1, Sodium 144, Potassium 3.7, Chloride 107, Carbon Dioxide 26, Anion Gap 14.7, BUN 7, Creatinine 0.80, Estimated Creat Clear 78, Estimated GFR 85, Est GFR ( Amer) 103, Glucose 136 H, Calcium 9.6, Magnesium 1.9, Total Bilirubin 0.6, AST 47 H, ALT 58, Alkaline Phosphatase 55, Total Protein 8.3 H, Albumin 4.9, G lobulin 3.4 H, Albumin/Globulin Ratio 1.4, Lipase 104 09/04/24 13:07: Urine Color Yellow, Urine Appearance Clear, Urine pH 6.0, Ur Specific [place] >= 1.030, Urine Protein Negative, Urine Glucose (UA) Negative, Urine Ketones Negative, Urine Blood Negative, Urine Nitrate Negative, Urine Bilirubin Negative, Urine Urobilinogen 0.2, Ur Leukocyte Esterase Negative, Urine RBC 3-5, Urine WBC 5-10, Ur Squamous Epith Cells 3-5, Urine Bacteria Trace 09/04/24 13:10: SARS-CoV-2 (PCR) Not detected, Influenza A Untype (PCR) Not detected, Influenza Type B (PCR) Not detected Orders (Tests/Meds): ED MEDICATIONS Discontinued Medications Generic Name Dose Route Start Last Admin Trade Name Mukulq PRN Reason Stop Dose Admin Acetaminophen 1,000 mg 09/04/24 12:57 09/04/24 13:15 Acetaminophen 1,000mg/100ml Vial IV 09/04/24 12:58 1,000 mg ONCE ONE Administration Diphenhydramine HCl 25 mg 09/04/24 12:57 09/04/24 13:15 Diphenhydramine 50mg/Ml Vial IV 09/04/24 12:58 25 mg ONCE ONE Administration Droperidol 2.5 mg 09/04/24 14:03 09/04/24 14:16 Droperidol 5mg/2ml Vial IV 09/04/24 14:04 2.5 mg ONCE ONE Administration Sodium Chloride 1,000 mls @ 999 mls/hr 09/04/24 12:57 09/04/24 13:13 Sod Chlor 0.9% 1000ml Bag IV 09/04/24 13:57 999 mls/hr .Q1H1M ONE Administration Ondansetron HCl 4 mg 09/04/24 13:19 09/04/24 13:21 Ondansetron 4mg/2ml Vial IV 09/04/24 13:20 4 mg ONCE ONE Administration Orphenadrine Citrate 60 mg 09/04/24 13:00 09/04/24 13:16 Orphenadrine Citrate 60mg/2ml Vial IV 09/04/24 13:01 60 mg ONCE ONE Administration ORDERS Category Date Time Status CBC [Complete Blood Count Auto Diff] Stat Lab 09/04/24 13:00 Completed Comprehensive Metabolic Panel Stat Lab 09/04/24 13:00 Completed Lipase Stat Lab 09/04/24 13:00 Completed Magnesium Stat Lab 09/04/24 13:00 Completed Rapid PCR Covid and Flu A/B Stat Lab 09/04/24 13:10 Completed Urinalysis-Acute [Urinalysis and Microscopic] Stat Lab 09/04/24 13:07 Completed HEART Score HEART Score: 0 Medical Decision Narrative: Insert review patient is a 29-year-old female presenting to the emergency department for evaluation of headache, back pain with no injury, nausea that has been going on for 2 days.. Patient is hemodynamically stable and nontoxic- appearing upon arrival, afebrile. Differential diagnosis includes viral illness, migraine among others. Workup will be conducted with hematologic labs. Initial inventions include crystalloid bolus, analgesics. Initial workup reviewed by me hematologic labs are unremarkable. Imaging was considered but unnecessary due to symptoms. Patient is completely improved after medications. I have given her return precautions. Patient is safe for discharge home. I was consulted by the FORERST, and we discussed the complexity of the problems being addressed. I approved the treatment and management plan for this patient's care in the emergency department, thus performing a substantive portion of the medical decision making. MD Ming Shirley MD <Anthony Herman MD - Last Filed: 09/04/24 16:19> Vital Signs: 09/04/24 13:00 09/04/24 13:32 09/04/24 14:01 Temperature 98.3 F Temperature Source Oral Pulse Rate 102 H 86 Pulse Rate [Right] 99 H Respiratory Rate 18 Blood Pressure 149/93 H 134/82 Blood Pressure [Right Arm] 148/83 H Blood Pressure Mean [Right Arm] 104 02 Sat by Pulse Oximetry 99 97 96 Oxygen Delivery Method Room Air Room Air Room Air 09/04/24 15:15 09/04/24 15:31 09/04/24 16:06 Temperature 98.3 F Temperature Source Oral Pulse Rate 79 72 84 Pulse Rate [Right] Respiratory Rate 16 18 Blood Pressure 102/63 L 102/63 L 102/63 L Blood Pressure [Right Arm] Blood Pressure Mean [Right Arm] 02 Sat by Pulse Oximetry 96 95 Oxygen Delivery Method Room Air Room Air Room Air Lab Data Lab Results 09/04/24 13:00: WBC 6.8, RBC 5.22, Hgb 15.8, Hct 45.1, MCV 86.4, MCH 30.3, MCHC 35.0, RDW 12.1, Plt Count 294, MPV 10.2, Neut % (Auto) 64.2, Lymph % (Auto) 23.6, [place] % (Auto) 4.6, Eos % (Auto) 6.6, Baso % (Auto) 0.7, Neut # (Auto) 4.3, Lymph # (Auto) 1.6, [place] # (Auto) 0.3, Eos # (Auto) 0.5 H, Baso # (Auto) 0.1, Sodium 144, Potassium 3.7, Chloride 107, Carbon Dioxide 26, Anion Gap 14.7, BUN 7, Creatinine 0.80, Estimated Creat Clear 78, Estimated GFR 85, Est GFR ( Amer) 103, Glucose 136 H, Calcium 9.6, Magnesium 1.9, Total Bilirubin 0.6, AST 47 H, ALT 58, Alkaline Phosphatase 55, Total Protein 8.3 H, Albumin 4.9, G lobulin 3.4 H, Albumin/Globulin Ratio 1.4, Lipase 104 09/04/24 13:07: Urine Color Yellow, Urine Appearance Clear, Urine pH 6.0, Ur Specific [place] >= 1.030, Urine Protein Negative, Urine Glucose (UA) Negative, Urine Ketones Negative, Urine Blood Negative, Urine Nitrate Negative, Urine Bilirubin Negative, Urine Urobilinogen 0.2, Ur Leukocyte Esterase Negative, Urine RBC 3-5, Urine WBC 5-10, Ur Squamous Epith Cells 3-5, Urine Bacteria Trace 09/04/24 13:10: SARS-CoV-2 (PCR) Not detected, Influenza A Untype (PCR) Not detected, Influenza Type B (PCR) Not detected Orders (Tests/Meds): ED MEDICATIONS Discontinued Medications Generic Name Dose Route Start Last Admin Trade Name Freq PRN Reason Stop Dose Admin Acetaminophen 1,000 mg 09/04/24 12:57 09/04/24 13:15 Acetaminophen 1,000mg/100ml Vial IV 09/04/24 12:58 1,000 mg ONCE ONE Administration Diphenhydramine HCl 25 mg 09/04/24 12:57 09/04/24 13:15 Diphenhydramine 50mg/Ml Vial IV 09/04/24 12:58 25 mg ONCE ONE Administration Droperidol 2.5 mg 09/04/24 14:03 09/04/24 14:16 Droperidol 5mg/2ml Vial IV 09/04/24 14:04 2.5 mg ONCE ONE Administration Sodium Chloride 1,000 mls @ 999 mls/hr 09/04/24 12:57 09/04/24 13:13 Sod Chlor 0.9% 1000ml Bag IV 09/04/24 13:57 999 mls/hr .Q1H1M ONE Administration Ondansetron HCl 4 mg 09/04/24 13:19 09/04/24 13:21 Ondansetron 4mg/2ml Vial IV 09/04/24 13:20 4 mg ONCE ONE Administration Orphenadrine Citrate 60 mg 09/04/24 13:00 09/04/24 13:16 Orphenadrine Citrate 60mg/2ml Vial IV 09/04/24 13:01 60 mg ONCE ONE Administration ORDERS Category Date Time Status CBC [Complete Blood Count Auto Diff] Stat Lab 09/04/24 13:00 Completed Comprehensive Metabolic Panel Stat Lab 09/04/24 13:00 Completed Lipase Stat Lab 09/04/24 13:00 Completed Magnesium Stat Lab 09/04/24 13:00 Completed Rapid PCR Covid and Flu A/B Stat Lab 09/04/24 13:10 Completed Urinalysis-Acute [Urinalysis and Microscopic] Stat Lab 09/04/24 13:07 Completed HEART Score HEART Score: 0 Medical Decision Narrative: Insert review patient is a 29-year-old female presenting to the emergency department for evaluation of headache, back pain with no injury, nausea that has been going on for 2 days.. Patient is hemodynamically stable and nontoxic- appearing upon arrival, afebrile. Differential diagnosis includes viral illness, migraine among others. Workup will be conducted with hematologic labs. Initial inventions include crystalloid bolus, analgesics. Initial workup reviewed by me hematologic labs are unremarkable. Imaging was considered but unnecessary due to symptoms. Patient is completely improved after medications. I have given her return precautions. Patient is safe for discharge home. I was consulted by the FORREST, and we discussed the complexity of the problems being addressed. I approved the treatment and management plan for this patient's care in the emergency department, thus performing a substantive portion of the medical decision making. Anthony Herman MD Critical Care <Anthony Herman MD - Last Filed: 09/04/24 16:19> Critical Care Time Critical Care Time: No
[2024-09-04 13:08] LABS: Basophils # 0.1 K/mm3 (0-0.2); Basophils % 0.7 % (0.1-2.0); Eosinophils # 0.5 Kmm3 (0.0-0.4); Eosinophils % 6.6 % (0.1-12.0); Hematocrit 45.1 % (37.0-47.0); Hemoglobin 15.8 g/dL (12.2-16.2); Lymphocytes # 1.6 K/mm3 (0.7-4.5); Lymphocytes % 23.6 % (10-50); Mean Corpuscular Hemoglobin 30.3 pg (27.0-31.2); Mean Corpuscular Volume 86.4 fl (81-99); Mean Platelet Volume 10.2 fl (7.4-10.4); Monocytes # 0.3 K/mm3 (0.1-1.0); Monocytes % 4.6 % (1.7-9.3); Neutrophils # 4.3 K/mm3 (1.8-7.8); Neutrophils % 64.2 % (37.0-80.0); Nucleated Red Blood Cells # 0 10^3/uL; Nucleated Red Blood Cells % 0 %; Platelet Count 294 K/mm3 (142-424); Red Blood Count 5.22 M/mm3 (4.20-5.40); Red Cell Distribution Width 12.1 % (11.5-17.5); Red Cell Distribution Width-SD 38.5 fL; White Blood Count 6.8 K/mm3 (4.8-10.8)
[2024-09-04 13:11] LABS: Microscopic, Urine URINE MICROSCOPIC (MICROSCOPIC)
[2024-09-04 13:13] LABS: Appearance,Urine CLEAR (Clear); Bilirubin,Urine Negative (Negative); Blood, Urine Negative (Negative); Color,Urine YELLOW (Yellow); Glucose,Urine (UA) Negative (Negative); Ketones,Urine Negative (Negative); Leukocyte Esterase,Urine Negative (Negative); Nitrate,Urine Negative (Negative); Protein,Urine Negative (Negative); Specific Gravity, Urine >= 1.030 (1.005-1.030); Urobilinogen,Urine 0.2 EU/dl (0.2)
[2024-09-04 13:13] LABS: Coronavirus 19, PCR Not Detected (NotDetected); Influenza A, PCR Not Detected (NotDetected); Influenza B, PCR Not Detected (NotDetected)
[2024-09-04] MEDS: 0.9 % SODIUM CHLORIDE 1000ML 1,000 ML 999 ML IV (13:13)
[2024-09-04 13:15] LABS: Albumin Level 4.9 g/dl (3.5-5.0); Chloride 107 mmol/L (98-107); Potassium 3.7 mmoL/L (3.5-5.1); Sodium 144 mmol/L (136-145)
[2024-09-04] MEDS: ACETAMINOPHEN 1,000MG/100ML VIAL 1000 MG IV (13:15)
[2024-09-04] MEDS: diphenhydrAMINE 50MG/ML VIAL 25 MG IV (13:15)
[2024-09-04] MEDS: ORPHENADRINE CITRATE 60MG/2ML VIAL 60 MG IV (13:16)
[2024-09-04 13:17] LABS: Alanine Aminotransferase 58 U/L (12-78); Aspartate Amino Transferase 47 U/L (14-36); Blood Urea Nitrogen 7 mg/dl (7-17); Creatinine Clearance Estimated 78 mL/min (50-200); Estimated Glomerular Filt Rate 85 ml/min (>60); GFR (African American) 103 ML/MIN (>60)
[2024-09-04 13:18] LABS: Albumin/Globulin Ratio 1.4 (1.1-1.8); Alkaline Phosphatase 55 U/L (38-126); Anion Gap 14.7 mEq/L (5-15); Bilirubin,Total 0.6 mg/dl (0.2-1.3); Calcium 9.6 mg/dl (8.4-10.2); Carbon Dioxide 26 mmol/L (22.0-30.0); Globulin 3.4 g/dL (1.3-3.2); Glucose 136 mg/dl (74-100); Lipase 104 U/L (23-300); Magnesium 1.9 mg/dl (1.6-2.3); Total Protein,Serum 8.3 g/dl (6.3-8.2)
[2024-09-04] MEDS: ONDANSETRON 4MG/2ML VIAL 4 MG IV (13:21)
[2024-09-04 13:27] LABS: Bacteria,Urine Trace /lpf
[2024-09-04 13:32] VITALS: BP 149/93; PULSE 102; O2SAT 97
[2024-09-04 14:01] VITALS: BP 134/82; PULSE 86; O2SAT 96
[2024-09-04] MEDS: droPERidol 5MG/2ML VIAL 2.5 MG IV (14:16)
--- NOTE | 2024-09-04 14:18 | ECG_ITS ---
APPROVED REPORT Exam: Resting ECG HR:83 bpm ECG Measurements Heart Rate 83 AXES MA 173 P 70 QRSd 84 QRS 84 QT 353 T 45 QTc 393 Conclusion SINUS RHYTHM NONSPECIFIC T-WAVE ABNORMALITY Electronically signed by : SARAHY VIDES, 09/04/2024 16:23:07
[2024-09-04 15:15] VITALS: BP 102/63; PULSE 79; O2SAT 96
[2024-09-04 15:31] VITALS: BP 102/63; PULSE 72; RESP 16; O2SAT 95
[2024-09-04 16:06] VITALS: BP 102/63; PULSE 84; RESP 18; TEMP 36.8; O2SAT 96
== END 2024-09-04 16:15 | disposition home or self-care (01) ==
PROVIDERS: Nurse Practitioner; Emergency Provider Emergency Medicine; PCP Family Medicine
DX: G43.909 Migraine, unspecified, not intractable, without status migrainosus (principal); M62.838 Other muscle spasm
CPT/HCPCS: 80053; 81001; 83690; 83735; 85025; 87636; 93005; 96361; 96374; 96375; 99284; J0131; J1200; J1790; J2360; J2405; J7030

== ENCOUNTER 2024-09-27 14:04 | Emergency (ER) | payer OTHER, SELFPAY ==
[2024-09-27 15:22] VITALS: BP 152/91; PULSE 115; RESP 16; TEMP 36.8; O2SAT 98; BMI 41.5
[2024-09-27 15:42] VITALS: BP 128/88; PULSE 124; RESP 20; TEMP 36.7; O2SAT 97
[2024-09-27 16:14] VITALS: BP 130/87; PULSE 113; O2SAT 97
--- NOTE | 2024-09-27 16:22 | CT_ITS ---
PROCEDURE INFORMATION: Exam: CT Abdomen And Pelvis With Contrast Exam date and time: 09/27/2024 5:20 PM Age: 29 years old Clinical indication: Nausea and vomiting; Abdominal pain; Other: Lower abd; Additional info: Lower abd pain, n/v TECHNIQUE: Imaging protocol: Computed tomography of the abdomen and pelvis with contrast. Radiation optimization: All CT scans at this facility use at least one of these dose optimization techniques: automated exposure control; mA and/or kV adjustment per patient size (includes targeted exams where dose is matched to clinical indication); or iterative reconstruction. Contrast material: ISOVUE; Contrast volume: 75 ml; Contrast route: IV; COMPARISON: CT ABDOMEN PELVIS W CON 04/19/2024 10:14 AM FINDINGS: Liver: The liver is low in density. Gallbladder and biliary ducts: Cholecystectomy. Pancreas: Normal. No ductal dilation. Spleen: Normal. No splenomegaly. Adrenal glands: Normal. No mass. Kidneys and ureters: Normal. No hydronephrosis. Stomach and bowel: Unremarkable. No obstruction. No mucosal thickening. Appendix: No evidence of appendicitis. Appendectomy. Intraperitoneal space: Unremarkable. No free air. No significant fluid collection. Vasculature: Unremarkable. No abdominal aortic aneurysm. Lymph nodes: Unremarkable. No enlarged lymph nodes. Urinary bladder: Unremarkable as visualized. Reproductive: Hysterectomy. Bones/joints: Unremarkable. No acute fracture. Soft tissues: Unremarkable. IMPRESSION: 1. No acute process identified to explain the patient's symptoms. 2. Cholecystectomy. Hysterectomy. Appendectomy. 3. Diffuse hepatic steatosis.
--- NOTE | 2024-09-27 16:24 | [facility].EDGENADL ---
Discharge Plan Disposition Patient Disposition: Home, Self-Care Condition: Good Prescriptions Prescriptions: New promethazine 12.5 mg tablet 12.5 mg PO TID PRN (Reason: nausea and vomiting) Qty: 14 0RF Rx Instructions: 3 doses during day; last dose no later than 4 hr before bedtime No Action quetiapine 100 mg tablet 100 mg PO HS Qty: 30 2RF alprazolam [Xanax] 2 mg tablet 2 mg PO TID cyclobenzaprine 10 mg tablet 10 mg PO BID Qty: 60 0RF ondansetron 4 mg tablet,disintegrating 4 mg PO Q6HP PRN (Reason: nausea and vomiting) 5 Days Qty: 5 0RF sumatriptan succinate [Imitrex] 100 mg tablet 100 mg PO ONCE Qty: 10 0RF Rx Instructions: 100 mg orally; Referrals Follow up/Referrals: Diego Thao MD [Primary Care Provider] - See instructions Activity Restrictions/Add. Instructions Additional Instructions/Restrictions: Please return to the emergency department any worsening signs or symptoms, please take all medications as prescribed, take promethazine 12.5 mg tablet as needed for nausea and vomiting, please follow-up with your family physician in the upcoming days. Clinical Impressions Clinical Impression: Abdominal pain Instructions Patient Instructions: DI for Acute Abdominal Pain Print Language Print Language: Armenian Discharge ED Provider: Marilyn Morton General Adult HPI <AYDEE Bush - Last Filed: 09/27/24 18:16> General Chief complaint: Abdominal Pain Stated complaint: lower abd pain vomiting Time Seen by Provider: 09/27/24 16:13 Mode of Arrival: Ambulatory Source of Information: Patient Limitations: No Limitations History of Present Illness HPI narrative: 29-year-old female presents the emergency department with a less than 24-hour history of abdominal pain nausea and vomiting, nonbilious non bloody emesis, she denies any fever chills chest pain shortness of breath, denies any diarrhea, does admit to constipation for the last 2 or 3 days which is somewhat chronic for her, she denies any urinary type symptomatology, denies any hemoptysis, melena or hematochezia, of the past medical history is consistent with chronic abdominal pain, PCOS, endometriosis, she is status postcholecystectomy and appendectomy, as well as hysterectomy, other past medical history consistent with anxiety/depression, and chronic migraines. Initial triage vitals noted for tachycardia otherwise unremarkable, she denies any tobacco alcohol or drug use. Also of note, patient denies any new sexual contacts or risky sexual behaviors Onset (ago): day(s) Related Data Home Medications ?Medication ?Instructions ?Recorded ?Confirmed alprazolam 2 mg tablet (Xanax) 2 mg PO TID 09/04/24 09/04/24 Previous Rx's ?Medication ?Instructions ?Recorded quetiapine 100 mg tablet 100 mg PO HS #30 tabs 05/20/24 cyclobenzaprine 10 mg tablet 10 mg PO BID #60 tabs 09/04/24 ondansetron 4 mg disintegrating 4 mg PO Q6HP PRN nausea and 09/04/24 tablet vomiting 5 days #5 tabs sumatriptan succinate 100 mg 100 mg PO ONCE #10 tabs 09/04/24 tablet (Imitrex) promethazine 12.5 mg tablet 12.5 mg PO TID PRN nausea and 09/27/24 vomiting #14 tabs Allergies Allergy/AdvReac Type Severity Reaction Status Date / Time ketorolac Allergy Severe Anaphylaxis Verified 07/08/24 10:10 hydrocodone (HYDROCODONE) Allergy Intermediate Face & Verified 07/08/24 10:10 tounge swelling latex (LATEX) Allergy Intermediate I-RASH Verified 07/08/24 10:10 sulfamethoxazole (From Allergy Unknown Verified 09/27/24 16:50 Bactrim) allergy reaction trimethoprim (From Bactrim) Allergy Unknown Verified 09/27/24 16:50 allergy reaction PFS <AYDEE Bush - Last Filed: 09/27/24 18:16> [facility] Disclaimer: The information contained in this section may have been updated after the patient was seen, as this information can be updated by other users. Medical History Encounter for insertion of subdermal contraceptive Abnormal uterine bleeding (AUB) Nausea & vomiting NDPH (new daily persistent headache) Contusion of hand, right Menorrhagia Influenza Ankle sprain Migraine Vomiting Sprain of lumbar region Contusion of coccyx Otitis externa Strain of lumbar region Leukocytosis Allergic reaction Fracture of coccyx Hyperventilation Acute anxiety Panic attack as reaction to stress Chest pain Headache Acute gastroenteritis Fibroid uterus Ovarian cyst Anxiety Depression Surgical History History of partial hysterectomy H/O: hysterectomy [facility] 12/08/24 History of colonoscopy History of esophagogastroduodenoscopy (EGD) Hx of appendectomy History of cholecystectomy Family History Other No significant family history Social History Smoking Status: Never smoker alcohol intake: never substance use type: denies use current occupational status: unemployed Travel in the last 8 weeks?: None household members: family housing: house Have you lived/traveled outside [place] in past 30 days?: No Contact w/someone who lives/traveled outside US past 30 days?: No Exposure to someone with infectious disease in past 14 days?: No Do you have a fever (greater than 100.4 F or 38 C)?: No Have you tested positive for COVID-19?: No Exposed to someone with COVID-19 in past 14 days?: No Do you have a sore throat?: No Do you have a cough?: No Do you have any weakness?: No Do you have any diarrhea?: No Are you experiencing any unusual bleeding?: No Do you have any muscle aches/pain?: No Do you have any abdominal pain?: No Are you experiencing loss of taste or smell?: No Other Medical History Have you received the Flu Vaccine for this season: No Have you received the Pneumonia Vaccine: No <AYDEE Bush - Last Filed: 09/27/24 18:16> ROS Obtained: Yes All systems reviewed & no additional complaints except as documented Physical Exam <AYDEE Bush - Last Filed: 09/27/24 18:16> General General appearance: alert and in no apparent distress Head Head exam: atraumatic and normocephalic Eye Eye exam: Present PERRL and EOMI ENT ENT exam: Present mucous membranes moist Neck Neck exam: Present normal inspection Chest Chest inspection: Present normal inspection and symmetric chest wall rise Respiratory Respiratory exam: Present normal lung sounds bilaterally; Absent respiratory distress, wheezes or stridor Cardiovascular Cardiovascular exam: Present regular rate and normal rhythm Abdominal Exam Abdominal exam: Present soft and tenderness; Absent guarding, rebound or rigidity Abdominal tenderness: Present suprapubic, diffuse and mild Comment: Mild lower quadrant suprapubic abdominal pain to palpation, no guarding no rebound or rigidity, Extremities Exam Extremities exam: Present normal inspection Neurological Exam Neurological exam: Present alert and oriented X3 Psychiatric Psychiatric exam: Present normal affect Skin Skin exam: Present warm and dry Medical Decision Making <AYDEE Bush - Last Filed: 09/27/24 18:16> Medical Records Medical records reviewed: Yes I reviewed the patient's medical records. Screening: Per USPSTF and CDC recommendations, given the prevalence of disease in our region, it is our hospital?s policy to screen for HIV and viral Hepatitis for all patients aged 18 and over and those with ongoing risk factors. Gregorio Inquiry Pt receiving controlled substance: Yes Gregorio was queried for this patient: No Reason not queried -: Emergent pt cond-no time Risks and benefits of using a controlled substance: were discussed with pt by me Vital Signs: 09/27/24 15:22 09/27/24 15:42 09/27/24 16:14 Temperature 98.3 F 98.0 F Temperature Source Oral Oral Pulse Rate 124 H 113 H Pulse Rate [Left] 115 H Respiratory Rate 16 20 Blood Pressure 128/88 130/87 Blood Pressure [Right Arm] 152/91 H Blood Pressure Mean [Right Arm] 111 Blood Pressure Source Automatic Cuff Blood Pressure Source [Right Arm] Automatic Cuff Blood Pressure Position Sitting Blood Pressure Position [Right Arm] Sitting 02 Sat by Pulse Oximetry 98 97 97 Oxygen Delivery Method Room Air Room Air Room Air 09/27/24 17:17 09/27/24 18:04 09/27/24 18:24 Temperature 98.0 F Temperature Source Oral Pulse Rate 106 H 105 H 100 H Pulse Rate [Left] Respiratory Rate 18 Blood Pressure 134/91 H 154/90 H 152/98 H Blood Pressure [Right Arm] Blood Pressure Mean [Right Arm] Blood Pressure Source Automatic Cuff Automatic Cuff Blood Pressure Source [Right Arm] Blood Pressure Position Supine Blood Pressure Position [Right Arm] 02 Sat by Pulse Oximetry 96 98 Oxygen Delivery Method Room Air Room Air Room Air Lab Data Lab results reviewed: Yes I reviewed the patient's lab results. Lab Results 09/27/24 15:30: Urine Color Yellow, Urine Appearance Clear, Urine pH 8.0, Ur Specific Sparks 1.015, Urine Protein Negative, Urine Glucose (UA) Negative, Urine Ketones Negative, Urine Blood Negative, Urine Nitrate Negative, Urine Bilirubin Negative, Urine Urobilinogen 0.2, Ur Leukocyte Esterase Negative, Urine RBC None, Urine WBC 3-5, Ur Squamous Epith Cells 5-10, Urine Bacteria 3+, Urine Sperm Occ, Urine Opiates Screen Negative, Urine Methadone Screen Negative, Ur Barbituates Screen Negative, Ur Phencyclidine Scrn Negative, Ur Amphetamines Screen Negative, U Benzodiazepines Scrn Negative, Urine Cocaine Screen Negative, U Marijuana (THC) Screen Negative 09/27/24 16:15: WBC 10.7, RBC 5.42 H, Hgb 16.4 H, Hct 46.7, MCV 86.2, MCH 30.3, MCHC 35.1, RDW 12.0, Plt Count 300, MPV 10.1, Neut % (Auto) 68.4, Lymph % (Auto) 18.4, Riley % (Auto) 7.1, Eos % (Auto) 5.0, Baso % (Auto) 0.7, Neut # (Auto) 7.3, Lymph # (Auto) 2.0, Riley # (Auto) 0.8, Eos # (Auto) 0.5 H, Baso # (Auto) 0.1, Sodium 140, Potassium 4.1, Chloride 106, Carbon Dioxide 26, Anion Gap 12.1, BUN 7, Creatinine 0.80, Estimated Creat Clear 78, Estimated GFR 85, Est GFR ( Amer) 103, Glucose 103 H, Calcium 9.7, Total Bilirubin 0.3, AST 45 H, ALT 57, Alkaline Phosphatase 63, Total Protein 8.0, Albumin 4.9, Globulin 3.1, Albumin/Globulin Ratio 1.6, Lipase 72, Serum HCG, Qual Negative 09/27/24 16:15 09/27/24 16:15 Orders (Tests/Meds): ED MEDICATIONS Discontinued Medications Generic Name Dose Route Start Last Admin Trade Name Freq PRN Reason Stop Dose Admin Iopamidol 75 ml 09/27/24 17:25 09/27/24 17:26 Iopamidol-370 (76%);100ml Bottle IV 09/27/24 17:26 75 ml ONCE ONE Administration Morphine Sulfate 4 mg 09/27/24 16:23 09/27/24 16:35 Morphine 4mg/Ml Syringe IV 09/27/24 16:24 4 mg ONCE ONE Administration Ondansetron HCl 4 mg 09/27/24 16:23 09/27/24 16:35 Ondansetron 4mg/2ml Vial IV 09/27/24 16:24 4 mg ONCE ONE Administration Promethazine HCl 12.5 mg 09/27/24 17:24 09/27/24 17:42 Promethazine Hcl 25mg/Ml 1ml Vial IV 09/27/24 17:25 12.5 mg ONCE ONE Administration Sodium Chloride 25 ml 09/27/24 17:24 09/27/24 17:43 Sodium Chloride 0.9% 25ml Bag IV 09/27/24 17:25 25 ml ONCE ONE Administration Sodium Chloride 10 ml 09/27/24 17:25 09/27/24 17:26 Sodium Chloride 0.9% 10ml Syr (Rad Only) IV 09/27/24 17:26 10 ml ONCE ONE Administration ORDERS Category Date Time Status CT abdomen pelvis w con Stat Cat Scan 09/27/24 16:22 Completed Complete Blood Count Auto Diff Stat Lab 09/27/24 16:15 Completed Comprehensive Metabolic Panel Stat Lab 09/27/24 16:15 Completed Drug Screen,Urine Stat Lab 09/27/24 15:30 Completed HCG Qualitative, Serum Stat Lab 09/27/24 16:15 Completed Lactic Acid Stat Lab 09/27/24 16:21 Ordered Lipase Stat Lab 09/27/24 16:15 Completed Urinalysis and Microscopic Stat Lab 09/27/24 15:30 Completed Urine Culture Stat Micro 09/27/24 15:30 Received Medical Decision Narrative: 29-year-old female presents emerged part with abdominal pain nausea vomiting differential diagnosis include but not limited to ileitis, colitis, gastroenteritis, bowel obstruction, constipation, diverticulitis, ovarian cyst, PCOS, psychogenic nausea and vomiting, among others, acute UTI, acute pyelonephritis among others. I discussed patient case with attending physician Dr. Morton Will obtain basic laboratory studies, UDS, lactic acid level lipase urinalysis, hCG qualitative, CT abdomen pelvis with contrast to be obtained, will give 4 mg IV morphine for pain and 4 mg IV Zofran for nausea. CBC is notable for hemoconcentration with a RBC count of 5.42, hemoglobin is 16.4 otherwise unremarkable CBC. Urinalysis is unremarkable, negative nitrites, negative leukocyte esterase, negative hematuria, however there is 3+ bacteria, with 5-10 squamous cells, with urine sperm and 3-5 WBCs, hCG is negative CMP is notable for minimal AST elevation at 45, otherwise unremarkable, negative lipase, UDS is negative, From a nursing staff approximately 5:40 PM, the patient's nausea has not improved/has reoccurred, will give 12.5 IV Phenergan for nausea. I reviewed the patient's CT abdomen pelvis with contrast on the corresponding radiologic report, no acute process then 5 explain the patient's symptoms, cholecystectomy hysterectomy and appendectomy are present, diffuse hepatic steatosis. Reexamination of the patient approxi-6:05 PM, I discussed all results with the patient at the bedside, patient states her nausea abdominal pain have improved after medication ministration, I did ask the patient again if she had any concern for any risky sexual behaviors/new sexual contacts, I did offer STI testing/evaluation of the patient's dermatology, patient states that she is not concerned and would not like to have testing at this time, I will prescribe the patient Phenergan p.o. outpatient to use for nausea and vomiting, patient will return to emergency with any worsening signs or symptoms, patient will follow-up with PCP, patient voiced understanding to the current treatment plan/discharge plan. Of note, I did consider obtaining TVUS to rule out ovarian torsion, however there is no large cyst noted on CT abdomen pelvis, no pelvic free fluid, patient's had prior hysterectomy, unsure of oophorectomy status. <Marilyn Morton, DO - Last Filed: 09/27/24 19:23> Vital Signs: 09/27/24 15:22 09/27/24 15:42 09/27/24 16:14 Temperature 98.3 F 98.0 F Temperature Source Oral Oral Pulse Rate 124 H 113 H Pulse Rate [Left] 115 H Respiratory Rate 16 20 Blood Pressure 128/88 130/87 Blood Pressure [Right Arm] 152/91 H Blood Pressure Mean [Right Arm] 111 Blood Pressure Source Automatic Cuff Blood Pressure Source [Right Arm] Automatic Cuff Blood Pressure Position Sitting Blood Pressure Position [Right Arm] Sitting 02 Sat by Pulse Oximetry 98 97 97 Oxygen Delivery Method Room Air Room Air Room Air 09/27/24 17:17 09/27/24 18:04 09/27/24 18:24 Temperature 98.0 F Temperature Source Oral Pulse Rate 106 H 105 H 100 H Pulse Rate [Left] Respiratory Rate 18 Blood Pressure 134/91 H 154/90 H 152/98 H Blood Pressure [Right Arm] Blood Pressure Mean [Right Arm] Blood Pressure Source Automatic Cuff Automatic Cuff Blood Pressure Source [Right Arm] Blood Pressure Position Supine Blood Pressure Position [Right Arm] 02 Sat by Pulse Oximetry 96 98 Oxygen Delivery Method Room Air Room Air Room Air Lab Data Lab Results 09/27/24 15:30: Urine Color Yellow, Urine Appearance Clear, Urine pH 8.0, Ur Specific Sparks 1.015, Urine Protein Negative, Urine Glucose (UA) Negative, Urine Ketones Negative, Urine Blood Negative, Urine Nitrate Negative, Urine Bilirubin Negative, Urine Urobilinogen 0.2, Ur Leukocyte Esterase Negative, Urine RBC None, Urine WBC 3-5, Ur Squamous Epith Cells 5-10, Urine Bacteria 3+, Urine Sperm Occ, Urine Opiates Screen Negative, Urine Methadone Screen Negative, Ur Barbituates Screen Negative, Ur Phencyclidine Scrn Negative, Ur Amphetamines Screen Negative, U Benzodiazepines Scrn Negative, Urine Cocaine Screen Negative, U Marijuana (THC) Screen Negative 09/27/24 16:15: WBC 10.7, RBC 5.42 H, Hgb 16.4 H, Hct 46.7, MCV 86.2, MCH 30.3, MCHC 35.1, RDW 12.0, Plt Count 300, MPV 10.1, Neut % (Auto) 68.4, Lymph % (Auto) 18.4, Riley % (Auto) 7.1, Eos % (Auto) 5.0, Baso % (Auto) 0.7, Neut # (Auto) 7.3, Lymph # (Auto) 2.0, Riley # (Auto) 0.8, Eos # (Auto) 0.5 H, Baso # (Auto) 0.1, Sodium 140, Potassium 4.1, Chloride 106, Carbon Dioxide 26, Anion Gap 12.1, BUN 7, Creatinine 0.80, Estimated Creat Clear 78, Estimated GFR 85, Est GFR ( Amer) 103, Glucose 103 H, Calcium 9.7, Total Bilirubin 0.3, AST 45 H, ALT 57, Alkaline Phosphatase 63, Total Protein 8.0, Albumin 4.9, Globulin 3.1, Albumin/Globulin Ratio 1.6, Lipase 72, Serum HCG, Qual Negative Orders (Tests/Meds): ED MEDICATIONS Discontinued Medications Generic Name Dose Route Start Last Admin Trade Name Juanjose PRN Reason Stop Dose Admin Iopamidol 75 ml 09/27/24 17:25 09/27/24 17:26 Iopamidol-370 (76%);100ml Bottle IV 09/27/24 17:26 75 ml ONCE ONE Administration Morphine Sulfate 4 mg 09/27/24 16:23 09/27/24 16:35 Morphine 4mg/Ml Syringe IV 09/27/24 16:24 4 mg ONCE ONE Administration Ondansetron HCl 4 mg 09/27/24 16:23 09/27/24 16:35 Ondansetron 4mg/2ml Vial IV 09/27/24 16:24 4 mg ONCE ONE Administration Promethazine HCl 12.5 mg 09/27/24 17:24 09/27/24 17:42 Promethazine Hcl 25mg/Ml 1ml Vial IV 09/27/24 17:25 12.5 mg ONCE ONE Administration Sodium Chloride 25 ml 09/27/24 17:24 09/27/24 17:43 Sodium Chloride 0.9% 25ml Bag IV 09/27/24 17:25 25 ml ONCE ONE Administration Sodium Chloride 10 ml 09/27/24 17:25 09/27/24 17:26 Sodium Chloride 0.9% 10ml Syr (Rad Only) IV 09/27/24 17:26 10 ml ONCE ONE Administration ORDERS Category Date Time Status CT abdomen pelvis w con Stat Cat Scan 09/27/24 16:22 Completed Complete Blood Count Auto Diff Stat Lab 09/27/24 16:15 Completed Comprehensive Metabolic Panel Stat Lab 09/27/24 16:15 Completed Drug Screen,Urine Stat Lab 09/27/24 15:30 Completed HCG Qualitative, Serum Stat Lab 09/27/24 16:15 Completed Lactic Acid Stat Lab 09/27/24 16:21 Ordered Lipase Stat Lab 09/27/24 16:15 Completed Urinalysis and Microscopic Stat Lab 09/27/24 15:30 Completed Urine Culture Stat Micro 09/27/24 15:30 Received Medical Decision Narrative: 29-year-old female presents emerged part with abdominal pain nausea vomiting differential diagnosis include but not limited to ileitis, colitis, gastroenteritis, bowel obstruction, constipation, diverticulitis, ovarian cyst, PCOS, psychogenic nausea and vomiting, among others, acute UTI, acute pyelonephritis among others. I discussed patient case with attending physician Dr. Morton Will obtain basic laboratory studies, UDS, lactic acid level lipase urinalysis, hCG qualitative, CT abdomen pelvis with contrast to be obtained, will give 4 mg IV morphine for pain and 4 mg IV Zofran for nausea. CBC is notable for hemoconcentration with a RBC count of 5.42, hemoglobin is 16.4 otherwise unremarkable CBC. Urinalysis is unremarkable, negative nitrites, negative leukocyte esterase, negative hematuria, however there is 3+ bacteria, with 5-10 squamous cells, with urine sperm and 3-5 WBCs, hCG is negative CMP is notable for minimal AST elevation at 45, otherwise unremarkable, negative lipase, UDS is negative, From a nursing staff approximately 5:40 PM, the patient's nausea has not improved/has reoccurred, will give 12.5 IV Phenergan for nausea. I reviewed the patient's CT abdomen pelvis with contrast on the corresponding radiologic report, no acute process then 5 explain the patient's symptoms, cholecystectomy hysterectomy and appendectomy are present, diffuse hepatic steatosis. Reexamination of the patient approxi-6:05 PM, I discussed all results with the patient at the bedside, patient states her nausea abdominal pain have improved after medication ministration, I did ask the patient again if she had any concern for any risky sexual behaviors/new sexual contacts, I did offer STI testing/evaluation of the patient's dermatology, patient states that she is not concerned and would not like to have testing at this time, I will prescribe the patient Phenergan p.o. outpatient to use for nausea and vomiting, patient will return to emergency with any worsening signs or symptoms, patient will follow-up with PCP, patient voiced understanding to the current treatment plan/discharge plan. Of note, I did consider obtaining TVUS to rule out ovarian torsion, however there is no large cyst noted on CT abdomen pelvis, no pelvic free fluid, patient's had prior hysterectomy, unsure of oophorectomy status. Of note, at discharge I was notified by nursing staff which was approximately 6:20 PM that the patient changed her mind and would like to be tested for STIs. Will add on gonorrhea chlamydia to the patient's urine for testing. Did offer treatment here for STI, versus waiting for culture results, patient would like to wait for culture results prior to treatment. DO Praveen: I was consulted by the [facility], and we discussed the complexity of the problems being addressed. I approved the treatment and management plan for this patient's care in the emergency department, thus performing a substantive portion of the medical decision making. Marilyn Morton, DO Critical Care <AYDEE Bush - Last Filed: 09/27/24 18:16> Critical Care Time Critical Care Time: No
[2024-09-27 16:27] LABS: Basophils # 0.1 K/mm3 (0-0.2); Basophils % 0.7 % (0.1-2.0); Eosinophils # 0.5 Kmm3 (0.0-0.4); Hematocrit 46.7 % (37.0-47.0); Hemoglobin 16.4 g/dL (12.2-16.2); Immature Granulocytes # 0.04 10^3uL; Immature Granulocytes % 0.4 %; Lymphocytes % 18.4 % (10-50); Mean Corpuscular HGB Conc 35.1 g/dL (31.8-35.4); Mean Corpuscular Hemoglobin 30.3 pg (27.0-31.2); Mean Corpuscular Volume 86.2 fl (81-99); Mean Platelet Volume 10.1 fl (7.4-10.4); Monocytes # 0.8 K/mm3 (0.1-1.0); Monocytes % 7.1 % (1.7-9.3); Neutrophils # 7.3 K/mm3 (1.8-7.8); Neutrophils % 68.4 % (37.0-80.0); Nucleated Red Blood Cells # 0 10^3/uL; Nucleated Red Blood Cells % 0 %; Platelet Count 300 K/mm3 (142-424); Red Blood Count 5.42 M/mm3 (4.20-5.40); Red Cell Distribution Width-SD 37.8 fL; White Blood Count 10.7 K/mm3 (4.8-10.8)
[2024-09-27 16:34] LABS: Microscopic, Urine URINE MICROSCOPIC (MICROSCOPIC)
[2024-09-27] MEDS: MORPHINE 4MG/ML SYRINGE 4 MG IV (16:35)
[2024-09-27] MEDS: ONDANSETRON 4MG/2ML VIAL 4 MG IV (16:35)
[2024-09-27 16:37] LABS: Appearance,Urine CLEAR (Clear); Bilirubin,Urine Negative (Negative); Blood, Urine Negative (Negative); Color,Urine YELLOW (Yellow); Glucose,Urine (UA) Negative (Negative); Ketones,Urine Negative (Negative); Leukocyte Esterase,Urine Negative (Negative); Nitrate,Urine Negative (Negative); Protein,Urine Negative (Negative); Specific Gravity, Urine 1.015 (1.005-1.030); Urobilinogen,Urine 0.2 EU/dl (0.2)
[2024-09-27 16:40] LABS: Albumin Level 4.9 g/dl (3.5-5.0); Chloride 106 mmol/L (98-107); Potassium 4.1 mmoL/L (3.5-5.1); Sodium 140 mmol/L (136-145)
[2024-09-27 16:41] LABS: HCG Qualitative, Serum Negative (Negative)
[2024-09-27 16:43] LABS: Alanine Aminotransferase 57 U/L (12-78); Albumin/Globulin Ratio 1.6 (1.1-1.8); Alkaline Phosphatase 63 U/L (38-126); Anion Gap 12.1 mEq/L (5-15); Aspartate Amino Transferase 45 U/L (14-36); Bilirubin,Total 0.3 mg/dl (0.2-1.3); Blood Urea Nitrogen 7 mg/dl (7-17); Calcium 9.7 mg/dl (8.4-10.2); Carbon Dioxide 26 mmol/L (22.0-30.0); Creatinine Clearance Estimated 78 mL/min (50-200); Estimated Glomerular Filt Rate 85 ml/min (>60); GFR (African American) 103 ML/MIN (>60); Globulin 3.1 g/dL (1.3-3.2); Glucose 103 mg/dl (74-100)
[2024-09-27 16:44] LABS: Lipase 72 U/L (23-300)
[2024-09-27 16:50] LABS: Benzodiazepines Screen,Urine Negative ng/ml (<200)
[2024-09-27 16:51] LABS: Amphetamine/Metha Screen,Urine Negative ng/ml (<1000); Barbiturates Screen,Urine Negative ng/ml (<200)
[2024-09-27 16:52] LABS: Cannabinoid Screen,Urine Negative ng/ml (<50)
[2024-09-27 16:53] LABS: Cocaine Screen,Urine Negative ng/ml (<300); Methadone Screen,Urine Negative ng/ml (<300)
[2024-09-27 16:54] LABS: Opiate Screen,Urine Negative ng/ml (<300)
[2024-09-27 16:55] LABS: Bacteria,Urine 3+ /lpf; Phencyclidine Screen,Urine Negative ng/ml (<25); Sperm,Urine OCC /lpf
[2024-09-27 17:17] VITALS: BP 134/91; PULSE 106; O2SAT 96
[2024-09-27] MEDS: SODIUM CHLORIDE 0.9% 10ML SYR (RAD ONLY) 10 ML IV (17:26)
[2024-09-27] MEDS: IOPAMIDOL-370 (76%);100ML BOTTLE 75 ML IV (17:26)
[2024-09-27] MEDS: PROMETHAZINE HCL 25MG/ML 1ML VIAL 12.5 MG IV (17:42)
[2024-09-27] MEDS: SODIUM CHLORIDE 0.9% 25ML BAG 25 ML IV (17:43)
[2024-09-27 18:04] VITALS: BP 154/90; PULSE 105; O2SAT 98
--- NOTE | 2024-09-27 18:22 | ED_ITS ---
Discharge Plan Disposition Patient Disposition: Home, Self-Care Condition: Good Prescriptions Prescriptions: New promethazine 12.5 mg tablet 12.5 mg PO TID PRN (Reason: nausea and vomiting) Qty: 14 0RF Rx Instructions: 3 doses during day; last dose no later than 4 hr before bedtime No Action quetiapine 100 mg tablet 100 mg PO HS Qty: 30 2RF alprazolam [Xanax] 2 mg tablet 2 mg PO TID cyclobenzaprine 10 mg tablet 10 mg PO BID Qty: 60 0RF ondansetron 4 mg tablet,disintegrating 4 mg PO Q6HP PRN (Reason: nausea and vomiting) 5 Days Qty: 5 0RF sumatriptan succinate [Imitrex] 100 mg tablet 100 mg PO ONCE Qty: 10 0RF Rx Instructions: 100 mg orally; Referrals Follow up/Referrals: Diego Thao MD [Primary Care Provider] - See instructions Activity Restrictions/Add. Instructions Additional Instructions/Restrictions: Please return to the emergency department any worsening signs or symptoms, please take all medications as prescribed, take promethazine 12.5 mg tablet as needed for nausea and vomiting, please follow-up with your family physician in the upcoming days. Clinical Impressions Clinical Impression: Abdominal pain Instructions Patient Instructions: DI for Acute Abdominal Pain Print Language Print Language: Romansh Discharge ED Provider: Marilyn Morton General Adult HPI <AYDEE Bush - Last Filed: 09/27/24 18:24> General Chief complaint: Abdominal Pain Stated complaint: lower abd pain vomiting Time Seen by Provider: 09/27/24 16:13 Mode of Arrival: Ambulatory Source of Information: Patient Limitations: No Limitations History of Present Illness Onset (ago): day(s) Related Data Home Medications ?Medication ?Instructions ?Recorded ?Confirmed alprazolam 2 mg tablet (Xanax) 2 mg PO TID 09/04/24 09/04/24 Previous Rx's ?Medication ?Instructions ?Recorded quetiapine 100 mg tablet 100 mg PO HS #30 tabs 05/20/24 cyclobenzaprine 10 mg tablet 10 mg PO BID #60 tabs 09/04/24 ondansetron 4 mg disintegrating 4 mg PO Q6HP PRN nausea and 09/04/24 tablet vomiting 5 days #5 tabs sumatriptan succinate 100 mg 100 mg PO ONCE #10 tabs 09/04/24 tablet (Imitrex) promethazine 12.5 mg tablet 12.5 mg PO TID PRN nausea and 09/27/24 vomiting #14 tabs Allergies Allergy/AdvReac Type Severity Reaction Status Date / Time ketorolac Allergy Severe Anaphylaxis Verified 07/08/24 10:10 hydrocodone (HYDROCODONE) Allergy Intermediate Face & Verified 07/08/24 10:10 tounge swelling latex (LATEX) Allergy Intermediate I-RASH Verified 07/08/24 10:10 sulfamethoxazole (From Allergy Unknown Verified 09/27/24 16:50 Bactrim) allergy reaction trimethoprim (From Bactrim) Allergy Unknown Verified 09/27/24 16:50 allergy reaction PFSH <AYDEE Bush - Last Filed: 09/27/24 18:24> [facility] Disclaimer: The information contained in this section may have been updated after the patient was seen, as this information can be updated by other users. Medical History Encounter for insertion of subdermal contraceptive Abnormal uterine bleeding (AUB) Nausea & vomiting NDPH (new daily persistent headache) Contusion of hand, right Menorrhagia Influenza Ankle sprain Migraine Vomiting Sprain of lumbar region Contusion of coccyx Otitis externa Strain of lumbar region Leukocytosis Allergic reaction Fracture of coccyx Hyperventilation Acute anxiety Panic attack as reaction to stress Chest pain Headache Acute gastroenteritis Fibroid uterus Ovarian cyst Anxiety Depression Surgical History History of partial hysterectomy H/O: hysterectomy [facility] 12/08/24 History of colonoscopy History of esophagogastroduodenoscopy (EGD) Hx of appendectomy History of cholecystectomy Family History Other No significant family history Social History Smoking Status: Never smoker alcohol intake: never substance use type: denies use current occupational status: unemployed Travel in the last 8 weeks?: None household members: family housing: house Have you lived/traveled outside [place] in past 30 days?: No Contact w/someone who lives/traveled outside US past 30 days?: No Exposure to someone with infectious disease in past 14 days?: No Do you have a fever (greater than 100.4 F or 38 C)?: No Have you tested positive for COVID-19?: No Exposed to someone with COVID-19 in past 14 days?: No Do you have a sore throat?: No Do you have a cough?: No Do you have any weakness?: No Do you have any diarrhea?: No Are you experiencing any unusual bleeding?: No Do you have any muscle aches/pain?: No Do you have any abdominal pain?: No Are you experiencing loss of taste or smell?: No Other Medical History Have you received the Flu Vaccine for this season: No Have you received the Pneumonia Vaccine: No <AYDEE Bush - Last Filed: 09/27/24 18:24> ROS Obtained: Yes All systems reviewed & no additional complaints except as documented Physical Exam <AYDEE Bush - Last Filed: 09/27/24 18:24> General General appearance: alert and in no apparent distress Respiratory Respiratory exam: Present normal lung sounds bilaterally Cardiovascular Cardiovascular exam: Present regular rate Neurological Exam Neurological exam: Present alert Medical Decision Making <AYDEE Bush - Last Filed: 09/27/24 18:24> Medical Records Screening: Per USPSTF and CDC recommendations, given the prevalence of disease in our region, it is our hospital?s policy to screen for HIV and viral Hepatitis for all patients aged 18 and over and those with ongoing risk factors. Gregorio Inquiry Pt receiving controlled substance: No Vital Signs: 09/27/24 15:22 09/27/24 15:42 09/27/24 16:14 Temperature 98.3 F 98.0 F Temperature Source Oral Oral Pulse Rate 124 H 113 H Pulse Rate [Left] 115 H Respiratory Rate 16 20 Blood Pressure 128/88 130/87 Blood Pressure [Right Arm] 152/91 H Blood Pressure Mean [Right Arm] 111 Blood Pressure Source Automatic Cuff Blood Pressure Source [Right Arm] Automatic Cuff Blood Pressure Position Sitting Blood Pressure Position [Right Arm] Sitting 02 Sat by Pulse Oximetry 98 97 97 Oxygen Delivery Method Room Air Room Air Room Air 09/27/24 17:17 09/27/24 18:04 09/27/24 18:24 Temperature 98.0 F Temperature Source Oral Pulse Rate 106 H 105 H 100 H Pulse Rate [Left] Respiratory Rate 18 Blood Pressure 134/91 H 154/90 H 152/98 H Blood Pressure [Right Arm] Blood Pressure Mean [Right Arm] Blood Pressure Source Automatic Cuff Automatic Cuff Blood Pressure Source [Right Arm] Blood Pressure Position Supine Blood Pressure Position [Right Arm] 02 Sat by Pulse Oximetry 96 98 Oxygen Delivery Method Room Air Room Air Room Air Lab Data Lab Results 09/27/24 15:30: Urine Color Yellow, Urine Appearance Clear, Urine pH 8.0, Ur Specific Hobbs 1.015, Urine Protein Negative, Urine Glucose (UA) Negative, Urine Ketones Negative, Urine Blood Negative, Urine Nitrate Negative, Urine Bilirubin Negative, Urine Urobilinogen 0.2, Ur Leukocyte Esterase Negative, Urine RBC None, Urine WBC 3-5, Ur Squamous Epith Cells 5-10, Urine Bacteria 3+, Urine Sperm Occ, Urine Opiates Screen Negative, Urine Methadone Screen Negative, Ur Barbituates Screen Negative, Ur Phencyclidine Scrn Negative, Ur Amphetamines Screen Negative, U Benzodiazepines Scrn Negative, Urine Cocaine Screen Negative, U Marijuana (THC) Screen Negative 09/27/24 16:15: WBC 10.7, RBC 5.42 H, Hgb 16.4 H, Hct 46.7, MCV 86.2, MCH 30.3, MCHC 35.1, RDW 12.0, Plt Count 300, MPV 10.1, Neut % (Auto) 68.4, Lymph % (Auto) 18.4, Phillips % (Auto) 7.1, Eos % (Auto) 5.0, Baso % (Auto) 0.7, Neut # (Auto) 7.3, Lymph # (Auto) 2.0, Phillips # (Auto) 0.8, Eos # (Auto) 0.5 H, Baso # (Auto) 0.1, Sodium 140, Potassium 4.1, Chloride 106, Carbon Dioxide 26, Anion Gap 12.1, BUN 7, Creatinine 0.80, Estimated Creat Clear 78, Estimated GFR 85, Est GFR ( Amer) 103, Glucose 103 H, Calcium 9.7, Total Bilirubin 0.3, AST 45 H, ALT 57, Alkaline Phosphatase 63, Total Protein 8.0, Albumin 4.9, Globulin 3.1, Albumin/Globulin Ratio 1.6, Lipase 72, Serum HCG, Qual Negative 09/27/24 16:15 09/27/24 16:15 Orders (Tests/Meds): ED MEDICATIONS Discontinued Medications Generic Name Dose Route Start Last Admin Trade Name Juanjose PRN Reason Stop Dose Admin Iopamidol 75 ml 09/27/24 17:25 09/27/24 17:26 Iopamidol-370 (76%);100ml Bottle IV 09/27/24 17:26 75 ml ONCE ONE Administration Morphine Sulfate 4 mg 09/27/24 16:23 09/27/24 16:35 Morphine 4mg/Ml Syringe IV 09/27/24 16:24 4 mg ONCE ONE Administration Ondansetron HCl 4 mg 09/27/24 16:23 09/27/24 16:35 Ondansetron 4mg/2ml Vial IV 09/27/24 16:24 4 mg ONCE ONE Administration Promethazine HCl 12.5 mg 09/27/24 17:24 09/27/24 17:42 Promethazine Hcl 25mg/Ml 1ml Vial IV 09/27/24 17:25 12.5 mg ONCE ONE Administration Sodium Chloride 25 ml 09/27/24 17:24 09/27/24 17:43 Sodium Chloride 0.9% 25ml Bag IV 09/27/24 17:25 25 ml ONCE ONE Administration Sodium Chloride 10 ml 09/27/24 17:25 09/27/24 17:26 Sodium Chloride 0.9% 10ml Syr (Rad Only) IV 09/27/24 17:26 10 ml ONCE ONE Administration ORDERS Category Date Time Status CT abdomen pelvis w con Stat Cat Scan 09/27/24 16:22 Completed Complete Blood Count Auto Diff Stat Lab 09/27/24 16:15 Completed Comprehensive Metabolic Panel Stat Lab 09/27/24 16:15 Completed Drug Screen,Urine Stat Lab 09/27/24 15:30 Completed HCG Qualitative, Serum Stat Lab 09/27/24 16:15 Completed Lactic Acid Stat Lab 09/27/24 16:21 Ordered Lipase Stat Lab 09/27/24 16:15 Completed Urinalysis and Microscopic Stat Lab 09/27/24 15:30 Completed Urine Culture Stat Micro 09/27/24 15:30 Received Medical Decision Narrative: Of note, at discharge I was notified by nursing staff which was approximately 6:20 PM that the patient changed her mind and would like to be tested for STIs. Will add on gonorrhea chlamydia to the patient's urine for testing. Did offer treatment here for STI, versus waiting for culture results, patient would like to wait for culture results prior to treatment. <Marilyn Morton, DO - Last Filed: 09/27/24 19:22> Vital Signs: 09/27/24 15:22 09/27/24 15:42 09/27/24 16:14 Temperature 98.3 F 98.0 F Temperature Source Oral Oral Pulse Rate 124 H 113 H Pulse Rate [Left] 115 H Respiratory Rate 16 20 Blood Pressure 128/88 130/87 Blood Pressure [Right Arm] 152/91 H Blood Pressure Mean [Right Arm] 111 Blood Pressure Source Automatic Cuff Blood Pressure Source [Right Arm] Automatic Cuff Blood Pressure Position Sitting Blood Pressure Position [Right Arm] Sitting 02 Sat by Pulse Oximetry 98 97 97 Oxygen Delivery Method Room Air Room Air Room Air 09/27/24 17:17 09/27/24 18:04 09/27/24 18:24 Temperature 98.0 F Temperature Source Oral Pulse Rate 106 H 105 H 100 H Pulse Rate [Left] Respiratory Rate 18 Blood Pressure 134/91 H 154/90 H 152/98 H Blood Pressure [Right Arm] Blood Pressure Mean [Right Arm] Blood Pressure Source Automatic Cuff Automatic Cuff Blood Pressure Source [Right Arm] Blood Pressure Position Supine Blood Pressure Position [Right Arm] 02 Sat by Pulse Oximetry 96 98 Oxygen Delivery Method Room Air Room Air Room Air Lab Data Lab Results 09/27/24 15:30: Urine Color Yellow, Urine Appearance Clear, Urine pH 8.0, Ur Specific Hobbs 1.015, Urine Protein Negative, Urine Glucose (UA) Negative, Urine Ketones Negative, Urine Blood Negative, Urine Nitrate Negative, Urine Bilirubin Negative, Urine Urobilinogen 0.2, Ur Leukocyte Esterase Negative, Urine RBC None, Urine WBC 3-5, Ur Squamous Epith Cells 5-10, Urine Bacteria 3+, Urine Sperm Occ, Urine Opiates Screen Negative, Urine Methadone Screen Negative, Ur Barbituates Screen Negative, Ur Phencyclidine Scrn Negative, Ur Amphetamines Screen Negative, U Benzodiazepines Scrn Negative, Urine Cocaine Screen Negative, U Marijuana (THC) Screen Negative 09/27/24 16:15: WBC 10.7, RBC 5.42 H, Hgb 16.4 H, Hct 46.7, MCV 86.2, MCH 30.3, MCHC 35.1, RDW 12.0, Plt Count 300, MPV 10.1, Neut % (Auto) 68.4, Lymph % (Auto) 18.4, Phillips % (Auto) 7.1, Eos % (Auto) 5.0, Baso % (Auto) 0.7, Neut # (Auto) 7.3, Lymph # (Auto) 2.0, Phillips # (Auto) 0.8, Eos # (Auto) 0.5 H, Baso # (Auto) 0.1, Sodium 140, Potassium 4.1, Chloride 106, Carbon Dioxide 26, Anion Gap 12.1, BUN 7, Creatinine 0.80, Estimated Creat Clear 78, Estimated GFR 85, Est GFR ( Amer) 103, Glucose 103 H, Calcium 9.7, Total Bilirubin 0.3, AST 45 H, ALT 57, Alkaline Phosphatase 63, Total Protein 8.0, Albumin 4.9, Globulin 3.1, Albumin/Globulin Ratio 1.6, Lipase 72, Serum HCG, Qual Negative Orders (Tests/Meds): ED MEDICATIONS Discontinued Medications Generic Name Dose Route Start Last Admin Trade Name Freq PRN Reason Stop Dose Admin Iopamidol 75 ml 09/27/24 17:25 09/27/24 17:26 Iopamidol-370 (76%);100ml Bottle IV 09/27/24 17:26 75 ml ONCE ONE Administration Morphine Sulfate 4 mg 09/27/24 16:23 09/27/24 16:35 Morphine 4mg/Ml Syringe IV 09/27/24 16:24 4 mg ONCE ONE Administration Ondansetron HCl 4 mg 09/27/24 16:23 09/27/24 16:35 Ondansetron 4mg/2ml Vial IV 09/27/24 16:24 4 mg ONCE ONE Administration Promethazine HCl 12.5 mg 09/27/24 17:24 09/27/24 17:42 Promethazine Hcl 25mg/Ml 1ml Vial IV 09/27/24 17:25 12.5 mg ONCE ONE Administration Sodium Chloride 25 ml 09/27/24 17:24 09/27/24 17:43 Sodium Chloride 0.9% 25ml Bag IV 09/27/24 17:25 25 ml ONCE ONE Administration Sodium Chloride 10 ml 09/27/24 17:25 09/27/24 17:26 Sodium Chloride 0.9% 10ml Syr (Rad Only) IV 09/27/24 17:26 10 ml ONCE ONE Administration ORDERS Category Date Time Status CT abdomen pelvis w con Stat Cat Scan 09/27/24 16:22 Completed Complete Blood Count Auto Diff Stat Lab 09/27/24 16:15 Completed Comprehensive Metabolic Panel Stat Lab 09/27/24 16:15 Completed Drug Screen,Urine Stat Lab 09/27/24 15:30 Completed HCG Qualitative, Serum Stat Lab 09/27/24 16:15 Completed Lactic Acid Stat Lab 09/27/24 16:21 Ordered Lipase Stat Lab 09/27/24 16:15 Completed Urinalysis and Microscopic Stat Lab 09/27/24 15:30 Completed Urine Culture Stat Micro 09/27/24 15:30 Received Medical Decision Narrative: Of note, at discharge I was notified by nursing staff which was approximately 6:20 PM that the patient changed her mind and would like to be tested for STIs. Will add on gonorrhea chlamydia to the patient's urine for testing. Did offer treatment here for STI, versus waiting for culture results, patient would like to wait for culture results prior to treatment. Praveen, DO: Please see initial note regarding visit/care Critical Care <AYDEE Bush - Last Filed: 09/27/24 18:24> Critical Care Time Critical Care Time: No
[2024-09-27 18:24] VITALS: BP 152/98; PULSE 100; RESP 18; TEMP 36.7; O2SAT 99
[2024-09-28 02:44] LABS: Chlamydia trachomatis Negative (Negative); Neisseria gonorrhoeae Negative (Negative); Trichomonas vaginalis Negative (Negative)
== END 2024-09-27 18:25 | disposition home or self-care (01) ==
PROVIDERS: Physician Assistant; Emergency Provider Emergency Medicine; PCP Family Medicine
DX: R10.30 Lower abdominal pain, unspecified (principal); R11.2 Nausea with vomiting, unspecified
CPT/HCPCS: 74177; 80053; 80307; 81001; 83690; 84703; 85025; 87086; 87491; 87591; 87661; 96374; 96375; 99285; J2270; J2405; J2550; Q9967

== ENCOUNTER 2024-10-14 15:48 | Emergency (ER) | payer OTHER, SELFPAY ==
[2024-10-14] VITALS (10 sets, daily range): BP systolic 127–155; BP diastolic 71–120; PULSE 87–115; RESP 17–18; TEMP 36.6–36.9; O2SAT 92–98; BMI 41.5
--- NOTE | 2024-10-14 15:59 | ED_ITS ---
Discharge Plan Disposition Patient Disposition: Home, Self-Care Prescriptions Prescriptions: No Action esomeprazole magnesium 20 mg capsule,delayed release(DR/EC) 20 mg PO BID Patient Comments: TAKE 1 CAPSULE BY MOUTH DAILY quetiapine 100 mg tablet 100 mg PO HS Qty: 30 2RF phentermine [Adipex-P] 37.5 mg tablet 37.5 mg PO DAILY Qty: 30 1RF Rx Instructions: must administer 30 minutes before or 1-2 hours after breakfast desvenlafaxine succinate 25 mg tablet extended release 24 hr 25 mg PO DAILY alprazolam [Xanax] 2 mg tablet 2 mg PO TID Referrals Follow up/Referrals: Diego Thao MD [Primary Care Provider, Internal Medicine] - See instructions Activity Restrictions/Add. Instructions Additional Instructions/Restrictions: Follow-up with primary care doctor and [facility]. Please return to the ER with any new, concerning, worsening symptoms. Clinical Impressions Clinical Impression: Pelvic pain Instructions Patient Instructions: DI for Acute Abdominal Pain Print Language Print Language: Mauritanian Discharge ED Provider: Richard Boykin General Adult HPI General Chief complaint: Abdominal Pain Stated complaint: Pelvic pain Time Seen by Provider: 10/14/24 15:53 Mode of Arrival: Ambulatory Source of Information: Patient Limitations: No Limitations History of Present Illness HPI narrative: This is a 29-year-old female with a history of endometriosis status post hysterectomy who presents with pelvic pain for the last 4 hours. States that has been progressively worsening since then. Located to the central pelvic area. Denies any vaginal bleeding or discharge. States that she has a history of ovarian cyst as well however they have never caused pain this bad. Has a history of cholecystectomy and appendectomy as well. Denies fever or vomiting. Related Data Home Medications ?Medication ?Instructions ?Recorded ?Confirmed alprazolam 2 mg tablet (Xanax) 2 mg PO TID 09/04/24 esomeprazole magnesium 20 mg 20 mg PO BID 09/28/24 capsule,delayed release desvenlafaxine succinate 25 mg 25 mg PO DAILY 10/14/24 10/14/24 tablet,extended release 24 hr Previous Rx's ?Medication ?Instructions ?Recorded quetiapine 100 mg tablet 100 mg PO HS #30 tabs phentermine 37.5 mg tablet 37.5 mg PO DAILY Weight los s #30 09/30/24 (Adipex-P) tabs Allergies Allergy/AdvReac Type Severity Reaction Status Date / Time ketorolac Allergy Severe Anaphylaxis Verified 10/14/24 16:14 hydrocodone (HYDROCODONE) Allergy Intermediate Face & Verified 10/14/24 16:14 tounge swelling latex (LATEX) Allergy Intermediate I-RASH Verified 10/14/24 16:14 sulfamethoxazole (From Allergy Rash Verified 10/14/24 16:14 Bactrim) trimethoprim (From Bactrim) Allergy Rash Verified 10/14/24 16:14 PFSH [facility] Disclaimer: The information contained in this section may have been updated after the patient was seen, as this information can be updated by other users. Medical History Encounter for insertion of subdermal contraceptive Abnormal uterine bleeding (AUB) Nausea & vomiting NDPH (new daily persistent headache) Contusion of hand, right Menorrhagia Influenza Ankle sprain Migraine Vomiting Sprain of lumbar region Contusion of coccyx Otitis externa Strain of lumbar region Leukocytosis Allergic reaction Fracture of coccyx Hyperventilation Acute anxiety Panic attack as reaction to stress Chest pain Headache Acute gastroenteritis Fibroid uterus Ovarian cyst Anxiety Depression Surgical History History of partial hysterectomy H/O: hysterectomy [facility] 12/08/24 History of colonoscopy History of esophagogastroduodenoscopy (EGD) Hx of appendectomy History of cholecystectomy Family History Other No significant family history Social History Smoking Status: Never smoker alcohol intake: never substance use type: denies use current occupational status: unemployed Travel in the last 8 weeks?: None household members: family housing: house Have you lived/traveled outside [place] in past 30 days?: No Contact w/someone who lives/traveled outside US past 30 days?: No Exposure to someone with infectious disease in past 14 days?: No Do you have a fever (greater than 100.4 F or 38 C)?: No Have you tested positive for COVID-19?: No Exposed to someone with COVID-19 in past 14 days?: No Do you have a sore throat?: No Do you have a cough?: No Do you have any weakness?: No Do you have any diarrhea?: No Are you experiencing any unusual bleeding?: No Do you have any muscle aches/pain?: No Do you have any abdominal pain?: No Are you experiencing loss of taste or smell?: No Other Medical History Have you received the Flu Vaccine for this season: No Have you received the Pneumonia Vaccine: No ROS Obtained: Yes All systems reviewed & no additional complaints except as documented Physical Exam General General appearance: alert and in distress (Clutching lower pelvis rocking back and forth in significant pain) Head Head exam: atraumatic Eye Eye exam: Present normal appearance, PERRL and EOMI Neck Neck exam: Present normal inspection and full ROM Chest Chest inspection: Present symmetric chest wall rise Respiratory Respiratory exam: Present normal lung sounds bilaterally; Absent respiratory distress Cardiovascular Cardiovascular exam: Present normal rhythm and tachycardia Abdominal Exam Abdominal exam: Present soft and tenderness (Significantly tender to the suprapubic area); Absent distention, guarding or rebound Extremities Exam Extremities exam: Present normal inspection Neurological Exam Neurological exam: Present alert and oriented X3 Psychiatric Psychiatric exam: Present normal affect and normal mood Skin Skin exam: Present warm and dry Medical Decision Making Medical Records Medical records reviewed: Yes I reviewed the patient's medical records. Screening: Per USPSTF and CDC recommendations, given the prevalence of disease in our region, it is our hospital?s policy to screen for HIV and viral Hepatitis for all patients aged 18 and over and those with ongoing risk factors. MR Comment: [facility] clinic visit from 05/21/2024 notable for patient's past medical history as noted above. Noted the patient has had multiple emergency department visits and 3 different local emergency departments. Pelvic ultrasound in April showed resolving left ovarian cyst. There was concern that patient was drug-seeking and that surgery would not resolve her pain. Gregorio Inquiry Pt receiving controlled substance: No Vital Signs: 10/14/24 16:04 10/14/24 16:19 10/14/24 16:31 Temperature 98.5 F Temperature Source Oral Pulse Rate 114 H 108 H Pulse Rate [Right Radial] 87 Respiratory Rate 17 Blood Pressure 144/71 H 154/109 H Blood Pressure [Right Arm] 151/87 H Blood Pressure Mean 119 Blood Pressure Mean [Right Arm] 108 Blood Pressure Source [Right Arm] Automatic Cuff Blood Pressure Position [Right Arm] Sitting 02 Sat by Pulse Oximetry 98 93 L 92 L Oxygen Delivery Method Room Air Room Air 10/14/24 17:04 10/14/24 17:30 10/14/24 18:01 Temperature Temperature Source Pulse Rate 115 H 102 H 105 H Pulse Rate [Right Radial] Respiratory Rate Blood Pressure 128/95 H 127/85 155/88 H Blood Pressure [Right Arm] Blood Pressure Mean 106 99 Blood Pressure Mean [Right Arm] Blood Pressure Source [Right Arm] Blood Pressure Position [Right Arm] 02 Sat by Pulse Oximetry 95 94 L 95 Oxygen Delivery Method Room Air 10/14/24 18:31 10/14/24 19:00 10/14/24 19:35 Temperature Temperature Source Pulse Rate 99 H 106 H 104 H Pulse Rate [Right Radial] Respiratory Rate Blood Pressure 135/90 145/120 H 129/75 Blood Pressure [Right Arm] Blood Pressure Mean Blood Pressure Mean [Right Arm] Blood Pressure Source [Right Arm] Blood Pressure Position [Right Arm] 02 Sat by Pulse Oximetry 93 L 93 L 96 Oxygen Delivery Method Room Air Room Air Lab Data Lab Results 10/14/24 16:18: WBC 7.7, RBC 5.27, Hgb 15.9, Hct 46.0, MCV 87.3, MCH 30.2, MCHC 34.6, RDW 12.3, Plt Count 308, MPV 10.8 H, Neut % (Auto) 66.6, Lymph % (Auto) 19.6, [place] % (Auto) 7.3, Eos % (Auto) 5.4, Baso % (Auto) 0.8, Neut # (Auto) 5.1, Lymph # (Auto) 1.5, [place] # (Auto) 0.6, Eos # (Auto) 0.4, Baso # (Auto) 0.1, Sodium 141, Potassium 3.7, Chloride 105, Carbon Dioxide 27, Anion Gap 12.7, BUN 7, Creatinine 0.90, Estimated Creat Clear 70, Estimated GFR 74, Est GFR ( Amer) 90, Glucose 110 H, Calcium 9.5, Total Bilirubin 0.7, AST 52 H, ALT 64, Alkaline Phosphatase 61, Total Protein 8.1, Albumin 4.9, Globulin 3.2, Albumin/Globulin Ratio 1.5, Lipase 141, Serum HCG, Qual Negative 10/14/24 16:45: Urine Color Yellow, Urine Appearance Cloudy, Urine pH 6.0, Ur Specific Pione[place] >= 1.030, Urine Protein Trace, Urine Glucose (UA) Negative, Urine Ketones 1+, Urine Blood Negative, Urine Nitrate Positive A, Urine Bilirubin Negative, Urine Urobilinogen 0.2, Ur Leukocyte Esterase Negative, Urine RBC 10-20, Urine WBC Tntc, Ur Squamous Epith Cells 50-100, Urine Bacteria 4+ 10/14/24 16:18 10/14/24 16:18 Orders (Tests/Meds): ED MEDICATIONS Discontinued Medications Generic Name Dose Route Start Last Admin Trade Name Freq PRN Reason Stop Dose Admin Hydromorphone HCl 1 mg 10/14/24 15:58 10/14/24 16:26 Hydromorphone 2mg/Ml Syringe IV 10/14/24 15:59 1 mg ONCE ONE Administration Hydromorphone HCl 1 mg 10/14/24 17:56 10/14/24 18:04 Hydromorphone 2mg/Ml Syringe IV 10/14/24 17:57 1 mg ONCE ONE Administration Lactated Ringer's 1,000 mls @ 999 mls/hr 10/14/24 15:57 10/14/24 16:37 Lactated Ringer's 1000 Ml Bag IV 10/14/24 16:57 999 mls/hr .Q1H1M ONE Administration Ondansetron HCl 4 mg 10/14/24 15:57 10/14/24 16:25 Ondansetron 4mg/2ml Vial IV 10/14/24 15:58 4 mg ONCE ONE Administration ORDERS Category Date Time Status US transvaginal Stat Exams 10/14/24 17:32 Completed CBC w/Auto Diff [Complete Blood Count Auto Diff] Stat Lab 10/14/24 16:18 Completed CMP [Comprehensive Metabolic Panel] Stat Lab 10/14/24 16:18 Completed HCG Qualitative, Serum Stat Lab 10/14/24 16:18 Completed Lipase Stat Lab 10/14/24 16:18 Completed Urinalysis and Microscopic Stat Lab 10/14/24 16:45 Completed Urine Culture Stat Micro 10/14/24 16:45 Received Medical Decision Narrative: In summary, this 29-year-old female with a history of endometriosis and ovarian cyst status post hysterectomy presents to the emergency department today with pelvic pain for the last 4 hours. On initial evaluation patient is afebrile, hemodynamically stable, in significant distress clutching her lower pelvis. Differential diagnosis includes but is not limited to ovarian torsion, ectopic , UTI. Based on these concerns, I ordered CBC, CMP, lipase, lactate, test, transvaginal ultrasound. Patient received Dilaudid, Zofran, 1 L of lactated Ringer's for treatment. Labs personally reviewed demonstrate negative test, contaminated urine specimen so unable to determine if patient has UTI, however she does not have any symptoms of dysuria or frequency. Patient did not believe that she had a UTI. Will forego retesting. Nonactionable CBC and CMP. Considered CT abdomen pelvis with IV contrast however patient has a history of a appendectomy so appendicitis is not a concern and the etiology of patient's pain seems to be more pelvic. Will begin with ultrasound and then reevaluate need for CT. Ultrasound was independently interpreted by me, revealing no evidence of ovarian torsion. Patient has known left-sided ovarian cyst. On reassessment patient still complaining of pain. On chart review, it was evident the patient had had multiple emergency department visits for similar presentations. [facility] [employer] [facility] expressed concern for pain seeking behavior. Discussed that giving the patient further narcotics would likely not benefit her and increase her risk of hyperalgesia. Patient expressed understanding and she was ultimately discharged with plan for outpatient follow-up. Critical Care Critical Care Time Critical Care Time: No
[2024-10-14] MEDS: ONDANSETRON 4MG/2ML VIAL 4 MG IV (16:25)
[2024-10-14] MEDS: HYDROMORPHONE 2MG/ML SYRINGE 1 MG IV ×2 (16:26→18:04)
[2024-10-14] MEDS: LACTATED RINGERS 1000ML 1,000 ML 999 ML IV (16:37)
--- NOTE | 2024-10-14 16:42 | PC.NURSE ---
CALLED RADIOLOGY TO [facility] V[facility]AL ULTRASOUND IN TO DO ONE FOR RULE OUT VAGINAL TORSION
--- NOTE | 2024-10-14 17:32 | US_ITS ---
PROCEDURE INFORMATION: Exam: US Pelvis, Transvaginal, Non-Obstetric Exam date and time: 10/14/2024 5:27 PM Age: 29 years old Clinical indication: Pelvic pain; Prior surgery; Surgery date: 6+ months; Surgery type: Uterus removed; Additional info: R/O torsion TECHNIQUE: Imaging protocol: Real-time transvaginal pelvic (non-obstetric) ultrasound with image documentation. Transvaginal imaging was used for better evaluation of the endometrium, adnexa, and/or cervix. COMPARISON: US TRANSVAGINAL 07/19/2024 12:46 PM FINDINGS: Uterus: Hysterectomy. Right ovary/adnexa: Small ovarian follicles. Normal ovarian blood flow on color Doppler. Left ovary/adnexa: 2.2 cm left ovarian cyst. Normal ovarian blood flow on color Doppler. Urinary bladder: Not visualized. Intraperitoneal space: No free fluid. IMPRESSION: 1. Hysterectomy. 2. 2.2 cm left ovarian cyst. 3. No evidence of ovarian torsion.
[2024-10-14 18:32] LABS: Basophils # 0.1 K/mm3 (0-0.2); Basophils % 0.8 % (0.1-2.0); Eosinophils # 0.4 Kmm3 (0.0-0.4); Eosinophils % 5.4 % (0.1-12.0); Hemoglobin 15.9 g/dL (12.2-16.2); Immature Granulocytes # 0.02 10^3uL; Immature Granulocytes % 0.3 %; Lymphocytes # 1.5 K/mm3 (0.7-4.5); Lymphocytes % 19.6 % (10-50); Mean Corpuscular HGB Conc 34.6 g/dL (31.8-35.4); Mean Corpuscular Hemoglobin 30.2 pg (27.0-31.2); Mean Corpuscular Volume 87.3 fl (81-99); Mean Platelet Volume 10.8 fl (7.4-10.4); Monocytes # 0.6 K/mm3 (0.1-1.0); Monocytes % 7.3 % (1.7-9.3); Neutrophils # 5.1 K/mm3 (1.8-7.8); Neutrophils % 66.6 % (37.0-80.0); Nucleated Red Blood Cells # 0 10^3/uL; Nucleated Red Blood Cells % 0 %; Platelet Count 308 K/mm3 (142-424); Red Blood Count 5.27 M/mm3 (4.20-5.40); Red Cell Distribution Width 12.3 % (11.5-17.5); White Blood Count 7.7 K/mm3 (4.8-10.8)
[2024-10-14 18:36] LABS: Chloride 105 mmol/L (98-107)
[2024-10-14 18:37] LABS: Albumin Level 4.9 g/dl (3.5-5.0); Potassium 3.7 mmoL/L (3.5-5.1); Sodium 141 mmol/L (136-145)
[2024-10-14 18:38] LABS: HCG Qualitative, Serum Negative (Negative)
[2024-10-14 18:39] LABS: Blood Urea Nitrogen 7 mg/dl (7-17); Creatinine Clearance Estimated 70 mL/min (50-200); Estimated Glomerular Filt Rate 74 ml/min (>60); GFR (African American) 90 ML/MIN (>60); Lipase 141 U/L (23-300)
[2024-10-14 18:40] LABS: Alanine Aminotransferase 64 U/L (12-78); Albumin/Globulin Ratio 1.5 (1.1-1.8); Alkaline Phosphatase 61 U/L (38-126); Anion Gap 12.7 mEq/L (5-15); Aspartate Amino Transferase 52 U/L (14-36); Bilirubin,Total 0.7 mg/dl (0.2-1.3); Calcium 9.5 mg/dl (8.4-10.2); Carbon Dioxide 27 mmol/L (22.0-30.0); Globulin 3.2 g/dL (1.3-3.2); Glucose 110 mg/dl (74-100); Total Protein,Serum 8.1 g/dl (6.3-8.2)
[2024-10-14 18:44] LABS: Microscopic, Urine URINE MICROSCOPIC (MICROSCOPIC)
[2024-10-14 18:50] LABS: Appearance,Urine CLOUDY (Clear); Bilirubin,Urine Negative (Negative); Blood, Urine Negative (Negative); Color,Urine YELLOW (Yellow); Glucose,Urine (UA) Negative (Negative); Ketones,Urine 1+ (Negative); Leukocyte Esterase,Urine Negative (Negative); Nitrate,Urine POSITIVE (Negative); Protein,Urine TRACE (Negative); Specific Gravity, Urine >= 1.030 (1.005-1.030); Urobilinogen,Urine 0.2 EU/dl (0.2)
[2024-10-14 19:34] LABS: Bacteria,Urine 4+ /lpf; Squamous Epithelial Cell,Urine 50-100 #/hpf (0-5); WBC,Urine TNTC #/hpf (0-3)
--- NOTE | 2024-10-14 19:40 | PC.NURSE ---
IV discontinued. Catheter tip intact. Bleeding controlled.
== END 2024-10-14 19:46 | disposition home or self-care (01) ==
PROVIDERS: Emergency Provider Student in an Organized Health Care Education/Training Program; PCP Family Medicine
DX: R10.0 Acute abdomen (principal)
CPT/HCPCS: 76830; 80053; 81001; 83690; 84703; 85025; 87086; 96361; 96374; 96375; 96376; 99284; J1171; J2405; J7120